=== PATIENT | male | born 1955 | race Caucasian/White ===

== ENCOUNTER 2017-02-18 22:35 | Inpatient (IN) | payer OTHER, MEDICARE ==
[~2017-02-18] VITALS: Ht 177.8 cm; Wt 121.8 kg
[~2017-02-18 22:35] MED LIST: ASPI81 PO; ATEN-102 PO; BACL20TA PO; BENA25TA8 PO; CLOR1TAB21 PO; FENO160T PO; LOVA1TAB47 PO; MELO15TA2 PO; OMEP20CA5 PO; PERC10TA27 PO; SERT50 PO
[2017-02-18 22:38] VITALS: BP 210/99; PULSE 61; RESP 16; TEMP 97.7; O2SAT 98
[2017-02-19] VITALS (13 sets, daily range): BP systolic 119–171; BP diastolic 67–96; PULSE 60–79; RESP 16–20; TEMP 98–99.3; O2SAT 95–98
[2017-02-19] MEDS ORDERED: LOSA50TA PO (00:10)
[2017-02-19] MEDS ORDERED: CLON1 PO (00:10)
[2017-02-19] MEDS ORDERED: BACL20TA PO (00:10)
[2017-02-19] MEDS ORDERED: LOVA40TA PO (00:10)
[2017-02-19] MEDS ORDERED: MELO15TA20 PO (00:10)
[2017-02-19] MEDS ORDERED: ATEN50TA PO (00:10)
[2017-02-19] MEDS ORDERED: MONT10TA2 PO (00:10)
[2017-02-19] MEDS ORDERED: OMEP40CA2 PO (00:10)
[2017-02-19] MEDS ORDERED: SERT-129 PO (00:10)
[2017-02-19] MEDS ORDERED: ASPI-516 CHEW (00:10)
[2017-02-19] MEDS ORDERED: FENO160T PO (00:10)
[2017-02-19] MEDS ORDERED: MS C15TA7 PO (00:10)
[2017-02-19] MEDS ORDERED: VITA2000 PO (00:10)
--- NOTE | 2017-02-19 00:18 | PD ---
HPI Chief Complaint: Abdominal Pain Time Seen by Provider: 00:04 Travel History International Travel<30 days: No Contact w/Intl Traveler<30days: No Traveled to known affect area: No History of Present Illness HPI 61-year-old male presents to the emergency department for complaint of upper abdominal pain since 6 PM. Patient states that he does not typically have abdominal pain. Pain does not radiate into his chest neck jaw back shoulder or arms. Patient's had nausea but no vomiting. Patient is concerned that he has appendicitis. Patient also reports that he is in the process of being scheduled to see a prestidigitator because on a routine 6 month physical exam he was identified to have an EKG that showed inverted T waves and was referred to a prestidigitator for this finding. Patient denies having any chest pain. Patient has not ever had a cardiac evaluation in the past. Patient has no chest pain at this time. No report of shortness of breath. Patient's had no diaphoresis. Patient has history of tension and dyslipidemia but is not diabetic and no known coronary vessel disease and is not a smoker of tobacco. Patient states she has had numerous orthopedic surgeries to the neck back and knees. Patient is unable to identify exacerbating or alleviating factors although did have a hamburger prior to onset of these symptoms and has spit up a few pieces of hamburger but mostly his had nausea without vomiting. Patient denies hematemesis coffee-ground emesis melena or hematochezia. PFSH Past Medical History Narrative Medical Hypertension dyslipidemia COPD chronic pain syndrome no tobacco use nursing notes reviewed Arthritis: Yes Anxiety: Yes Depression: Yes High Cholesterol: Yes Hypertension: Yes Seizures: Yes (PSEUDOSEIZURES) ?: Not Past Surgical History Other Surgery: Yes (CERVICAL FUSION C2-3 4-5 5-6) Social History Alcohol Use: No Tobacco Use: No Substance Use: No Allergies-Medications (Allergen,Severity, Reaction): Coded Allergies: No Known Allergies (Unverified Allergy, Unknown, 02/19/17) Reported Meds & Prescriptions Reported Meds & Active Scripts Active Reported Singulair (Montelukast Sodium) 10 Mg Tab 10 Mg PO HS Sertraline (Sertraline HCl) 100 Mg Tab 100 Mg PO DAILY Vitamin D3 (Cholecalciferol) 2,000 Unit Cap 2,000 Units PO DAILY Aspirin 81 Mg Chew 81 Mg CHEW ONCE Meloxicam 15 Mg Tab 15 Mg PO DAILY Omeprazole 40 Mg Cap 40 Mg PO DAILY Lovastatin 40 Mg Tab 40 Mg PO DAILY Fenofibrate 160 Mg Tab 160 Mg PO DAILY Atenolol 50 Mg Tab 50 Mg PO BID Losartan (Losartan Potassium) 50 Mg Tab 50 Mg PO DAILY Baclofen 20 Mg Tab 20 Mg PO TID Klonopin (Clonazepam) 1 Mg Tab 1 Mg PO BID Ms Contin (Morphine Sulfate) 15 Mg Tab 30 Mg PO Q8H Review of Systems Except as stated in HPI: all other systems reviewed are Neg General / Constitutional: No: Fever, Chills HENT: No: Congestion Cardiovascular: No: Chest Pain or Discomfort Respiratory: No: Shortness of Breath Gastrointestinal: Positive: Nausea, Abdominal Pain, No: Vomiting, Diarrhea Genitourinary: No: Flank Pain Musculoskeletal: No: Myalgias, Arthralgias Skin: No Rash Neurologic: No: Headache Psychiatric: No: Anxiety Hematologic/Lymphatic: No: Lymph Node Enlargement Physical Exam Narrative GENERAL: Well-developed well-nourished male in obvious discomfort holding his upper abdomen SKIN: Warm and dry. HEAD: Normocephalic. EYES: No scleral icterus. No injection or drainage. NECK: Supple, trachea midline. No JVD or lymphadenopathy. CARDIOVASCULAR: Regular rate and rhythm without murmurs, gallops, or rubs. RESPIRATORY: Breath sounds equal bilaterally. No accessory muscle use. GASTROINTESTINAL: Abdomen soft, epigastric and right upper quadrant tender to palpation without guarding or rebound, nondistended. MUSCULOSKELETAL: No cyanosis, or edema. BACK: Nontender without obvious deformity. No CVA tenderness. Data Data Last Documented VS Vital Signs Date Time Temp Pulse Resp B/P (MAP) Pulse Ox O2 Delivery O2 Flow Rate FiO2 02/19/17 03:44 62 16 167/81 (109) 98 Room Air 02/19/17 00:03 98.0 Orders Orders Complete Blood Count With Diff (02/19/17 00:18) Comprehensive Metabolic Panel (02/19/17 00:18) Lipase (02/19/17 00:18) Lactic Acid (02/19/17 00:18) Prothrombin Time / Inr (Pt) (02/19/17 00:18) Act Partial Throm Time (Ptt) (02/19/17 00:18) Urinalysis - C+S If Indicated (02/19/17 00:18) Iv Access Insert/Monitor (02/19/17 00:18) Ecg Monitoring (02/19/17 00:18) Oximetry (02/19/17 00:18) Ondansetron Inj (Zofran Inj) (02/19/17 00:30) Sodium Chloride 0.9% Flush (Ns Flush) (02/19/17 00:30) Electrocardiogram (02/19/17 00:18) Chest, Single Ap (02/19/17 00:18) Aspirin Chew (Aspirin Chew) (02/19/17 00:30) Nitroglycerin Sl (Nitrostat Sl) (02/19/17 00:30) Troponin I (02/19/17 01:28) Hydromorphone Pf Inj (Dilaudid Pf Inj) (02/19/17 01:45) Nitroglycerin 2% Oint (Nitroglycerin 2% (02/19/17 01:45) Sodium Chlor 0.9% 1000 Ml Inj (Ns 1000 M (02/19/17 01:45) Ct Abd/Pel W Iv Contrast(Rout) (02/19/17 ) Iohexol 350 Inj (Omnipaque 350 Inj) (02/19/17 02:32) Troponin I (02/19/17 03:30) Ckmb (Isoenzyme) Profile (02/19/17 03:30) Hydromorphone Pf Inj (Dilaudid Pf Inj) (02/19/17 03:45) Us Abdomen Gallbladder (02/19/17 ) Admit Order (Ed Use Only) (02/19/17 ) Public Records Researcher / Telemetry [id number].[id number] (02/19/17 04:10) Activity Oob With Assistance (02/19/17 04:10) Notify Dr: Other (02/19/17 04:10) Labs Laboratory Tests Test 02/19/17 00:27 02/19/17 02:55 02/19/17 03:40 White Blood Count 10.8 TH/MM3 Red Blood Count 5.10 MIL/MM3 Hemoglobin 16.2 GM/DL Hematocrit 46.3 % Mean Corpuscular Volume 90.7 FL Mean Corpuscular Hemoglobin 31.7 PG Mean Corpuscular Hemoglobin Concent 35.0 % Red Cell Distribution Width 12.7 % Platelet Count 210 TH/MM3 Mean Platelet Volume 8.4 FL Neutrophils (%) (Auto) 92.3 % Lymphocytes (%) (Auto) 4.2 % Monocytes (%) (Auto) 3.2 % Eosinophils (%) (Auto) 0.2 % Basophils (%) (Auto) 0.1 % Neutrophils # (Auto) 10.0 TH/MM3 Lymphocytes # (Auto) 0.5 TH/MM3 Monocytes # (Auto) 0.3 TH/MM3 Eosinophils # (Auto) 0.0 TH/MM3 Basophils # (Auto) 0.0 TH/MM3 CBC Comment DIFF FINAL Differential Comment Prothrombin Time 10.7 SEC Prothromb Time International Ratio 1.1 RATIO Activated Partial Thromboplast Time 25.7 SEC Blood Urea Nitrogen 12 MG/DL Creatinine 1.02 MG/DL Random Glucose 137 MG/DL Total Protein 8.0 GM/DL Albumin 4.1 GM/DL Calcium Level 9.0 MG/DL Alkaline Phosphatase 92 U/L Aspartate Amino Transf (AST/SGOT) 24 U/L Alanine Aminotransferase (ALT/SGPT) 28 U/L Total Bilirubin 0.8 MG/DL Sodium Level 138 MEQ/L Potassium Level 3.6 MEQ/L Chloride Level 99 MEQ/L Carbon Dioxide Level 33.9 MEQ/L Anion Gap 5 MEQ/L Estimat Glomerular Filtration Rate 74 ML/MIN Lactic Acid Level 2.1 mmol/L Troponin I LESS THAN 0.02 NG/ML LESS THAN 0.02 NG/ML Lipase 95 U/L Urine Color YELLOW Urine Turbidity CLEAR Urine pH 6.5 Urine Specific [place] 1.031 Urine Protein NEG mg/dL Urine Glucose (UA) NEG mg/dL Urine Ketones NEG mg/dL Urine Occult Blood NEG Urine Nitrite NEG Urine Bilirubin NEG Urine Urobilinogen 2.0 MG/DL Urine Leukocyte Esterase NEG Urine RBC 2 /hpf Urine WBC 1 /hpf Microscopic Urinalysis Comment CULT NOT INDICATED Total Creatine Kinase 26 U/L [facility] Medical Decision Making Medical Screen Exam Complete: Yes Emergency Medical Condition: Yes Medical Record Reviewed: Yes Interpretation(s) EKG: Normal sinus rhythm rate 60 to inverted T waves noted anteriorly V1 to V4 Lactic acid is minimally elevated at 2.1 Troponin I is less than 0.02, not elevated CBC & BMP Diagram 02/19/17 00:27 Total Protein 8.0, Albumin 4.1, Calcium Level 9.0, Alkaline Phosphatase 92, Aspartate Amino Transf (AST/SGOT) 24, Alanine Aminotransferase (ALT/SGPT) 28, Total Bilirubin 0.8 Vital Signs Date Time Temp Pulse Resp B/P (MAP) Pulse Ox O2 Delivery O2 Flow Rate FiO2 02/19/17 02:53 66 16 171/68 (102) 98 Room Air 02/19/17 02:24 20 02/19/17 01:05 20 02/19/17 00:31 20 02/19/17 00:03 98.0 60 16 142/96 (111) 98 Room Air 02/18/17 22:38 97.7 61 16 210/99 (136) [address] abd/pel: CONCLUSION: 1. Steatosis of the liver. 2. Otherwise negative CT abdomen/pelvis with contrast. Gal Jensen MD on February 19, 2017 at 3:23 Board Certified Radiologist. This report was verified electronically. EKG #2: Normal sinus rhythm rate 60 again T wave inversion is noted in V1 through V4 essentially unchanged from initial EKG Differential Diagnosis Abdominal pain, gastritis, peptic ulcer disease, biliary colic, pancreatitis, atypical chest pain, ACS, WI, abdominal aortic aneurysm, dissection Narrative Course IV access obtained specimens collected and sent for resulting EKG performed which is sinus rhythm with inverted T waves V1 through V4 patient reports that he has had inverted T waves and that is why he is in the process of being referred to a prestidigitator. Patient denies any chest pain or shortness of breath. Patient continues to have a abdominal pain and epigastric pain with reproducible tenderness to the right upper quadrant. Patient administered pain medication Dilaudid 1 mg along with Zofran 4 mg in view of inverted T waves patient also given one-time dose of aspirin and sublingual nitroglycerin without pain relief. Suspect the patient has biliary colic CT abdomen and pelvis pending. Troponin I less than 0.02, not elevated Lab values are grossly within normal range except for CBC is automated differential 92% neutrophils and lactic acid of 2.1 CT abdomen and pelvis reading per radiologist hepatic steatosis otherwise no acute process however is identified and the gallbladder is distended in view of patient's ongoing pain patient administered a repeat dose of pain medication and plan will be to admit patient for ultrasound imaging may require MRCP and also will need serial troponins and EKG does show inverted T waves anteriorly V1 to V4 no ST elevation ST segment depression patient states again that he is being sent to cardiology because is noted by the primary care provider's office that he has had inverted T waves. Patient is aware plan for admission for pain management and further imaging of the gallbladder no ductal dilatation is noted ultrasound is ordered no stones identified for acalculus cholecystitis possible choledocholithiasis v. biliary colic. Physician Communication Physician Communication discussed with [facility] Diagnosis Primary Impression: Abdominal pain Qualified Codes: R10.11 - Right upper quadrant pain Additional Impression: Intractable abdominal pain Admitting Information Admitting Physician Requests: Observation Meme French MD Feb 19, 2017 00:18
[2017-02-19] MEDS ORDERED: ONDANSETRON HCL 4 MG/2 ML VIAL IVP ONE (00:30)
[2017-02-19] MEDS ORDERED: ASPIRIN 81 MG CHEW TAB CHEW ONE ×2 (00:30→05:00)
[2017-02-19] MEDS ORDERED: SODIUM CHLORIDE 0.9% FLUSH 10 ML FLUSH IV FLUSH PRN ×2 (00:30→04:45)
[2017-02-19 00:39] LABS: BASOPHIL % 0.1 % (0.0-2.0); EOSINOPHIL % 0.2 % (0.0-4.0); HEMATOCRIT 46.3 % (39.0-51.0); HEMO FLAGS DIFF FINAL; LYMPH % 4.2 % (9.0-44.0); LYMPHOCYTE # 0.5 TH/MM3 (1.0-4.8); MEAN CELL VOLUME 90.7 FL (80.0-100.0); MEAN CORPUSCULAR HEMOGLOBIN 31.7 PG (27.0-34.0); MONO % 3.2 % (0.0-8.0); NEUT % 92.3 % (16.0-70.0); PLATELET COUNT 210 TH/MM3 (150-450); RED CELL DISTRIBUTION WIDTH 12.7 % (11.6-17.2); WHITE BLOOD COUNT 10.8 TH/MM3 (4.0-11.0)
[2017-02-19] MEDS: NITROGLYCERIN 0.4 MG SL 25 TABS/BTL SL PRN ×2 (00:39→00:58)
[2017-02-19 00:55] LABS: ALT (GPT) 28 U/L (12-78); ANION GAP 5 MEQ/L (5-15); APTT (PATIENT) 25.7 SEC (24.3-30.1); AST (GOT) 24 U/L (15-37); BICARBONATE 33.9 MEQ/L (21.0-32.0); BLOOD UREA NITROGEN 12 MG/DL (7-18); CHLORIDE 99 MEQ/L (98-107); GLOMERULAR FILTRATION RATE 74 ML/MIN (>89); INTERNATIONAL NORMALIZED RATIO 1.1 RATIO; POTASSIUM 3.6 MEQ/L (3.5-5.1); PROTHROMBIN TIME - PATIENT 10.7 SEC (9.8-11.6); SODIUM (NA) 138 MEQ/L (136-145)
--- NOTE | 2017-02-19 00:57 | RADRPT ---
EXAM DATE/TIME: 02/19/2017 00:44 [facility] COMPARISON: No previous studies available for comparison. INDICATIONS : Right sided chest pain MEDICAL HISTORY : None. SURGICAL HISTORY : Fusion, cervical. ENCOUNTER: Initial ACUITY: 1 day PAIN SCORE: 8/10 LOCATION: Bilateral chest FINDINGS: A single view of the chest demonstrates the lungs to be symmetrically aerated without evidence of mas s, infiltrate or effusion. The cardiomediastinal contours are unremarkable. Osseous structures are intact. CONCLUSION: The lungs are clear. No evidence of pneumothorax. Gal Jensen MD on February 19, 2017 at 0:55 Board Certified Radiologist. This report was verified electronically.
[2017-02-19 00:58] LABS: ALKALINE PHOSPHATASE 92 U/L (45-117); TOTAL BILIRUBIN ADULT 0.8 MG/DL (0.2-1.0)
[2017-02-19] MEDS ORDERED: NITROGLYCERIN 2% OINT 1 GM PACKET TOPICAL ONE (01:45)
[2017-02-19] MEDS ORDERED: HYDROmorphone HCL PF 1 MG/ML VIAL IV PUSH ONE ×2 (01:45→03:45)
[2017-02-19] MEDS: SODIUM CHLOR 0.9% 1000 ML INJ 1,000 ML IV SCH ×2 (01:47→08:19)
[2017-02-19] MEDS ORDERED: IOHEXOL 350 MG/ML 10 ML VIAL (for RAD DIAG) IVCONTRAST ONE (02:32)
[2017-02-19 03:21] LABS: BLOOD, URINE NEG (NEG); COMMENT (UR) CULT NOT INDICATED; CULTURE IF INDICATED CULT NOT INDICATED; GLUCOSE,URINE NEG (NEG); KETONE, URINE NEG (NEG); NITRITE,URINE NEG (NEG); PH, URINE 6.5 (5.0-8.5); URINE COLOR YELLOW (YELLW/STRAW)
--- NOTE | 2017-02-19 03:27 | RADRPT ---
EXAM DATE/TIME: 02/19/2017 02:31 [facility] COMPARISON: No previous studies available for comparison. INDICATIONS : Abdominal pain. IV CONTRAST: 96 cc Omnipaque 350 (iohexol) IV ORAL CONTRAST: No oral contrast ingested. RADIATION DOSE: 26.51 CTDIvol (mGy) ; Patient body habitus MEDICAL HISTORY : Seizures. Hypertension. SURGICAL HISTORY : Cervical fusion ENCOUNTER: Initial ACUITY: 1 day PAIN SCALE: 7/10 LOCATION: abdomen TECHNIQUE: Volumetric scanning of the abdomen and pelvis was performed. Using automated exposure control and ad justment of the mA and/or kV according to patient size, radiation dose was kept as low as reasonably achievable to obtain optimal diagnostic quality images. DICOM format image data is available electro nically for review and comparison. FINDINGS: LOWER LUNGS: The visualized lower lungs are clear. LIVER: Diffuse steatosis of the liver. The gallbladder is distended, but no calcified gallstones. No bilia ry ductal dilatation. SPLEEN: Normal size without lesion. PANCREAS: Within normal limits. KIDNEYS: Normal in size and shape. There is no mass, stone or hydronephrosis. 2 cm right renal cortical cyst . ADRENAL GLANDS: Within normal limits. VASCULAR: There is no aortic aneurysm. BOWEL/MESENTERY: No dilated loops of small or large bowel. The appendix is identified in the right lower quadrant has a normal appearance. ABDOMINAL WALL: Within normal limits. RETROPERITONEUM: There is no lymphadenopathy. BLADDER: No wall thickening or mass. REPRODUCTIVE: Within normal limits. INGUINAL: There is no lymphadenopathy or hernia. MUSCULOSKELETAL: Within normal limits for patient age. CONCLUSION: 1. Steatosis of the liver. 2. Otherwise negative CT abdomen/pelvis with contrast. Gal Jensen MD on February 19, 2017 at 3:23 Board Certified Radiologist. This report was verified electronically.
[2017-02-19 04:22] LABS: CREATINE KINASE 26 U/L (39-308)
[2017-02-19] MEDS ORDERED: ONDANSETRON HCL 4 MG/2 ML VIAL IVP PRN (04:45)
[2017-02-19] MEDS ORDERED: ACETAMINOPHEN 325 MG TAB PO PRN (04:45)
[2017-02-19] MEDS ORDERED: SENNOSIDES 8.6 MG TAB PO PRN (04:45)
[2017-02-19] MEDS ORDERED: NALOXONE HCL 0.4 MG/ML AMP IV PUSH PRN (04:45)
[2017-02-19] MEDS ORDERED: MAGNESIUM HYDROXIDE SUSP 30 ML CUP PO PRN (04:45)
[2017-02-19] MEDS ORDERED: LACTULOSE SYRUP 20 GM/30 ML CUP PO PRN (04:45)
[2017-02-19] MEDS ORDERED: BISACODYL 10 MG SUPP RECTAL PRN (04:45)
--- NOTE | 2017-02-19 04:56 | HHI.HP ---
[facility] Service [facility] Primary Care Physician Marshal Carter MD Admission Diagnosis intractable abominal pain Diagnoses: Travel History International Travel<30 Days: No Contact w/Intl Traveler <30 Da: No Traveled to Known Affected Are: No History of Present Illness 61-year-old male with a past medical history significant for hypertension, hyperlipidemia, chronic pain and anxiety presents to the emergency department with severe, sudden onset abdominal pain that began at 7:30 yesterday evening. The patient denies any emesis but has associated nausea. He describes the pain as just underneath his ribs, bilateral, severe and nonradiating. He has a history of inverted T waves on EKG for which she has appointment with cardiology next week. He denies any chest pain, diaphoresis or shortness of breath. Despite 2 doses of IV Dilaudid, the patient's abdominal pain remains intractable. Review of Systems Denies fever or chills Denies blurry vision, otorrhea, rhinorrhea Denies sore throat and cough No chest pain, palpitations, shortness of breath Positive abdominal pain Denies constipation/diarrhea/nausea/vomiting Denies muscle pain/weakness No rashes Past Family Social History Past Medical History Hypertension Hyperlipidemia Chronic pain Anxiety Past Surgical History Cervical fusion Right knee reconstruction Bilateral knee arthroplasties Right foot repair Reported Medications Reported Meds & Active Scripts Active Reported Singulair (Montelukast Sodium) 10 Mg Tab 10 Mg PO HS Sertraline (Sertraline HCl) 100 Mg Tab 100 Mg PO DAILY Vitamin D3 (Cholecalciferol) 2,000 Unit Cap 2,000 Units PO DAILY Aspirin 81 Mg Chew 81 Mg CHEW ONCE Meloxicam 15 Mg Tab 15 Mg PO DAILY Omeprazole 40 Mg Cap 40 Mg PO DAILY Lovastatin 40 Mg Tab 40 Mg PO DAILY Fenofibrate 160 Mg Tab 160 Mg PO DAILY Atenolol 50 Mg Tab 50 Mg PO BID Losartan (Losartan Potassium) 50 Mg Tab 50 Mg PO DAILY Baclofen 20 Mg Tab 20 Mg PO TID Klonopin (Clonazepam) 1 Mg Tab 1 Mg PO BID Ms Contin (Morphine Sulfate) 15 Mg Tab 30 Mg PO Q8H Allergies: Coded Allergies: No Known Allergies (Unverified Allergy, Unknown, 02/19/17) Family History Dad with diabetes mellitus. Mom with CVA. Social History Rare alcohol use. Never smoker. Denies illicit drugs. Physical Exam Vital Signs Vital Signs Date Time Temp Pulse Resp B/P (MAP) Pulse Ox O2 Delivery O2 Flow Rate FiO2 02/19/17 03:44 62 16 167/81 (109) 98 Room Air 02/19/17 02:53 66 16 171/68 (102) 98 Room Air 02/19/17 02:24 20 02/19/17 01:05 20 02/19/17 00:31 20 02/19/17 00:03 98.0 60 16 142/96 (111) 98 Room Air 02/18/17 22:38 97.7 61 16 210/99 (136) 98 Room Air Physical Exam GENERAL: Obese, male sitting up in bed SKIN: No rashes, ecchymoses or lesions. Cool and dry. HEAD: Atraumatic. Normocephalic. No temporal or scalp tenderness. EYES: Pupils equal round and reactive. Extraocular motions intact. No scleral icterus. No injection or drainage. ENT: Nose without bleeding, purulent drainage or septal hematoma. Throat without erythema, tonsillar hypertrophy or exudate. Uvula midline. Airway patent. NECK: Trachea midline. No JVD or lymphadenopathy. Supple, nontender, no meningeal signs. CARDIOVASCULAR: Regular rate and rhythm without murmurs, gallops, or rubs. RESPIRATORY: Clear to auscultation. Breath sounds equal bilaterally. No wheezes , rales, or rhonchi. GASTROINTESTINAL: Abdomen soft, non-tender despite deep palpation, nondistended. No hepato-splenomegaly, or palpable masses. No guarding. MUSCULOSKELETAL: Extremities without clubbing, cyanosis, or edema. No joint tenderness, effusion, or edema noted. No calf tenderness. NEUROLOGICAL: Awake and alert. Cranial nerves II through XII intact. Motor and sensory grossly within normal limits. Normal speech. Laboratory Laboratory Tests Test 02/19/17 00:27 02/19/17 02:55 02/19/17 03:40 White Blood Count 10.8 Red Blood Count 5.10 Hemoglobin 16.2 Hematocrit 46.3 Mean Corpuscular Volume 90.7 Mean Corpuscular Hemoglobin 31.7 Mean Corpuscular Hemoglobin Concent 35.0 Red Cell Distribution Width 12.7 Platelet Count 210 Mean Platelet Volume 8.4 Neutrophils (%) (Auto) 92.3 Lymphocytes (%) (Auto) 4.2 Monocytes (%) (Auto) 3.2 Eosinophils (%) (Auto) 0.2 Basophils (%) (Auto) 0.1 Neutrophils # (Auto) 10.0 Lymphocytes # (Auto) 0.5 Monocytes # (Auto) 0.3 Eosinophils # (Auto) 0.0 Basophils # (Auto) 0.0 CBC Comment DIFF FINAL Differential Comment Prothrombin Time 10.7 Prothromb Time International Ratio 1.1 Activated Partial Thromboplast Time 25.7 Blood Urea Nitrogen 12 Creatinine 1.02 Random Glucose 137 Total Protein 8.0 Albumin 4.1 Calcium Level 9.0 Alkaline Phosphatase 92 Aspartate Amino Transf (AST/SGOT) 24 Alanine Aminotransferase (ALT/SGPT) 28 Total Bilirubin 0.8 Sodium Level 138 Potassium Level 3.6 Chloride Level 99 Carbon Dioxide Level 33.9 Anion Gap 5 Estimat Glomerular Filtration Rate 74 Lactic Acid Level 2.1 Troponin I LESS THAN 0.02 LESS THAN 0.02 Lipase 95 Urine Color YELLOW Urine Turbidity CLEAR Urine pH 6.5 Urine Specific [place] 1.031 Urine Protein NEG Urine Glucose (UA) NEG Urine Ketones NEG Urine Occult Blood NEG Urine Nitrite NEG Urine Bilirubin NEG Urine Urobilinogen 2.0 Urine Leukocyte Esterase NEG Urine RBC 2 Urine WBC 1 Microscopic Urinalysis Comment CULT NOT INDICATED Total Creatine Kinase 26 Result Diagram: 02/19/172602/19/1726 Caprini VTE Risk Assessment Caprini VTE Risk Assessment: Mod/High Risk (score >= 2) Caprini Risk Assessment Model Point Value = 1 Point Value = 2 Point Value = 3 Point Value = 5 Age 41-60 Minor surgery BMI > 25 kg/m2 Swollen legs Varicose veins or History of unexplained or recurrent spontaneous Oral contraceptives or hormone replacement Sepsis (< 1 month) Serious lung disease, including pneumonia (< 1 month) Abnormal pulmonary function Acute myocardial infarction Congestive heart failure (< 1 month) History of inflammatory bowel disease Medical patient at bed rest Age 61-74 Arthroscopic surgery Major open surgery (> 45 min) Laparoscopic surgery (> 45 min) Malignancy Confined to bed (> 72 hours) Immobilizing plaster cast Central venous access Age >= 75 History of VTE Family history of VTE Factor V Leiden Prothrombin [id number] Lupus anticoagulant Anticardiolipin antibodies Elevated serum homocysteine Heparin-induced thrombocytopenia Other congenital or acquired thrombophilia Stroke (< 1 month) Elective arthroplasty Hip, pelvis, or leg fracture Acute spinal cord injury (< 1 month) Prophylaxis Regimen Total Risk Factor Score Risk Level Prophylaxis Regimen 0-1 Low Early ambulation 2 Moderate Order ONE of the following: *Sequential Compression Device (SCD) *Heparin 5000 units SQ BID 3-4 Higher Order ONE of the following medications: *Heparin 5000 units SQ TID *Enoxaparin/Lovenox 40 mg SQ daily (WT < 150 kg, CrCl > 30 mL/min) *Enoxaparin/Lovenox 30 mg SQ daily (WT < 150 kg, CrCl > 10-29 mL/min) *Enoxaparin/Lovenox 30 mg SQ BID (WT < 150 kg, CrCl > 30 mL/min) AND/OR *Sequential Compression Device (SCD) 5 or more Highest Order ONE of the following medications: *Heparin 5000 units SQ TID (Preferred with Epidurals) *Enoxaparin/Lovenox 40 mg SQ daily (WT < 150 kg, CrCl > 30 mL/min) *Enoxaparin/Lovenox 30 mg SQ daily (WT < 150 kg, CrCl > 10-29 mL/min) *Enoxaparin/Lovenox 30 mg SQ BID (WT < 150 kg, CrCl > 30 mL/min) AND *Sequential Compression Device (SCD) Assessment and Plan Assessment and Plan Assessment/plan: 1. Intractable abdominal pain Lab values unremarkable CT of the abdomen/pelvis shows distended gallbladder without stones or biliary ductal dilation US of the gallbladder pending Dilaudid for pain PO challenge If gallbladder ultrasound within normal limits, anticipate discharge later today 2. Inverted T waves on EKG Patient with inverted T waves in aVR, V1-V4 Per patient report, his primary is aware of this and has referred him to cardiology Initial troponin 2 negative Complete ACS rule out Patient will need to follow-up with outpatient cardiology 3. Chronic pain Continue home Oramorph, Mobic, baclofen 4. Hypertension/hyperlipidemia Continue home medications FEN Heart healthy diet Electrolytes: monitor and replete prn Heparin Case discussed with ER physician at length Alejandra Chawla MD Feb 19, 2017 04:56
[2017-02-19] MEDS: HEPARIN SODIUM - SQ 10,000 UNITS/ML VIAL SQ SCH ×3 (05:57→20:27)
[2017-02-19] MEDS: MORPHINE SULFATE 15 MG CONTROLLED RELEASE TAB PO SCH ×3 (05:59→20:27)
--- NOTE | 2017-02-19 06:28 | RADRPT ---
EXAM DATE/TIME: 02/19/2017 05:17 [facility] COMPARISON: No previous studies available for comparison. INDICATIONS : Abdominal pain. MEDICAL HISTORY : Hypertension. Hypercholesterolemia. Chronic obstructive pulmonary disease. Pseudoseizures. Arthritis. Depression. Anxiety. SURGICAL HISTORY : Fusion, cervical. Bilateral knee surgery. ENCOUNTER: Initial ACUITY: 1 day PAIN SCORE: 8/10 LOCATION: Right upper quadrant MEASUREMENTS: LIVER: Unable to determine. COMMON DUCT: Non-visualized RIGHT KIDNEY: 14.2 x 5.8 x 6.8 cm FINDINGS: The gallbladder is distended with anechoic lumen. No shadowing stones seen. The echotexture of the liver is homogeneous, but there is significant acoustic attenuation which limits characterization. T he attenuation precludes identification of common duct or intrahepatic ducts. The pancreas is not we ll seen and cannot be assessed sonographically. The right kidney has a normal configuration. CONCLUSION: Limited examination demonstrates significant acoustic attenuation throughout the hepatic parenchyma; the intrahepatic and extrahepatic earlier he system cannot be assessed. The pancreas is poorly visua lized and cannot be assessed sonographically. No evidence of free fluid. Gal Jensen MD on February 19, 2017 at 6:23 Board Certified Radiologist. This report was verified electronically.
[2017-02-19] MEDS: DOCUSATE SODIUM 50 MG/SENNA 8.6 MG TAB PO SCH ×2 (08:15→20:27)
[2017-02-19] MEDS: SERTRALINE HCL 100 MG TAB PO SCH (08:16)
[2017-02-19] MEDS: ATENOLOL 50 MG TAB PO SCH ×2 (08:16→20:27)
[2017-02-19] MEDS: BACLOFEN 20 MG TAB PO SCH ×3 (08:16→17:18)
[2017-02-19] MEDS: PRAVASTATIN SOD 40 MG TAB PO SCH (08:17)
[2017-02-19] MEDS: LOSARTAN 50 MG TAB PO SCH (08:17)
[2017-02-19] MEDS: FENOFIBRATE 145 MG TAB PO SCH (08:17)
[2017-02-19] MEDS: clonazePAM 1 MG TAB PO SCH ×2 (08:18→20:27)
[2017-02-19] MEDS: HYDROmorphone HCL PF 1 MG/ML VIAL IV PUSH PRN ×4 (08:18→21:31)
[2017-02-19] MEDS: SODIUM CHLORIDE 0.9% FLUSH 10 ML FLUSH IV FLUSH SCH ×2 (08:19→20:26)
[2017-02-19] MEDS ORDERED: PANTOPRAZOLE SOD 40 MG DELAYED RELEASE TAB PO SCH (09:00)
[2017-02-19] MEDS ORDERED: MELOXICAM 15 MG TAB PO SCH (09:00)
[2017-02-19 09:38] LABS: CREATINE KINASE 27 U/L (39-308)
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
[2017-02-19] MEDS ORDERED: ALUMINUM/MAGNESIUM/SIMETH 30 ML CUP PO ONE (15:30)
[2017-02-19] MEDS: SUCRALFATE 1 GM/10 ML CUP PO SCH ×2 (17:18→21:26)
--- NOTE | 2017-02-19 17:45 | EKG ---
Date Performed: 02/19/2017 Time Performed: 06:59:40 PTAGE: 61 years EKG: Sinus rhythm ST DEVIATION AND MODERATE T-WAVE ABNORMALITY, CONSIDER ANTERIOR ISCHEMIA Compared to prior tracing n o significant change ABNORMAL ECG PREVIOUS TRACING : 02/19/2017 03.41 DOCTOR: Yaw Oshea Interpretating Date/Time 02/19/2017 17:44:50
--- NOTE | 2017-02-19 17:45 | EKG ---
Date Performed: 02/19/2017 Time Performed: 03:41:10 PTAGE: 61 years EKG: Sinus rhythm MODERATE T-WAVE ABNORMALITY, CONSIDER ANTERIOR ISCHEMIA Compared to prior tracing no significant nessa nge ABNORMAL ECG PREVIOUS TRACING : 02/19/2017 00.13 DOCTOR: Yaw Oshea Interpretating Date/Time 02/19/2017 17:44:33
--- NOTE | 2017-02-19 17:45 | EKG ---
Date Performed: 02/19/2017 Time Performed: 00:13:19 PTAGE: 61 years EKG: Sinus rhythm MODERATE T-WAVE ABNORMALITY, CONSIDER ANTERIOR ISCHEMIA ABNORMAL ECG NO PREVIOUS TRACING DOCTOR: Yaw Oshea Interpretating Date/Time 02/19/2017 17:44:03
[2017-02-19] MEDS: PANTOPRAZOLE SOD 40 MG DELAYED RELEASE TAB PO SCH (20:28)
[2017-02-20] VITALS (9 sets, daily range): BP systolic 131–159; BP diastolic 75–92; PULSE 73–88; RESP 18–21; TEMP 98.5–101.1; O2SAT 94–97
[2017-02-20] MEDS: HYDROmorphone HCL PF 1 MG/ML VIAL IV PUSH PRN ×3 (02:00→17:27)
[2017-02-20] MEDS: MORPHINE SULFATE 15 MG CONTROLLED RELEASE TAB PO SCH ×3 (04:28→20:58)
[2017-02-20] MEDS: HEPARIN SODIUM - SQ 10,000 UNITS/ML VIAL SQ SCH ×3 (04:29→20:57)
[2017-02-20] MEDS: FENOFIBRATE 145 MG TAB PO SCH (07:54)
[2017-02-20] MEDS: SUCRALFATE 1 GM/10 ML CUP PO SCH ×4 (07:54→20:57)
[2017-02-20] MEDS: PRAVASTATIN SOD 40 MG TAB PO SCH (07:55)
[2017-02-20] MEDS: BACLOFEN 20 MG TAB PO SCH ×3 (07:55→17:26)
[2017-02-20] MEDS: DOCUSATE SODIUM 50 MG/SENNA 8.6 MG TAB PO SCH ×2 (07:55→20:58)
[2017-02-20] MEDS: SERTRALINE HCL 100 MG TAB PO SCH (07:56)
[2017-02-20] MEDS: PANTOPRAZOLE SOD 40 MG DELAYED RELEASE TAB PO SCH ×2 (07:56→20:57)
[2017-02-20] MEDS: LOSARTAN 50 MG TAB PO SCH (07:56)
[2017-02-20] MEDS: SODIUM CHLORIDE 0.9% FLUSH 10 ML FLUSH IV FLUSH SCH ×2 (07:56→20:56)
[2017-02-20] MEDS: ATENOLOL 50 MG TAB PO SCH ×2 (07:56→20:58)
[2017-02-20] MEDS: clonazePAM 1 MG TAB PO SCH ×2 (07:56→20:58)
[2017-02-20 08:15] LABS: AUTOMATED NEUTROPHIL # 6.2 TH/MM3 (1.8-7.7); BASOPHIL % 0.4 % (0.0-2.0); EOSINOPHIL # 0.3 TH/MM3 (0-0.4); EOSINOPHIL % 3.3 % (0.0-4.0); HEMO FLAGS DIFF FINAL; LYMPH % 13.1 % (9.0-44.0); LYMPHOCYTE # 1.1 TH/MM3 (1.0-4.8); MEAN CELL VOLUME 90.8 FL (80.0-100.0); MEAN CORPUSCULAR HEMOGLOBIN 31.1 PG (27.0-34.0); MEAN CORPUSCULAR HGB CONC 34.2 % (32.0-36.0); MONO % 8.7 % (0.0-8.0); NEUT % 74.5 % (16.0-70.0); PLATELET COUNT 133 TH/MM3 (150-450); RED BLOOD COUNT 3.96 MIL/MM3 (4.50-5.90); RED CELL DISTRIBUTION WIDTH 12.7 % (11.6-17.2); WHITE BLOOD COUNT 8.3 TH/MM3 (4.0-11.0)
[2017-02-20 08:41] LABS: BICARBONATE 27.2 MEQ/L (21.0-32.0); POTASSIUM 3.7 MEQ/L (3.5-5.1)
--- NOTE | 2017-02-20 14:38 | HHI.PR ---
Subjective Remarks Patient on the phone trying to order food from outside Still having abdominal pain mostly in the right Today he developed fever 101 and he does feel feverish, positive nausea and vomiting yesterday, no vomiting today Objective Vitals Vital Signs Date Time Temp Pulse Resp B/P (MAP) Pulse Ox O2 Delivery O2 Flow Rate FiO2 02/20/17 13:18 20 02/20/17 13:18 20 02/20/17 11:39 101.1 81 21 131/75 (93) 94 02/20/17 08:40 86 02/20/17 08:31 20 02/20/17 07:44 99.4 80 18 154/88 (110) 96 02/20/17 04:14 98.5 73 18 136/86 (103) 95 02/20/17 00:40 78 18 132/92 (105) 97 02/19/17 22:45 62 02/19/17 22:44 77 02/19/17 19:08 75 18 126/67 (86) 95 02/19/17 15:45 98.0 73 19 119/71 (87) 96 02/19/17 15:16 79 I/O 02/19/17 02/19/17 02/19/17 02/20/17 02/20/17 02/20/17 07:00 15:00 23:00 07:00 15:00 23:00 Intake Total 800 ml Balance 800 ml Intake IV Total 800 ml # Voids 1 Result Diagram: 02/20/17 0702/20/17 0703 Objective Remarks GENERAL: This is a well-nourished, well-developed patient, in no apparent distress. SKIN: No rashes, warm and dry HEAD: Atraumatic. Normocephalic. EYES: Pupils equal round and reactive. Extraocular motions intact. No scleral icterus. ENT: Nose without bleeding, or drainage, Airway patent. NECK: Trachea midline. Supple CARDIOVASCULAR: Regular rate and rhythm without murmurs, gallops, or rubs. RESPIRATORY: Fair air entry bilaterally. No wheezes, rales, or rhonchi. GASTROINTESTINAL: Abdomen soft, positive tenderness especially on the right upper mid and lower quadrant nondistended. Positive bowel sounds MUSCULOSKELETAL: Extremities without clubbing, cyanosis, or edema. Pedal pulses appreciated NEUROLOGICAL: Awake and alert. Moves all extremity. Normal speech.no focal neurological deficit A/P Assessment and Plan - Intractable abdominal pain with nausea and vomiting, now with fever - Febrile illness - Lactic acidosis I will order CT of the abdomen need to rule out appendicitis versus cholecystitis versus diverticulitis, start on Zosyn Consult GI Lab values unremarkable CT of the abdomen/pelvis shows distended gallbladder without stones or biliary ductal dilation US of the gallbladder non-conclusive Dilaudid for pain -Anemia mostly chronic, revealed with to dilution effect -Thrombocytopenia mostly chronic Check iron panel FOBT Consult GI for an scope On PPI and sucralfate - Nonspecific T waves on EKG Patient with inverted T waves in aVR, V1-V4 Per patient report, his primary is aware of this and has referred him to cardiology Cardiac enzymes 3 sets are negative Patient will need to follow-up with outpatient cardiology - Chronic pain Continue home Oramorph, Mobic, baclofen 4. Hypertension/hyperlipidemia Continue home medications FEN Heart healthy diet Electrolytes: monitor and replete prn Heparin Jesica Ahumada MD Feb 20, 2017 14:37
[2017-02-20] MEDS: PIPERACIL-TAZO 4.5 GM PREMIX 100 ML IV SCH ×2 (15:00→20:55)
[2017-02-20 15:02] LABS: TRANSFERRIN 243 MG/DL (200-360); TRANSFERRIN IRON PROFILE 243 MG/DL (200-360)
[2017-02-20 15:05] LABS: FERRITIN 259 NG/ML (26-388)
--- NOTE | 2017-02-20 16:41 | PD.CONS ---
HPI History of Present Illness This is a 61 year old with HTN, HLD, chronic pain, hx seizures who presented to ER with abdominal pain that started 2 days ago. The pain is in the upper quadrants, no exacerbating or relieving factors. Admits nausea. No vomiting, diarrhea, constipation, blood in stool, black tarry stool. Never had this pain before. he had EGD done in [place] "some time ago" and cannot recall findings. He had colonoscopy 11 years ago in [place], He cannot tell me further details. He has had several EGDs he thinks 10-11 y ago adn at the time was having seizures preceded by abd pain. per EMR he takes meloxicam but he says he does not take this often. Denies frequent use NSAIDs. no blood thinners. he is complaining of neck pain and photosensitivity. Denies acid reflux. Limited historian. (Krystina Celaya) PFSH Past Medical History Hypertension Hyperlipidemia Chronic pain Anxiety seizures Past Surgical History Cervical fusion Right knee reconstruction Bilateral knee arthroplasties Right foot repair (Krystina Celaya) Coded Allergies: No Known Allergies (Unverified Allergy, Unknown, 02/19/17) Family History Dad with diabetes mellitus. Mom with CVA. Social History Rare alcohol use. Never smoker. Denies illicit drugs. (Krystina Celaya) Review of Systems Constitutional: COMPLAINS OF: Fever Eyes: COMPLAINS OF: Photosensitivity, DENIES: Blurred vision Ears, nose, mouth, throat: DENIES: Hearing loss Respiratory: DENIES: Hemoptysis Cardiovascular: DENIES: Chest pain Gastrointestinal: COMPLAINS OF: Abdominal pain, Nausea, DENIES: Black stools, Bloody stools, Constipation, Diarrhea, Vomiting, Hematemesis Genitourinary: DENIES: Hematuria Musculoskeletal: COMPLAINS OF: Joint pain, Back pain, Neck pain, DENIES: Joint Swelling Integumentary: DENIES: Jaundice Hematologic/lymphatic: DENIES: Bruising Neurologic: DENIES: Headache Psychiatric: DENIES: Confusion (Krystina Celaya) GI Exam Vitals I&O Vital Signs Date Time Temp Pulse Resp B/P (MAP) Pulse Ox O2 Delivery O2 Flow Rate FiO2 02/20/17 15:48 98.9 79 18 159/88 (111) 96 02/20/17 13:18 20 02/20/17 13:18 20 02/20/17 11:39 101.1 81 21 131/75 (93) 94 02/20/17 08:40 86 02/20/17 08:31 20 02/20/17 07:44 99.4 80 18 154/88 (110) 96 02/20/17 04:14 98.5 73 18 136/86 (103) 95 02/20/17 00:40 78 18 132/92 (105) 97 02/19/17 22:45 62 02/19/17 22:44 77 02/19/17 19:08 75 18 126/67 (86) 95 I/O 02/19/17 02/19/17 02/19/17 02/20/17 02/20/17 02/20/17 07:00 15:00 23:00 07:00 15:00 23:00 Intake Total 800 ml Balance 800 ml Intake IV Total 800 ml # Voids 1 Imaging Last Impressions Chest X-Ray 02/19/17 0018 Signed Impressions: Service Date/Time: Sunday, February 19, 2017 00:44 - CONCLUSION: The lungs are clear. No evidence of pneumothorax. Gal Jensen MD Gall Bladder Ultrasound 02/19/17 0000 Signed Impressions: Service Date/Time: Sunday, February 19, 2017 05:17 - CONCLUSION: Limited examination demonstrates significant acoustic attenuation throughout the hepatic parenchyma; the intrahepatic and extrahepatic earlier he system cannot be assessed. The pancreas is poorly visualized and cannot be assessed sonographically. No evidence of free fluid. Gal Jensen MD Abdomen/Pelvis CT 02/19/17 0000 Signed Impressions: Service Date/Time: Sunday, February 19, 2017 02:31 - CONCLUSION: 1. Steatosis of the liver. 2. Otherwise negative CT abdomen/pelvis with contrast. Gal Jensen MD Laboratory Test 02/20/17 07:03 White Blood Count 8.3 TH/MM3 Red Blood Count 3.96 MIL/MM3 Hemoglobin 12.3 GM/DL Hematocrit 36.0 % Mean Corpuscular Volume 90.8 FL Mean Corpuscular Hemoglobin 31.1 PG Mean Corpuscular Hemoglobin Concent 34.2 % Red Cell Distribution Width 12.7 % Platelet Count 133 TH/MM3 Mean Platelet Volume 8.6 FL Neutrophils (%) (Auto) 74.5 % Lymphocytes (%) (Auto) 13.1 % Monocytes (%) (Auto) 8.7 % Eosinophils (%) (Auto) 3.3 % Basophils (%) (Auto) 0.4 % Neutrophils # (Auto) 6.2 TH/MM3 Lymphocytes # (Auto) 1.1 TH/MM3 Monocytes # (Auto) 0.7 TH/MM3 Eosinophils # (Auto) 0.3 TH/MM3 Basophils # (Auto) 0.0 TH/MM3 CBC Comment DIFF FINAL Differential Comment Blood Urea Nitrogen 11 MG/DL Creatinine 0.88 MG/DL Random Glucose 109 MG/DL Calcium Level 8.3 MG/DL Sodium Level 135 MEQ/L Potassium Level 3.7 MEQ/L Chloride Level 101 MEQ/L Carbon Dioxide Level 27.2 MEQ/L Anion Gap 7 MEQ/L Estimat Glomerular Filtration Rate 88 ML/MIN Iron Level 28 MCG/DL Total Iron Binding Capacity 340 MCG/DL Percent Iron Saturation 8.2 % Transferrin 243 MG/DL Ferritin 259 NG/ML Physical Examination HEENT: PERRL; normocephalic; atraumatic; no jaundice. CHEST: CTA CARDIAC: RRR ABDOMEN: Soft, obese, mild upper quadrant TTP; no hepatosplenomegaly; bowel sounds are present in all four quadrants. EXTREMITIES: No clubbing, cyanosis, or edema. SKIN: Normal; no rash; no jaundice. PRECISION JIG GRINDER: No focal deficits; alert and oriented times three. (Krystina Celaya) Assessment and Plan Plan ASSESSMENT - abd pain - upper quadrant, onset few days ago. some nausea. no vomiting. CT showed distended GB but no stones or biliary ductal dilatation. US limited. No LFT derangement. Denies frequent NSAID use. had colonoscopy 11y ago no further details, has had several EGDs years ago no further details. hx of seizures preceded by abd pain. Tolerating diet. PLAN - EGD tomorrow +/- colonoscopy - obtain consent - NPO after midnight - monitor labs - consider MRCP - further recs to follow - supportive care This pt seen by myself and Dr Arrieta and this note is written on his behalf. (Krystina Celaya) Physician Comments Patient seen and examined Agree with above Continue with current supportive care Monitor labs Plan for an EGD and a colonoscopy tomorrow (Abdoulaye Arrieta MD) Krystina Celaya Feb 20, 2017 16:41 Abdoulaye Arrieta MD Feb 20, 2017 20:11
[2017-02-20] MEDS ORDERED: SODIUM CHLORID 0.9% 500 ML IV PRN (20:15)
[2017-02-20] MEDS ORDERED: POVIDONE IODINE 5% (ANTISEPSIS KIT) 4 APPLICATIONS EACH NARE PRN (20:15)
[2017-02-20] MEDS ORDERED: LACTATED RINGER'S 1000 ML IV PRN (20:15)
[2017-02-20] MEDS ORDERED: CHLORHEXIDINE GLUCONATE 2 % 1 PACK (2 CLOTHS) TOPICAL PRN (20:15)
[2017-02-20] MEDS ORDERED: MAGNESIUM CITRATE SOLN 300 ML BTL PO ONE (20:15)
[2017-02-20] MEDS ORDERED: METOPROLOL TARTRATE 25 MG TAB PO PRN (20:15)
[2017-02-20] MEDS ORDERED: INSULIN HUMAN REGULAR 1,000 UNITS/10 ML VIAL SQ PRN (20:15)
[2017-02-21] VITALS (7 sets, daily range): BP systolic 133–226; BP diastolic 73–109; PULSE 86–109; RESP 18–22; TEMP 98.1–100.8; O2SAT 91–97
[2017-02-21] MEDS ORDERED: MAGNESIUM CITRATE SOLN 300 ML BTL PO ONE (00:05)
[2017-02-21] MEDS: PIPERACIL-TAZO 4.5 GM PREMIX 100 ML IV SCH ×3 (02:06→09:00)
[2017-02-21] MEDS: MAGNESIUM CITRATE SOLN 300 ML BTL PO ONE (05:00)
[2017-02-21] MEDS: MORPHINE SULFATE 15 MG CONTROLLED RELEASE TAB PO SCH ×4 (05:00→21:04)
[2017-02-21] MEDS: HEPARIN SODIUM - SQ 10,000 UNITS/ML VIAL SQ SCH ×2 (05:00→13:00)
[2017-02-21 07:20] LABS: HEMATOCRIT 36.4 % (39.0-51.0); MEAN CELL VOLUME 90.6 FL (80.0-100.0); MEAN CORPUSCULAR HEMOGLOBIN 31.7 PG (27.0-34.0); PLATELET COUNT 130 TH/MM3 (150-450); RED BLOOD COUNT 4.02 MIL/MM3 (4.50-5.90); RED CELL DISTRIBUTION WIDTH 12.6 % (11.6-17.2); REVIEW FLAG FINAL; WHITE BLOOD COUNT 13.3 TH/MM3 (4.0-11.0)
[2017-02-21] MEDS: SUCRALFATE 1 GM/10 ML CUP PO SCH ×4 (08:00→21:04)
[2017-02-21] MEDS: BACLOFEN 20 MG TAB PO SCH ×2 (09:00→13:00)
[2017-02-21] MEDS: LOSARTAN 50 MG TAB PO SCH (09:00)
[2017-02-21] MEDS: PRAVASTATIN SOD 40 MG TAB PO SCH (09:00)
[2017-02-21] MEDS: SODIUM CHLORIDE 0.9% FLUSH 10 ML FLUSH IV FLUSH SCH ×2 (09:00→21:03)
[2017-02-21] MEDS: SERTRALINE HCL 100 MG TAB PO SCH (09:00)
[2017-02-21] MEDS: clonazePAM 1 MG TAB PO SCH ×2 (09:00→21:04)
[2017-02-21] MEDS: FENOFIBRATE 145 MG TAB PO SCH (09:00)
[2017-02-21] MEDS: PANTOPRAZOLE SOD 40 MG DELAYED RELEASE TAB PO SCH ×2 (09:00→21:03)
[2017-02-21] MEDS: ATENOLOL 50 MG TAB PO SCH ×2 (09:00→21:04)
[2017-02-21] MEDS: DOCUSATE SODIUM 50 MG/SENNA 8.6 MG TAB PO SCH ×2 (09:00→21:04)
[2017-02-21] MEDS ORDERED: ENALAPRILAT 1.25 MG/ML VIAL IV PUSH PRN (09:30)
--- NOTE | 2017-02-21 09:41 | HHI.GIFU ---
Subjective Remarks Pt laying backwards in the bed. he seems very confused, cannot answer questions. Was scheduled to have EGD colonoscopy today but has been confused and did not drink prep. (Krystina Celaya) Objective Vitals I&O Vital Signs Date Time Temp Pulse Resp B/P (MAP) Pulse Ox O2 Delivery O2 Flow Rate FiO2 02/21/17 07:52 99.7 109 19 226/109 (148) 96 02/21/17 04:29 98.5 89 18 175/81 (112) 91 02/21/17 00:10 98.1 86 18 161/73 (102) 93 02/20/17 21:58 84 02/20/17 21:29 88 18 155/84 (107) 95 02/20/17 19:21 81 02/20/17 18:01 20 02/20/17 15:48 98.9 79 18 159/88 (111) 96 02/20/17 13:18 20 02/20/17 13:18 20 02/20/17 11:39 101.1 81 21 131/75 (93) 94 Laboratory Laboratory Tests Test 02/21/17 06:49 White Blood Count 13.3 Red Blood Count 4.02 Hemoglobin 12.7 Hematocrit 36.4 Mean Corpuscular Volume 90.6 Mean Corpuscular Hemoglobin 31.7 Mean Corpuscular Hemoglobin Concent 35.0 Red Cell Distribution Width 12.6 Platelet Count 130 Mean Platelet Volume 8.6 Lactic Acid Level 1.3 Date/Time Source Procedure Growth Status 02/21/17 06:55 Blood Peripheral Aerobic Blood Culture Pending Received 02/21/17 06:55 Blood Peripheral Anaerobic Blood Culture Pending Received Imaging Last Impressions Chest X-Ray 02/19/17 0018 Signed Impressions: Service Date/Time: Sunday, February 19, 2017 00:44 - CONCLUSION: The lungs are clear. No evidence of pneumothorax. Gal Jensen MD Gall Bladder Ultrasound 02/19/17 0000 Signed Impressions: Service Date/Time: Sunday, February 19, 2017 05:17 - CONCLUSION: Limited examination demonstrates significant acoustic attenuation throughout the hepatic parenchyma; the intrahepatic and extrahepatic earlier he system cannot be assessed. The pancreas is poorly visualized and cannot be assessed sonographically. No evidence of free fluid. Gal Jensen MD Abdomen/Pelvis CT 02/19/17 0000 Signed Impressions: Service Date/Time: Sunday, February 19, 2017 02:31 - CONCLUSION: 1. Steatosis of the liver. 2. Otherwise negative CT abdomen/pelvis with contrast. Gal Jensen MD Physical Exam HEENT:will not open eyes, normocephalic; atraumatic; no jaundice. CHEST: diminished CARDIAC: RRR ABDOMEN: Soft, nonmildly distended,epigastric TTP; no hepatosplenomegaly; bowel sounds faint EXTREMITIES: No clubbing, cyanosis, or edema. SKIN: Normal; no rash; no jaundice. FOUNDATION DIGGER: confused, cannot follow commands (Krystina Celaya) Assessment and Plan Plan ASSESSMENT - abd pain - upper quadrant, onset few days ago. some nausea. no vomiting. CT showed distended GB but no stones or biliary ductal dilatation. US limited. No LFT derangement. Denies frequent NSAID use. had colonoscopy 11y ago no further details, has had several EGDs years ago no further details. hx of seizures preceded by abd pain. very confused today, procedures postponed b/c pt did not take prep he does still seem to be having abd pain but cannot tell me anything about it. d/w primary, psych consult pending PLAN - EGD tomorrow +/- colonoscopy when pt more stable - await psych consult - supportive care This pt seen by myself and Dr Arrieta and this note is written on his behalf. (Krystina Celaya) Physician Comments Patient seen and examined Agree with above Continue with current supportive care Monitor labs Possibly proceed with EGD tomorrow if patient is stable Colonoscopy to be done when patient is more stable for sure (Abdoulaye Arrieta MD) Krystina Celaya Feb 21, 2017 09:41 Abdoulaye Arrieta MD Feb 21, 2017 18:58
[2017-02-21] MEDS ORDERED: LORazepam 2 MG/ML VIAL IV ONE (10:15)
--- NOTE | 2017-02-21 10:50 | HHI.PR ---
Subjective Remarks I was called to see the patient this morning having change in mental status getting agitated wandering around naked When I saw him he was sitting on the edge of the bed he was lethargic, not oriented, complaining of abdominal pain with a headache He had a fever of 101 yesterday, I ordered stat ammonia, MRI, consult neurology, Objective Vitals Vital Signs Date Time Temp Pulse Resp B/P (MAP) Pulse Ox O2 Delivery O2 Flow Rate FiO2 02/21/17 07:52 99.7 109 19 226/109 (148) 96 02/21/17 04:29 98.5 89 18 175/81 (112) 91 02/21/17 00:10 98.1 86 18 161/73 (102) 93 02/20/17 21:58 84 02/20/17 21:29 88 18 155/84 (107) 95 02/20/17 19:21 81 02/20/17 18:01 20 02/20/17 15:48 98.9 79 18 159/88 (111) 96 02/20/17 13:18 20 02/20/17 13:18 20 02/20/17 11:39 101.1 81 21 131/75 (93) 94 Result Diagram: 02/21/17 0649 02/20/17 0703 Objective Remarks GENERAL: This is a well-nourished, well-developed patient, looks lethargic SKIN: No rashes, warm and dry HEAD: Atraumatic. Normocephalic. EYES: Pupils equal round and reactive. Extraocular motions intact. No scleral icterus. ENT: Nose without bleeding, or drainage, Airway patent. NECK: Trachea midline. Supple CARDIOVASCULAR: Regular rate and rhythm without murmurs, gallops, or rubs. RESPIRATORY: Fair air entry bilaterally. No wheezes, rales, or rhonchi. GASTROINTESTINAL: Abdomen soft, positive tenderness especially on the right upper mid and lower quadrant nondistended. Positive bowel sounds MUSCULOSKELETAL: Extremities without clubbing, cyanosis, or edema. Pedal pulses appreciated NEUROLOGICAL: Awake and alert lethargic. Moves all extremity. Normal speech. A/P Assessment and Plan 02/21: Patient having severe intermittent agitation, lethargic, no fever today but positive leukocytosis, refused colonoscopy and EGD today, refused prep yesterday, need to rule out other source of infection including meningitis, check ammonia level, check MRI of the brain, consult neurology, awaiting ID consultation, consider starting empiric meningitis coverage I also consulted general surgery to get help looking at his abdomen for any underlying pathology intra-abdominal. Addendum: MRI came back with artifact, appreciate ID help, start on cefepime Vanco and acyclovir, patient went for LP, neurology consultation, will change to full admit Critical time spent 50 minutes Initial A/P: - Intractable abdominal pain with nausea and vomiting, now with fever - Febrile illness - Lactic acidosis CT of the abdomen unremarkable for any appendicitis versus cholecystitis versus diverticulitis, start on Zosyn Patient GI consultation Lab values unremarkable CT of the abdomen/pelvis shows distended gallbladder without stones or biliary ductal dilation US of the gallbladder non-conclusive Dilaudid for pain -Anemia mostly chronic, revealed with to dilution effect -Thrombocytopenia mostly chronic Check iron panel FOBT Consult GI for an scope On PPI and sucralfate - Nonspecific T waves on EKG Patient with inverted T waves in aVR, V1-V4 Per patient report, his primary is aware of this and has referred him to cardiology Cardiac enzymes 3 sets are negative Patient will need to follow-up with outpatient cardiology - Chronic pain Continue home Oramorph, Mobic, baclofen 4. Hypertension/hyperlipidemia Continue home medications FEN Heart healthy diet Electrolytes: monitor and replete prn Heparin Jesica Ahumada MD Feb 21, 2017 10:50
--- NOTE | 2017-02-21 11:20 | PD.ID.CON ---
History of Present Illness Service ID Consult Requested By Dr Ahumada Reason for Consult fever Primary Care Physician Marshal Carter MD Diagnoses: History of Present Illness 61 yo male did not give me any history 2/2 mental status change He is essentially obtunded and is just moaning with tactile stimuli Per chart he was admitted yday with sudden onset abdominal pain that began at 7 :30 same evening. Pt has associated nausea. He describes the pain as just underneath his ribs, bilateral, severe and nonradiating. He had CT done with essentially showee d hepatic steatosis,nothing acute LFTs and coags within nl limits Lactic acid bordelimne elevated Pt had a febrile episode x 1 with temp up to 101 starte on broad spectrum abx Review of Systems ROS Limitations: Altered Mental Status Past Family Social History Allergies: Coded Allergies: No Known Allergies (Unverified Allergy, Unknown, 02/19/17) Past Medical History Hypertension Hyperlipidemia Chronic pain Anxiety Past Surgical History Cervical fusion Right knee reconstruction Bilateral knee arthroplasties Right foot repair Active Ordered Medications Medications where reviewed in EMR Antibiotics Include: zosyn Family History Dad with diabetes mellitus. Mom with CVA. Social History Rare alcohol use. Never smoker. Denies illicit drugs. Physical Exam Vital Signs Vital Signs Date Time Temp Pulse Resp B/P (MAP) Pulse Ox O2 Delivery O2 Flow Rate FiO2 02/21/17 07:52 99.7 109 19 226/109 (148) 96 02/21/17 04:29 98.5 89 18 175/81 (112) 91 02/21/17 00:10 98.1 86 18 161/73 (102) 93 02/20/17 21:58 84 02/20/17 21:29 88 18 155/84 (107) 95 02/20/17 19:21 81 02/20/17 18:01 20 02/20/17 15:48 98.9 79 18 159/88 (111) 96 02/20/17 13:18 20 02/20/17 13:18 20 02/20/17 11:39 101.1 81 21 131/75 (93) 94 Physical Exam CONSTITUTIONAL/GENERAL: This is an adequately nourished patient, in no apparent distress. TUBES/LINES/DRAINS: SKIN: No jaundice, rashes, or lesions. Skin temperature appropriate. Not diaphoretic. EYES: Pupils equal and round and reactive. Extraocular motions intact. No scleral icterus. No injection or drainage. Fundi not examined. ENT: Hearing grossly normal. Nose without bleeding or purulent drainage. Throat without visible erythema, exudates, masses, or lesions. NECK: Trachea midline. Supple, nontender. CARDIOVASCULAR: Regular rate and rhythm without murmurs, gallops, or rubs. No JVD. Peripheral pulses symmetric. Perifery is well perfused RESPIRATORY/CHEST: Symmetric, unlabored respirations. Clear to auscultation. Breath sounds equal bilaterally. No wheezes, rales, or rhonchi. GASTROINTESTINAL: Abdomen soft, mildly to moderately diffusely tender, nondistended, no Blair . No hepato-splenomegaly, or palpable masses. No guarding. Bowel sounds present. GENITOURINARY: Without palpable bladder distension. MUSCULOSKELETAL: Extremities without clubbing, cyanosis, or edema. No joint tenderness or effusion noted. No calf tenderness. No mottling or clubbing. LYMPHATICS: No palpable cervical or supraclavicular adenopathy. NEUROLOGICAL:Lethargic to obtunded, barely arousable. Non conversant Not follows commands. Moves all extremities. PSYCHIATRIC: unable to assess Laboratory Laboratory Tests Test 02/21/17 06:49 White Blood Count 13.3 Red Blood Count 4.02 Hemoglobin 12.7 Hematocrit 36.4 Mean Corpuscular Volume 90.6 Mean Corpuscular Hemoglobin 31.7 Mean Corpuscular Hemoglobin Concent 35.0 Red Cell Distribution Width 12.6 Platelet Count 130 Mean Platelet Volume 8.6 Lactic Acid Level 1.3 Date/Time Source Procedure Growth Status 02/21/17 06:55 Blood Peripheral Aerobic Blood Culture Pending Received 02/21/17 06:55 Blood Peripheral Anaerobic Blood Culture Pending Received Result Diagram: 02/21/17 0649 02/20/17 0703 Imaging Last Impressions Brain MRI 02/21/17 0000 Signed Impressions: Service Date/Time: Tuesday, February 21, 2017 11:56 - CONCLUSION: Excessive motion during scanning results in significant degradation of images as described above. No acute hemorrhage, midline shift or extra-axial bleed is noted. Repeat MRI of the brain may be warranted if altered mental status does not resolve. Matt Figueroa MD Chest X-Ray 02/19/17 0018 Signed Impressions: Service Date/Time: Sunday, February 19, 2017 00:44 - CONCLUSION: The lungs are clear. No evidence of pneumothorax. Gal Jensen MD Gall Bladder Ultrasound 02/19/17 0000 Signed Impressions: Service Date/Time: Sunday, February 19, 2017 05:17 - CONCLUSION: Limited examination demonstrates significant acoustic attenuation throughout the hepatic parenchyma; the intrahepatic and extrahepatic earlier he system cannot be assessed. The pancreas is poorly visualized and cannot be assessed sonographically. No evidence of free fluid. Gal Jensen MD Abdomen/Pelvis CT 02/19/17 0000 Signed Impressions: Service Date/Time: Sunday, February 19, 2017 02:31 - CONCLUSION: 1. Steatosis of the liver. 2. Otherwise negative CT abdomen/pelvis with contrast. Gal Jensen MD Assessment and Plan Assessment and Plan FUO with abdominal pain and mental status change MRI done w/o contrast and has artifact Hepatic steatosis with no s/o hepatitis and preserved synthetic fnx Abdominal pain as presenting smx without CT finding s to explain it MS change Hypertensive urgency needs LP will change abd to cefepkiera, Su Woodard MD Feb 21, 2017 11:19
[2017-02-21] MEDS ORDERED: LORazepam 2 MG/ML VIAL IM ONE (12:15)
--- NOTE | 2017-02-21 13:08 | RADRPT ---
EXAM DATE/TIME: 02/21/2017 11:56 [facility] COMPARISON: No previous studies available for comparison. INDICATIONS : Altered mental status. MEDICAL HISTORY : Hypertension. SURGICAL HISTORY : Fusion, cervical. ENCOUNTER: Initial ACUITY: 2 day PAIN SCORE: Nonresponsive. LOCATION: head TECHNIQUE: Multiplanar, multisequence MRI of the brain was performed without contrast. FINDINGS: Excessive motion during scanning results in significant degradation of the images. No acute hemorrhag e, midline shift or extra-axial bleed is noted on these limited images. The ventricles, sulci and cis terns are grossly unremarkable. Repeat MRI of the brain may be warranted if altered mental status العلي s not resolve. CONCLUSION: Excessive motion during scanning results in significant degradation of images as described above. No acute hemorrhage, midline shift or extra-axial bleed is noted. Repeat MRI of the brain may be warrant ed if altered mental status does not resolve. Matt Figueroa MD on February 21, 2017 at 13:03 Board Certified Radiologist. This report was verified electronically.
--- NOTE | 2017-02-21 13:37 | PD.PSY.CON ---
Provisional Diagnosis Admission Date Feb 19, 2017 at 04:12 [place]. Delirium to another underlying medical condition History of Present Illness Service Psychiatry Consult Requested By Medical team Reason for Consult Agitation and confusion Primary Care Physician Marshal Carter MD HPI The patient is a 61-year-old man, with psychiatric history of depression and anxiety, with a past medical history significant for hypertension , hyperlipidemia, chronic pain, who presents to the emergency department with severe, sudden onset abdominal pain that began at 7:30 yesterday evening. The patient denies any emesis but has associated nausea. He describes the pain as just underneath his ribs, bilateral, severe and nonradiating. He has a history of inverted T waves on EKG for which she has appointment with cardiology next week. He denies any chest pain, diaphoresis or shortness of breath. Despite 2 doses of IV Dilaudid, the patient's abdominal pain remains intractable. Patient has been admitted for intractable pain. He followed by GI, abdominal CT show: Steatosis of the liver, Otherwise negative CT abdomen/pelvis with contrast. consulted to psychiatry due to agitation, patient has been trying to walk out of the ER, disorganized. On psychiatric evaluation the patient is poorly cooperative, very confused, complaining of pain, not able to provide any logical or useful information for the psychiatric assessment. Patient is completely disoriented, with reported fluctuation of consciousness and poor attention span which seems to be consistent with delirium. Review of Systems ROS Limitations: Uncooperative Past Family Social History Coded Allergies: No Known Allergies (Unverified Allergy, Unknown, 02/19/17) Reported Medications Montelukast (Singulair) 10 Mg Tab, 10 MG PO HS, #30 TAB 0 Refills 02/19/17 Sertraline (Sertraline) 100 Mg Tab, 100 MG PO DAILY, #30 TAB 0 Refills 02/19/17 Cholecalciferol (Vitamin D3) 2,000 Unit Cap, 2000 UNITS PO DAILY for Nutritional Supplement, #1 BOTTLE 0 Refills 02/19/17 Aspirin (Aspirin) 81 Mg Chew, 81 MG CHEW ONCE, #1 TAB 0 Refills 02/19/17 Meloxicam (Meloxicam) 15 Mg Tab, 15 MG PO DAILY for Arthritis Pain, #30 TAB 0 Refills 02/19/17 Omeprazole (Omeprazole) 40 Mg Cap, 40 MG PO DAILY, #30 CAP 0 Refills 02/19/17 Lovastatin (Lovastatin) 40 Mg Tab, 40 MG PO DAILY for Cholesterol Management, # 30 TAB 0 Refills 02/19/17 Fenofibrate (Fenofibrate) 160 Mg Tab, 160 MG PO DAILY, #30 TAB 0 Refills 02/19/17 Atenolol (Atenolol) 50 Mg Tab, 50 MG PO BID for Blood Pressure Management, #60 TAB 0 Refills 02/19/17 Losartan (Losartan) 50 Mg Tab, 50 MG PO DAILY for Blood Pressure Management, # 30 TAB 0 Refills 02/19/17 Baclofen (Baclofen) 20 Mg Tab, 20 MG PO TID for Muscle Spasm, TAB 0 Refills 02/19/17 Clonazepam (Klonopin) 1 Mg Tab, 1 MG PO BID, #90 TAB 0 Refills 02/19/17 Morphine ER (Ms Contin) 15 Mg Tab, 30 MG PO Q8H for Pain Management, TAB 0 Refills 02/19/17 Discontinued Reported Medications Atenolol (Atenolol) 50 Mg Tab, 50 MG PO DAILY 12/05/11 Diphenhydramine 25 mg tab (Benadryl 25 mg tab) 25 Mg Tab, 25 MG PO Q6HPRN 12/05/11 Lovastatin (Lovastatin) 20 Mg Tab, 20 MG PO DAILY 12/05/11 Oxycodone-Acetaminophen 10-325 mg (Percocet 10-325 mg) 1 Tab, 1 TAB PO Q6HPRN, # 12 PRN PAIN 12/05/11 Clorazepate Dipotassium (Tranxene) 7.5 Mg Tab, 7.5 MG PO DAILY 12/05/11 Aspirin (Aspirin) 81 Mg Tab, 81 MG PO DAILY 12/05/11 Omeprazole 20 mg (Prilosec 20 mg) 20 Mg Capcr, 20 MG PO DAILY 12/05/11 Baclofen (Lioresal) 20 Mg Tab, 20 MG PO QID 12/05/11 Sertraline Hcl (Zoloft) 50 Mg Tab, 150 MG PO DAILY 12/05/11 Fenofibrate (Tricor) 160 Mg Tab, 160 MG PO DAILY 12/05/11 Meloxicam (Mobic) 15 Mg Tab, 15 MG PO DAILY 12/05/11 Current Medications Medications (Trade) Dose Ordered Sig/Juan Pablo Route Start Time Stop Time Status Last Admin (NS Flush) 2 ml UNSCH PRN IV FLUSH 02/19/17 00:30 02/19/17 00:40 (Nitrostat Sl) 0.4 mg Q5M PRN SL 02/19/17 00:30 02/19/17 00:58 (NS Flush) 2 ml UNSCH PRN IV FLUSH 02/19/17 04:45 (NS Flush) 2 ml BID IV FLUSH 02/19/17 09:00 02/20/17 20:56 (Tylenol) 650 mg Q4H PRN PO 02/19/17 04:45 02/20/17 12:12 (Zofran Inj) 4 mg Q6H PRN IVP 02/19/17 04:45 (Heparin Inj) 5,000 units Q8H SQ 02/19/17 05:00 02/20/17 20:57 (Narcan Inj) 0.4 mg UNSCH PRN IV PUSH 02/19/17 04:45 (Lyndsey-Colace) 1 tab BID PO 02/19/17 09:00 02/20/17 20:58 (Milk Of Magnesia Liq) 30 ml Q12H PRN PO 02/19/17 04:45 (Senokot) 17.2 mg Q12H PRN PO 02/19/17 04:45 (Dulcolax Supp) 10 mg DAILY PRN RECTAL 02/19/17 04:45 (Lactulose Liq) 30 ml DAILY PRN PO 02/19/17 04:45 (Dilaudid Pf Inj) 1 mg Q4H PRN IV PUSH 02/19/17 04:45 02/20/17 17:27 (Tenormin) 50 mg BID PO 02/19/17 09:00 02/20/17 20:58 (Lioresal) 20 mg TID PO 02/19/17 09:00 02/20/17 17:26 (KlonoPIN) 1 mg BID PO 02/19/17 09:00 02/20/17 20:58 (Cozaar) 50 mg DAILY PO 02/19/17 09:00 02/20/17 07:56 (Pravachol) 40 mg DAILY PO 02/19/17 09:00 02/20/17 07:55 (Oramorph Sr) 30 mg Q8H PO 02/19/17 05:00 02/20/17 20:58 (Zoloft) 100 mg DAILY PO 02/19/17 09:00 02/20/17 07:56 (Tricor) 145 mg DAILY PO 02/19/17 09:00 02/20/17 07:54 (Protonix) 40 mg BID PO 02/19/17 21:00 02/20/17 20:57 (Carafate Liq) 1 gm ACHS PO 02/19/17 17:00 02/20/17 20:57 Piperacillin Sod/ Tazobactam Sod 100 ml @ 200 mls/hr Q6H IV 02/20/17 15:00 02/21/17 03:56 Lactated Ringer's 1,000 ml @ 30 mls/hr Q24H PRN IV 02/20/17 20:15 02/23/17 20:14 Sodium Chloride 500 ml @ 30 mls/hr [id number] PRN IV 02/20/17 20:15 02/23/17 20:14 (Lopressor) 25 mg IT LEAD PRN PO 02/20/17 20:15 02/23/17 20:14 (Betadine 5% Antisepsis Kit) 1 applic IT LEAD PRN EACH NARE 02/20/17 20:15 02/23/17 20:14 (Chlorhexidine 2% Cloth) 3 pack IT LEAD PRN TOPICAL 02/20/17 20:15 02/23/17 20:14 (NovoLIN R INJ) See Protocol Table ... IT LEAD PRN SQ 02/20/17 20:15 02/23/17 20:14 (Vasotec Inj) 1.25 mg Q6H PRN IV PUSH 02/21/17 09:30 Physical Exam Vital Signs Vital Signs Date Time Temp Pulse Resp B/P (MAP) Pulse Ox O2 Delivery O2 Flow Rate FiO2 02/21/17 11:34 99.8 95 19 176/89 (118) 93 02/19/17 03:44 Room Air Lab Results Test 02/21/17 06:49 White Blood Count 13.3 TH/MM3 Red Blood Count 4.02 MIL/MM3 Hemoglobin 12.7 GM/DL Hematocrit 36.4 % Mean Corpuscular Volume 90.6 FL Mean Corpuscular Hemoglobin 31.7 PG Mean Corpuscular Hemoglobin Concent 35.0 % Red Cell Distribution Width 12.6 % Platelet Count 130 TH/MM3 Mean Platelet Volume 8.6 FL Lactic Acid Level 1.3 mmol/L Date/Time Source Procedure Growth Status 02/21/17 06:55 Blood Peripheral Aerobic Blood Culture Pending Received 02/21/17 06:55 Blood Peripheral Anaerobic Blood Culture Pending Received Mental Status Examination Appearance: Disheveled Consciousness: Clouded Orientation: Person Motor Activity: Abnormal gait Speech: Incoherent Fund of Knowledge: Inadequate Memory: Impaired Mood: Anxious Affect: Irritable Thought Process & Associations: Loose associations Thought Content: Bizarre thinking Hallucination Type: None Delusion Type: None Suicidal Ideation: No Suicidal Plan: No Suicidal Intention: No Homicidal Ideation: No Homicidal Plan: No Homicidal Intention: No Insight: Poor Judgment: Poor Assessment & Plan Problem List: (1) Delirium due to another medical condition ICD Codes: F05 - Delirium due to known physiological condition Assessment & Plan: Patient is confused, oriented, illogical, incoherent, unable to provide any significant information for the psychiatric assessment at this moment. He has been reportedly agitated, restless, this presentation seems to be consistent with delirium due to an underlying medical condition. Continue medical treatment as needed, agree with surgical consult to continue exploring abdominal pain. Can medicated patient with Haldol 5 mg IM every 8 hours when necessary severe aggressive behavior and agitation. No standing psychotropics indicated at this moment. We will follow up closely. Assessment & Plan Estimated LOS: Saywer Decker MD Feb 21, 2017 13:37
[2017-02-21] MEDS ORDERED: Vancomycin Consult Pharmacy 1 EA OTHER SCH (14:45)
--- NOTE | 2017-02-21 15:11 | HHI.PR ---
Addendum to Inpatient Note Additional Information dw RN pt remains profoundly encephalopathic no change of meds will add acyclovir, ampicillin will orfder LP MRI with contrast neuro consult Su Delacruz MD Feb 21, 2017 15:11
[2017-02-21] MEDS: CEFEPIME INJ 2,000 MG in SODIUM CHLORIDE 0.9% INJ 100 ML IV SCH (15:21)
[2017-02-21] MEDS ORDERED: AMPICILLIN INJ 2,000 MG in SODIUM CHLORIDE 0.9% INJ 100 ML IV SCH (15:30)
--- NOTE | 2017-02-21 16:34 | PD.CONS ---
History of Present Illness Service Neurology Consult Requested By id Reason for Consult confusion Primary Care Physician Marshal Carter MD History of Present Illness 61 yo male admitted with abdominal pain then has become confused and febrile. had mri brain which had a lot of artifact but questionable left temporal dwi changes. has been hypertensive since admission. bp 210/99 in er. leukocytosis day 2 of arrival. low grade temp day one of arrival. pt unable to give any hx at present. obtained from chart. Review of Systems ROS Limitations: Altered Mental Status Past Family Social History Allergies: Coded Allergies: No Known Allergies (Unverified Allergy, Unknown, 02/19/17) Past Medical History Hypertension Hyperlipidemia Chronic pain Anxiety Past Surgical History Cervical fusion Right knee reconstruction Bilateral knee arthroplasties Right foot repair Active Ordered Medications Medications where reviewed in EMR Family History Dad with diabetes mellitus. Mom with CVA. Social History Rare alcohol use. Never smoker. Denies illicit drugs. Review of Systems All other ROS: Unable to obtain Past Family Social History Allergies: Coded Allergies: No Known Allergies (Unverified Allergy, Unknown, 02/19/17) Active Ordered Medications Current Medications Medications (Trade) Dose Ordered Sig/Juan Pablo Route Start Time Stop Time Status Last Admin (NS Flush) 2 ml UNSCH PRN IV FLUSH 02/19/17 00:30 02/19/17 00:40 (Nitrostat Sl) 0.4 mg Q5M PRN SL 02/19/17 00:30 02/19/17 00:58 (NS Flush) 2 ml UNSCH PRN IV FLUSH 02/19/17 04:45 (NS Flush) 2 ml BID IV FLUSH 02/19/17 09:00 02/20/17 20:56 (Tylenol) 650 mg Q4H PRN PO 02/19/17 04:45 02/20/17 12:12 (Zofran Inj) 4 mg Q6H PRN IVP 02/19/17 04:45 (Heparin Inj) 5,000 units Q8H SQ 02/19/17 05:00 02/20/17 20:57 (Narcan Inj) 0.4 mg UNSCH PRN IV PUSH 02/19/17 04:45 (Lyndsey-Colace) 1 tab BID PO 02/19/17 09:00 02/20/17 20:58 (Milk Of Magnesia Liq) 30 ml Q12H PRN PO 02/19/17 04:45 (Senokot) 17.2 mg Q12H PRN PO 02/19/17 04:45 (Dulcolax Supp) 10 mg DAILY PRN RECTAL 02/19/17 04:45 (Lactulose Liq) 30 ml DAILY PRN PO 02/19/17 04:45 (Dilaudid Pf Inj) 1 mg Q4H PRN IV PUSH 02/19/17 04:45 02/20/17 17:27 (Tenormin) 50 mg BID PO 02/19/17 09:00 02/20/17 20:58 (Lioresal) 20 mg TID PO 02/19/17 09:00 02/20/17 17:26 (KlonoPIN) 1 mg BID PO 02/19/17 09:00 02/20/17 20:58 (Cozaar) 50 mg DAILY PO 02/19/17 09:00 02/20/17 07:56 (Pravachol) 40 mg DAILY PO 02/19/17 09:00 02/20/17 07:55 (Oramorph Sr) 30 mg Q8H PO 02/19/17 05:00 02/20/17 20:58 (Zoloft) 100 mg DAILY PO 02/19/17 09:00 02/20/17 07:56 (Tricor) 145 mg DAILY PO 02/19/17 09:00 02/20/17 07:54 (Protonix) 40 mg BID PO 02/19/17 21:00 02/20/17 20:57 (Carafate Liq) 1 gm ACHS PO 02/19/17 17:00 02/20/17 20:57 Lactated Ringer's 1,000 ml @ 30 mls/hr Q24H PRN IV 02/20/17 20:15 02/23/17 20:14 Sodium Chloride 500 ml @ 30 mls/hr [id number] PRN IV 02/20/17 20:15 02/23/17 20:14 (Lopressor) 25 mg [employer]ER PRN PO 02/20/17 20:15 02/23/17 20:14 (Betadine 5% Antisepsis Kit) 1 applic [employer] PRN EACH NARE 02/20/17 20:15 02/23/17 20:14 (Chlorhexidine 2% Cloth) 3 pack [employer] PRN TOPICAL 02/20/17 20:15 02/23/17 20:14 (NovoLIN R INJ) See Protocol Table ... [employer]ER PRN SQ 02/20/17 20:15 02/23/17 20:14 (Vasotec Inj) 1.25 mg Q6H PRN IV PUSH 02/21/17 09:30 Pharmacy Profile Note 0 ml @ 0 mls/hr UNSCH OTHER 02/21/17 14:45 Cefepime HCl 2000 mg/Sodium Chloride 100 ml @ 200 mls/hr Q8H IV 02/21/17 16:00 02/21/17 15:21 Vancomycin HCl 1500 mg/Sodium Chloride 515 ml @ 250 mls/hr Q12H IV 02/21/17 17:00 Miscellaneous Information SPECIFIC LAB TO BE DRAWN:VANCOMYCIN TROUGH DATE TO... ONCE ONCE .XX 02/23/17 04:45 02/23/17 04:46 Acyclovir Sodium 990 mg/Sodium Chloride 150 ml @ 150 mls/hr Q8H IV 02/21/17 15:30 UNV Ampicillin Sodium 2000 mg/Sodium Chloride 100 ml @ 300 mls/hr Q4H IV 02/21/17 16:00 Exam I&O / VS Vital Signs Date Time Temp Pulse Resp B/P (MAP) Pulse Ox O2 Delivery O2 Flow Rate FiO2 02/21/17 16:11 93 21 182/93 (122) 97 02/21/17 11:34 99.8 95 19 176/89 (118) 93 02/21/17 07:52 99.7 109 19 226/109 (148) 96 02/21/17 04:29 98.5 89 18 175/81 (112) 91 02/21/17 00:10 98.1 86 18 161/73 (102) 93 02/20/17 21:58 84 02/20/17 21:29 88 18 155/84 (107) 95 02/20/17 19:21 81 02/20/17 18:01 20 Exam Comments stuporous, not following, yells "leave me" eyes closed, grimaces, resists pupillary exam, alegre to gravity, msr sym, no clonus, planterflexor Review/Management Diagnosis/Plan: (1) Acute encephalopathy ICD Codes: G93.40 - Encephalopathy, unspecified Status: Acute Plan: etiology: left temporal infarct 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 recs repeat mri brain w/wo contrast eeg additional labs csf iv acyclovir d/w id (2) HTN (hypertension) ICD Codes: I10 - Essential (primary) hypertension Status: Chronic (3) Intractable abdominal pain ICD Codes: R10.9 - Unspecified abdominal pain Status: Acute (4) Abdominal pain ICD Codes: R10.9 - Unspecified abdominal pain Status: Acute (5) Delirium due to another medical condition ICD Codes: F05 - Delirium due to known physiological condition Problem Qualifiers (1) HTN (hypertension): Qualified Codes: I10 - Essential (primary) hypertension (2) Abdominal pain: Qualified Codes: R10.11 - Right upper quadrant pain Martin Kemp MD Feb 21, 2017 16:34
[2017-02-21] MEDS: AMPICILLIN 2 GM/NS 100 ML IV SCH ×4 (17:00→21:23)
[2017-02-21] MEDS ORDERED: VANCOMYCIN INJ 1,500 MG in SODIUM CHLORID 0.9% 500 ML INJ 500 ML IV SCH ×2 (17:00→23:00)
--- NOTE | 2017-02-21 17:18 | PD.CONS ---
cc: Heron Yan MD HPI Service General Surgery Consult Requested By Dr. Ahumada Reason for Consult Abdominal pain Primary Care Physician Marshal Carter MD History of Present Illness This is a 61 year old male who presented to the Emergency Department on February 19 with pain just below his ribs with associated nausea. The patient 's history and history of present illness is obtain from the chart due to the patient being an extremely poor historian. An US of the gallbladder was obtained which is limited due to the patient's body habitus. A CT abdomen/ pelvis was obtained which indicates steatosis of the liver. The patient's white blood cell count is mildly elevated. His liver enzymes are normal. The patient has been hypertensive with a systolic blood pressure 226 over a diastolic blood pressure of 109 this morning. A General Surgery consultation has been requested for evaluation of abdominal pain. Review of Systems ROS Limitations: Clinical Condition, Altered Mental Status, Uncooperative Past Family Social History Past Medical History Per records: Hypertension Hyperlipidemia Chronic pain Anxiety Past Surgical History Per records: Cervical fusion Right knee reconstruction Bilateral knee arthroplasties Right foot repair Reported Medications Singulair Vitamin D Aspirin Omeprazole Lovastatin Atenolol Losartan Baclofen Klonopin MS Contin Sertraline Meloxicam Fenofibrate Allergies: Coded Allergies: No Known Allergies (Unverified Allergy, Unknown, 02/19/17) Active Ordered Medications Current Medications Medications (Trade) Dose Ordered Sig/Juan Pablo Route Start Time Stop Time Status Last Admin (Nitrostat Sl) 0.4 mg Q5M PRN SL 02/19/17 00:30 02/19/17 00:58 (NS Flush) 2 ml UNSCH PRN IV FLUSH 02/19/17 04:45 (NS Flush) 2 ml BID IV FLUSH 02/19/17 09:00 02/20/17 20:56 (Tylenol) 650 mg Q4H PRN PO 02/19/17 04:45 02/20/17 12:12 (Zofran Inj) 4 mg Q6H PRN IVP 02/19/17 04:45 (Heparin Inj) 5,000 units Q8H SQ 02/19/17 05:00 02/20/17 20:57 (Narcan Inj) 0.4 mg UNSCH PRN IV PUSH 02/19/17 04:45 (Lyndsey-Colace) 1 tab BID PO 02/19/17 09:00 02/20/17 20:58 (Milk Of Magnesia Liq) 30 ml Q12H PRN PO 02/19/17 04:45 (Senokot) 17.2 mg Q12H PRN PO 02/19/17 04:45 (Dulcolax Supp) 10 mg DAILY PRN RECTAL 02/19/17 04:45 (Lactulose Liq) 30 ml DAILY PRN PO 02/19/17 04:45 (Dilaudid Pf Inj) 1 mg Q4H PRN IV PUSH 02/19/17 04:45 02/20/17 17:27 (Tenormin) 50 mg BID PO 02/19/17 09:00 02/20/17 20:58 (Lioresal) 20 mg TID PO 02/19/17 09:00 02/20/17 17:26 (KlonoPIN) 1 mg BID PO 02/19/17 09:00 02/20/17 20:58 (Cozaar) 50 mg DAILY PO 02/19/17 09:00 02/20/17 07:56 (Pravachol) 40 mg DAILY PO 02/19/17 09:00 02/20/17 07:55 (Oramorph Sr) 30 mg Q8H PO 02/19/17 05:00 02/20/17 20:58 (Zoloft) 100 mg DAILY PO 02/19/17 09:00 02/20/17 07:56 (Tricor) 145 mg DAILY PO 02/19/17 09:00 02/20/17 07:54 (Protonix) 40 mg BID PO 02/19/17 21:00 02/20/17 20:57 (Carafate Liq) 1 gm ACHS PO 02/19/17 17:00 02/20/17 20:57 Lactated Ringer's 1,000 ml @ 30 mls/hr Q24H PRN IV 02/20/17 20:15 02/23/17 20:14 Sodium Chloride 500 ml @ 30 mls/hr [id number] PRN IV 02/20/17 20:15 02/23/17 20:14 (Lopressor) 25 mg B[employer]ING [employer]ER PRN PO 02/20/17 20:15 02/23/17 20:14 (Betadine 5% Antisepsis Kit) 1 applic B[employer]ING [employer] STITCHER PRN EACH NARE 02/20/17 20:15 02/23/17 20:14 (Chlorhexidine 2% Cloth) 3 pack B[employer]ING [employer] STITCHER PRN TOPICAL 02/20/17 20:15 02/23/17 20:14 (NovoLIN R INJ) See Protocol Table ... B[employer]ING [employer] STITCHER PRN SQ 02/20/17 20:15 02/23/17 20:14 (Vasotec Inj) 1.25 mg Q6H PRN IV PUSH 02/21/17 09:30 Pharmacy Profile Note 0 ml @ 0 mls/hr UNSCH OTHER 02/21/17 14:45 Cefepime HCl 2000 mg/Sodium Chloride 100 ml @ 200 mls/hr Q8H IV 02/21/17 16:00 02/21/17 15:21 Vancomycin HCl 1500 mg/Sodium Chloride 515 ml @ 250 mls/hr Q12H IV 02/21/17 17:00 Miscellaneous Information SPECIFIC LAB TO BE DRAWN:VANCOMYCIN TROUGH DATE TO... ONCE ONCE .XX 02/23/17 04:45 02/23/17 04:46 Acyclovir Sodium 990 mg/Sodium Chloride 150 ml @ 150 mls/hr Q8H IV 02/21/17 18:00 Ampicillin Sodium 2000 mg/Sodium Chloride 100 ml @ 300 mls/hr Q4H IV 02/21/17 16:00 Family History Per records: Father with Diabetes mellitus; Mother with CVA Social History Per records: Rare ETOH use; Never smokes, Denies illicit drug use Physical Exam Vital Signs Vital Signs Date Time Temp Pulse Resp B/P (MAP) Pulse Ox O2 Delivery O2 Flow Rate FiO2 02/21/17 16:11 93 21 182/93 (122) 97 02/21/17 11:34 99.8 95 19 176/89 (118) 93 02/21/17 07:52 99.7 109 19 226/109 (148) 96 02/21/17 04:29 98.5 89 18 175/81 (112) 91 02/21/17 00:10 98.1 86 18 161/73 (102) 93 02/20/17 21:58 84 02/20/17 21:29 88 18 155/84 (107) 95 02/20/17 19:21 81 02/20/17 18:01 20 Physical Exam GENERAL: 61 year old male sitting on the side of the bed confused stating "[facility] am [facility]" when asked where we are. SKIN: Warm and dry. HEAD: Atraumatic. Normocephalic. EYES: Pupils equal and round. No scleral icterus. No injection or drainage. ENT: No nasal bleeding or discharge. Mucous membranes pink and moist. NECK: Trachea midline. CARDIOVASCULAR: Regular rate and rhythm. RESPIRATORY: No accessory muscle use. Clear to auscultation. Breath sounds equal bilaterally. GASTROINTESTINAL: Abdomen obese; abdominal pain in all four quadrants with palpation throughout he also has pain everywhere we examined. No visible scars. No visible hernias. MUSCULOSKELETAL: Extremities without clubbing, cyanosis, or edema. No obvious deformities. NEUROLOGICAL:Confused; not able to engage much in conversation. PSYCHIATRIC: Unable to examine. Laboratory Laboratory Tests Test 02/21/17 06:49 White Blood Count 13.3 Red Blood Count 4.02 Hemoglobin 12.7 Hematocrit 36.4 Mean Corpuscular Volume 90.6 Mean Corpuscular Hemoglobin 31.7 Mean Corpuscular Hemoglobin Concent 35.0 Red Cell Distribution Width 12.6 Platelet Count 130 Mean Platelet Volume 8.6 Lactic Acid Level 1.3 Date/Time Source Procedure Growth Status 02/21/17 06:55 Blood Peripheral Aerobic Blood Culture Pending Received 02/21/17 06:55 Blood Peripheral Anaerobic Blood Culture Pending Received Result Diagram: 02/21/17 0649 02/20/17 0703 Imaging Last 48 hours Impressions Brain MRI 02/21/17 0000 Signed Impressions: Service Date/Time: Tuesday, February 21, 2017 11:56 - CONCLUSION: Excessive motion during scanning results in significant degradation of images as described above. No acute hemorrhage, midline shift or extra-axial bleed is noted. Repeat MRI of the brain may be warranted if altered mental status does not resolve. Matt Figueroa MD Assessment and Plan Assessment and Plan 61 year old male with confusion; abdominal pain; elevated blood pressure -Recommend repeating liver enzymes -May do a HIDA scan if no clinical improvement -NPO -Recommend transfer from observation unit for treatment of hypertension -Thank you for this consult; We will continue to follow Patient seen with Miss Allen. Patient difficult to arouse. Unable to answer questions. Likely has cholecytitis but unable to obtain history or get good exam. Will recheck labs and re-examine tomorrow. HERON YAN MD FACS Discussed Condition With Dr. Jess LORA Mr. Theresa AllenSilva Feb 21, 2017 17:18 Heron Yan MD Feb 26, 2017 18:03
--- NOTE | 2017-02-21 17:36 | RADRPT ---
EXAM DATE/TIME: 02/21/2017 17:32 [facility] COMPARISON: No previous studies available for comparison. INDICATIONS : Patient with altered mental status in need of lumbar puncture. MEDICAL HISTORY : COPD, HTN, HLD, Chronic pain, Anxiety SURGICAL HISTORY : Cervical fusion, Bilateral knee arthroplasty ENCOUNTER: Initial ACUITY: 2 days PAIN SCORE: Nonresponsive. LUMBAR PUNCTURE TIME: 1636 hours FLUORO TIME: 0.1 minutes IMAGE SERIES: 0 ACCESS LEVEL: L3-4 FLUID: 10 cc of clear CSF was collected and sent to the laboratory for analysis. PROCEDURE : 1. Fluoroscopic guided lumbar puncture. The risks, benefits and alternatives to the procedure were explained and verbal and written consent w as obtained. The site was prepped in sterile fashion. Full sterile technique was used, including ca p, mask, sterile gloves and gown and a large sterile sheet. Hand hygiene and 2% chlorhexidine and/or betadine/alcohol prep was utilized per protocol for cutaneous antisepsis. The skin and subcutaneous tissues were infiltrated with local anesthetic solution. With fluoroscopic guidance the lumbar thecal sac was punctured at the level above. The fluid describ ed above was removed without difficulty. The patient tolerated the procedure well and there were no complications. CONCLUSION: Uncomplicated fluoroscopically guided lumbar puncture. Seymour Benton MD on February 21, 2017 at 17:34 Board Certified Radiologist. This report was verified electronically.
[2017-02-21] MEDS ORDERED: SODIUM CHLORIDE 0.9% IV SCH (18:00)
[2017-02-21] MEDS ORDERED: ACYCLOVIR IV SCH (18:00)
[2017-02-21] MEDS ORDERED: HALOPERIDOL LACTATE 5 MG/ML AMP IM ONE (18:15)
[2017-02-21 19:09] LABS: GROSS BLOOD TUBE #1 0 (0); GROSS BLOOD TUBE #2 0 (0); GROSS BLOOD TUBE #3 0 (0); SUPERNATE COLOR TUBE #1 CLEAR (CLEAR); SUPERNATE COLOR TUBE #2 CLEAR (CLEAR); SUPERNATE COLOR TUBE #3 CLEAR (CLEAR); VOLUME TUBE # 1 2.5 ML
[2017-02-21 19:10] LABS: CSF LYMPHOCYTES 0 %; CSF NEUTROPHILS 0 %; GROSS BLOOD TUBE #4 0 (0); SUPERNATE COLOR TUBE #4 CLEAR (CLEAR); WBC TUBE #4 0 /MM3 (0-10)
[2017-02-21] MEDS: HYDROmorphone HCL PF 1 MG/ML VIAL IV PUSH PRN (20:58)
[2017-02-21 22:43] LABS: ALKALINE PHOSPHATASE 82 U/L (45-117); ALT (GPT) 18 U/L (12-78); ANION GAP 10 MEQ/L (5-15); AST (GOT) 22 U/L (15-37); BLOOD UREA NITROGEN 10 MG/DL (7-18); CHLORIDE 102 MEQ/L (98-107); GLOMERULAR FILTRATION RATE 77 ML/MIN (>89); SODIUM (NA) 139 MEQ/L (136-145); TOTAL BILIRUBIN ADULT 0.9 MG/DL (0.2-1.0)
[2017-02-21] MEDS: SODIUM CHLORIDE 0.9% IV SCH (23:00)
[2017-02-21] MEDS: ACYCLOVIR IV SCH (23:00)
[2017-02-22] VITALS (12 sets, daily range): BP systolic 128–189; BP diastolic 73–85; PULSE 62–104; RESP 16–20; TEMP 98.3–100.7; O2SAT 93–97
[2017-02-22] MEDS: CEFEPIME INJ 2,000 MG in SODIUM CHLORIDE 0.9% INJ 100 ML IV SCH ×3 (00:43→17:54)
[2017-02-22] MEDS: AMPICILLIN 2 GM/NS 100 ML IV SCH ×6 (01:10→08:23)
[2017-02-22] MEDS: HYDROmorphone HCL PF 1 MG/ML VIAL IV PUSH PRN ×3 (02:10→17:53)
[2017-02-22] MEDS: MORPHINE SULFATE 15 MG CONTROLLED RELEASE TAB PO SCH ×3 (04:11→23:28)
[2017-02-22] MEDS ORDERED: CHLORHEXIDINE GLUCONATE 2 % 1 PACK (2 CLOTHS)(extra cloths) TOPICAL PRN (04:45)
[2017-02-22] MEDS: PANTOPRAZOLE SOD 40 MG DELAYED RELEASE TAB PO SCH ×2 (08:22→23:28)
[2017-02-22] MEDS: SERTRALINE HCL 100 MG TAB PO SCH (08:22)
[2017-02-22] MEDS: PRAVASTATIN SOD 40 MG TAB PO SCH (08:22)
[2017-02-22] MEDS: clonazePAM 1 MG TAB PO SCH ×2 (08:22→23:28)
[2017-02-22] MEDS: LOSARTAN 50 MG TAB PO SCH (08:22)
[2017-02-22] MEDS: FENOFIBRATE 145 MG TAB PO SCH (08:22)
[2017-02-22] MEDS: ATENOLOL 50 MG TAB PO SCH ×2 (08:22→23:28)
[2017-02-22] MEDS: DOCUSATE SODIUM 50 MG/SENNA 8.6 MG TAB PO SCH ×2 (09:00→23:28)
--- NOTE | 2017-02-22 09:10 | HHI.PR ---
Review/Management Diagnosis/Plan: (1) Acute encephalopathy ICD Codes: G93.40 - Encephalopathy, unspecified Status: Acute Plan: etiology: left temporal infarct vs global marketing specialist encephalitis esr/crp elevated csf: wbc 0. minimally elevated protein, glucose ok. not suggestive of global marketing specialist infection at present. however, await rest of titers recs repeat mri brain w/wo contrast-pending eeg-pending (2) HTN (hypertension) ICD Codes: I10 - Essential (primary) hypertension Status: Chronic (3) Intractable abdominal pain ICD Codes: R10.9 - Unspecified abdominal pain Status: Acute (4) Abdominal pain ICD Codes: R10.9 - Unspecified abdominal pain Status: Acute (5) Delirium due to another medical condition ICD Codes: F05 - Delirium due to known physiological condition Subjective Subjective Comments No acute events reported Active Medications Current Medications Medications (Trade) Dose Ordered Sig/Juan Pablo Route Start Time Stop Time Status Last Admin (Nitrostat Sl) 0.4 mg Q5M PRN SL 02/19/17 00:30 02/19/17 00:58 (NS Flush) 2 ml UNSCH PRN IV FLUSH 02/19/17 04:45 (NS Flush) 2 ml BID IV FLUSH 02/19/17 09:00 02/21/17 21:03 (Tylenol) 650 mg Q4H PRN PO 02/19/17 04:45 02/20/17 12:12 (Zofran Inj) 4 mg Q6H PRN IVP 02/19/17 04:45 (Narcan Inj) 0.4 mg UNSCH PRN IV PUSH 02/19/17 04:45 (Lyndsey-Colace) 1 tab BID PO 02/19/17 09:00 02/21/17 21:04 (Milk Of Magnesia Liq) 30 ml Q12H PRN PO 02/19/17 04:45 (Senokot) 17.2 mg Q12H PRN PO 02/19/17 04:45 (Dulcolax Supp) 10 mg DAILY PRN RECTAL 02/19/17 04:45 (Lactulose Liq) 30 ml DAILY PRN PO 02/19/17 04:45 (Dilaudid Pf Inj) 1 mg Q4H PRN IV PUSH 02/19/17 04:45 02/22/17 07:49 (Tenormin) 50 mg BID PO 02/19/17 09:00 02/22/17 08:22 (KlonoPIN) 1 mg BID PO 02/19/17 09:00 02/22/17 08:22 (Cozaar) 50 mg DAILY PO 02/19/17 09:00 02/22/17 08:22 (Pravachol) 40 mg DAILY PO 02/19/17 09:00 02/22/17 08:22 (Oramorph Sr) 30 mg Q8H PO 02/19/17 05:00 02/22/17 04:11 (Zoloft) 100 mg DAILY PO 02/19/17 09:00 02/22/17 08:22 (Tricor) 145 mg DAILY PO 02/19/17 09:00 02/22/17 08:22 (Protonix) 40 mg BID PO 02/19/17 21:00 02/22/17 08:22 (Carafate Liq) 1 gm ACHS PO 02/19/17 17:00 02/21/17 21:04 Lactated Ringer's 1,000 ml @ 30 mls/hr Q24H PRN IV 02/20/17 20:15 02/23/17 20:14 Sodium Chloride 500 ml @ 30 mls/hr [id number] PRN IV 02/20/17 20:15 02/23/17 20:14 (Lopressor) 25 mg FINE ARTS TEACHER PRN PO 02/20/17 20:15 02/23/17 20:14 (Betadine 5% Antisepsis Kit) 1 applic FINE ARTS TEACHER PRN EACH NARE 02/20/17 20:15 02/23/17 20:14 (Chlorhexidine 2% Cloth) 3 pack FINE [employer]S TEACHER PRN TOPICAL 02/20/17 20:15 02/23/17 20:14 (NovoLIN R INJ) See Protocol Table ... FINE ARTS TEACHER PRN SQ 02/20/17 20:15 02/23/17 20:14 (Vasotec Inj) 1.25 mg Q6H PRN IV PUSH 02/21/17 09:30 Pharmacy Profile Note 0 ml @ 0 mls/hr UNSCH OTHER 02/21/17 14:45 Cefepime HCl 2000 mg/Sodium Chloride 100 ml @ 200 mls/hr Q8H IV 02/21/17 16:00 02/22/17 00:43 Miscellaneous Information SPECIFIC LAB TO BE DRAWN:VANCOMYCIN TROUGH DATE TO... ONCE ONCE .XX 02/23/17 04:45 02/23/17 04:46 Ampicillin Sodium 2000 mg/Sodium Chloride 100 ml @ 300 mls/hr Q4H IV 02/21/17 16:00 02/22/17 08:23 Vancomycin HCl 1500 mg/Sodium Chloride 515 ml @ 250 mls/hr Q12H IV 02/21/17 23:00 02/21/17 23:00 Acyclovir Sodium 990 mg/Sodium Chloride 150 ml @ 150 mls/hr Q8H IV 02/21/17 23:00 02/21/17 23:00 Miscellaneous Information Patient in critical care unit? Ass... [id number] .XX 02/22/17 04:45 (Chlorhexidine 2% Cloth) 3 pack DAILY@04 TOPICAL 02/23/17 04:00 02/27/17 04:01 (Chlorhexidine 2% Cloth) 3 pack UNSCH PRN TOPICAL 02/22/17 04:45 02/27/17 04:33 Allergies Allergies Coded Allergies No Known Allergies (Unverified Allergy, Unknown, 02/19/17) Review of Systems All other ROS: Unable to obtain Exam I&O / VS Vital Signs Date Time Temp Pulse Resp B/P (MAP) Pulse Ox O2 Delivery O2 Flow Rate FiO2 02/22/17 06:00 72 02/22/17 05:00 75 02/22/17 04:39 98.8 70 20 166/74 (104) 97 02/22/17 02:48 20 02/22/17 00:49 100.7 90 20 141/73 (95) 97 02/21/17 21:00 100.8 95 22 136/89 (105) 95 02/21/17 18:43 133/73 (93) 02/21/17 16:11 93 21 182/93 (122) 97 02/21/17 11:34 99.8 95 19 176/89 (118) 93 Exam Comments stuporous, not following, yells "leave me" eyes closed, grimaces, resists pupillary exam, alegre to gravity, msr sym, no clonus, planterflexor Objective Micro and Labs Laboratory Tests Test 02/21/17 16:36 02/21/17 21:59 02/22/17 04:30 CSF Volume (Tube 1) 2.5 CSF Supernatant Color (tube 1) CLEAR CSF Gross Blood (Tube 1) 0 CSF Volume (Tube 2) 2.0 CSF Supernatant Color (tube 2) CLEAR CSF Gross Blood (Tube 2) 0 CSF Volume (Tube 3) 2.0 CSF Supernatant Color (tube 3) CLEAR CSF Gross Blood (Tube 3) 0 CSF Volume (Tube 4) 3.0 CSF Supernatant Color (tube 4) CLEAR CSF Gross Blood (Tube 4) 0 CSF WBC (Tube 4) 0 CSF RBC (Tube 4) 8 CSF Neutrophils 0 CSF Lymphocytes 0 CSF Glucose 81 CSF Total Protein 51.9 Erythrocyte Sedimentation Rate 70 Blood Urea Nitrogen 10 Creatinine 0.99 Random Glucose 115 Total Protein 7.1 Albumin 2.9 Calcium Level 8.7 Alkaline Phosphatase 82 Aspartate Amino Transf (AST/SGOT) 22 Alanine Aminotransferase (ALT/SGPT) 18 Total Bilirubin 0.9 Sodium Level 139 Potassium Level 3.0 Chloride Level 102 Carbon Dioxide Level 27.0 Anion Gap 10 Estimat Glomerular Filtration Rate 77 Ammonia LESS THAN 10 C-Reactive Protein 30.40 Nasal Screen MRSA (PCR) MRSA NOT DETECTED Date/Time Source Procedure Growth Status 02/21/17 06:55 Blood Peripheral Aerobic Blood Culture Pending Received 02/21/17 06:55 Blood Peripheral Anaerobic Blood Culture Pending Received 02/21/17 16:36 Cerebral Spinal Fluid Lumbar Puncture Gram Stain - Final Resulted 02/21/17 16:36 Cerebral Spinal Fluid Lumbar Puncture CSF Culture - Preliminary NO GROWTH IN 24 HOURS. Resulted Problem Qualifiers (1) HTN (hypertension): Qualified Codes: I10 - Essential (primary) hypertension (2) Abdominal pain: Qualified Codes: R10.11 - Right upper quadrant pain Martin Kemp MD Feb 22, 2017 09:10
--- NOTE | 2017-02-22 09:59 | HHI.PR ---
Subjective Remarks Patient reports is feeling better overall but still experiencing right upper quadrant abdominal pain. No nausea or vomiting. He is now alert and oriented. Objective Vitals Vital Signs Date Time Temp Pulse Resp B/P (MAP) Pulse Ox O2 Delivery O2 Flow Rate FiO2 02/22/17 06:00 72 02/22/17 05:00 75 02/22/17 04:39 98.8 70 20 166/74 (104) 97 02/22/17 02:48 20 02/22/17 00:49 100.7 90 20 141/73 (95) 97 02/21/17 21:00 100.8 95 22 136/89 (105) 95 02/21/17 18:43 133/73 (93) 02/21/17 16:11 93 21 182/93 (122) 97 02/21/17 11:34 99.8 95 19 176/89 (118) 93 I/O 02/21/17 02/21/17 02/21/17 02/22/17 02/22/17 02/22/17 07:00 15:00 23:00 07:00 15:00 23:00 Intake Total 200 ml 990 ml Balance 200 ml 990 ml Intake IV Total 200 ml 990 ml # Voids 1 Result Diagram: 02/21/17 0649 02/21/172158 Objective Remarks GENERAL: Obese male in no apparent distress. CARDIOVASCULAR: Normal rate and regular rhythm without murmurs, gallops, or rubs. RESPIRATORY: Good respiratory efforts. Breath sounds equal and clear to auscultation bilaterally. GASTROINTESTINAL: Abdomen soft, positive Blair's sign, normal and active bowel sounds. MUSCULOSKELETAL: Extremities without cyanosis, or edema. NEURO: Alert & Oriented x4 to person, place, time, situation. Moves all ext x4 PSYCH: Appropriate mood and affect. A/P Problem List: (1) Acute encephalopathy ICD Code: G93.40 - Encephalopathy, unspecified Status: Acute (2) HTN (hypertension) ICD Code: I10 - Essential (primary) hypertension Status: Chronic (3) Intractable abdominal pain ICD Code: R10.9 - Unspecified abdominal pain Status: Acute (4) Sepsis ICD Code: A41.9 - Sepsis, unspecified organism (5) Gram-negative bacteremia ICD Code: R78.81 - Bacteremia Assessment and Plan 61-year-old male who initially presented with intractable abdominal pain. The patient later developed acute encephalopathy. He is apparently septic with gram -negative bacteremia. Acute encephalopathy: Likely secondary to sepsis. Gram-negative bacteremia.? Gallbladder - Neurology following. Initial concern for CVA versus NAILER HAND encephalitis. MRI with artifacts. CSF not convincing for infection. Awaiting the rest of the titers per neurology. EEG pending - Continue cefepime and acyclovir per infectious disease. Sepsis/gram-negative bacteremia: - ? gi source - ID following. Continue cefepime and acyclovir. Follow cultures. Intractable abdominal pain with nausea and vomiting, now with fever Febrile illness Lactic acidosis CT of the abdomen/pelvis shows distended gallbladder without stones or biliary ductal dilation. US of the gallbladder non-conclusive Appreciate general surgery following. Plan for laparoscopic cholecystectomy tomorrow. Pain control as needed -Anemia mostly chronic, revealed with to dilution effect -Thrombocytopenia mostly chronic GI following an planning for endoscopy On PPI and sucralfate Nonspecific T waves on EKG Patient with inverted T waves in aVR, V1-V4 Per patient report, his primary is aware of this and has referred him to cardiology Cardiac enzymes 3 sets are negative Patient will need to follow-up with outpatient cardiology Hypokalemia: - Replace and monitor. Chronic pain Continue home Oramorph, Mobic, baclofen Hypertension/hyperlipidemia Continue home medications GI prophylaxis: PPI. Stool softener PRN constipation. DVT PPx: Heparin Discharge Planning Okay to transfer to the floor today. Planning for surgery tomorrow Problem Qualifiers (1) HTN (hypertension): Qualified Codes: I10 - Essential (primary) hypertension Simon Flowers MD Feb 22, 2017 09:59
--- NOTE | 2017-02-22 10:15 | HHI.IDPN ---
Subjective Subjective Remarks LP was essentially normal except for mildly elevated protein Pt is much more alert today co of pain in RLQ Growing a gram negative loc in the blood now seen by Dr Nelson Antibiotics cefepime ampicillin vancomicn acyclovir Allergies: Coded Allergies: No Known Allergies (Unverified Allergy, Unknown, 02/19/17) Objective . Vital Signs Date Time Temp Pulse Resp B/P (MAP) Pulse Ox O2 Delivery O2 Flow Rate FiO2 02/22/17 06:00 72 02/22/17 05:00 75 02/22/17 04:39 98.8 70 20 166/74 (104) 97 02/22/17 02:48 20 02/22/17 00:49 100.7 90 20 141/73 (95) 97 02/21/17 21:00 100.8 95 22 136/89 (105) 95 02/21/17 18:43 133/73 (93) 02/21/17 16:11 93 21 182/93 (122) 97 02/21/17 11:34 99.8 95 19 176/89 (118) 93 . Laboratory Tests Test 02/21/17 06:49 02/21/17 21:59 White Blood Count 13.3 TH/MM3 Red Blood Count 4.02 MIL/MM3 Hemoglobin 12.7 GM/DL Hematocrit 36.4 % Mean Corpuscular Volume 90.6 FL Mean Corpuscular Hemoglobin 31.7 PG Mean Corpuscular Hemoglobin Concent 35.0 % Red Cell Distribution Width 12.6 % Platelet Count 130 TH/MM3 Mean Platelet Volume 8.6 FL Erythrocyte Sedimentation Rate 70 mm/hr Laboratory Tests Test 02/21/17 06:49 02/21/17 21:59 Lactic Acid Level 1.3 mmol/L Blood Urea Nitrogen 10 MG/DL Creatinine 0.99 MG/DL Random Glucose 115 MG/DL Total Protein 7.1 GM/DL Albumin 2.9 GM/DL Calcium Level 8.7 MG/DL Alkaline Phosphatase 82 U/L Aspartate Amino Transf (AST/SGOT) 22 U/L Alanine Aminotransferase (ALT/SGPT) 18 U/L Total Bilirubin 0.9 MG/DL Sodium Level 139 MEQ/L Potassium Level 3.0 MEQ/L Chloride Level 102 MEQ/L Carbon Dioxide Level 27.0 MEQ/L Anion Gap 10 MEQ/L Estimat Glomerular Filtration Rate 77 ML/MIN Ammonia LESS THAN 10 MCMOL/L C-Reactive Protein 30.40 MG/DL Microbiology Date/Time Source Procedure Growth Status 02/21/17 06:55 Blood Peripheral Aerobic Blood Culture - Preliminary Gram Negative Loc Resulted 02/21/17 06:55 Blood Peripheral Anaerobic Blood Culture Pending Resulted 02/21/17 06:49 Blood Peripheral Aerobic Blood Culture - Preliminary Gram Negative Loc Resulted 02/21/17 06:49 Blood Peripheral Anaerobic Blood Culture Pending Resulted 02/21/17 16:36 Cerebral Spinal Fluid Lumbar Puncture Gram Stain - Final Resulted 02/21/17 16:36 Cerebral Spinal Fluid Lumbar Puncture CSF Culture - Preliminary NO GROWTH IN 24 HOURS. Resulted Imaging Last Impressions Lumbar Puncture Fluoroscopy 02/21/17 0000 Signed Impressions: Service Date/Time: Tuesday, February 21, 2017 17:32 - CONCLUSION: Uncomplicated fluoroscopically guided lumbar puncture. Seymour Benton MD Brain MRI 02/21/17 0000 Signed Impressions: Service Date/Time: Tuesday, February 21, 2017 11:56 - CONCLUSION: Excessive motion during scanning results in significant degradation of images as described above. No acute hemorrhage, midline shift or extra-axial bleed is noted. Repeat MRI of the brain may be warranted if altered mental status does not resolve. Matt Figueroa MD Chest X-Ray 02/19/17 0018 Signed Impressions: Service Date/Time: Sunday, February 19, 2017 00:44 - CONCLUSION: The lungs are clear. No evidence of pneumothorax. Gal Jensen MD Gall Bladder Ultrasound 02/19/17 0000 Signed Impressions: Service Date/Time: Sunday, February 19, 2017 05:17 - CONCLUSION: Limited examination demonstrates significant acoustic attenuation throughout the hepatic parenchyma; the intrahepatic and extrahepatic earlier he system cannot be assessed. The pancreas is poorly visualized and cannot be assessed sonographically. No evidence of free fluid. Gal Jensen MD Abdomen/Pelvis CT 02/19/17 0000 Signed Impressions: Service Date/Time: Sunday, February 19, 2017 02:31 - CONCLUSION: 1. Steatosis of the liver. 2. Otherwise negative CT abdomen/pelvis with contrast. Gal Jensen MD Physical Exam CONSTITUTIONAL/GENERAL: This is an adequately nourished patient, in no apparent distress. TUBES/LINES/DRAINS: SKIN: No jaundice, rashes, or lesions. Skin temperature appropriate. Not diaphoretic. EYES: Pupils equal and round and reactive. Extraocular motions intact. No scleral icterus. No injection or drainage. Fundi not examined. ENT: Hearing grossly normal. Nose without bleeding or purulent drainage. Throat without visible erythema, exudates, masses, or lesions. NECK: Trachea midline. Supple, nontender. CARDIOVASCULAR: Regular rate and rhythm without murmurs, gallops, or rubs. No JVD. Peripheral pulses symmetric. Perifery is well perfused RESPIRATORY/CHEST: Symmetric, unlabored respirations. Clear to auscultation. Breath sounds equal bilaterally. No wheezes, rales, or rhonchi. GASTROINTESTINAL: Abdomen soft, mildly to moderately diffusely tender, nondistended, no Blair . No hepato-splenomegaly, or palpable masses. No guarding. Bowel sounds present. GENITOURINARY: Without palpable bladder distension. MUSCULOSKELETAL: Extremities without clubbing, cyanosis, or edema. No joint tenderness or effusion noted. No calf tenderness. No mottling or clubbing. LYMPHATICS: No palpable cervical or supraclavicular adenopathy. NEUROLOGICAL: Awake, alert and conversant + follows commands. Moves all extremities. Normal speech PSYCHIATRIC: unable to assess Assessment & Plan Remarks Gram negative backteremi ? GI FUO with abdominal pain and mental status change MRI done w/o contrast and has artifact dw Dr Nelson ? R temp lobe infarct Hepatic steatosis with no s/o hepatitis and preserved synthetic fnx Abdominal pain as presenting smx without CT finding s to explain it MS change Hypertensive urgency dc ampicillin , vanco cont cefepime stop acyclovir once HSV back and negative dw Su Fonseca MD Feb 22, 2017 10:15
[2017-02-22] MEDS: SUCRALFATE 1 GM/10 ML CUP PO SCH ×4 (12:00→23:29)
--- NOTE | 2017-02-22 12:41 | HHI.GIFU ---
Subjective Remarks Pt resting in bed, in no apparent distress. He is currently on clear liquid diet for cholecystectomy tomorrow. Complaining of RUQ abdominal pain. Denies any nausea or vomiting today. Has not had a BM today. (Aster Rivera) Objective Vitals I&O Vital Signs Date Time Temp Pulse Resp B/P (MAP) Pulse Ox O2 Delivery O2 Flow Rate FiO2 02/22/17 06:00 72 02/22/17 05:00 75 02/22/17 04:39 98.8 70 20 166/74 (104) 97 02/22/17 02:48 20 02/22/17 00:49 100.7 90 20 141/73 (95) 97 02/21/17 21:00 100.8 95 22 136/89 (105) 95 02/21/17 18:43 133/73 (93) 02/21/17 16:11 93 21 182/93 (122) 97 I/O 02/21/17 02/21/17 02/21/17 02/22/17 02/22/17 02/22/17 07:00 15:00 23:00 07:00 15:00 23:00 Intake Total 200 ml 990 ml Balance 200 ml 990 ml Intake IV Total 200 ml 990 ml # Voids 1 Laboratory Laboratory Tests Test 02/21/17 16:36 02/21/17 21:59 02/22/17 04:30 CSF Volume (Tube 1) 2.5 CSF Supernatant Color (tube 1) CLEAR CSF Gross Blood (Tube 1) 0 CSF Volume (Tube 2) 2.0 CSF Supernatant Color (tube 2) CLEAR CSF Gross Blood (Tube 2) 0 CSF Volume (Tube 3) 2.0 CSF Supernatant Color (tube 3) CLEAR CSF Gross Blood (Tube 3) 0 CSF Volume (Tube 4) 3.0 CSF Supernatant Color (tube 4) CLEAR CSF Gross Blood (Tube 4) 0 CSF WBC (Tube 4) 0 CSF RBC (Tube 4) 8 CSF Neutrophils 0 CSF Lymphocytes 0 CSF Glucose 81 CSF Total Protein 51.9 Erythrocyte Sedimentation Rate 70 Blood Urea Nitrogen 10 Creatinine 0.99 Random Glucose 115 Total Protein 7.1 Albumin 2.9 Calcium Level 8.7 Alkaline Phosphatase 82 Aspartate Amino Transf (AST/SGOT) 22 Alanine Aminotransferase (ALT/SGPT) 18 Total Bilirubin 0.9 Sodium Level 139 Potassium Level 3.0 Chloride Level 102 Carbon Dioxide Level 27.0 Anion Gap 10 Estimat Glomerular Filtration Rate 77 Ammonia LESS THAN 10 C-Reactive Protein 30.40 Nasal Screen MRSA (PCR) MRSA NOT DETECTED Date/Time Source Procedure Growth Status 02/21/17 06:55 Blood Peripheral Aerobic Blood Culture - Preliminary Gram Negative Loc Resulted 02/21/17 06:55 Blood Peripheral Anaerobic Blood Culture - Preliminary NO GROWTH IN 1 DAY Resulted 02/21/17 16:36 Cerebral Spinal Fluid Lumbar Puncture Gram Stain - Final Resulted 02/21/17 16:36 Cerebral Spinal Fluid Lumbar Puncture CSF Culture - Preliminary NO GROWTH IN 24 HOURS. Resulted Imaging Last Impressions Lumbar Puncture Fluoroscopy 02/21/17 0000 Signed Impressions: Service Date/Time: Tuesday, February 21, 2017 17:32 - CONCLUSION: Uncomplicated fluoroscopically guided lumbar puncture. Seymour Benton MD Brain MRI 02/21/17 0000 Signed Impressions: Service Date/Time: Tuesday, February 21, 2017 11:56 - CONCLUSION: Excessive motion during scanning results in significant degradation of images as described above. No acute hemorrhage, midline shift or extra-axial bleed is noted. Repeat MRI of the brain may be warranted if altered mental status does not resolve. Matt Figueroa MD Chest X-Ray 02/19/17 0018 Signed Impressions: Service Date/Time: Sunday, February 19, 2017 00:44 - CONCLUSION: The lungs are clear. No evidence of pneumothorax. Gal Jensen MD Gall Bladder Ultrasound 02/19/17 0000 Signed Impressions: Service Date/Time: Sunday, February 19, 2017 05:17 - CONCLUSION: Limited examination demonstrates significant acoustic attenuation throughout the hepatic parenchyma; the intrahepatic and extrahepatic earlier he system cannot be assessed. The pancreas is poorly visualized and cannot be assessed sonographically. No evidence of free fluid. Gal Jensen MD Abdomen/Pelvis CT 02/19/17 0000 Signed Impressions: Service Date/Time: Sunday, February 19, 2017 02:31 - CONCLUSION: 1. Steatosis of the liver. 2. Otherwise negative CT abdomen/pelvis with contrast. Gal Jensen MD Physical Exam HEENT: Normocephalic, atraumatic. CHEST: CTA CARDIAC: RRR ABDOMEN: Soft, mildly distended,RUQ TTP; no hepatosplenomegaly; bowel sounds active x 4 EXTREMITIES: No clubbing, cyanosis, or edema. SKIN: Normal; no rash; no jaundice. WINDOW SHADE ESTIMATOR: alert and oriented x 3 (Aster Rivera) Assessment and Plan Plan ASSESSMENT - Abdominal pain RUQ - onset few days ago. Denies N/V today. CT abdomen/pelvis with IV contrast (02/19) --> Steatosis of the liver. Otherwise negative CT. LFTs WNL. Plan was for colonoscopy/EGD Feb 20, however, pt was confused and did not take the prep. Pt is alert and oriented x 3 today and cooperative. Able to answer questions appropriately. MRI brain W/O contrast (02/21) --> Excessive motion. No acute hemorrhage, midline shift or extra-axial bleed is noted. Per GS plan is for pt to have cholecystectomy tomorrow, currently on clear liquid diet, tolerating. PLAN - AMS resolved- pt is now A&O x 3 - Cholecystectomy per GS tomorrow - Currently on clear liquid diet today - Plan for EGD/colonoscopy on Sunday unless emergent need over the weekend - GoLYTELY prep on Sunday - Obtain consents - Clear liquids Sunday - NPO after MN Sunday night - Monitor labs - Supportive care - Further recommendations to follow based on results of above Pt seen and examined by myself and Dr. Arrieta and this note is written on his behalf (Aster Rivera) Physician Comments Patient seen and examined Agree with above Continue with current supportive care Monitor labs Endoscopy can be done on Sunday if patient still in the hospital or as an outpatient (Abdoulaye Arrieta MD) Aster Rivera Feb 22, 2017 12:41 Abdoulaye Arrieta MD Feb 22, 2017 17:54
[2017-02-22] MEDS: ACYCLOVIR IV SCH (15:00)
[2017-02-22] MEDS: SODIUM CHLORIDE 0.9% IV SCH (15:00)
--- NOTE | 2017-02-22 15:16 | HHI.PR ---
cc: Heron Yan MD Subjective Subjective Notes Resting in bed Much more cognitive today C/o RUQ abdominal pain Objective Vitals/I&O Vital Signs Date Time Temp Pulse Resp B/P (MAP) Pulse Ox O2 Delivery O2 Flow Rate FiO2 02/22/17 12:00 104 02/22/17 12:00 98.4 16 173/78 (109) 96 02/19/17 03:44 Room Air Labs Laboratory Tests Test 02/21/17 16:36 02/21/17 21:59 02/22/17 04:30 CSF Volume (Tube 1) 2.5 CSF Supernatant Color (tube 1) CLEAR CSF Gross Blood (Tube 1) 0 CSF Volume (Tube 2) 2.0 CSF Supernatant Color (tube 2) CLEAR CSF Gross Blood (Tube 2) 0 CSF Volume (Tube 3) 2.0 CSF Supernatant Color (tube 3) CLEAR CSF Gross Blood (Tube 3) 0 CSF Volume (Tube 4) 3.0 CSF Supernatant Color (tube 4) CLEAR CSF Gross Blood (Tube 4) 0 CSF WBC (Tube 4) 0 CSF RBC (Tube 4) 8 CSF Neutrophils 0 CSF Lymphocytes 0 CSF Glucose 81 CSF Total Protein 51.9 Erythrocyte Sedimentation Rate 70 Blood Urea Nitrogen 10 Creatinine 0.99 Random Glucose 115 Total Protein 7.1 Albumin 2.9 Calcium Level 8.7 Alkaline Phosphatase 82 Aspartate Amino Transf (AST/SGOT) 22 Alanine Aminotransferase (ALT/SGPT) 18 Total Bilirubin 0.9 Sodium Level 139 Potassium Level 3.0 Chloride Level 102 Carbon Dioxide Level 27.0 Anion Gap 10 Estimat Glomerular Filtration Rate 77 Ammonia LESS THAN 10 C-Reactive Protein 30.40 Nasal Screen MRSA (PCR) MRSA NOT DETECTED Date/Time Source Procedure Growth Status 02/21/17 06:55 Blood Peripheral Aerobic Blood Culture - Preliminary Gram Negative Loc Resulted 02/21/17 06:55 Blood Peripheral Anaerobic Blood Culture - Preliminary NO GROWTH IN 1 DAY Resulted 02/21/17 16:36 Cerebral Spinal Fluid Lumbar Puncture Gram Stain - Final Resulted 02/21/17 16:36 Cerebral Spinal Fluid Lumbar Puncture CSF Culture - Preliminary NO GROWTH IN 24 HOURS. Resulted Radiology Last 48 hours Impressions Brain MRI 02/21/17 0000 Signed Impressions: Service Date/Time: Tuesday, February 21, 2017 11:56 - CONCLUSION: Excessive motion during scanning results in significant degradation of images as described above. No acute hemorrhage, midline shift or extra-axial bleed is noted. Repeat MRI of the brain may be warranted if altered mental status does not resolve. Matt Figueroa MD Cardiovascular: Regular Lungs: Clear Abdomen: Other (obese abomen; RUQ tenderness with palpation ) Extremities: No edema A/P Assessment and Plan 61 year old male with AMS; RUQ abdominal pain -Had long discussion with patient's sister Odalys Adams on the phone----she is concerned about patient's mental status and multiple psychotic episode -Also discussed etiology of abdominal pain is likely from his gallbladder -Will plan laparoscopic cholecystectomy; ossicle open procedure; possible intraoperative cholangiogram for tomorrow at 10AM with Dr. Yan -Explained procedure in detail including risks -Clear liquids today; NPO after MN -Obtain consents Patient seen on rounds and I recommended cholecystectomy. Patient agrees. Will schedule for the am. HERON YAN MD [facility] Silva Allen Feb 22, 2017 15:16 Heron Yan MD Feb 26, 2017 18:00
[2017-02-22] MEDS ORDERED: POTASSIUM CHLORIDE 10 MEQ CONTROLLED RELEASE TAB PO ONE (17:00)
[2017-02-22] MEDS: SODIUM CHLORIDE 0.9% FLUSH 10 ML FLUSH IV FLUSH SCH ×2 (17:53→23:29)
[2017-02-23] VITALS: BP 160/94; PULSE 74; RESP 17; TEMP 98.8; O2SAT 98
[2017-02-23] MEDS: CEFEPIME INJ 2,000 MG in SODIUM CHLORIDE 0.9% INJ 100 ML IV SCH ×3 (00:17→16:09)
[2017-02-23] MEDS: HYDROmorphone HCL PF 1 MG/ML VIAL IV PUSH PRN ×2 (01:52→06:42)
[2017-02-23 04:00] VITALS: BP 163/97; PULSE 70; RESP 17; TEMP 98.8; O2SAT 95
[2017-02-23] MEDS: CHLORHEXIDINE GLUCONATE 2 % 1 PACK (2 CLOTHS)(taper/protocol) TOPICAL SCH (04:00)
[2017-02-23] MEDS ORDERED: PHARMACY ORDERED LAB ONE (04:45)
[2017-02-23] MEDS: MORPHINE SULFATE 15 MG CONTROLLED RELEASE TAB PO SCH ×3 (05:21→21:53)
--- NOTE | 2017-02-23 06:36 | MG ---
cc: ALIYA GUAN M.D. Lab No: 17- Date: 02/22/2017 Age: 61 Sex: M Race: ___ REQUESTING PHYSICIAN Dr. Delacruz INDICATIONS An EEG was obtained on this 61-year-old patient awake and asleep with a history of encephalopathy. MEDICATIONS Include: 1. Haldol 2. Cefepime 3. Protonix 4. Morphine 5. Clonazepam DESCRIPTION The EEG shows mostly asleep recording. There are theta and delta rhythms as well as beta activity. When the patient is awake, there was some change in the background. Alpha rhythms are seen but never dominant. There is a lot of movement artifact intermittently. Some sleep spindles are present. Photic stimulation disclosed no significant change. INTERPRETATION Abnormal EEG because of generalized slowing suggesting a [id number] diffuse disturbance of cerebral function. No epileptiform features are present. MD MILAGRO Stapleton/MARTI /5:26 AM /6:29 AM
--- NOTE | 2017-02-23 07:25 | HHI.PR ---
Review/Management Diagnosis/Plan: (1) Acute encephalopathy ICD Codes: G93.40 - Encephalopathy, unspecified Status: Acute Plan: etiology: left temporal infarct vs barn and property manager encephalitis vs HTN encephalopathy vs serotonin syndrome? esr/crp elevated csf: wbc 0. minimally elevated protein, glucose ok. not suggestive of barn and property manager infection at present. however, await rest of titers repeat mri brain w/wo contrast-pending eeg-no sz, mild encephalopathy recs doing alot better no fever x 24 hrs bp improved if rest of csf studies negative, vitals stable and clinically improved, d/c planning (2) HTN (hypertension) ICD Codes: I10 - Essential (primary) hypertension Status: Chronic (3) Intractable abdominal pain ICD Codes: R10.9 - Unspecified abdominal pain Status: Acute Plan: resolved (4) Abdominal pain ICD Codes: R10.9 - Unspecified abdominal pain Status: Acute (5) Delirium due to another medical condition ICD Codes: F05 - Delirium due to known physiological condition Status: Acute Subjective Subjective Comments No acute events reported, " i feel better" No headache, no abd pain No chest pain No dyspnea no spinal pain Active Medications Current Medications Medications (Trade) Dose Ordered Sig/Juan Pablo Route Start Time Stop Time Status Last Admin (Nitrostat Sl) 0.4 mg Q5M PRN SL 02/19/17 00:30 02/19/17 00:58 (NS Flush) 2 ml UNSCH PRN IV FLUSH 02/19/17 04:45 (NS Flush) 2 ml BID IV FLUSH 02/19/17 09:00 02/22/17 23:29 (Tylenol) 650 mg Q4H PRN PO 02/19/17 04:45 02/20/17 12:12 (Zofran Inj) 4 mg Q6H PRN IVP 02/19/17 04:45 (Narcan Inj) 0.4 mg UNSCH PRN IV PUSH 02/19/17 04:45 (Lyndsey-Colace) 1 tab BID PO 02/19/17 09:00 02/22/17 23:28 (Milk Of Magnesia Liq) 30 ml Q12H PRN PO 02/19/17 04:45 (Senokot) 17.2 mg Q12H PRN PO 02/19/17 04:45 (Dulcolax Supp) 10 mg DAILY PRN RECTAL 02/19/17 04:45 (Lactulose Liq) 30 ml DAILY PRN PO 02/19/17 04:45 (Dilaudid Pf Inj) 1 mg Q4H PRN IV PUSH 02/19/17 04:45 02/23/17 06:42 (Tenormin) 50 mg BID PO 02/19/17 09:00 02/22/17 23:28 (KlonoPIN) 1 mg BID PO 02/19/17 09:00 02/22/17 23:28 (Cozaar) 50 mg DAILY PO 02/19/17 09:00 02/22/17 08:22 (Pravachol) 40 mg DAILY PO 02/19/17 09:00 02/22/17 08:22 (Oramorph Sr) 30 mg Q8H PO 02/19/17 05:00 02/23/17 05:21 (Zoloft) 100 mg DAILY PO 02/19/17 09:00 02/22/17 08:22 (Tricor) 145 mg DAILY PO 02/19/17 09:00 02/22/17 08:22 (Protonix) 40 mg BID PO 02/19/17 21:00 02/22/17 23:28 (Carafate Liq) 1 gm ACHS PO 02/19/17 17:00 02/22/17 23:29 Lactated Ringer's 1,000 ml @ 30 mls/hr Q24H PRN IV 02/20/17 20:15 02/23/17 20:14 Sodium Chloride 500 ml @ 30 mls/hr [id number] PRN IV 02/20/17 20:15 02/23/17 20:14 (Lopressor) 25 mg TELEPHONE MESSENGER PRN PO 02/20/17 20:15 02/23/17 20:14 (Betadine 5% Antisepsis Kit) 1 applic TELEPHONE MESSENGER PRN EACH NARE 02/20/17 20:15 02/23/17 20:14 (Chlorhexidine 2% Cloth) 3 pack TELEPHONE MESSENGER PRN TOPICAL 02/20/17 20:15 02/23/17 20:14 (NovoLIN R INJ) See Protocol Table ... TELEPHONE MESSENGER PRN SQ 02/20/17 20:15 02/23/17 20:14 (Vasotec Inj) 1.25 mg Q6H PRN IV PUSH 02/21/17 09:30 Cefepime HCl 2000 mg/Sodium Chloride 100 ml @ 200 mls/hr Q8H IV 02/21/17 16:00 02/23/17 00:17 Miscellaneous Information Patient in critical care unit? Ass... [id number] .XX 02/22/17 04:45 (Chlorhexidine 2% Cloth) 3 pack DAILY@04 TOPICAL 02/23/17 04:00 02/27/17 04:01 (Chlorhexidine 2% Cloth) 3 pack UNSCH PRN TOPICAL 02/22/17 04:45 02/27/17 04:33 Allergies Allergies Coded Allergies No Known Allergies (Unverified Allergy, Unknown, 02/19/17) Review of Systems All other ROS: ROS reviewed as documented in chart Exam I&O / VS Vital Signs Date Time Temp Pulse Resp B/P (MAP) Pulse Ox O2 Delivery O2 Flow Rate FiO2 02/23/17 04:00 98.8 70 17 163/97 (119) 95 02/23/17 00:00 98.8 74 17 160/94 (116) 98 02/22/17 20:00 98.4 67 17 189/85 (119) 97 02/22/17 20:00 67 02/22/17 18:34 98.3 69 18 128/84 (99) 93 02/22/17 18:00 96 02/22/17 16:00 104 02/22/17 14:31 16 02/22/17 14:00 104 02/22/17 12:00 104 02/22/17 12:00 98.4 62 16 173/78 (109) 96 02/22/17 10:00 104 02/22/17 08:19 16 02/22/17 08:00 104 02/22/17 08:00 98.4 66 16 175/78 (110) 95 Exam Comments alert, ox 3, pleasant sitting up, appropriate, pres Trump>Obama, pcp Raul, mild cervical rigidity- chronic 2/2 previous surgeries, no taoism tenderness, eomi, ou 3-2mm, mild facial hypomimia, alegre to gravity >5 sec, msr sym, no clonus, planterflexor Objective Micro and Labs Laboratory Tests Test 02/23/17 05:30 Vancomycin Level Trough 3.0 Date/Time Source Procedure Growth Status 02/21/17 06:55 Blood Peripheral Aerobic Blood Culture - Preliminary Gram Negative Loc Resulted 02/21/17 06:55 Blood Peripheral Anaerobic Blood Culture - Preliminary NO GROWTH IN 1 DAY Resulted 02/21/17 16:36 Cerebral Spinal Fluid Lumbar Puncture Gram Stain - Final Resulted 02/21/17 16:36 Cerebral Spinal Fluid Lumbar Puncture CSF Culture - Preliminary NO GROWTH IN 24 HOURS. Resulted Problem Qualifiers (1) HTN (hypertension): Qualified Codes: I10 - Essential (primary) hypertension (2) Abdominal pain: Qualified Codes: R10.11 - Right upper quadrant pain Martin Kemp MD Feb 23, 2017 07:25
[2017-02-23 08:00] VITALS: BP 155/94; PULSE 72; RESP 16; TEMP 100.1; O2SAT 94
[2017-02-23 08:52] LABS: HEMATOCRIT 34.9 % (39.0-51.0); MEAN CELL VOLUME 90.4 FL (80.0-100.0); MEAN CORPUSCULAR HEMOGLOBIN 31.4 PG (27.0-34.0); MEAN CORPUSCULAR HGB CONC 34.7 % (32.0-36.0); PLATELET COUNT 98 TH/MM3 (150-450); RED BLOOD COUNT 3.86 MIL/MM3 (4.50-5.90); RED CELL DISTRIBUTION WIDTH 12.6 % (11.6-17.2); WHITE BLOOD COUNT 8.5 TH/MM3 (4.0-11.0)
[2017-02-23] MEDS ORDERED: BUPIVACAINE/EPINEPHRINE 0.25% PF 30 ML VIAL ONE (09:27)
[2017-02-23] MEDS: ATENOLOL 50 MG TAB PO SCH ×2 (09:29→21:52)
[2017-02-23] MEDS: LOSARTAN 50 MG TAB PO SCH (09:29)
[2017-02-23] MEDS: DOCUSATE SODIUM 50 MG/SENNA 8.6 MG TAB PO SCH ×2 (09:29→21:53)
[2017-02-23] MEDS: clonazePAM 1 MG TAB PO SCH ×2 (09:29→21:52)
[2017-02-23] MEDS: FENOFIBRATE 145 MG TAB PO SCH (09:29)
[2017-02-23] MEDS: SERTRALINE HCL 100 MG TAB PO SCH (09:29)
[2017-02-23] MEDS: PRAVASTATIN SOD 40 MG TAB PO SCH (09:29)
[2017-02-23] MEDS: SUCRALFATE 1 GM/10 ML CUP PO SCH ×3 (09:29→16:09)
[2017-02-23] MEDS: SODIUM CHLORIDE 0.9% FLUSH 10 ML FLUSH IV FLUSH SCH ×2 (09:30→21:50)
[2017-02-23] MEDS: PANTOPRAZOLE SOD 40 MG DELAYED RELEASE TAB PO SCH ×2 (09:30→21:53)
[2017-02-23 09:35] LABS: HSV 1,PCR Negative (Negative)
[2017-02-23 09:37] LABS: BICARBONATE 27.4 MEQ/L (21.0-32.0); POTASSIUM 3.2 MEQ/L (3.5-5.1)
[2017-02-23 09:40] LABS: REVIEW FLAG FINAL
[2017-02-23 10:07] LABS: CF EBV DNA PCR RESULT Negative (Negative); CF EBV SPEC SOURCE CSF
[2017-02-23] MEDS ORDERED: ACETAMINOPHEN 1000 MG/100 ML 100 ML IV ONE (10:31)
--- NOTE | 2017-02-23 10:49 | HHI.PR ---
Subjective Remarks Follow up sepsis/FUO/right upper quadrant abdominal pain and now bacteremia 02/23/17-patient seen and examined, reports some mild right upper quadrant pain. Currently nothing by mouth. 2 out of 4 blood culture positive. Patient is alert and oriented 3, however he was questioning if he should go ahead with lap cholecystectomy today Objective Vitals Vital Signs Date Time Temp Pulse Resp B/P (MAP) Pulse Ox O2 Delivery O2 Flow Rate FiO2 02/23/17 08:00 100.1 72 16 155/94 (114) 94 02/23/17 04:00 98.8 70 17 163/97 (119) 95 02/23/17 00:00 98.8 74 17 160/94 (116) 98 02/22/17 20:00 98.4 67 17 189/85 (119) 97 02/22/17 20:00 67 02/22/17 18:34 98.3 69 18 128/84 (99) 93 02/22/17 18:00 96 02/22/17 16:00 104 02/22/17 14:31 16 02/22/17 14:00 104 02/22/17 12:00 104 02/22/17 12:00 98.4 62 16 173/78 (109) 96 I/O 02/22/17 02/22/17 02/22/17 02/23/17 02/23/17 02/23/17 07:00 15:00 23:00 07:00 15:00 23:00 Intake Total 990 ml 1610 ml 100 ml Output Total 800 ml Balance 990 ml 810 ml 100 ml Intake Oral 1260 ml IV Total 990 ml 350 ml 100 ml Output Urine Total 800 ml # Voids 1 2 # Bowel Movements 1 Result Diagram: 02/23/1719 02/23/17 0819 Imaging Last Impressions Lumbar Puncture Fluoroscopy 02/21/17 0000 Signed Impressions: Service Date/Time: Tuesday, February 21, 2017 17:32 - CONCLUSION: Uncomplicated fluoroscopically guided lumbar puncture. Seymour Benton MD Brain MRI 02/21/17 0000 Signed Impressions: Service Date/Time: Tuesday, February 21, 2017 11:56 - CONCLUSION: Excessive motion during scanning results in significant degradation of images as described above. No acute hemorrhage, midline shift or extra-axial bleed is noted. Repeat MRI of the brain may be warranted if altered mental status does not resolve. Matt Figueroa MD Chest X-Ray 02/19/17 0018 Signed Impressions: Service Date/Time: Sunday, February 19, 2017 00:44 - CONCLUSION: The lungs are clear. No evidence of pneumothorax. Gal Jensen MD Gall Bladder Ultrasound 02/19/17 0000 Signed Impressions: Service Date/Time: Sunday, February 19, 2017 05:17 - CONCLUSION: Limited examination demonstrates significant acoustic attenuation throughout the hepatic parenchyma; the intrahepatic and extrahepatic earlier he system cannot be assessed. The pancreas is poorly visualized and cannot be assessed sonographically. No evidence of free fluid. Gal Jensen MD Abdomen/Pelvis CT 02/19/17 0000 Signed Impressions: Service Date/Time: Sunday, February 19, 2017 02:31 - CONCLUSION: 1. Steatosis of the liver. 2. Otherwise negative CT abdomen/pelvis with contrast. Gal Jensen MD Objective Remarks GENERAL: NAD SKIN: Warm and dry. HEAD: Normocephalic. EYES: No scleral icterus. No injection or drainage. NECK: Supple, trachea midline. No JVD or lymphadenopathy. CARDIOVASCULAR: Regular rate and rhythm without murmurs, gallops, or rubs. RESPIRATORY: Breath sounds equal bilaterally. No accessory muscle use. GASTROINTESTINAL: Abdomen soft, mildly RUQ TTP, nondistended. MUSCULOSKELETAL: No cyanosis, or edema. BACK: Nontender without obvious deformity. No CVA tenderness. A/P Problem List: (1) Acute encephalopathy ICD Code: G93.40 - Encephalopathy, unspecified Status: Resolved (2) HTN (hypertension) ICD Code: I10 - Essential (primary) hypertension Status: Chronic (3) Intractable abdominal pain ICD Code: R10.9 - Unspecified abdominal pain Status: Acute (4) Sepsis ICD Code: A41.9 - Sepsis, unspecified organism (5) Gram-negative bacteremia ICD Code: R78.81 - Bacteremia Assessment and Plan 61-year-old man with Acute encephalopathy: Likely secondary to sepsis. Gram-negative bacteremia.? Gallbladder - Neurology following. 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 MRI with artifacts. CSF not convincing for infection. Awaiting the rest of the titers per neurology. EEG pending - Currently on cefepime and s/p acyclovir per infectious disease. Sepsis/gram-negative bacteremia: - ? gi source - ID following. Continue cefepime . Repeat blood culture Intractable abdominal pain with nausea and vomiting, now with fever Febrile illness Lactic acidosis CT of the abdomen/pelvis shows distended gallbladder without stones or biliary ductal dilation. US of the gallbladder non-conclusive Appreciate general surgery following. Plan for laparoscopic cholecystectomy today 02/23/17. Pain control as needed -Anemia mostly chronic, revealed with to dilution effect -Thrombocytopenia mostly chronic GI following an planning for endoscopy On PPI and sucralfate Nonspecific T waves on EKG Patient with inverted T waves in aVR, V1-V4 Cardiac enzymes 3 sets are negative Outpatient follow-up with cardiology Hypokalemia: Give 60 mEq of potassium and monitor Chronic pain Continue home Oramorph, Mobic, baclofen Hypertension/hyperlipidemia Continue home medications GI prophylaxis: PPI. Stool softener PRN constipation. Problem Qualifiers (1) HTN (hypertension): Qualified Codes: I10 - Essential (primary) hypertension Sidney Massey MD Feb 23, 2017 10:49
[2017-02-23] MEDS ORDERED: GLYCOPYRROLATE 1 MG/5 ML SYRINGE IV PUSH ONE (12:00)
[2017-02-23] MEDS ORDERED: KETOROLAC TROMETHAMINE 30 MG/ML (IVP) VIAL IV PUSH ONE (12:00)
[2017-02-23] MEDS ORDERED: LABETALOL HCL 100 MG/20 ML VIAL IV ONE (12:00)
[2017-02-23] MEDS ORDERED: DEXAMETHASONE SOD PHOS 4 MG/ML VIAL IV ONE (12:00)
[2017-02-23] MEDS ORDERED: hydrALAZINE HCL 20 MG/ML VIAL IV ONE (12:00)
[2017-02-23] MEDS ORDERED: MIDAZOLAM HCL 2 MG/2 ML VIAL IV ONE (12:00)
[2017-02-23] MEDS ORDERED: ROCURONIUM INJ 50 MG/5 ML SYRINGE IV PUSH ONE (12:00)
[2017-02-23] MEDS ORDERED: MORPHINE SULFATE 4 MG/ML INJ IV ONE (12:00)
[2017-02-23] MEDS ORDERED: PROPOFOL 200 MG/20 ML AMP IV ONE (12:00)
[2017-02-23] MEDS ORDERED: NEOSTIGMINE 5 MG/5 ML SYRINGE IV PUSH ONE (12:00)
[2017-02-23] MEDS ORDERED: LIDOCAINE HCL 1% PF 5 ML SYRINGE OTHER ONE (12:00)
[2017-02-23] MEDS ORDERED: ONDANSETRON HCL 4 MG/2 ML VIAL IV PUSH ONE (12:00)
[2017-02-23] MEDS ORDERED: LACTATED RINGER'S 1000 ML INJ 1,000 ML IV ONE (12:00)
[2017-02-23] MEDS ORDERED: NALOXONE HCL 4 MG/10 ML MDV ONE (13:06)
[2017-02-23] MEDS ORDERED: DO NOT ADM ANY ANTICOAGULANT DRUGS PRN (13:22)
[2017-02-23 16:00] VITALS: BP 121/68; PULSE 64; RESP 16; TEMP 98.8; O2SAT 94
--- NOTE | 2017-02-23 19:18 | MP ---
cc: Sonia YAN DATE OF SURGERY 02/23/17 PREOPERATIVE DIAGNOSIS 1. Intractable abdominal pain. 2. Gram-negative bacteremia. 3. Mental status changes. POSTOPERATIVE DIAGNOSIS 1. Intractable abdominal pain. 2. Gram-negative bacteremia. 3. Mental status changes. 4. Gangrenous cholecystitis PROCEDURE PERFORMED 1. Laparoscopic cholecystectomy. 2. Umbilical hernia repair. SURGEON Bobbi Yan MD ANESTHESIA General endotracheal COMPLICATIONS None. INDICATIONS FOR PROCEDURE Mr. Cardenas is a pleasant 61-year-old gentleman who presented to the emergency department on 02/19/2017 with complaints of epigastric abdominal pain. The patient was worked up and admitted and there was a concern about possible cholecystitis. Surgical consultation was requested. When we came to evaluate the patient, he was quite lethargic and unresponsive in the history and physical. It should be noted that his initial blood work showed a normal white count and normal LFTs. He underwent imaging which demonstrated an enlarged gallbladder without pericholecystic fluid or gross edema. He had a gallbladder ultrasound which showed limited evaluation of the gallbladder due to shadowing and body habitus. The patient's mental status improved in the next 24 hours. He was reexamined and found to have significant right upper quadrant pain. Acute cholecystitis was the most likely diagnosis and he was offered immediate cholecystectomy. The patient and his daughter discussed it and they elected to have surgery delayed until Sunday. Risks and benefits of the procedure was discussed with him and he is agreeable. INTRAOPERATIVE FINDINGS The patient had a massively distended, edematous, erythematous gallbladder with patchy ischemic changes throughout it. There was approximately 120 mL of dark green bile within the gallbladder as well as pus in the hepatic fossa. Gallbladder was significantly distended and edematous. Dissection was quite tedious and difficult. PROCEDURE IN DETAIL The patient was identified, brought to the operating room, placed supine on the operating table. After adequate general endotracheal anesthesia had been achieved, the abdomen was prepped and draped in standard surgical fashion. Supraumbilical space anesthetized with 0.25% Marcaine. Supraumbilical incision was made. Dissection was carried down to subcutaneous tissue to the general umbilical hernia sac. Umbilical hernia sac was then opened and the abdomen was easily entered. Blunt balloon trocar was inserted and was abdomen insufflated 15 mmHg using CO2 gas. Next, two 5 mm trocars were placed in the right upper quadrant after anesthetizing the skin and subcutaneous tissue with 0.25% Marcaine. Visualization of the right upper quadrant revealed the omentum completely encasing the liver. The omentum was carefully teased down and immediately we identified a very distended, edematous, erythematous gallbladder with patchy necrosis. Multiple photographs were taken. Gallbladder was massively distended and was unable to be grasped. We therefore used an aspiration needle and sucked out approximately 130 mL of dark green bile. Once we did this, the gallbladder was elevated cephalad. Due to limited visualization, a third port had to be placed in the right upper quadrant to hold the small bowel and omentum down. Once we did this, we had partial visualization of the gallbladder neck. It was very edematous and erythematous. We were unable to clearly identify the anatomy and, therefore, we elected to take the gallbladder down in a retrograde fashion. Gallbladder was taken down in a retrograde fashion using electrocautery Bovie. Once we had down to the gallbladder neck, the gallbladder itself was transected and placed in the right upper quadrant. It should be noted there were no gallstones in the gallbladder and all of the bile has been sucked out previously by the aspiration needle. Gallbladder neck was then carefully dissected anteriorly and posteriorly, medially and laterally. We followed the gallbladder neck down to the cystic duct. The cystic duct was clearly seen entering the neck of the gallbladder. This dissection was quite tedious and very challenging due to the acute edema and inflammation around the gallbladder neck. Once we could clearly see the cystic duct entering the neck of the gallbladder, it was clipped twice proximally, once distally and then divided. Once we had clipped and identified the cystic duct, we then turned our attention to the cystic artery. The cystic artery was just superior to this. It was clearly seen pulsing. It was clipped twice proximally, once distally and then divided. Once we did this, the proximal gallbladder was then dissected out of the hepatic fossa using electrocautery Bovie. The two portions of the gallbladder were then placed into the Endopouch bag and brought out through the supraumbilical port. Gallbladder was inspected, noted to be markedly enlarged, markedly thickened and edematous. The clips were in place on the cystic duct stump. Gallbladder was then sent to pathology for analysis. Next, the abdominal cavity was revisualized. Liver bed was carefully inspected and found to be hemostatic with no significant bleeding. Clips were inspected on the cystic artery and cystic duct stump and there was no evidence of bleeding. No evidence of bile leakage. We elected to place some Surgicel powder in the gallbladder fossa due to the acute inflammatory nature of the gallbladder and the lack of a clearly definable plane between the gallbladder and the liver itself. This was placed after irrigating the abdominal cavity out with one liter of warm saline solution. Irrigant was noted to be serosanguineous. Liver bed was carefully inspected prior to placing the hemostatic agent and there was no bleeding. Once we placed the white powder, there was no bleeding through the white powder at all. A 10-Lao Blaise-Barragan drain was then inserted in the right upper quadrant and brought out through one of the 5-mm port sites and placed in the hepatic fossa. The omentum was then placed in the liver bed. All trocars were removed under direct vision. Attention was now directed to repair of the umbilical hernia. The fascia was cleaned off circumferentially and the fascia was primarily closed using a 0 Prolene suture interrupted x3. We elected not to use the mesh as there was gross pus within the hepatic fossa when we were dissecting the gallbladder out. The skin and subcutaneous tissue were irrigated out and then closed with a 4-0 Vicryl. The patient tolerated the procedure well. Please note the operative time of this procedure was in excess of 2 hours. It required us opening additional instrumentation and placing additional ports due to the acute inflammatory nature of the gallbladder, its enlarged size and thickened state. MD MATHEUS Bravo/ /12:50 PM /6:58 PM
[2017-02-23 20:00] VITALS: BP 133/78; PULSE 60; RESP 22; TEMP 95.6; O2SAT 94
[2017-02-23 20:14] LABS: ENTEROVIRUS PCR RESULT Negative (Negative); ENTEROVIRUS PCR SPEC SOURCE CSF
[2017-02-24] VITALS (10 sets, daily range): BP systolic 134–158; BP diastolic 80–87; PULSE 57–71; RESP 19–22; TEMP 96–98; O2SAT 91–97
[2017-02-24] MEDS: HYDROmorphone HCL PF 1 MG/ML VIAL IV PUSH PRN ×5 (00:17→22:48)
[2017-02-24] MEDS: SUCRALFATE 1 GM/10 ML CUP PO SCH ×5 (00:22→21:45)
[2017-02-24] MEDS: CEFEPIME INJ 2,000 MG in SODIUM CHLORIDE 0.9% INJ 100 ML IV SCH ×2 (00:22→09:01)
[2017-02-24] MEDS: CHLORHEXIDINE GLUCONATE 2 % 1 PACK (2 CLOTHS)(taper/protocol) TOPICAL SCH (04:00)
[2017-02-24] MEDS: MORPHINE SULFATE 15 MG CONTROLLED RELEASE TAB PO SCH ×3 (06:38→21:46)
[2017-02-24 07:20] LABS: AUTOMATED NEUTROPHIL # 8.1 TH/MM3 (1.8-7.7); BASOPHIL % 0.4 % (0.0-2.0); EOSINOPHIL % 0.1 % (0.0-4.0); HEMATOCRIT 34.1 % (39.0-51.0); LYMPH % 5.6 % (9.0-44.0); LYMPHOCYTE # 0.5 TH/MM3 (1.0-4.8); MEAN CELL VOLUME 91.9 FL (80.0-100.0); MEAN CORPUSCULAR HEMOGLOBIN 31.6 PG (27.0-34.0); MEAN CORPUSCULAR HGB CONC 34.3 % (32.0-36.0); MONO % 8.5 % (0.0-8.0); NEUT % 85.4 % (16.0-70.0); PLATELET COUNT 119 TH/MM3 (150-450); RED BLOOD COUNT 3.72 MIL/MM3 (4.50-5.90); RED CELL DISTRIBUTION WIDTH 12.8 % (11.6-17.2); WHITE BLOOD COUNT 9.5 TH/MM3 (4.0-11.0)
[2017-02-24 08:16] LABS: HEMO FLAGS AUTO DIFF
[2017-02-24 08:26] LABS: PLATELET ESTIMATE SMEAR LOW (NORMAL); PLATELET MORPHOLOGY NORMAL (NORMAL); SCAN/DIFF AUTO DIFF CONFIRMED
[2017-02-24] MEDS ORDERED: GADODIAMIDE PF 287 MG/ML 20 ML VIAL (for RAD MRI) IVCONTRAST ONE (08:55)
[2017-02-24] MEDS: clonazePAM 1 MG TAB PO SCH ×2 (09:01→21:45)
[2017-02-24] MEDS: DOCUSATE SODIUM 50 MG/SENNA 8.6 MG TAB PO SCH ×2 (09:01→21:46)
[2017-02-24] MEDS: FENOFIBRATE 145 MG TAB PO SCH (09:01)
[2017-02-24] MEDS: PRAVASTATIN SOD 40 MG TAB PO SCH (09:01)
[2017-02-24] MEDS: SODIUM CHLORIDE 0.9% FLUSH 10 ML FLUSH IV FLUSH SCH ×2 (09:02→21:46)
[2017-02-24] MEDS: ATENOLOL 50 MG TAB PO SCH ×2 (09:02→21:46)
[2017-02-24] MEDS: PANTOPRAZOLE SOD 40 MG DELAYED RELEASE TAB PO SCH ×2 (09:02→21:45)
[2017-02-24] MEDS: LOSARTAN 50 MG TAB PO SCH (09:02)
[2017-02-24] MEDS: SERTRALINE HCL 100 MG TAB PO SCH (09:02)
--- NOTE | 2017-02-24 09:11 | RADRPT ---
EXAM DATE/TIME: 02/24/2017 08:06 [facility] COMPARISON: MRI BRAIN W/O CONTRAST, February 21, 2017, 11:56. INDICATIONS : Confusion. CONTRAST: 20 cc Omniscan (gadodiamide) IV MEDICAL HISTORY : Hypertension. SURGICAL HISTORY : Fusion, cervical. ENCOUNTER: Initial ACUITY: 4-6 days PAIN SCORE: 2/10 LOCATION: upper quadrant TECHNIQUE: Multiplanar, multisequence MRI of the brain was performed both prior to and following the administrat ion of paramagnetic contrast. FINDINGS: CEREBRUM: The ventricles are normal for age. No evidence of midline shift, mass lesion, hemorrhage or acute in farction. No extraaxial fluid collections are seen. The pituitary gland and suprasellar cistern are normal in configuration. WHITE MATTER: No significant signal abnormalities are seen in the white matter. POSTERIOR FOSSA: The cerebellum and brainstem are intact. The 4th ventricle is midline. The cerebellopontine angle is unremarkable. The cerebellar tonsils are normal in position. DIFFUSION IMAGING: No focal areas of restricted diffusion are seen. No evidence of acute infarction. EXTRACRANIAL: The visualized portions of the orbits and paranasal sinuses are unremarkable. POST-CONTRAST: No abnormal areas of parenchymal or dural enhancement. No evidence of blood-brain barrier breakdown. CONCLUSION: No acute disease. Matt Figueroa MD on February 24, 2017 at 9:03 Board Certified Radiologist. This report was verified electronically.
--- NOTE | 2017-02-24 09:12 | RADRPT ---
EXAM DATE/TIME: 02/24/2017 08:06 [facility] COMPARISON: No previous studies available for comparison. INDICATIONS : Confusion. MEDICAL HISTORY : Hypertension. SURGICAL HISTORY : Fusion, cervical. ENCOUNTER: Initial ACUITY: 4-6 days PAIN SCORE: 2/10 LOCATION: upper quadrant Please note a normal MRA of the brain does not entirely exclude the possibility of a small aneurysm, nor the possibility of distal intracranial vessel disease. TECHNIQUE: 3D time of flight MRA was performed. Source images, multiplanar STS MIP, and 3D volume MIP reconstru ctions were reviewed. FINDINGS: There is excellent visualization of the major intracranial arteries out to the second-order branch ve ssels. There is no evidence for aneurysm, vessel truncation or stenosis, and no evidence for vascula r malformation. CONCLUSION: No acute disease. Matt Figueroa MD on February 24, 2017 at 9:09 Board Certified Radiologist. This report was verified electronically.
--- NOTE | 2017-02-24 10:53 | HHI.PR ---
Subjective Remarks Follow up sepsis/FUO/right upper quadrant abdominal pain and now bacteremia 02/23/17-patient seen and examined, reports some mild right upper quadrant pain. Currently nothing by mouth. 2 out of 4 blood culture positive. Patient is alert and oriented 3, however he was questioning if he should go ahead with lap cholecystectomy today 02/24/17-patient seen and examined, s/p lap bernarda yesterday. Denies any abdominal pain. Tolerating PO well this AM. Afebrile Objective Vitals Vital Signs Date Time Temp Pulse Resp B/P (MAP) Pulse Ox O2 Delivery O2 Flow Rate FiO2 02/24/17 10:17 95 Nasal Cannula 3.00 02/24/17 08:00 70 02/24/17 08:00 92 02/24/17 08:00 97.4 60 21 141/87 (105) 91 02/24/17 05:25 59 02/24/17 04:00 95 Nasal Cannula 3.00 02/24/17 04:00 96.7 57 22 147/83 (104) 96 02/24/17 00:00 96.2 62 22 158/85 (109) 97 02/23/17 20:00 95.6 60 22 133/78 (96) 94 02/23/17 16:00 98.8 64 16 121/68 (85) 94 02/23/17 14:00 71 13 125/66 (85) 95 Nasal Cannula 3 02/23/17 13:45 75 19 131/70 (90) 96 Nasal Cannula 3 02/23/17 13:30 77 18 130/64 (86) 94 Nasal Cannula 4 02/23/17 13:18 98.7 81 22 134/63 (86) 94 Nasal Cannula 4 I/O 02/23/17 02/23/17 02/23/17 02/24/17 02/24/17 02/24/17 07:00 15:00 23:00 07:00 15:00 23:00 Intake Total 100 ml 800 ml 1360 ml 240 ml Output Total 3100 ml 32 ml 50 ml Balance 100 ml -2300 ml 1328 ml 190 ml Intake Oral 1360 ml 240 ml IV Total 100 ml 800 ml Output Urine Total 2 ml Drainage Total 30 ml 50 ml Estimated Blood Loss 100 ml Other 3000 ml # Voids 4 2 # Bowel Movements 0 Result Diagram: 02/24/17 0610 02/23/17 0819 Objective Remarks GENERAL: NAD SKIN: Warm and dry. HEAD: Normocephalic. EYES: No scleral icterus. No injection or drainage. NECK: Supple, trachea midline. No JVD or lymphadenopathy. CARDIOVASCULAR: Regular rate and rhythm without murmurs, gallops, or rubs. RESPIRATORY: Breath sounds equal bilaterally. No accessory muscle use. GASTROINTESTINAL: Abdomen soft, nontender, nondistended. inc c/d/i MUSCULOSKELETAL: No cyanosis, or edema. BACK: Nontender without obvious deformity. No CVA tenderness. Procedures 1. Laparoscopic cholecystectomy. 2. Umbilical hernia repair. A/P Problem List: (1) Acute encephalopathy ICD Code: G93.40 - Encephalopathy, unspecified Status: Resolved (2) HTN (hypertension) ICD Code: I10 - Essential (primary) hypertension Status: Chronic (3) Intractable abdominal pain ICD Code: R10.9 - Unspecified abdominal pain Status: Acute (4) Sepsis ICD Code: A41.9 - Sepsis, unspecified organism (5) Gram-negative bacteremia ICD Code: R78.81 - Bacteremia Assessment and Plan 61-year-old man with Acute encephalopathy: Likely secondary to sepsis. Gram-negative bacteremia.? Gallbladder - Neurology following. Initial concern for CVA versus STAVE BOLT EQUALIZER encephalitis. MRI with artifacts. CSF not convincing for infection. Awaiting the rest of the titers per neurology. EEG with No epileptiform features are present. - Currently on cefepime and s/p acyclovir per infectious disease. Sepsis/gram-negative bacteremia: - ? gi source - ID following. Continue cefepime . Repeat blood culture NTD Intractable abdominal pain with nausea and vomiting, now with fever Febrile illness Lactic acidosis CT of the abdomen/pelvis shows distended gallbladder without stones or biliary ductal dilation. US of the gallbladder non-conclusive Appreciate general surgery following. Had surgery yesterday 02/23/17 1. Laparoscopic cholecystectomy. 2. Umbilical hernia repair. Pain control as needed -Anemia mostly chronic, revealed with to dilution effect -Thrombocytopenia mostly chronic GI following and planning for endoscopy On PPI and sucralfate Nonspecific T waves on EKG Patient with inverted T waves in aVR, V1-V4 Cardiac enzymes 3 sets are negative Outpatient follow-up with cardiology Hypokalemia: Give 60 mEq of potassium and monitor Chronic pain Continue home Oramorph, Mobic, baclofen Hypertension/hyperlipidemia Continue home medications GI prophylaxis: PPI. Stool softener PRN constipation. Problem Qualifiers (1) HTN (hypertension): Qualified Codes: I10 - Essential (primary) hypertension Sidney Massey MD Feb 24, 2017 10:53
[2017-02-24] MEDS ORDERED: POTASSIUM CHLORIDE 10 MEQ CONTROLLED RELEASE TAB PO ONE (11:00)
--- NOTE | 2017-02-24 13:12 | HHI.GIFU ---
Subjective Remarks Pt is OOB walking around the room. In no apparent distress. He complains of abdominal pain, s/p surgery yesterday. Has not had a BM since surgery. Denies nausea, vomiting. Tolerating regular diet. Objective Vitals I&O Vital Signs Date Time Temp Pulse Resp B/P (MAP) Pulse Ox O2 Delivery O2 Flow Rate FiO2 02/24/17 11:43 96.0 65 20 142/84 (103) 95 02/24/17 10:17 95 Nasal Cannula 3.00 02/24/17 08:00 70 02/24/17 08:00 92 02/24/17 08:00 97.4 60 21 141/87 (105) 91 02/24/17 05:25 59 02/24/17 04:00 95 Nasal Cannula 3.00 02/24/17 04:00 96.7 57 22 147/83 (104) 96 02/24/17 00:00 96.2 62 22 158/85 (109) 97 02/23/17 20:00 95.6 60 22 133/78 (96) 94 02/23/17 16:00 98.8 64 16 121/68 (85) 94 02/23/17 14:00 71 13 125/66 (85) 95 Nasal Cannula 3 02/23/17 13:45 75 19 131/70 (90) 96 Nasal Cannula 3 02/23/17 13:30 77 18 130/64 (86) 94 Nasal Cannula 4 02/23/17 13:18 98.7 81 22 134/63 (86) 94 Nasal Cannula 4 I/O 02/23/17 02/23/17 02/23/17 02/24/17 02/24/17 02/24/17 07:00 15:00 23:00 07:00 15:00 23:00 Intake Total 100 ml 800 ml 1360 ml 240 ml 100 ml Output Total 3100 ml 32 ml 50 ml Balance 100 ml -2300 ml 1328 ml 190 ml 100 ml Intake Oral 1360 ml 240 ml IV Total 100 ml 800 ml 100 ml Output Urine Total 2 ml Drainage Total 30 ml 50 ml Estimated Blood Loss 100 ml Other 3000 ml # Voids 4 2 # Bowel Movements 0 Laboratory Laboratory Tests Test 02/24/17 06:10 White Blood Count 9.5 Red Blood Count 3.72 Hemoglobin 11.7 Hematocrit 34.1 Mean Corpuscular Volume 91.9 Mean Corpuscular Hemoglobin 31.6 Mean Corpuscular Hemoglobin Concent 34.3 Red Cell Distribution Width 12.8 Platelet Count 119 Mean Platelet Volume 10.2 Neutrophils (%) (Auto) 85.4 Lymphocytes (%) (Auto) 5.6 Monocytes (%) (Auto) 8.5 Eosinophils (%) (Auto) 0.1 Basophils (%) (Auto) 0.4 Neutrophils # (Auto) 8.1 Lymphocytes # (Auto) 0.5 Monocytes # (Auto) 0.8 Eosinophils # (Auto) 0.0 Basophils # (Auto) 0.0 CBC Comment AUTO DIFF Differential Comment AUTO DIFF CONFIRMED Platelet Estimate LOW Platelet Morphology Comment NORMAL Date/Time Source Procedure Growth Status 02/23/17 08:25 Blood Peripheral Aerobic Blood Culture - Preliminary NO GROWTH IN 1 DAY Resulted 02/23/17 08:25 Blood Peripheral Anaerobic Blood Culture - Preliminary NO GROWTH IN 1 DAY Resulted 02/21/17 16:36 Cerebral Spinal Fluid Lumbar Puncture Gram Stain - Final Complete 02/21/17 16:36 Cerebral Spinal Fluid Lumbar Puncture CSF Culture - Final NO GROWTH IN 72 HOURS Complete Imaging Last Impressions Head Magnetic Resonance Angiography 02/24/17 0000 Signed Impressions: Service Date/Time: Friday, February 24, 2017 08:06 - CONCLUSION: No acute disease. Matt Figueroa MD Brain MRI 02/24/17 0000 Signed Impressions: Service Date/Time: Friday, February 24, 2017 08:06 - CONCLUSION: No acute disease. Matt Figueroa MD Lumbar Puncture Fluoroscopy 02/21/17 0000 Signed Impressions: Service Date/Time: Tuesday, February 21, 2017 17:32 - CONCLUSION: Uncomplicated fluoroscopically guided lumbar puncture. Seymour Benton MD Chest X-Ray 02/19/17 0018 Signed Impressions: Service Date/Time: Sunday, February 19, 2017 00:44 - CONCLUSION: The lungs are clear. No evidence of pneumothorax. Gal Jensen MD Gall Bladder Ultrasound 02/19/17 0000 Signed Impressions: Service Date/Time: Sunday, February 19, 2017 05:17 - CONCLUSION: Limited examination demonstrates significant acoustic attenuation throughout the hepatic parenchyma; the intrahepatic and extrahepatic earlier he system cannot be assessed. The pancreas is poorly visualized and cannot be assessed sonographically. No evidence of free fluid. Gal Jensen MD Abdomen/Pelvis CT 02/19/17 0000 Signed Impressions: Service Date/Time: Sunday, February 19, 2017 02:31 - CONCLUSION: 1. Steatosis of the liver. 2. Otherwise negative CT abdomen/pelvis with contrast. Gal Jensen MD Physical Exam HEENT: Normocephalic, atraumatic. CHEST: CTA CARDIAC: RRR ABDOMEN: Soft, obese, TTP over site of umbilical hernia repair; AMEENA drain with 20cc of dark red drainage to right side of abdomen, no active drainage from AMEENA site, dressing is clean and dry. No active drainage or swelling surrounding site of periumbilical hernia repair. Bowel sounds active x 4 EXTREMITIES: No clubbing, cyanosis, or edema. SKIN: Normal; no rash; no jaundice. SKEIN Y[employer] DRIER: Alert and oriented x 3 Assessment and Plan Plan ASSESSMENT - Abdominal pain RUQ - onset few days ago. Denies N/V today. CT abdomen/pelvis with IV contrast (02/19) --> Steatosis of the liver. Otherwise negative CT. LFTs WNL. Plan was for colonoscopy/EGD Feb 20, however, pt was confused and did not take the prep. Pt is alert and oriented x 3 now and cooperative. Able to answer questions appropriately. MRI brain W/O contrast (02/21) --> Excessive motion. No acute hemorrhage, midline shift or extra-axial bleed is noted. Per GS plan is for pt to have cholecystectomy tomorrow, currently on clear liquid diet, tolerating. S/P laparoscopic cholecystectomy and umbilical hernia repair yesterday. Findings consistent with cholecystitis. WBC improved. Cefepime. Some abdominal pain, mostly localized to surgical area. AMEENA drain with 20 cc of dark red drainage. Dressing is dry and intact. If plan is for discharge then we are ok with pt having EGD and colonoscopy as outpatient procedure, if plan is for pt to still be in the hospital on Sunday then would proceed with procedures then. Will reevaluate tomorrow. PLAN - FRANCK - Plan for EGD/colonoscopy on Sunday unless discharged then may do procedures outpatient - GoLYTELY prep on Sunday - Obtain consents - Clear liquids Sunday - NPO after MN Sunday night - Monitor labs - Supportive care - Further recommendations to follow based on results of above Pt seen and examined by myself and Dr. Montenegro and this note is written on his behalf Aster Rivera Feb 24, 2017 13:12
--- NOTE | 2017-02-24 13:18 | HHI.PR ---
Subjective Subjective Notes painful after surgery Objective Vitals/I&O Vital Signs Date Time Temp Pulse Resp B/P (MAP) Pulse Ox O2 Delivery O2 Flow Rate FiO2 02/24/17 11:43 96.0 65 20 142/84 (103) 95 02/24/17 10:17 Nasal Cannula 3.00 Labs Laboratory Tests Test 02/24/17 06:10 White Blood Count 9.5 Red Blood Count 3.72 Hemoglobin 11.7 Hematocrit 34.1 Mean Corpuscular Volume 91.9 Mean Corpuscular Hemoglobin 31.6 Mean Corpuscular Hemoglobin Concent 34.3 Red Cell Distribution Width 12.8 Platelet Count 119 Mean Platelet Volume 10.2 Neutrophils (%) (Auto) 85.4 Lymphocytes (%) (Auto) 5.6 Monocytes (%) (Auto) 8.5 Eosinophils (%) (Auto) 0.1 Basophils (%) (Auto) 0.4 Neutrophils # (Auto) 8.1 Lymphocytes # (Auto) 0.5 Monocytes # (Auto) 0.8 Eosinophils # (Auto) 0.0 Basophils # (Auto) 0.0 CBC Comment AUTO DIFF Differential Comment AUTO DIFF CONFIRMED Platelet Estimate LOW Platelet Morphology Comment NORMAL Date/Time Source Procedure Growth Status 02/23/17 08:25 Blood Peripheral Aerobic Blood Culture - Preliminary NO GROWTH IN 1 DAY Resulted 02/23/17 08:25 Blood Peripheral Anaerobic Blood Culture - Preliminary NO GROWTH IN 1 DAY Resulted 02/21/17 16:36 Cerebral Spinal Fluid Lumbar Puncture Gram Stain - Final Complete 02/21/17 16:36 Cerebral Spinal Fluid Lumbar Puncture CSF Culture - Final NO GROWTH IN 72 HOURS Complete Radiology Last 48 hours Impressions Brain MRI 02/21/17 0000 Signed Impressions: Service Date/Time: Tuesday, February 21, 2017 11:56 - CONCLUSION: Excessive motion during scanning results in significant degradation of images as described above. No acute hemorrhage, midline shift or extra-axial bleed is noted. Repeat MRI of the brain may be warranted if altered mental status does not resolve. Matt Figueroa MD Abdomen: Non-distended, Post-op tenderness Narrative Exam AMEENA old blood A/P Assessment and Plan 61yo male s/p lap bernarda, stable. tolerating PO, pain not controlled on oral meds keep AMEENA DC planning continue pain control, Roque Patton MD Feb 24, 2017 13:18
--- NOTE | 2017-02-24 15:30 | HHI.IDPN ---
Subjective Subjective Remarks manuel dove by Dr Mercado POD 1 Antibiotics cefepime Allergies: Coded Allergies: No Known Allergies (Unverified Allergy, Unknown, 02/19/17) Objective . Vital Signs Date Time Temp Pulse Resp B/P (MAP) Pulse Ox O2 Delivery O2 Flow Rate FiO2 02/24/17 11:43 96.0 65 20 142/84 (103) 95 02/24/17 10:17 95 Nasal Cannula 3.00 02/24/17 08:00 70 02/24/17 08:00 92 02/24/17 08:00 97.4 60 21 141/87 (105) 91 02/24/17 05:25 59 02/24/17 04:00 95 Nasal Cannula 3.00 02/24/17 04:00 96.7 57 22 147/83 (104) 96 02/24/17 00:00 96.2 62 22 158/85 (109) 97 02/23/17 20:00 95.6 60 22 133/78 (96) 94 02/23/17 16:00 98.8 64 16 121/68 (85) 94 02/24/17 02/24/17 02/25/17 15:00 23:00 07:00 Intake Total 100 ml Balance 100 ml IV Total 100 ml . Laboratory Tests Test 02/23/17 08:19 02/24/17 06:10 White Blood Count 8.5 TH/MM3 9.5 TH/MM3 Red Blood Count 3.86 MIL/MM3 3.72 MIL/MM3 Hemoglobin 12.1 GM/DL 11.7 GM/DL Hematocrit 34.9 % 34.1 % Mean Corpuscular Volume 90.4 FL 91.9 FL Mean Corpuscular Hemoglobin 31.4 PG 31.6 PG Mean Corpuscular Hemoglobin Concent 34.7 % 34.3 % Red Cell Distribution Width 12.6 % 12.8 % Platelet Count 98 TH/MM3 119 TH/MM3 Mean Platelet Volume 9.5 FL 10.2 FL Erythrocyte Sedimentation Rate 73 mm/hr Neutrophils (%) (Auto) 85.4 % Lymphocytes (%) (Auto) 5.6 % Monocytes (%) (Auto) 8.5 % Eosinophils (%) (Auto) 0.1 % Basophils (%) (Auto) 0.4 % Neutrophils # (Auto) 8.1 TH/MM3 Lymphocytes # (Auto) 0.5 TH/MM3 Monocytes # (Auto) 0.8 TH/MM3 Eosinophils # (Auto) 0.0 TH/MM3 Basophils # (Auto) 0.0 TH/MM3 CBC Comment AUTO DIFF Differential Comment AUTO DIFF CONFIRMED Platelet Estimate LOW Platelet Morphology Comment NORMAL Laboratory Tests Test 02/23/17 08:19 Blood Urea Nitrogen 17 MG/DL Creatinine 0.70 MG/DL Random Glucose 95 MG/DL Calcium Level 8.3 MG/DL Sodium Level 137 MEQ/L Potassium Level 3.2 MEQ/L Chloride Level 102 MEQ/L Carbon Dioxide Level 27.4 MEQ/L Anion Gap 8 MEQ/L Estimat Glomerular Filtration Rate 115 ML/MIN C-Reactive Protein 18.00 MG/DL Microbiology Date/Time Source Procedure Growth Status 02/23/17 08:25 Blood Peripheral Aerobic Blood Culture - Preliminary NO GROWTH IN 1 DAY Resulted 02/23/17 08:25 Blood Peripheral Anaerobic Blood Culture - Preliminary NO GROWTH IN 1 DAY Resulted 02/23/17 08:19 Blood Peripheral Aerobic Blood Culture - Preliminary NO GROWTH IN 1 DAY Resulted 02/23/17 08:19 Blood Peripheral Anaerobic Blood Culture - Preliminary NO GROWTH IN 1 DAY Resulted 02/21/17 16:36 Cerebral Spinal Fluid Lumbar Puncture Gram Stain - Final Complete 02/21/17 16:36 Cerebral Spinal Fluid Lumbar Puncture CSF Culture - Final NO GROWTH IN 72 HOURS Complete Imaging Last Impressions Head Magnetic Resonance Angiography 02/24/17 0000 Signed Impressions: Service Date/Time: Friday, February 24, 2017 08:06 - CONCLUSION: No acute disease. Matt Figueroa MD Brain MRI 02/24/17 0000 Signed Impressions: Service Date/Time: Friday, February 24, 2017 08:06 - CONCLUSION: No acute disease. Matt Figueroa MD Lumbar Puncture Fluoroscopy 02/21/17 0000 Signed Impressions: Service Date/Time: Tuesday, February 21, 2017 17:32 - CONCLUSION: Uncomplicated fluoroscopically guided lumbar puncture. Seymour Benton MD Chest X-Ray 02/19/17 0018 Signed Impressions: Service Date/Time: Sunday, February 19, 2017 00:44 - CONCLUSION: The lungs are clear. No evidence of pneumothorax. Gal Jensen MD Gall Bladder Ultrasound 02/19/17 0000 Signed Impressions: Service Date/Time: Sunday, February 19, 2017 05:17 - CONCLUSION: Limited examination demonstrates significant acoustic attenuation throughout the hepatic parenchyma; the intrahepatic and extrahepatic earlier he system cannot be assessed. The pancreas is poorly visualized and cannot be assessed sonographically. No evidence of free fluid. Gal Jensen MD Abdomen/Pelvis CT 02/19/17 0000 Signed Impressions: Service Date/Time: Sunday, February 19, 2017 02:31 - CONCLUSION: 1. Steatosis of the liver. 2. Otherwise negative CT abdomen/pelvis with contrast. Gal Jensen MD Physical Exam CONSTITUTIONAL/GENERAL: This is an adequately nourished patient, in no apparent distress. TUBES/LINES/DRAINS: SKIN: No jaundice, rashes, or lesions. Skin temperature appropriate. Not diaphoretic. EYES: Pupils equal and round and reactive. Extraocular motions intact. No scleral icterus. No injection or drainage. Fundi not examined. CARDIOVASCULAR: Regular rate and rhythm without murmurs, gallops, or rubs. No JVD. Peripheral pulses symmetric. Perifery is well perfused RESPIRATORY/CHEST: Symmetric, unlabored respirations. Clear to auscultation. Breath sounds equal bilaterally. No wheezes, rales, or rhonchi. GASTROINTESTINAL: Abdomen soft, post op Bowel sounds present. MUSCULOSKELETAL: Extremities without clubbing, cyanosis, or edema. No joint tenderness or effusion noted. No calf tenderness. No mottling or clubbing. NEUROLOGICAL: Awake, alert and conversant + follows commands. Moves all extremities. 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
[2017-02-24] MEDS: AMPICILLIN-SULBACTAM INJ 3 GM in SODIUM CHLORIDE 0.9% INJ 100 ML IV SCH ×2 (15:55→21:46)
[2017-02-24 17:29] LABS: CSF CRYPTOCOCCUS AG CONF ND (NOT DETECTD)
[2017-02-24 17:53] LABS: CF WEST NILE IGG LESS THAN 1.30 (<1.30); CF WEST NILE IGM LESS THAN 0.90 (<0.90)
[2017-02-24 19:51] LABS: VDRL CSF NON-REACTIVE (NON-REACTVE)
[2017-02-25] VITALS (10 sets, daily range): BP systolic 136–182; BP diastolic 82–105; PULSE 61–74; RESP 16–20; TEMP 95.8–99.1; O2SAT 94–98
[2017-02-25] MEDS: CHLORHEXIDINE GLUCONATE 2 % 1 PACK (2 CLOTHS)(taper/protocol) TOPICAL SCH (04:00)
[2017-02-25] MEDS: HYDROmorphone HCL PF 1 MG/ML VIAL IV PUSH PRN (04:14)
[2017-02-25] MEDS: AMPICILLIN-SULBACTAM INJ 3 GM in SODIUM CHLORIDE 0.9% INJ 100 ML IV SCH ×4 (04:15→21:28)
[2017-02-25] MEDS: MORPHINE SULFATE 15 MG CONTROLLED RELEASE TAB PO SCH ×3 (05:11→21:28)
[2017-02-25 07:51] LABS: AUTOMATED NEUTROPHIL # 3.7 TH/MM3 (1.8-7.7); BASOPHIL % 0.5 % (0.0-2.0); EOSINOPHIL # 0.2 TH/MM3 (0-0.4); EOSINOPHIL % 3.9 % (0.0-4.0); HEMATOCRIT 32.7 % (39.0-51.0); HEMO FLAGS DIFF FINAL; LYMPH % 17.8 % (9.0-44.0); MEAN CELL VOLUME 91.9 FL (80.0-100.0); MEAN CORPUSCULAR HGB CONC 33.7 % (32.0-36.0); MONO % 13.5 % (0.0-8.0); NEUT % 64.3 % (16.0-70.0); PLATELET COUNT 127 TH/MM3 (150-450); RED BLOOD COUNT 3.56 MIL/MM3 (4.50-5.90); WHITE BLOOD COUNT 5.8 TH/MM3 (4.0-11.0)
[2017-02-25 08:10] LABS: BICARBONATE 29.7 MEQ/L (21.0-32.0); POTASSIUM 3.6 MEQ/L (3.5-5.1)
[2017-02-25] MEDS: SODIUM CHLORIDE 0.9% FLUSH 10 ML FLUSH IV FLUSH SCH ×2 (09:00→21:30)
[2017-02-25] MEDS: LOSARTAN 50 MG TAB PO SCH (09:00)
[2017-02-25] MEDS: clonazePAM 1 MG TAB PO SCH ×2 (10:04→21:28)
[2017-02-25] MEDS: FENOFIBRATE 145 MG TAB PO SCH (10:04)
[2017-02-25] MEDS: PANTOPRAZOLE SOD 40 MG DELAYED RELEASE TAB PO SCH ×2 (10:04→21:28)
[2017-02-25] MEDS: DOCUSATE SODIUM 50 MG/SENNA 8.6 MG TAB PO SCH ×2 (10:04→21:00)
[2017-02-25] MEDS: ATENOLOL 50 MG TAB PO SCH ×2 (10:05→21:28)
[2017-02-25] MEDS: SUCRALFATE 1 GM/10 ML CUP PO SCH ×4 (10:20→21:28)
[2017-02-25] MEDS: SERTRALINE HCL 100 MG TAB PO SCH (10:20)
[2017-02-25] MEDS: PRAVASTATIN SOD 40 MG TAB PO SCH (10:20)
--- NOTE | 2017-02-25 10:46 | HHI.PR ---
Subjective Subjective Notes feels better, still sore, wants pain meds, tolerating po, has not moved bowels yet. Objective Vitals/I&O Vital Signs Date Time Temp Pulse Resp B/P (MAP) Pulse Ox O2 Delivery O2 Flow Rate FiO2 02/25/17 09:09 98 21 02/25/17 08:00 98.1 73 19 158/84 (108) 02/24/17 21:45 Room Air 02/24/17 10:17 3.00 Labs Laboratory Tests Test 02/25/17 06:34 02/25/17 06:47 White Blood Count 5.8 Red Blood Count 3.56 Hemoglobin 11.0 Hematocrit 32.7 Mean Corpuscular Volume 91.9 Mean Corpuscular Hemoglobin 31.0 Mean Corpuscular Hemoglobin Concent 33.7 Red Cell Distribution Width 13.0 Platelet Count 127 Mean Platelet Volume 9.4 Neutrophils (%) (Auto) 64.3 Lymphocytes (%) (Auto) 17.8 Monocytes (%) (Auto) 13.5 Eosinophils (%) (Auto) 3.9 Basophils (%) (Auto) 0.5 Neutrophils # (Auto) 3.7 Lymphocytes # (Auto) 1.0 Monocytes # (Auto) 0.8 Eosinophils # (Auto) 0.2 Basophils # (Auto) 0.0 CBC Comment DIFF FINAL Differential Comment Blood Urea Nitrogen 11 Creatinine 0.59 Random Glucose 86 Calcium Level 7.9 Sodium Level 140 Potassium Level 3.6 Chloride Level 103 Carbon Dioxide Level 29.7 Anion Gap 7 Estimat Glomerular Filtration Rate 140 Date/Time Source Procedure Growth Status 02/23/17 08:25 Blood Peripheral Aerobic Blood Culture - Preliminary NO GROWTH IN 1 DAY Resulted 02/23/17 08:25 Blood Peripheral Anaerobic Blood Culture - Preliminary NO GROWTH IN 1 DAY Resulted 02/21/17 16:36 Cerebral Spinal Fluid Lumbar Puncture Gram Stain - Final Complete 02/21/17 16:36 Cerebral Spinal Fluid Lumbar Puncture CSF Culture - Final NO GROWTH IN 72 HOURS Complete Radiology Last 48 hours Impressions Brain MRI 02/21/17 0000 Signed Impressions: Service Date/Time: Wednesday, February 21, 2017 11:56 - CONCLUSION: Excessive motion during scanning results in significant degradation of images as described above. No acute hemorrhage, midline shift or extra-axial bleed is noted. Repeat MRI of the brain may be warranted if altered mental status does not resolve. Matt Figueroa MD Cardiovascular: Regular Lungs: Clear Abdomen: Non-distended, Post-op tenderness Narrative Exam drain serous, no pus, no bile Wound Wound : Wound Location: Abdomen Appearance: Clean & Dry Dressing: Dry A/P Assessment and Plan POD2 lap bernarda, gangrenous cholecystitis ok to DC to SNF from surgical standpoint, can remove drain in FU at office if discharged. if still here sunday may remove drain here ABX per ID. Sean Mercado MD Feb 25, 2017 10:46
--- NOTE | 2017-02-25 11:26 | HHI.PR ---
Subjective Remarks Follow up sepsis/FUO/right upper quadrant abdominal pain and now bacteremia 02/23/17-patient seen and examined, reports some mild right upper quadrant pain. Currently nothing by mouth. 2 out of 4 blood culture positive. Patient is alert and oriented 3, however he was questioning if he should go ahead with lap cholecystectomy today 02/24/17-patient seen and examined, s/p lap bernarda yesterday. Denies any abdominal pain. Tolerating PO well this AM. Afebrile 02/25/17-patient seen and examined, request since more pain medication, no BM however passing Flatus. Tolerated by mouth. Objective Vitals Vital Signs Date Time Temp Pulse Resp B/P (MAP) Pulse Ox O2 Delivery O2 Flow Rate FiO2 02/25/17 09:09 98 21 02/25/17 08:00 98.1 73 19 158/84 (108) 96 02/25/17 05:00 95.8 61 20 136/82 (100) 94 02/25/17 04:00 97.1 71 20 182/105 (130) 94 02/25/17 03:16 63 02/25/17 00:00 99.1 74 20 163/92 (115) 94 02/24/17 23:39 71 02/24/17 21:45 Room Air 02/24/17 20:00 96.5 69 19 139/82 (101) 97 02/24/17 19:49 67 02/24/17 15:57 98.0 68 20 134/80 (98) 94 02/24/17 11:43 96.0 65 20 142/84 (103) 95 I/O 02/24/17 02/24/17 02/24/17 02/25/17 02/25/17 02/25/17 07:00 15:00 23:00 07:00 15:00 23:00 Intake Total 240 ml 100 ml 1060 ml 575 ml Output Total 50 ml 50 ml 240 ml Balance 190 ml 100 ml 1010 ml 335 ml Intake Oral 240 ml 960 ml 475 ml IV Total 100 ml 100 ml 100 ml Output Urine Total 200 ml Drainage Total 50 ml 50 ml 40 ml # Voids 2 10 3 # Bowel Movements 0 Result Diagram: 02/25/17 0634 02/25/17 0647 Objective Remarks GENERAL: NAD SKIN: Warm and dry. HEAD: Normocephalic. EYES: No scleral icterus. No injection or drainage. NECK: Supple, trachea midline. No JVD or lymphadenopathy. CARDIOVASCULAR: Regular rate and rhythm without murmurs, gallops, or rubs. RESPIRATORY: Breath sounds equal bilaterally. No accessory muscle use. GASTROINTESTINAL: Abdomen soft, nontender, nondistended. inc c/d/i MUSCULOSKELETAL: No cyanosis, or edema. BACK: Nontender without obvious deformity. No CVA tenderness. Procedures 1. Laparoscopic cholecystectomy. 2. Umbilical hernia repair. A/P Problem List: (1) Acute encephalopathy ICD Code: G93.40 - Encephalopathy, unspecified Status: Resolved (2) HTN (hypertension) ICD Code: I10 - Essential (primary) hypertension Status: Chronic (3) Intractable abdominal pain ICD Code: R10.9 - Unspecified abdominal pain Status: Acute (4) Sepsis ICD Code: A41.9 - Sepsis, unspecified organism (5) Gram-negative bacteremia ICD Code: R78.81 - Bacteremia Assessment and Plan 61-year-old man with Acute encephalopathy: Likely secondary to sepsis. Gram-negative bacteremia.? Gallbladder - Neurology following. Initial concern for CVA versus BUSINESS CHANGE MANAGER encephalitis. MRI with artifacts. CSF not convincing for infection. Awaiting the rest of the titers per neurology. EEG with No epileptiform features are present. - Currently on Unasyn and s/p acyclovir per infectious disease. Sepsis/gram-negative bacteremia: - ? gi source - ID following. Continue Unasyn and likely discharge on Augmentin . Repeat blood culture NTD Gangrenous cholecystitis Febrile illness Lactic acidosis CT of the abdomen/pelvis shows distended gallbladder without stones or biliary ductal dilation. US of the gallbladder non-conclusive Appreciate general surgery following. Had surgery yesterday 02/23/17 1. Laparoscopic cholecystectomy. 2. Umbilical hernia repair. Pain control as needed -Anemia mostly chronic, revealed with to dilution effect -Thrombocytopenia mostly chronic GI following and planning for endoscopy On PPI and sucralfate Nonspecific T waves on EKG Patient with inverted T waves in aVR, V1-V4 Cardiac enzymes 3 sets are negative Outpatient follow-up with cardiology Hypokalemia: Monitor electrolyte Chronic pain Continue home Oramorph, Mobic, baclofen Hypertension/hyperlipidemia Continue home medications GI prophylaxis: PPI. Stool softener PRN constipation. Problem Qualifiers (1) HTN (hypertension): Qualified Codes: I10 - Essential (primary) hypertension Pontey,Sidney MD Feb 25, 2017 11:26
--- NOTE | 2017-02-25 13:53 | HHI.GIFU ---
Subjective Remarks Lying in bed, eating breakfast. Reports epigastric abdominal tenderness. States he does not want to have EGD/Colonoscopy tomorrow, he plans to do this as outpatient. Objective Vitals I&O Vital Signs Date Time Temp Pulse Resp B/P (MAP) Pulse Ox O2 Delivery O2 Flow Rate FiO2 02/25/17 11:53 98.5 64 20 157/86 (109) 97 02/25/17 09:09 98 21 02/25/17 08:00 98.1 73 19 158/84 (108) 96 02/25/17 05:00 95.8 61 20 136/82 (100) 94 02/25/17 04:00 97.1 71 20 182/105 (130) 94 02/25/17 03:16 63 02/25/17 00:00 99.1 74 20 163/92 (115) 94 02/24/17 23:39 71 02/24/17 21:45 Room Air 02/24/17 20:00 96.5 69 19 139/82 (101) 97 02/24/17 19:49 67 02/24/17 15:57 98.0 68 20 134/80 (98) 94 I/O 02/24/17 02/24/17 02/24/17 02/25/17 02/25/17 02/25/17 07:00 15:00 23:00 07:00 15:00 23:00 Intake Total 240 ml 100 ml 1060 ml 575 ml Output Total 50 ml 50 ml 240 ml Balance 190 ml 100 ml 1010 ml 335 ml Intake Oral 240 ml 960 ml 475 ml IV Total 100 ml 100 ml 100 ml Output Urine Total 200 ml Drainage Total 50 ml 50 ml 40 ml # Voids 2 10 3 # Bowel Movements 0 Laboratory Laboratory Tests Test 02/25/17 06:34 02/25/17 06:47 White Blood Count 5.8 Red Blood Count 3.56 Hemoglobin 11.0 Hematocrit 32.7 Mean Corpuscular Volume 91.9 Mean Corpuscular Hemoglobin 31.0 Mean Corpuscular Hemoglobin Concent 33.7 Red Cell Distribution Width 13.0 Platelet Count 127 Mean Platelet Volume 9.4 Neutrophils (%) (Auto) 64.3 Lymphocytes (%) (Auto) 17.8 Monocytes (%) (Auto) 13.5 Eosinophils (%) (Auto) 3.9 Basophils (%) (Auto) 0.5 Neutrophils # (Auto) 3.7 Lymphocytes # (Auto) 1.0 Monocytes # (Auto) 0.8 Eosinophils # (Auto) 0.2 Basophils # (Auto) 0.0 CBC Comment DIFF FINAL Differential Comment Blood Urea Nitrogen 11 Creatinine 0.59 Random Glucose 86 Calcium Level 7.9 Sodium Level 140 Potassium Level 3.6 Chloride Level 103 Carbon Dioxide Level 29.7 Anion Gap 7 Estimat Glomerular Filtration Rate 140 Date/Time Source Procedure Growth Status 02/23/17 08:25 Blood Peripheral Aerobic Blood Culture - Preliminary NO GROWTH IN 2 DAYS Resulted 02/23/17 08:25 Blood Peripheral Anaerobic Blood Culture - Preliminary NO GROWTH IN 2 DAYS Resulted 02/21/17 16:36 Cerebral Spinal Fluid Lumbar Puncture Gram Stain - Final Complete 02/21/17 16:36 Cerebral Spinal Fluid Lumbar Puncture CSF Culture - Final NO GROWTH IN 72 HOURS Complete Imaging Last Impressions Head Magnetic Resonance Angiography 02/24/17 0000 Signed Impressions: Service Date/Time: Friday, February 24, 2017 08:06 - CONCLUSION: No acute disease. Matt Figueroa MD Brain MRI 02/24/17 0000 Signed Impressions: Service Date/Time: Friday, February 24, 2017 08:06 - CONCLUSION: No acute disease. Matt Figueroa MD Lumbar Puncture Fluoroscopy 02/21/17 0000 Signed Impressions: Service Date/Time: Tuesday, February 21, 2017 17:32 - CONCLUSION: Uncomplicated fluoroscopically guided lumbar puncture. Seymour Benton MD Chest X-Ray 02/19/17 0018 Signed Impressions: Service Date/Time: Sunday, February 19, 2017 00:44 - CONCLUSION: The lungs are clear. No evidence of pneumothorax. Gal Jensen MD Gall Bladder Ultrasound 02/19/17 0000 Signed Impressions: Service Date/Time: Sunday, February 19, 2017 05:17 - CONCLUSION: Limited examination demonstrates significant acoustic attenuation throughout the hepatic parenchyma; the intrahepatic and extrahepatic earlier he system cannot be assessed. The pancreas is poorly visualized and cannot be assessed sonographically. No evidence of free fluid. Gal Jensen MD Abdomen/Pelvis CT 02/19/17 0000 Signed Impressions: Service Date/Time: Sunday, February 19, 2017 02:31 - CONCLUSION: 1. Steatosis of the liver. 2. Otherwise negative CT abdomen/pelvis with contrast. Gal Jensen MD Physical Exam HEENT: Normocephalic, atraumatic. CHEST: CTA CARDIAC: RRR ABDOMEN: Soft, obese, TTP over site of umbilical hernia repair; AMEENA drain with serous drainage to right side of abdomen, no active drainage from AMEENA site, dressing is clean and dry. No active drainage or swelling surrounding site of periumbilical hernia repair. Bowel sounds active x 4 EXTREMITIES: No clubbing, cyanosis, or edema. SKIN: Normal; no rash; no jaundice. CENTRAL OFFICE INSTALLER: Alert and oriented x 3 Assessment and Plan Plan ASSESSMENT - Abdominal pain RUQ - onset few days ago. Denies N/V today. CT abdomen/pelvis with IV contrast (02/19) --> Steatosis of the liver. Otherwise negative CT. LFTs WNL. Plan was for colonoscopy/EGD Feb 20, however, pt was confused and did not take the prep. Pt is alert and oriented x 3 now and cooperative. Able to answer questions appropriately. MRI brain W/O contrast (02/21) --> Excessive motion. No acute hemorrhage, midline shift or extra-axial bleed is noted. S/P laparoscopic cholecystectomy and umbilical hernia repair yesterday. Findings consistent with cholecystitis. WBC improved. Cefepime. 02/25/17--Patient is POD2 lap cholecystectomy. Has some abdominal tenderness. AMEENA drain with serous drainage. Dressing D/I. Has not had BM since procedure. Patient does not want to have EGD/Colonoscopy as inpatient, states he plans to discuss this with his PCP and have procedure done as outpatient. .7 PLAN - GS following - FRANCK - Monitor labs - Supportive care - EGD/Colonoscopy as outpatient - GI will sign off. Pt seen and examined by myself and Dr. Montenegro and this note is written on his behalf Jamia Alberto Feb 25, 2017 13:53
[2017-02-25] MEDS: HYDROmorphone HCL PF 2 MG/ML VIAL IV PUSH PRN (20:21)
[2017-02-26] VITALS: BP 169/79; PULSE 70; RESP 18; TEMP 98.1; O2SAT 97
[2017-02-26] MEDS: HYDROmorphone HCL PF 2 MG/ML VIAL IV PUSH PRN ×4 (00:24→11:50)
[2017-02-26] MEDS: CHLORHEXIDINE GLUCONATE 2 % 1 PACK (2 CLOTHS)(taper/protocol) TOPICAL SCH (03:37)
[2017-02-26 04:32] VITALS: BP 169/88; PULSE 61; RESP 16
[2017-02-26] MEDS: AMPICILLIN-SULBACTAM INJ 3 GM in SODIUM CHLORIDE 0.9% INJ 100 ML IV SCH ×3 (04:34→15:42)
[2017-02-26] MEDS: MORPHINE SULFATE 15 MG CONTROLLED RELEASE TAB PO SCH ×3 (05:21→21:15)
[2017-02-26 08:00] VITALS: BP 156/77; PULSE 67; RESP 18; TEMP 98.5; O2SAT 97
[2017-02-26] MEDS: SUCRALFATE 1 GM/10 ML CUP PO SCH ×4 (08:00→21:00)
[2017-02-26] MEDS: clonazePAM 1 MG TAB PO SCH ×2 (08:46→21:15)
[2017-02-26] MEDS: PANTOPRAZOLE SOD 40 MG DELAYED RELEASE TAB PO SCH ×2 (08:46→21:15)
[2017-02-26] MEDS: LOSARTAN 50 MG TAB PO SCH (08:46)
[2017-02-26] MEDS: ATENOLOL 50 MG TAB PO SCH ×2 (08:46→21:15)
[2017-02-26] MEDS: PRAVASTATIN SOD 40 MG TAB PO SCH (08:46)
[2017-02-26] MEDS: DOCUSATE SODIUM 50 MG/SENNA 8.6 MG TAB PO SCH ×2 (08:47→21:00)
[2017-02-26] MEDS: FENOFIBRATE 145 MG TAB PO SCH (08:47)
[2017-02-26] MEDS: SODIUM CHLORIDE 0.9% FLUSH 10 ML FLUSH IV FLUSH SCH ×2 (08:53→21:00)
[2017-02-26] MEDS: SERTRALINE HCL 100 MG TAB PO SCH (09:50)
[2017-02-26 12:00] VITALS: BP 150/76; PULSE 68; RESP 16; TEMP 97.9; O2SAT 93
[2017-02-26] MEDS ORDERED: MS C15TA7 PO (13:00)
[2017-02-26] MEDS ORDERED: AUGM875T3 PO (13:00)
[2017-02-26] MEDS ORDERED: CLON1 PO (13:00)
--- NOTE | 2017-02-26 13:02 | HHI.DCPOC ---
Discharge Care Plan Diagnosis: (1) Cholecystitis (2) Acute encephalopathy (3) Delirium due to another medical condition (4) Gram-negative bacteremia (5) Sepsis (6) HTN (hypertension) (7) Intractable abdominal pain Goals to Promote Your Health * To prevent worsening of your condition and complications * To maintain your health at the optimal level Directions to Meet Your Goals Take your medications as prescribed Follow your dietary instruction Follow activity as directed Keep your appointments as scheduled Take your immunizations and boosters as scheduled If your symptoms worsen call your PCP, if no PCP go to Urgent Care Center or Emergency Room Smoking is Dangerous to Your Health. Avoid second hand smoke Call the 24-hour hour crisis hotline for domestic abuse at Juwan Rao DO Feb 26, 2017 13:02
--- NOTE | 2017-02-26 13:06 | HHI.DS ---
This report is in ERROR Please disregard this report and all prior copies ! This report is in ERROR Please disregard this report and all prior copies ! This report is in ERROR Please disregard this report and all prior copies ! Discharge Summary Admission Date Feb 22, 2017 at 06:19 Discharge Date: Feb 26, 2017 Admitting Diagnosis intractable abominal pain (1) Acute encephalopathy ICD Code: G93.40 - Encephalopathy, unspecified Status: Resolved (2) HTN (hypertension) ICD Code: I10 - Essential (primary) hypertension Status: Chronic (3) Intractable abdominal pain ICD Code: R10.9 - Unspecified abdominal pain Status: Acute (4) Sepsis ICD Code: A41.9 - Sepsis, unspecified organism (5) Gram-negative bacteremia ICD Code: R78.81 - Bacteremia Procedures 1. Laparoscopic cholecystectomy. 2. Umbilical hernia repair. Brief History - From Admission 61-year-old male with a past medical history significant for hypertension, hyperlipidemia, chronic pain and anxiety presents to the emergency department with severe, sudden onset abdominal pain that began at 7:30 yesterday evening. The patient denies any emesis but has associated nausea. He describes the pain as just underneath his ribs, bilateral, severe and nonradiating. He has a history of inverted T waves on EKG for which she has appointment with cardiology next week. He denies any chest pain, diaphoresis or shortness of breath. Despite 2 doses of IV Dilaudid, the patient's abdominal pain remains intractable. CBC/BMP: 02/25/17 0634 02/25/17 0647 Significant Findings Laboratory Tests Test 02/24/17 06:10 02/25/17 06:34 02/25/17 06:47 Red Blood Count 3.72 MIL/MM3 (4.50-5.90) 3.56 MIL/MM3 (4.50-5.90) Hemoglobin 11.7 GM/DL (13.0-17.0) 11.0 GM/DL (13.0-17.0) Hematocrit 34.1 % (39.0-51.0) 32.7 % (39.0-51.0) Platelet Count 119 TH/MM3 (150-450) 127 TH/MM3 (150-450) Neutrophils (%) (Auto) 85.4 % (16.0-70.0) Lymphocytes (%) (Auto) 5.6 % (9.0-44.0) Monocytes (%) (Auto) 8.5 % (0.0-8.0) 13.5 % (0.0-8.0) Neutrophils # (Auto) 8.1 TH/MM3 (1.8-7.7) Lymphocytes # (Auto) 0.5 TH/MM3 (1.0-4.8) Platelet Estimate LOW (NORMAL) Creatinine 0.59 MG/DL (0.60-1.30) Calcium Level 7.9 MG/DL (8.5-10.1) Imaging Last Impressions Head Magnetic Resonance Angiography 02/24/17 0000 Signed Impressions: Service Date/Time: Friday, February 24, 2017 08:06 - CONCLUSION: No acute disease. Matt Figueroa MD Brain MRI 02/24/17 0000 Signed Impressions: Service Date/Time: Friday, February 24, 2017 08:06 - CONCLUSION: No acute disease. Matt Figueroa MD Lumbar Puncture Fluoroscopy 02/21/17 0000 Signed Impressions: Service Date/Time: Tuesday, February 21, 2017 17:32 - CONCLUSION: Uncomplicated fluoroscopically guided lumbar puncture. Seymour Benton MD Chest X-Ray 02/19/17 0018 Signed Impressions: Service Date/Time: Sunday, February 19, 2017 00:44 - CONCLUSION: The lungs are clear. No evidence of pneumothorax. Gal Jensen MD Gall Bladder Ultrasound 02/19/17 0000 Signed Impressions: Service Date/Time: Sunday, February 19, 2017 05:17 - CONCLUSION: Limited examination demonstrates significant acoustic attenuation throughout the hepatic parenchyma; the intrahepatic and extrahepatic earlier he system cannot be assessed. The pancreas is poorly visualized and cannot be assessed sonographically. No evidence of free fluid. Gal Jensen MD Abdomen/Pelvis CT 02/19/17 0000 Signed Impressions: Service Date/Time: Sunday, February 19, 2017 02:31 - CONCLUSION: 1. Steatosis of the liver. 2. Otherwise negative CT abdomen/pelvis with contrast. Gal Jensen MD PE at Discharge GENERAL: NAD SKIN: Warm and dry. HEAD: Normocephalic. EYES: No scleral icterus. No injection or drainage. NECK: Supple, trachea midline. No JVD or lymphadenopathy. CARDIOVASCULAR: Regular rate and rhythm without murmurs, gallops, or rubs. RESPIRATORY: Breath sounds equal bilaterally. No accessory muscle use. GASTROINTESTINAL: Abdomen soft, nontender, nondistended. Surgical bandages in place. MUSCULOSKELETAL: No cyanosis, or edema. BACK: Nontender without obvious deformity. No CVA tenderness. Pt update on day of discharge The patient was feeling well. He was looking forward to leaving the hospital. He has been having bowel movements. He was having his drain removed. Discussed with nursing at the bedside. Hospital Course Acute encephalopathy Neurology was consulted. Initial concern for CVA versus COUNTER PERSON encephalitis. MRI with artifacts. CSF not convincing for infection. EEG with No epileptiform features are present. Currently on Unasyn and s/p acyclovir per infectious disease. He will complete a course of Augmentin. He will follow up with neurology as an outpt. Sepsis/gram-negative bacteremia S/t cholecystitis. ID was consulted. Unasyn will be changed to Augmentin upon discharge. Gangrenous cholecystitis CT of the abdomen/pelvis showed distended gallbladder without stones or biliary ductal dilation. US of the gallbladder non-conclusive. General surgery was consulted. S/p laparoscopic cholecystectomy and umbilical hernia repair. He will follow up with surgery as an outpt. Anemia/ Thrombocytopenia GI was consulted. The pt wanted to pursue EGD and colonoscopy as an outpt. He will follow up with GI as an outpt. He will resume ASA. He will continue a PPI. Nonspecific T waves on EKG Patient with inverted T waves in aVR, V1-V4. Trops negative. The pt has already been referred to cardiology by his PCP. Chronic pain The pt will continue home Oramorph and baclofen. Mobic on hold. Pt Condition on Discharge: Stable Discharge Disposition: Discharge to SNF Discharge Time: > 30 minutes Discharge Instructions DIET: Follow Instructions for: As Tolerated, No Restrictions Activities you can perform: Weight Bearing as Leroy Follow up Referrals: Gastroenterology - 1 Week PCP Follow-up - 1 Week Surgical - 1 Week with Sean Mercado MD New Medications: Amoxicillin-Clavulanate (Augmentin) 875-125 Mg Tab 1 TAB PO BID for Infection, #14 TAB 0 Refills Continued Medications: Aspirin (Aspirin) 81 Mg Chew 81 MG CHEW ONCE, #1 TAB 0 Refills Atenolol (Atenolol) 50 Mg Tab 50 MG PO BID for Blood Pressure Management, #60 TAB 0 Refills Baclofen (Baclofen) 20 Mg Tab 20 MG PO TID for Muscle Spasm, TAB 0 Refills Cholecalciferol (Vitamin D3) 2,000 Unit Cap 2000 UNITS PO DAILY for Nutritional Supplement, #1 BOTTLE 0 Refills Clonazepam (Klonopin) 1 Mg Tab 1 MG PO BID for Anxiety and/or Insomnia, #15 TAB 0 Refills (This prescription has been renewed) Fenofibrate (Fenofibrate) 160 Mg Tab 160 MG PO DAILY, #30 TAB 0 Refills Losartan (Losartan) 50 Mg Tab 50 MG PO DAILY for Blood Pressure Management, #30 TAB 0 Refills Lovastatin (Lovastatin) 40 Mg Tab 40 MG PO DAILY for Cholesterol Management, #30 TAB 0 Refills Montelukast (Singulair) 10 Mg Tab 10 MG PO HS, #30 TAB 0 Refills Morphine ER (Ms Contin) 15 Mg Tab 30 MG PO Q8H for Pain Management, #30 TAB 0 Refills (This prescription has been renewed) Omeprazole (Omeprazole) 40 Mg Cap 40 MG PO DAILY, #30 CAP 0 Refills Sertraline (Sertraline) 100 Mg Tab 100 MG PO DAILY, #30 TAB 0 Refills Discontinued Medications: Meloxicam (Meloxicam) 15 Mg Tab 15 MG PO DAILY for Arthritis Pain, #30 TAB 0 Refills Juwan Rao DO Feb 26, 2017 13:06
--- NOTE | 2017-02-26 13:32 | HHI.PR ---
Addendum to Inpatient Note Additional Information dw Dr Jalen AZEVEDO to dc on Augmentin po to complete 10 days Su Delacruz MD Feb 26, 2017 13:32
[2017-02-26 13:53] LABS: VZV PCR RESULT <500 (<500 copies)
--- NOTE | 2017-02-26 15:53 | HHI.PR ---
Subjective Remarks The patient was feeling well. He was looking forward to leaving the hospital. He has been having bowel movements. He was having his drain removed. Discussed with nursing at the bedside. Objective Vitals Vital Signs Date Time Temp Pulse Resp B/P (MAP) Pulse Ox O2 Delivery O2 Flow Rate FiO2 02/26/17 12:00 97.9 68 16 150/76 (100) 93 02/26/17 08:00 98.5 67 18 156/77 (103) 97 02/26/17 04:32 61 16 169/88 (115) 02/26/17 00:00 98.1 70 18 169/79 (109) 97 02/25/17 21:48 98.0 65 16 174/90 (118) 96 02/25/17 21:25 Room Air 02/25/17 20:00 65 02/25/17 19:16 Room Air 02/25/17 16:00 98.2 70 20 159/84 (109) 95 I/O 02/25/17 02/25/17 02/25/17 02/26/17 02/26/17 02/26/17 07:00 15:00 23:00 07:00 15:00 23:00 Intake Total 575 ml 450 ml 100 ml Output Total 240 ml 80 ml Balance 335 ml 450 ml -80 ml 100 ml Intake Oral 475 ml 450 ml IV Total 100 ml 100 ml Output Urine Total 200 ml Drainage Total 40 ml 80 ml # Voids 3 6 1 # Bowel Movements 2 1 Result Diagram: 02/25/17 0634 02/25/17 0647 Imaging Last Impressions Head Magnetic Resonance Angiography 02/24/17 0000 Signed Impressions: Service Date/Time: Friday, February 24, 2017 08:06 - CONCLUSION: No acute disease. Matt Figueroa MD Brain MRI 02/24/17 0000 Signed Impressions: Service Date/Time: Friday, February 24, 2017 08:06 - CONCLUSION: No acute disease. Matt Figueroa MD Lumbar Puncture Fluoroscopy 02/21/17 0000 Signed Impressions: Service Date/Time: Tuesday, February 21, 2017 17:32 - CONCLUSION: Uncomplicated fluoroscopically guided lumbar puncture. Seymour Benton MD Chest X-Ray 02/19/17 0018 Signed Impressions: Service Date/Time: Sunday, February 19, 2017 00:44 - CONCLUSION: The lungs are clear. No evidence of pneumothorax. Gal Jensen MD Gall Bladder Ultrasound 02/19/17 0000 Signed Impressions: Service Date/Time: Sunday, February 19, 2017 05:17 - CONCLUSION: Limited examination demonstrates significant acoustic attenuation throughout the hepatic parenchyma; the intrahepatic and extrahepatic earlier he system cannot be assessed. The pancreas is poorly visualized and cannot be assessed sonographically. No evidence of free fluid. Gal Jensen MD Abdomen/Pelvis CT 02/19/17 0000 Signed Impressions: Service Date/Time: Sunday, February 19, 2017 02:31 - CONCLUSION: 1. Steatosis of the liver. 2. Otherwise negative CT abdomen/pelvis with contrast. Gal Jensen MD Objective Remarks GENERAL: NAD SKIN: Warm and dry. HEAD: Normocephalic. EYES: No scleral icterus. No injection or drainage. NECK: Supple, trachea midline. No JVD or lymphadenopathy. CARDIOVASCULAR: Regular rate and rhythm without murmurs, gallops, or rubs. RESPIRATORY: Breath sounds equal bilaterally. No accessory muscle use. GASTROINTESTINAL: Abdomen soft, nontender, nondistended. Surgical bandages in place. MUSCULOSKELETAL: No cyanosis, or edema. BACK: Nontender without obvious deformity. No CVA tenderness. Procedures 1. Laparoscopic cholecystectomy. 2. Umbilical hernia repair. Medications and IVs Current Medications Medications (Trade) Dose Ordered Sig/Juan Pablo Route Start Time Stop Time Status Last Admin (Nitrostat Sl) 0.4 mg Q5M PRN SL 02/19/17 00:30 02/19/17 00:58 (NS Flush) 2 ml UNSCH PRN IV FLUSH 02/19/17 04:45 (NS Flush) 2 ml BID IV FLUSH 02/19/17 09:00 02/26/17 08:53 (Tylenol) 650 mg Q4H PRN PO 02/19/17 04:45 02/20/17 12:12 (Zofran Inj) 4 mg Q6H PRN IVP 02/19/17 04:45 (Narcan Inj) 0.4 mg UNSCH PRN IV PUSH 02/19/17 04:45 (Lyndsey-Colace) 1 tab BID PO 02/19/17 09:00 02/25/17 10:04 (Milk Of Magnesia Liq) 30 ml Q12H PRN PO 02/19/17 04:45 (Senokot) 17.2 mg Q12H PRN PO 02/19/17 04:45 (Dulcolax Supp) 10 mg DAILY PRN RECTAL 02/19/17 04:45 (Lactulose Liq) 30 ml DAILY PRN PO 02/19/17 04:45 (Tenormin) 50 mg BID PO 02/19/17 09:00 02/26/17 08:46 (KlonoPIN) 1 mg BID PO 02/19/17 09:00 02/26/17 08:46 (Cozaar) 50 mg DAILY PO 02/19/17 09:00 02/26/17 08:46 (Pravachol) 40 mg DAILY PO 02/19/17 09:00 02/26/17 08:46 (Oramorph Sr) 30 mg Q8H PO 02/19/17 05:00 02/26/17 13:12 (Zoloft) 100 mg DAILY PO 02/19/17 09:00 02/26/17 09:50 (Tricor) 145 mg DAILY PO 02/19/17 09:00 02/26/17 08:47 (Protonix) 40 mg BID PO 02/19/17 21:00 02/26/17 08:46 (Carafate Liq) 1 gm ACHS PO 02/19/17 17:00 02/26/17 11:49 (Vasotec Inj) 1.25 mg Q6H PRN IV PUSH 02/21/17 09:30 Miscellaneous Information Patient in critical care unit? Ass... [id number] .XX 02/22/17 04:45 (Chlorhexidine 2% Cloth) 3 pack DAILY@04 TOPICAL 02/23/17 04:00 02/27/17 04:01 (Chlorhexidine 2% Cloth) 3 pack UNSCH PRN TOPICAL 02/22/17 04:45 02/27/17 04:33 Ampicillin Sodium/ Sulbactam Sodium 3 gm/Sodium Chloride 100 ml @ 200 mls/hr Q6H IV 02/24/17 16:00 02/26/17 08:47 (Dilaudid Pf Inj) 1 mg Q4H PRN IV PUSH 02/25/17 08:30 02/26/17 11:50 A/P Problem List: (1) Acute encephalopathy ICD Code: G93.40 - Encephalopathy, unspecified Status: Resolved (2) HTN (hypertension) ICD Code: I10 - Essential (primary) hypertension Status: Chronic (3) Intractable abdominal pain ICD Code: R10.9 - Unspecified abdominal pain Status: Acute (4) Sepsis ICD Code: A41.9 - Sepsis, unspecified organism (5) Gram-negative bacteremia ICD Code: R78.81 - Bacteremia Assessment and Plan 61-year-old man with Acute encephalopathy: Likely secondary to sepsis. Gram-negative bacteremia.? Gallbladder - Neurology following. Initial concern for CVA versus CHIEF [employer]ITAL [employer]ICINE encephalitis. MRI with artifacts. CSF not convincing for infection. Awaiting the rest of the titers per neurology. EEG with No epileptiform features are present. - Currently on Unasyn and s/p acyclovir per infectious disease. D/c on Augmentin. Sepsis/gram-negative bacteremia: - ? gi source - ID following. Continue Unasyn and likely discharge on Augmentin . Repeat blood culture NTD Gangrenous cholecystitis Febrile illness Lactic acidosis CT of the abdomen/pelvis shows distended gallbladder without stones or biliary ductal dilation. US of the gallbladder non-conclusive Appreciate general surgery following. Had surgery 02/23/17 1. Laparoscopic cholecystectomy. 2. Umbilical hernia repair. Pain control as needed -Anemia mostly chronic, revealed with to dilution effect -Thrombocytopenia mostly chronic GI following and planning for endoscopy On PPI and sucralfate Nonspecific T waves on EKG Patient with inverted T waves in aVR, V1-V4 Cardiac enzymes 3 sets are negative Outpatient follow-up with cardiology Hypokalemia: Monitor electrolyte Chronic pain Continue home Oramorph, Mobic, baclofen Hypertension/hyperlipidemia Continue home medications GI prophylaxis: PPI. Stool softener PRN constipation. Problem Qualifiers (1) HTN (hypertension): Qualified Codes: I10 - Essential (primary) hypertension Juwan Rao DO Feb 26, 2017 15:53
[2017-02-26 16:00] VITALS: BP 164/74; PULSE 68; RESP 17; TEMP 98.6; O2SAT 94
--- NOTE | 2017-02-26 17:21 | HHI.PR ---
Subjective Subjective Notes Upset he has to wear a yellow gown otherwise pain controlled and asking if drain can come out Objective Vitals/I&O Vital Signs Date Time Temp Pulse Resp B/P (MAP) Pulse Ox O2 Delivery O2 Flow Rate FiO2 02/26/17 16:00 98.6 68 17 164/74 (104) 94 02/25/17 21:25 Room Air 02/25/17 09:09 21 02/24/17 10:17 3.00 Labs Date/Time Source Procedure Growth Status 02/23/17 08:25 Blood Peripheral Aerobic Blood Culture - Preliminary NO GROWTH IN 3 DAYS Resulted 02/23/17 08:25 Blood Peripheral Anaerobic Blood Culture - Preliminary NO GROWTH IN 3 DAYS Resulted 02/21/17 16:36 Cerebral Spinal Fluid Lumbar Puncture Gram Stain - Final Complete 02/21/17 16:36 Cerebral Spinal Fluid Lumbar Puncture CSF Culture - Final NO GROWTH IN 72 HOURS Complete Radiology Last 48 hours Impressions Brain MRI 02/21/17 0000 Signed Impressions: Service Date/Time: Tuesday, February 21, 2017 11:56 - CONCLUSION: Excessive motion during scanning results in significant degradation of images as described above. No acute hemorrhage, midline shift or extra-axial bleed is noted. Repeat MRI of the brain may be warranted if altered mental status does not resolve. Matt Figueroa MD Cardiovascular: Regular Lungs: Clear Abdomen: Other (lap sites c/d/i; AMEENA with serosanguineous drainage ) Extremities: No edema A/P Assessment and Plan 61 year old male with AMS; RUQ abdominal pain -POD3 lap bernarda with drain placement -Regular diet -Pain control -Likely will need placement -Silva Rodriguez JP Feb 26, 2017 17:21
[2017-02-26 20:00] VITALS: BP 157/85; PULSE 68; RESP 18; TEMP 97.2; O2SAT 95
[2017-02-26] MEDS: AMOXICILLIN/CLAVULANATE K 875 MG TAB PO SCH (21:14)
[2017-02-27] VITALS: BP 140/79; PULSE 67; RESP 21; TEMP 96.7; O2SAT 95
[2017-02-27] MEDS: CHLORHEXIDINE GLUCONATE 2 % 1 PACK (2 CLOTHS)(taper/protocol) TOPICAL SCH (03:05)
[2017-02-27] MEDS: MORPHINE SULFATE 15 MG CONTROLLED RELEASE TAB PO SCH ×3 (04:57→20:52)
[2017-02-27 08:00] VITALS: BP 175/79; PULSE 78; RESP 18; TEMP 97.5; O2SAT 93
[2017-02-27] MEDS: LOSARTAN 50 MG TAB PO SCH (09:00)
[2017-02-27] MEDS: SODIUM CHLORIDE 0.9% FLUSH 10 ML FLUSH IV FLUSH SCH ×2 (09:00→20:49)
[2017-02-27] MEDS: SUCRALFATE 1 GM/10 ML CUP PO SCH ×4 (09:24→23:24)
[2017-02-27 09:25] LABS: POTASSIUM 3.6 MEQ/L (3.5-5.1)
[2017-02-27] MEDS: AMOXICILLIN/CLAVULANATE K 875 MG TAB PO SCH ×2 (09:25→20:49)
[2017-02-27] MEDS: ATENOLOL 50 MG TAB PO SCH ×2 (09:25→20:52)
[2017-02-27] MEDS: SERTRALINE HCL 100 MG TAB PO SCH (09:25)
[2017-02-27] MEDS: PRAVASTATIN SOD 40 MG TAB PO SCH (09:27)
[2017-02-27] MEDS: clonazePAM 1 MG TAB PO SCH (09:27)
[2017-02-27] MEDS: DOCUSATE SODIUM 50 MG/SENNA 8.6 MG TAB PO SCH ×2 (09:27→20:50)
[2017-02-27] MEDS: FENOFIBRATE 145 MG TAB PO SCH (09:27)
[2017-02-27] MEDS: PANTOPRAZOLE SOD 40 MG DELAYED RELEASE TAB PO SCH ×2 (09:27→20:53)
--- NOTE | 2017-02-27 10:46 | HHI.PR ---
Subjective Subjective Notes Wants to go to his sisters house Objective Vitals/I&O Vital Signs Date Time Temp Pulse Resp B/P (MAP) Pulse Ox O2 Delivery O2 Flow Rate FiO2 02/27/17 08:00 97.5 78 18 175/79 (111) 93 02/25/17 21:25 Room Air 02/25/17 09:09 21 02/24/17 10:17 3.00 Labs Laboratory Tests Test 02/27/17 08:09 Blood Urea Nitrogen 8 Creatinine 0.81 Random Glucose 85 Calcium Level 8.6 Sodium Level 141 Potassium Level 3.6 Chloride Level 100 Carbon Dioxide Level 36.0 Anion Gap 5 Estimat Glomerular Filtration Rate 97 Date/Time Source Procedure Growth Status 02/23/17 08:25 Blood Peripheral Aerobic Blood Culture - Preliminary NO GROWTH IN 3 DAYS Resulted 02/23/17 08:25 Blood Peripheral Anaerobic Blood Culture - Preliminary NO GROWTH IN 3 DAYS Resulted 02/21/17 16:36 Cerebral Spinal Fluid Lumbar Puncture Gram Stain - Final Complete 02/21/17 16:36 Cerebral Spinal Fluid Lumbar Puncture CSF Culture - Final NO GROWTH IN 72 HOURS Complete Radiology Last 48 hours Impressions Brain MRI 02/21/17 0000 Signed Impressions: Service Date/Time: Tuesday, February 21, 2017 11:56 - CONCLUSION: Excessive motion during scanning results in significant degradation of images as described above. No acute hemorrhage, midline shift or extra-axial bleed is noted. Repeat MRI of the brain may be warranted if altered mental status does not resolve. Matt Figueroa MD Cardiovascular: Regular Lungs: Clear Abdomen: Other (lap sites c/d/i; mild bruising around umbilicus; abdomen soft ) Extremities: No edema A/P Assessment and Plan 61 year old male with AMS; RUQ abdominal pain -POD4 lap bernarda with drain placement -Regular diet -Pain control -Likely will need placement -GS clear for DC -Follow up appt set for Mar 13 at 9:30AM with Dr. Mercado Doing well post op. OK to remove drain. OK for DC from surgical [facility]. FU in office 1-2 weeks. [phone]. Will see prn, please call with any concerns. HERON MERCADO MD FACS Silva Allen Feb 27, 2017 10:46 Heron Mercado MD Feb 28, 2017 11:21
[2017-02-27] MEDS ORDERED: HALOPERIDOL LACTATE 5 MG/ML AMP IM PRN (11:30)
[2017-02-27] MEDS: HALOPERIDOL 1 MG TAB PO SCH ×2 (11:30→20:50)
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
[2017-02-27 12:00] VITALS: BP 182/88; PULSE 73; RESP 18; TEMP 97.5; O2SAT 94
[2017-02-27 16:00] VITALS: BP 164/90; PULSE 82; RESP 18; TEMP 97.3; O2SAT 95
[2017-02-27 20:00] VITALS: BP 162/84; PULSE 59; RESP 20; TEMP 98.9; O2SAT 96
[2017-02-27 23:53] LABS: CALIFORNIA ENCEPH AB IGG <1:4 (<1:4); CALIFORNIA ENCEPH AB IGM <1:4 (<1:4); EAST EQUINE ENCEPH AB IGG <1:4 (<1:4); EAST EQUINE ENCEPH AB IGM <1:4 (<1:4); ST LOUIS ENCEPH AB IGG <1:4 (<1:4); ST LOUIS ENCEPH AB IGM <1:4 (<1:4)
[2017-02-28] VITALS: BP 164/89; PULSE 62; RESP 20; TEMP 97.1; O2SAT 97
[2017-02-28] MEDS: MORPHINE SULFATE 15 MG CONTROLLED RELEASE TAB PO SCH ×3 (04:34→21:22)
[2017-02-28 07:50] VITALS: BP 143/90; PULSE 63; RESP 20; TEMP 98.1; O2SAT 97
[2017-02-28] MEDS: DOCUSATE SODIUM 50 MG/SENNA 8.6 MG TAB PO SCH ×2 (09:00→21:00)
[2017-02-28] MEDS: SODIUM CHLORIDE 0.9% FLUSH 10 ML FLUSH IV FLUSH SCH ×2 (09:00→21:00)
[2017-02-28] MEDS: FENOFIBRATE 145 MG TAB PO SCH (09:26)
[2017-02-28] MEDS: ATENOLOL 50 MG TAB PO SCH ×2 (09:26→21:23)
[2017-02-28] MEDS: PRAVASTATIN SOD 40 MG TAB PO SCH (09:27)
[2017-02-28] MEDS: SERTRALINE HCL 100 MG TAB PO SCH (09:27)
[2017-02-28] MEDS: PANTOPRAZOLE SOD 40 MG DELAYED RELEASE TAB PO SCH ×2 (09:27→21:22)
[2017-02-28] MEDS: LOSARTAN 50 MG TAB PO SCH (09:27)
[2017-02-28] MEDS: SUCRALFATE 1 GM/10 ML CUP PO SCH ×4 (09:28→22:33)
[2017-02-28] MEDS: HALOPERIDOL 1 MG TAB PO SCH ×2 (09:28→21:23)
[2017-02-28] MEDS: AMOXICILLIN/CLAVULANATE K 875 MG TAB PO SCH ×2 (09:28→21:23)
[2017-02-28] MEDS: clonazePAM 0.5 MG TAB PO PRN (09:38)
--- NOTE | 2017-02-28 11:03 | HHI.PYPN ---
Subjective Remarks The patient was seen today for psychiatric reevaluation. Chart reviewed. Case discussed with nursing charge. On psychiatric evaluation the patient is irritable, oppositional, at the beginning of the evaluation the patient refused to talk to me accusing me of plotting against him "to keep me prisoner with all these animals here". Patient continues to be confused, disorganized, paranoid with marked perceptual disturbances and fluctuation of consciousness. At the beginning the patient was completely disoriented, but with redirection he was able to verbalize correctly the name of the hospital, the city, and the date. He denies depressive symptoms, he denies suicidal and homicidal ideation, he denies visual and auditory hallucinations. Review of Systems Psychiatric: COMPLAINS OF: Confusion Except as stated in HPI: all other systems reviewed are Neg Mental Status Examination Appearance: Disheveled Consciousness: Clouded Orientation: Person, Place Motor Activity: Abnormal gait Speech: Incoherent Fund of Knowledge: Inadequate Memory: Impaired Mood: Anxious Affect: Irritable Thought Process & Associations: Loose associations Thought Content: Bizarre thinking Hallucination Type: None Delusion Type: None Suicidal Ideation: No Suicidal Plan: No Suicidal Intention: No Homicidal Ideation: No Homicidal Plan: No Homicidal Intention: No Insight: Fair Judgment: Impulsive Results Labs Date/Time Source Procedure Growth Status 02/23/17 08:25 Blood Peripheral Aerobic Blood Culture - Preliminary NO GROWTH IN 4 DAYS Resulted 02/23/17 08:25 Blood Peripheral Anaerobic Blood Culture - Preliminary NO GROWTH IN 4 DAYS Resulted 02/21/17 16:36 Cerebral Spinal Fluid Lumbar Puncture Gram Stain - Final Complete 02/21/17 16:36 Cerebral Spinal Fluid Lumbar Puncture CSF Culture - Final NO GROWTH IN 72 HOURS Complete Vitals/IOs Vital Signs Date Time Temp Pulse Resp B/P (MAP) Pulse Ox O2 Delivery O2 Flow Rate FiO2 02/28/17 07:50 98.1 63 20 143/90 (107) 97 02/25/17 21:25 Room Air 02/25/17 09:09 21 02/24/17 10:17 3.00 Intake and Output 02/28/17 02/28/17 03/01/17 08:00 16:00 00:00 Intake Total 1200 ml Balance 1200 ml Assessment & Plan Problem List: (1) Delirium due to another medical condition ICD Codes: F05 - Delirium due to known physiological condition Status: Acute Assessment & Plan: Patient continues to show acute neuropsychiatric symptoms consisting on confusion, paranoia, disorganized and tangential, perceptual disturbances, disorientation after meeting with short periods of lucidity which is to be consistent with delirium. Continue current psychotropic regimen. If this presentation persist beyond medical clearance, patient might benefit of psychiatric admission for treatment of psychosis. Psychoeducation and brief supportive psychotherapy provided. Assessment & Plan Estimated LOS: days Justification for Cont. Inpt. No indication for psychiatric admission at this moment, might consider psychiatric admission at this psychosis persists beyond medical clearance. Sawyer Cerda MD Feb 28, 2017 11:03
[2017-02-28 12:00] VITALS: BP 166/84; PULSE 76; RESP 18; TEMP 99.4; O2SAT 96
--- NOTE | 2017-02-28 12:27 | HHI.PR ---
Subjective Remarks The patient wanted to go home. He did not want to go to a [facility] facility. He still wants to have increased pain medications for breakthrough. Objective Vitals Vital Signs Date Time Temp Pulse Resp B/P (MAP) Pulse Ox O2 Delivery O2 Flow Rate FiO2 02/28/17 07:50 98.1 63 20 143/90 (107) 97 02/28/17 00:00 97.1 62 20 164/89 (114) 97 02/27/17 20:00 98.9 59 20 162/84 (110) 96 02/27/17 16:00 97.3 82 18 164/90 (114) 95 I/O 02/27/17 02/27/17 02/27/17 02/28/17 02/28/17 02/28/17 07:00 15:00 23:00 07:00 15:00 23:00 Intake Total 240 ml 960 ml 1200 ml Balance 240 ml 960 ml 1200 ml Intake Oral 240 ml 960 ml 1200 ml # Voids 2 5 6 # Bowel Movements 1 1 Result Diagram: 02/25/17 0634 02/27/17 0809 Imaging Last Impressions Head Magnetic Resonance Angiography 02/24/17 0000 Signed Impressions: Service Date/Time: Friday, February 24, 2017 08:06 - CONCLUSION: No acute disease. Matt Figueroa MD Brain MRI 02/24/17 0000 Signed Impressions: Service Date/Time: Friday, February 24, 2017 08:06 - CONCLUSION: No acute disease. Matt Figueroa MD Lumbar Puncture Fluoroscopy 02/21/17 0000 Signed Impressions: Service Date/Time: Tuesday, February 21, 2017 17:32 - CONCLUSION: Uncomplicated fluoroscopically guided lumbar puncture. Seymour Benton MD Chest X-Ray 02/19/17 0018 Signed Impressions: Service Date/Time: Sunday, February 19, 2017 00:44 - CONCLUSION: The lungs are clear. No evidence of pneumothorax. Gal Jensen MD Gall Bladder Ultrasound 02/19/17 0000 Signed Impressions: Service Date/Time: Sunday, February 19, 2017 05:17 - CONCLUSION: Limited examination demonstrates significant acoustic attenuation throughout the hepatic parenchyma; the intrahepatic and extrahepatic earlier he system cannot be assessed. The pancreas is poorly visualized and cannot be assessed sonographically. No evidence of free fluid. Gal Jensen MD Abdomen/Pelvis CT 02/19/17 0000 Signed Impressions: Service Date/Time: Sunday, February 19, 2017 02:31 - CONCLUSION: 1. Steatosis of the liver. 2. Otherwise negative CT abdomen/pelvis with contrast. Gal Jensen MD Objective Remarks GENERAL: NAD SKIN: Warm and dry. HEAD: Normocephalic. EYES: No scleral icterus. No injection or drainage. NECK: Supple, trachea midline. No JVD or lymphadenopathy. CARDIOVASCULAR: Regular rate and rhythm without murmurs, gallops, or rubs. RESPIRATORY: Breath sounds equal bilaterally. No accessory muscle use. GASTROINTESTINAL: Abdomen soft, nontender, nondistended. Surgical bandages in place. MUSCULOSKELETAL: No cyanosis, or edema. BACK: Nontender without obvious deformity. No CVA tenderness. PSYCH: Calm. Procedures 1. Laparoscopic cholecystectomy. 2. Umbilical hernia repair. Medications and IVs Current Medications Medications (Trade) Dose Ordered Sig/Juan Pablo Route Start Time Stop Time Status Last Admin (Nitrostat Sl) 0.4 mg Q5M PRN SL 02/19/17 00:30 02/19/17 00:58 (NS Flush) 2 ml UNSCH PRN IV FLUSH 02/19/17 04:45 (NS Flush) 2 ml BID IV FLUSH 02/19/17 09:00 02/26/17 08:53 (Tylenol) 650 mg Q4H PRN PO 02/19/17 04:45 02/20/17 12:12 (Zofran Inj) 4 mg Q6H PRN IVP 02/19/17 04:45 (Narcan Inj) 0.4 mg UNSCH PRN IV PUSH 02/19/17 04:45 (Lyndsey-Colace) 1 tab BID PO 02/19/17 09:00 02/27/17 09:27 (Milk Of Magnesia Liq) 30 ml Q12H PRN PO 02/19/17 04:45 (Senokot) 17.2 mg Q12H PRN PO 02/19/17 04:45 (Dulcolax Supp) 10 mg DAILY PRN RECTAL 02/19/17 04:45 (Lactulose Liq) 30 ml DAILY PRN PO 02/19/17 04:45 (Tenormin) 50 mg BID PO 02/19/17 09:00 02/28/17 09:26 (Cozaar) 50 mg DAILY PO 02/19/17 09:00 02/28/17 09:27 (Pravachol) 40 mg DAILY PO 02/19/17 09:00 02/28/17 09:27 (Oramorph Sr) 30 mg Q8H PO 02/19/17 05:00 02/28/17 04:34 (Zoloft) 100 mg DAILY PO 02/19/17 09:00 02/28/17 09:27 (Tricor) 145 mg DAILY PO 02/19/17 09:00 02/28/17 09:26 (Protonix) 40 mg BID PO 02/19/17 21:00 02/28/17 09:27 (Carafate Liq) 1 gm ACHS PO 02/19/17 17:00 02/28/17 09:28 (Vasotec Inj) 1.25 mg Q6H PRN IV PUSH 02/21/17 09:30 Miscellaneous Information Patient in critical care unit? Ass... Q361D .XX 02/22/17 04:45 (Augmentin) 875 mg Q12HR PO 02/26/17 21:00 02/28/17 09:28 (Haldol) 1 mg BID PO 02/27/17 11:30 02/28/17 09:28 (Haldol Inj) 2 mg Q6H PRN IM 02/27/17 11:30 02/28/17 11:03 (KlonoPIN) 0.5 mg BID PRN PO 02/27/17 11:45 02/28/17 09:38 A/P Problem List: (1) Acute encephalopathy ICD Code: G93.40 - Encephalopathy, unspecified Status: Resolved (2) HTN (hypertension) ICD Code: I10 - Essential (primary) hypertension Status: Chronic (3) Intractable abdominal pain ICD Code: R10.9 - Unspecified abdominal pain Status: Acute (4) Sepsis ICD Code: A41.9 - Sepsis, unspecified organism (5) Gram-negative bacteremia ICD Code: R78.81 - Bacteremia Assessment and Plan Acute encephalopathy: Likely secondary to sepsis. Gram-negative bacteremia.? Gallbladder - Neurology following. Initial concern for CVA versus [employer] encephalitis. MRI with artifacts. CSF not convincing for infection. Awaiting the rest of the titers per neurology. EEG with No epileptiform features are present. - Currently on Augmentin per ID. - cut down on benzos and pain meds. - Per psych he does not have capacity. Follow with psych. Haldol started. Sepsis/gram-negative bacteremia - ? gi source. - ID following. Continue Unasyn and likely discharge on Augmentin . Repeat blood culture NTD. Gangrenous cholecystitis Febrile illness Lactic acidosis CT of the abdomen/pelvis shows distended gallbladder without stones or biliary ductal dilation. US of the gallbladder non-conclusive Appreciate general surgery following. Had surgery 02/23/17 1. Laparoscopic cholecystectomy. 2. Umbilical hernia repair. Pain control as needed Anemia mostly chronic, revealed with to dilution effect/ Thrombocytopenia mostly chronic GI following and planning for endoscopy On PPI and sucralfate Nonspecific T waves on EKG Patient with inverted T waves in aVR, V1-V4 Cardiac enzymes 3 sets are negative Outpatient follow-up with cardiology Hypokalemia: Monitor electrolyte Chronic pain - Continue home Oramorph, Mobic, baclofen. - the pt would like breakthrough pain medications. Add MS IR. D/c if encephalopathy returns. Hypertension/hyperlipidemia Continue home medications GI prophylaxis: PPI. Stool softener PRN constipation. Discharge Planning The pt lacks capacity, placement may be an issue Problem Qualifiers (1) HTN (hypertension): Qualified Codes: I10 - Essential (primary) hypertension Juwan Rao DO Feb 28, 2017 12:27
[2017-02-28 15:57] VITALS: BP 141/72; PULSE 67; RESP 18; TEMP 97.8; O2SAT 97
[2017-02-28 20:00] VITALS: BP 146/83; PULSE 64; RESP 20; TEMP 97.1; O2SAT 96
[2017-03-01] VITALS: BP 151/79; PULSE 59; RESP 20; TEMP 95.6; O2SAT 97
[2017-03-01] MEDS: MORPHINE SULFATE 15 MG CONTROLLED RELEASE TAB PO SCH ×3 (04:44→21:14)
[2017-03-01 07:15] LABS: MEAN CELL VOLUME 90.4 FL (80.0-100.0); MEAN CORPUSCULAR HEMOGLOBIN 31.1 PG (27.0-34.0); MEAN CORPUSCULAR HGB CONC 34.4 % (32.0-36.0); PLATELET COUNT 274 TH/MM3 (150-450); RED BLOOD COUNT 3.98 MIL/MM3 (4.50-5.90); RED CELL DISTRIBUTION WIDTH 12.6 % (11.6-17.2); REVIEW FLAG FINAL; WHITE BLOOD COUNT 4.3 TH/MM3 (4.0-11.0)
[2017-03-01 07:23] LABS: BICARBONATE 32.8 MEQ/L (21.0-32.0); MAGNESIUM 2.3 MG/DL (1.5-2.5); POTASSIUM 3.8 MEQ/L (3.5-5.1)
[2017-03-01 08:00] VITALS: BP 131/73; PULSE 64; RESP 17; TEMP 98.7; O2SAT 94
[2017-03-01] MEDS: SERTRALINE HCL 100 MG TAB PO SCH (08:42)
[2017-03-01] MEDS: PANTOPRAZOLE SOD 40 MG DELAYED RELEASE TAB PO SCH ×2 (08:42→21:14)
[2017-03-01] MEDS: PRAVASTATIN SOD 40 MG TAB PO SCH (08:42)
[2017-03-01] MEDS: HALOPERIDOL 1 MG TAB PO SCH ×2 (08:42→21:13)
[2017-03-01] MEDS: LOSARTAN 50 MG TAB PO SCH (08:42)
[2017-03-01] MEDS: FENOFIBRATE 145 MG TAB PO SCH (08:42)
[2017-03-01] MEDS: AMOXICILLIN/CLAVULANATE K 875 MG TAB PO SCH ×2 (08:42→21:13)
[2017-03-01] MEDS: ATENOLOL 50 MG TAB PO SCH ×2 (08:42→21:14)
[2017-03-01] MEDS: DOCUSATE SODIUM 50 MG/SENNA 8.6 MG TAB PO SCH ×2 (08:43→21:00)
[2017-03-01] MEDS: MORPHINE SULFATE 15 MG TAB PO PRN ×2 (08:46→17:18)
[2017-03-01] MEDS: SODIUM CHLORIDE 0.9% FLUSH 10 ML FLUSH IV FLUSH SCH ×2 (08:58→21:00)
[2017-03-01] MEDS: SUCRALFATE 1 GM/10 ML CUP PO SCH ×4 (08:58→21:13)
[2017-03-01 12:00] VITALS: BP 148/83; PULSE 70; RESP 20; TEMP 97.8; O2SAT 94
--- NOTE | 2017-03-01 14:05 | HHI.PR ---
Subjective Remarks The patient said that he talk to his sister and he said that she would be willing to have him over for the holidays. She did not want to go to a snf facility. He has been ambulatory. Discussed with nursing. Objective Vitals Vital Signs Date Time Temp Pulse Resp B/P (MAP) Pulse Ox O2 Delivery O2 Flow Rate FiO2 03/01/17 12:00 97.8 70 20 148/83 (104) 94 03/01/17 08:00 98.7 64 17 131/73 (92) 94 03/01/17 00:00 95.6 59 20 151/79 (103) 97 02/28/17 20:00 97.1 64 20 146/83 (104) 96 02/28/17 15:57 97.8 67 18 141/72 (95) 97 I/O 02/28/17 02/28/17 02/28/17 03/01/17 03/01/17 03/01/17 07:00 15:00 23:00 07:00 15:00 23:00 Intake Total 1200 ml 960 ml 500 ml Balance 1200 ml 960 ml 500 ml Intake Oral 1200 ml 960 ml 500 ml # Voids 6 8 3 # Bowel Movements 1 1 Result Diagram: 03/01/17 0621 03/01/17 0621 Imaging Last Impressions Head Magnetic Resonance Angiography 02/24/17 0000 Signed Impressions: Service Date/Time: Friday, February 24, 2017 08:06 - CONCLUSION: No acute disease. Matt Figueroa MD Brain MRI 02/24/17 0000 Signed Impressions: Service Date/Time: Friday, February 24, 2017 08:06 - CONCLUSION: No acute disease. Matt Figueroa MD Lumbar Puncture Fluoroscopy 02/21/17 0000 Signed Impressions: Service Date/Time: Tuesday, February 21, 2017 17:32 - CONCLUSION: Uncomplicated fluoroscopically guided lumbar puncture. Seymour Benton MD Chest X-Ray 02/19/17 0018 Signed Impressions: Service Date/Time: Sunday, February 19, 2017 00:44 - CONCLUSION: The lungs are clear. No evidence of pneumothorax. Gal Jensen MD Gall Bladder Ultrasound 02/19/17 0000 Signed Impressions: Service Date/Time: Sunday, February 19, 2017 05:17 - CONCLUSION: Limited examination demonstrates significant acoustic attenuation throughout the hepatic parenchyma; the intrahepatic and extrahepatic earlier he system cannot be assessed. The pancreas is poorly visualized and cannot be assessed sonographically. No evidence of free fluid. Gal Jensen MD Abdomen/Pelvis CT 02/19/17 0000 Signed Impressions: Service Date/Time: Sunday, February 19, 2017 02:31 - CONCLUSION: 1. Steatosis of the liver. 2. Otherwise negative CT abdomen/pelvis with contrast. Gal Jensen MD Objective Remarks GENERAL: NAD SKIN: Warm and dry. HEAD: Normocephalic. EYES: No scleral icterus. No injection or drainage. NECK: Supple, trachea midline. No JVD or lymphadenopathy. CARDIOVASCULAR: Regular rate and rhythm without murmurs, gallops, or rubs. RESPIRATORY: Breath sounds equal bilaterally. No accessory muscle use. GASTROINTESTINAL: Abdomen soft, nontender, nondistended. Surgical bandages in place. MUSCULOSKELETAL: No cyanosis, or edema. BACK: Nontender without obvious deformity. No CVA tenderness. PSYCH: Calm. Procedures 1. Laparoscopic cholecystectomy. 2. Umbilical hernia repair. Medications and IVs Current Medications Medications (Trade) Dose Ordered Sig/Juan Pablo Route Start Time Stop Time Status Last Admin (Nitrostat Sl) 0.4 mg Q5M PRN SL 02/19/17 00:30 02/19/17 00:58 (NS Flush) 2 ml UNSCH PRN IV FLUSH 02/19/17 04:45 (NS Flush) 2 ml BID IV FLUSH 02/19/17 09:00 02/26/17 08:53 (Tylenol) 650 mg Q4H PRN PO 02/19/17 04:45 02/20/17 12:12 (Zofran Inj) 4 mg Q6H PRN IVP 02/19/17 04:45 (Narcan Inj) 0.4 mg UNSCH PRN IV PUSH 02/19/17 04:45 (Lyndsey-Colace) 1 tab BID PO 02/19/17 09:00 02/27/17 09:27 (Milk Of Magnesia Liq) 30 ml Q12H PRN PO 02/19/17 04:45 (Senokot) 17.2 mg Q12H PRN PO 02/19/17 04:45 (Dulcolax Supp) 10 mg DAILY PRN RECTAL 02/19/17 04:45 (Lactulose Liq) 30 ml DAILY PRN PO 02/19/17 04:45 (Tenormin) 50 mg BID PO 02/19/17 09:00 03/01/17 08:42 (Cozaar) 50 mg DAILY PO 02/19/17 09:00 03/01/17 08:42 (Pravachol) 40 mg DAILY PO 02/19/17 09:00 03/01/17 08:42 (Oramorph Sr) 30 mg Q8H PO 02/19/17 05:00 03/01/17 12:31 (Zoloft) 100 mg DAILY PO 02/19/17 09:00 03/01/17 08:42 (Tricor) 145 mg DAILY PO 02/19/17 09:00 03/01/17 08:42 (Protonix) 40 mg BID PO 02/19/17 21:00 03/01/17 08:42 (Carafate Liq) 1 gm ACHS PO 02/19/17 17:00 03/01/17 12:31 (Vasotec Inj) 1.25 mg Q6H PRN IV PUSH 02/21/17 09:30 Miscellaneous Information Patient in critical care unit? Ass... Q361D .XX 02/22/17 04:45 (Augmentin) 875 mg Q12HR PO 02/26/17 21:00 03/01/17 08:42 (Haldol) 1 mg BID PO 02/27/17 11:30 03/01/17 08:42 (Haldol Inj) 2 mg Q6H PRN IM 02/27/17 11:30 02/28/17 11:03 (KlonoPIN) 0.5 mg BID PRN PO 02/27/17 11:45 02/28/17 09:38 (Msir) 15 mg Q8HR PRN PO 02/28/17 12:30 03/01/17 08:46 A/P Problem List: (1) Acute encephalopathy ICD Code: G93.40 - Encephalopathy, unspecified Status: Resolved (2) HTN (hypertension) ICD Code: I10 - Essential (primary) hypertension Status: Chronic (3) Intractable abdominal pain ICD Code: R10.9 - Unspecified abdominal pain Status: Acute (4) Sepsis ICD Code: A41.9 - Sepsis, unspecified organism (5) Gram-negative bacteremia ICD Code: R78.81 - Bacteremia Assessment and Plan Acute encephalopathy: Likely secondary to sepsis. Gram-negative bacteremia.? Gallbladder - Neurology following. Initial concern for CVA versus DECK ENGINEER encephalitis. MRI with artifacts. CSF not convincing for infection. Awaiting the rest of the titers per neurology. EEG with No epileptiform features are present. - Currently on Augmentin per ID. - cut down on benzos and pain meds. - Per psych he does not have capacity. Follow with psych. Haldol started. Consider inpatient psych placement. Sepsis/gram-negative bacteremia ? gi source. - ID following. Continue Unasyn and likely discharge on Augmentin . Repeat blood culture NTD. Gangrenous cholecystitis Febrile illness Lactic acidosis CT of the abdomen/pelvis shows distended gallbladder without stones or biliary ductal dilation. US of the gallbladder non-conclusive Appreciate general surgery following. Had surgery 02/23/17 1. Laparoscopic cholecystectomy. 2. Umbilical hernia repair. Pain control as needed Anemia mostly chronic, revealed with to dilution effect/ Thrombocytopenia mostly chronic GI following and planning for endoscopy On PPI and sucralfate Nonspecific T waves on EKG Patient with inverted T waves in aVR, V1-V4 Cardiac enzymes 3 sets are negative Outpatient follow-up with cardiology Hypokalemia: Monitor electrolyte Chronic pain - Continue home Oramorph, Mobic, baclofen. - the pt would like breakthrough pain medications. Add MS IR. D/c if encephalopathy returns. Hypertension/hyperlipidemia Continue home medications GI prophylaxis: PPI. Stool softener PRN constipation. Discharge Planning The pt lacks capacity, placement may be an issue Problem Qualifiers (1) HTN (hypertension): Qualified Codes: I10 - Essential (primary) hypertension Juwan Rao DO Mar 01, 2017 14:05
[2017-03-01 16:00] VITALS: BP 155/75; PULSE 66; RESP 20; TEMP 96.9; O2SAT 97
[2017-03-01 20:00] VITALS: BP 139/80; PULSE 65; RESP 16; TEMP 98.5; O2SAT 95
[2017-03-02] VITALS: BP 136/84; PULSE 64; RESP 16; TEMP 98.3; O2SAT 95
[2017-03-02] MEDS: MORPHINE SULFATE 15 MG TAB PO PRN ×3 (01:23→17:23)
[2017-03-02] MEDS: MORPHINE SULFATE 15 MG CONTROLLED RELEASE TAB PO SCH ×3 (05:02→21:24)
[2017-03-02 08:00] VITALS: BP 140/82; PULSE 65; RESP 21; TEMP 98.1; O2SAT 93
[2017-03-02] MEDS: DOCUSATE SODIUM 50 MG/SENNA 8.6 MG TAB PO SCH ×2 (08:46→21:00)
[2017-03-02] MEDS: SODIUM CHLORIDE 0.9% FLUSH 10 ML FLUSH IV FLUSH SCH ×2 (08:46→21:00)
[2017-03-02] MEDS: SUCRALFATE 1 GM/10 ML CUP PO SCH ×4 (08:47→21:21)
[2017-03-02] MEDS: ATENOLOL 50 MG TAB PO SCH ×2 (08:48→21:24)
[2017-03-02] MEDS: HALOPERIDOL 1 MG TAB PO SCH ×2 (08:48→21:22)
[2017-03-02] MEDS: LOSARTAN 50 MG TAB PO SCH (08:48)
[2017-03-02] MEDS: PANTOPRAZOLE SOD 40 MG DELAYED RELEASE TAB PO SCH ×2 (08:48→21:22)
[2017-03-02] MEDS: SERTRALINE HCL 100 MG TAB PO SCH (08:48)
[2017-03-02] MEDS: FENOFIBRATE 145 MG TAB PO SCH (08:48)
[2017-03-02] MEDS: PRAVASTATIN SOD 40 MG TAB PO SCH (08:48)
[2017-03-02] MEDS: AMOXICILLIN/CLAVULANATE K 875 MG TAB PO SCH ×2 (08:48→21:22)
[2017-03-02 12:00] VITALS: BP 149/82; PULSE 64; RESP 20; TEMP 98.9; O2SAT 96
--- NOTE | 2017-03-02 14:24 | HHI.PR ---
Subjective Remarks The patient was complaining of a cough and some wheezing. He says he has been having about 2 tarry bowel movements daily. No other acute complaints. Discussed with nursing. Objective Vitals Vital Signs Date Time Temp Pulse Resp B/P (MAP) Pulse Ox O2 Delivery O2 Flow Rate FiO2 03/02/17 12:00 98.9 64 20 149/82 (104) 96 03/02/17 08:00 98.1 65 21 140/82 (101) 93 03/02/17 00:00 98.3 64 16 136/84 (101) 95 03/01/17 20:00 98.5 65 16 139/80 (99) 95 03/01/17 16:00 96.9 66 20 155/75 (101) 97 I/O 03/01/17 03/01/17 03/01/17 03/02/17 03/02/17 03/02/17 07:00 15:00 23:00 07:00 15:00 23:00 Intake Total 500 ml 1200 ml Output Total 900 ml Balance 500 ml 300 ml Intake Oral 500 ml 1200 ml Output Urine Total 900 ml # Voids 3 5 Result Diagram: 03/01/17 0621 03/01/17 0621 Imaging Last Impressions Head Magnetic Resonance Angiography 02/24/17 0000 Signed Impressions: Service Date/Time: Friday, February 24, 2017 08:06 - CONCLUSION: No acute disease. Matt Figueroa MD Brain MRI 02/24/17 0000 Signed Impressions: Service Date/Time: Friday, February 24, 2017 08:06 - CONCLUSION: No acute disease. Matt Figueroa MD Lumbar Puncture Fluoroscopy 02/21/17 0000 Signed Impressions: Service Date/Time: Tuesday, February 21, 2017 17:32 - CONCLUSION: Uncomplicated fluoroscopically guided lumbar puncture. Seymour Benton MD Chest X-Ray 02/19/17 0018 Signed Impressions: Service Date/Time: Sunday, February 19, 2017 00:44 - CONCLUSION: The lungs are clear. No evidence of pneumothorax. Gal Jensen MD Gall Bladder Ultrasound 02/19/17 0000 Signed Impressions: Service Date/Time: Sunday, February 19, 2017 05:17 - CONCLUSION: Limited examination demonstrates significant acoustic attenuation throughout the hepatic parenchyma; the intrahepatic and extrahepatic earlier he system cannot be assessed. The pancreas is poorly visualized and cannot be assessed sonographically. No evidence of free fluid. Gal Jensen MD Abdomen/Pelvis CT 02/19/17 0000 Signed Impressions: Service Date/Time: Sunday, February 19, 2017 02:31 - CONCLUSION: 1. Steatosis of the liver. 2. Otherwise negative CT abdomen/pelvis with contrast. Gal Jensen MD Objective Remarks GENERAL: NAD. SKIN: Warm and dry. HEAD: Normocephalic. EYES: No scleral icterus. No injection or drainage. NECK: Supple, trachea midline. No JVD or lymphadenopathy. CARDIOVASCULAR: Regular rate and rhythm without murmurs, gallops, or rubs. RESPIRATORY: Bilateral wheezing. GASTROINTESTINAL: Abdomen soft, mild tenderness around umbilicus, nondistended. Surgical bandages in place. MUSCULOSKELETAL: No cyanosis, or edema. BACK: Nontender without obvious deformity. No CVA tenderness. PSYCH: Calm. Procedures 1. Laparoscopic cholecystectomy. 2. Umbilical hernia repair. Medications and IVs Current Medications Medications (Trade) Dose Ordered Sig/Juan Pablo Route Start Time Stop Time Status Last Admin (Nitrostat Sl) 0.4 mg Q5M PRN SL 02/19/17 00:30 02/19/17 00:58 (NS Flush) 2 ml UNSCH PRN IV FLUSH 02/19/17 04:45 (NS Flush) 2 ml BID IV FLUSH 02/19/17 09:00 02/26/17 08:53 (Tylenol) 650 mg Q4H PRN PO 02/19/17 04:45 02/20/17 12:12 (Zofran Inj) 4 mg Q6H PRN IVP 02/19/17 04:45 (Narcan Inj) 0.4 mg UNSCH PRN IV PUSH 02/19/17 04:45 (Lyndsey-Colace) 1 tab BID PO 02/19/17 09:00 02/27/17 09:27 (Milk Of Magnesia Liq) 30 ml Q12H PRN PO 02/19/17 04:45 (Senokot) 17.2 mg Q12H PRN PO 02/19/17 04:45 (Dulcolax Supp) 10 mg DAILY PRN RECTAL 02/19/17 04:45 (Lactulose Liq) 30 ml DAILY PRN PO 02/19/17 04:45 (Tenormin) 50 mg BID PO 02/19/17 09:00 03/02/17 08:48 (Cozaar) 50 mg DAILY PO 02/19/17 09:00 03/02/17 08:48 (Pravachol) 40 mg DAILY PO 02/19/17 09:00 03/02/17 08:48 (Oramorph Sr) 30 mg Q8H PO 02/19/17 05:00 03/02/17 13:14 (Zoloft) 100 mg DAILY PO 02/19/17 09:00 03/02/17 08:48 (Tricor) 145 mg DAILY PO 02/19/17 09:00 03/02/17 08:48 (Protonix) 40 mg BID PO 02/19/17 21:00 03/02/17 08:48 (Carafate Liq) 1 gm ACHS PO 02/19/17 17:00 03/02/17 13:14 (Vasotec Inj) 1.25 mg Q6H PRN IV PUSH 02/21/17 09:30 Miscellaneous Information Patient in critical care unit? Ass... Q361D .XX 02/22/17 04:45 (Augmentin) 875 mg Q12HR PO 02/26/17 21:00 03/02/17 08:48 (Haldol) 1 mg BID PO 02/27/17 11:30 03/02/17 08:48 (Haldol Inj) 2 mg Q6H PRN IM 02/27/17 11:30 02/28/17 11:03 (KlonoPIN) 0.5 mg BID PRN PO 02/27/17 11:45 02/28/17 09:38 (Msir) 15 mg Q8HR PRN PO 02/28/17 12:30 03/02/17 09:28 (Tessalon) 200 mg ONCE ONCE PO 03/02/17 14:30 03/02/17 14:31 UNV (Tessalon) 200 mg TID PRN PO 03/02/17 14:30 UNV (Duoneb Neb) 1 ampule ONCE ONCE NEB 03/02/17 14:30 03/02/17 14:31 UNV (Duoneb Neb) 1 ampule Q2HR NEB PRN NEB 03/02/17 14:30 UNV A/P Problem List: (1) Acute encephalopathy ICD Code: G93.40 - Encephalopathy, unspecified Status: Resolved (2) HTN (hypertension) ICD Code: I10 - Essential (primary) hypertension Status: Chronic (3) Intractable abdominal pain ICD Code: R10.9 - Unspecified abdominal pain Status: Acute (4) Sepsis ICD Code: A41.9 - Sepsis, unspecified organism (5) Gram-negative bacteremia ICD Code: R78.81 - Bacteremia Assessment and Plan Acute encephalopathy: Likely secondary to sepsis. Gram-negative bacteremia.? Gallbladder - Neurology following. Initial concern for CVA versus COMPUTATIONAL MATHEMATICIAN encephalitis. MRI with artifacts. CSF not convincing for infection. Awaiting the rest of the titers per neurology. EEG with No epileptiform features are present. - Currently on Augmentin per ID. - cut down on benzos and pain meds. - Per psych he does not have capacity. Follow with psych. Haldol started. Consider inpatient psych placement. Psych has been reconsulted. Sepsis/gram-negative bacteremia ? gi source. - ID following. Continue Unasyn and likely discharge on Augmentin . Repeat blood culture NTD. Gangrenous cholecystitis Febrile illness Lactic acidosis CT of the abdomen/pelvis shows distended gallbladder without stones or biliary ductal dilation. US of the gallbladder non-conclusive Appreciate general surgery following. Had surgery 02/23/17 1. Laparoscopic cholecystectomy. 2. Umbilical hernia repair. Pain control as needed Anemia mostly chronic, revealed with to dilution effect/ Thrombocytopenia mostly chronic GI following and planning for endoscopy On PPI and sucralfate Nonspecific T waves on EKG Patient with inverted T waves in aVR, V1-V4 Cardiac enzymes 3 sets are negative Outpatient follow-up with cardiology Hypokalemia: Monitor electrolyte Chronic pain - Continue home Oramorph, Mobic, baclofen. - the pt would like breakthrough pain medications. Add MS IR. D/c if encephalopathy returns. Hypertension/hyperlipidemia Continue home medications Cough/ Wheezing Afebrile. - check CXR. - nebs. - Chaz Mathis. GI prophylaxis: PPI. Stool softener PRN constipation. Discharge Planning The pt lacks capacity, placement may be an issue Problem Qualifiers (1) HTN (hypertension): Qualified Codes: I10 - Essential (primary) hypertension Juwan Rao DO Mar 02, 2017 14:24
[2017-03-02] MEDS ORDERED: BENZONATATE 100 MG CAP PO ONE (14:30)
[2017-03-02] MEDS ORDERED: RESP: ALBUTEROL 2.5 MG/IPRATROPIUM 0.5 MG NEB (PRN) NEB (14:30)
[2017-03-02] MEDS ORDERED: RESP: ALBUTEROL 2.5 MG/IPRATROPIUM 0.5 MG NEB (SCH) NEB ONE (14:30)
--- NOTE | 2017-03-02 14:39 | RADRPT ---
EXAM DATE/TIME: 03/02/2017 14:24 [facility] COMPARISON: CHEST SINGLE AP, February 19, 2017, 0:44. INDICATIONS : Cough. MEDICAL HISTORY : Hypertension. SURGICAL HISTORY : Fusion, cervical. ENCOUNTER: Initial ACUITY: 3 days PAIN SCORE: 0/10 LOCATION: upper chest FINDINGS: A single view of the chest demonstrates the lungs to be symmetrically aerated without evidence of mas s, infiltrate or effusion. The cardiomediastinal contours are unremarkable. Osseous structures are intact. CONCLUSION: 1. No acute abnormality or significant interval change. Seymour Benton MD on March 02, 2017 at 14:36 Board Certified Radiologist. This report was verified electronically.
[2017-03-02 16:00] VITALS: BP 154/80; PULSE 66; RESP 18; TEMP 99; O2SAT 95
[2017-03-02 16:28] VITALS: O2SAT 95
[2017-03-02 20:00] VITALS: BP 145/83; PULSE 64; RESP 16; TEMP 97; O2SAT 96
[2017-03-02] MEDS: BENZONATATE 100 MG CAP PO PRN (21:25)
[2017-03-02] MEDS: clonazePAM 0.5 MG TAB PO PRN (21:32)
[2017-03-03] VITALS: BP 135/76; PULSE 61; RESP 16; TEMP 97.7; O2SAT 93
[2017-03-03] MEDS: BENZONATATE 100 MG CAP PO PRN (02:09)
[2017-03-03] MEDS: MORPHINE SULFATE 15 MG TAB PO PRN (02:11)
--- NOTE | 2017-03-03 05:58 | HHI.PR ---
Addendum To [facility] Progress Not Reason for addendum: Additonal documentation (Received page regarding pt at 0454 and spoke with Pt's nurse (Jesús) and informed pt and his clothing were gone. RN stated security and police had been contacted. He said pt was last seen at about 0415. Dr. Alegre notifed at 0503. Called RN at approximately 0540 to inquire about pt status. He stated pt was found at his home and told police he would follow-up with his own physican. Discussed with RN attending's note. RN said Roldan act was not taken out on pt. Pt not returned to [place]. Dr. Alegre updated at 0545.) Bakari Vega Jr. GUIDO Mar 03, 2017 05:58
--- NOTE | 2017-03-03 08:59 | PD.AMA ---
Against Medical Advice Note Diagnosis: (1) Cholecystitis (2) Acute encephalopathy (3) Delirium due to another medical condition (4) Sepsis (5) HTN (hypertension) Discharge Disposition: Against Medical Advice Pt Condition on Discharge: Stable Recommended Treatment Course Further evaluation by psychiatry and physical therapy to assure safety AMA Statement Patient Juwan Cardenas has decided to leave the hospital against medical advice. This patient has the capacity to refuse care and understands the risks of leaving, including permanent disability and/or , and has had an opportunity to ask questions about his condition. The patient has been informed that he may return for care at any time, and follow up has been arranged/advised. Juwan Rao DO Mar 03, 2017 08:59
--- NOTE | 2017-03-03 09:05 | HHI.DS ---
Discharge Summary Admission Date Feb 22, 2017 at 06:19 Discharge Date: Mar 03, 2017 Admitting Diagnosis intractable abominal pain (1) Acute encephalopathy ICD Code: G93.40 - Encephalopathy, unspecified Diagnosis: Principal Status: Resolved (2) HTN (hypertension) ICD Code: I10 - Essential (primary) hypertension Status: Chronic (3) Intractable abdominal pain ICD Code: R10.9 - Unspecified abdominal pain Status: Acute (4) Sepsis ICD Code: A41.9 - Sepsis, unspecified organism Diagnosis: Principal (5) Gram-negative bacteremia ICD Code: R78.81 - Bacteremia (6) Cholecystitis ICD Code: K81.9 - Cholecystitis, unspecified Diagnosis: Principal Procedures 1. Laparoscopic cholecystectomy. 2. Umbilical hernia repair. Brief History - From Admission 61-year-old male with a past medical history significant for hypertension, hyperlipidemia, chronic pain and anxiety presents to the emergency department with severe, sudden onset abdominal pain that began at 7:30 yesterday evening. The patient denies any emesis but has associated nausea. He describes the pain as just underneath his ribs, bilateral, severe and nonradiating. He has a history of inverted T waves on EKG for which she has appointment with cardiology next week. He denies any chest pain, diaphoresis or shortness of breath. Despite 2 doses of IV Dilaudid, the patient's abdominal pain remains intractable. CBC/BMP: 03/01/17 0621 03/01/17 0621 Significant Findings Laboratory Tests Test 03/01/17 06:21 Red Blood Count 3.98 MIL/MM3 (4.50-5.90) Hemoglobin 12.4 GM/DL (13.0-17.0) Hematocrit 36.0 % (39.0-51.0) Carbon Dioxide Level 32.8 MEQ/L (21.0-32.0) Imaging Last Impressions Chest X-Ray 03/02/17 0000 Signed Impressions: Service Date/Time: Thursday, March 02, 2017 14:24 - CONCLUSION: 1. No acute abnormality or significant interval change. Seymour Benton MD Head Magnetic Resonance Angiography 02/24/17 0000 Signed Impressions: Service Date/Time: Friday, February 24, 2017 08:06 - CONCLUSION: No acute disease. Matt Figueroa MD Brain MRI 02/24/17 0000 Signed Impressions: Service Date/Time: Friday, February 24, 2017 08:06 - CONCLUSION: No acute disease. Matt Figueroa MD Lumbar Puncture Fluoroscopy 02/21/17 0000 Signed Impressions: Service Date/Time: Tuesday, February 21, 2017 17:32 - CONCLUSION: Uncomplicated fluoroscopically guided lumbar puncture. Seymour Benton MD Gall Bladder Ultrasound 02/19/17 0000 Signed Impressions: Service Date/Time: Sunday, February 19, 2017 05:17 - CONCLUSION: Limited examination demonstrates significant acoustic attenuation throughout the hepatic parenchyma; the intrahepatic and extrahepatic earlier he system cannot be assessed. The pancreas is poorly visualized and cannot be assessed sonographically. No evidence of free fluid. Gal Jensen MD Abdomen/Pelvis CT 02/19/17 0000 Signed Impressions: Service Date/Time: Sunday, February 19, 2017 02:31 - CONCLUSION: 1. Steatosis of the liver. 2. Otherwise negative CT abdomen/pelvis with contrast. Gal Jensen MD PE at Discharge GENERAL: NAD. SKIN: Warm and dry. HEAD: Normocephalic. EYES: No scleral icterus. No injection or drainage. NECK: Supple, trachea midline. No JVD or lymphadenopathy. CARDIOVASCULAR: Regular rate and rhythm without murmurs, gallops, or rubs. RESPIRATORY: Bilateral wheezing. GASTROINTESTINAL: Abdomen soft, mild tenderness around umbilicus, nondistended. Surgical bandages in place. MUSCULOSKELETAL: No cyanosis, or edema. BACK: Nontender without obvious deformity. No CVA tenderness. PSYCH: Calm. Pt update on day of discharge The pt decided to leave the hospital AMA without being seen by a physician. Further information can be found in a progress note from this morning. Hospital Course Acute encephalopathy Neurology was consulted. Initial concern for CVA versus MECHANICAL SPECIALIST encephalitis. MRI with artifacts. CSF not convincing for infection. EEG with No epileptiform features are present. Currently on Unasyn and s/p acyclovir per infectious disease. He will complete a course of Augmentin. He will follow up with neurology as an outpt. He worked with PT/ OT. Psychiatry was following the pt and was concerned about the pt's fluctuations in mental status. He left the hospital AMA on 03/03. Police found the pt at home but the pt was not brought back to the hospital as he was not under a Rold[place] Act. Sepsis/gram-negative bacteremia S/t cholecystitis. ID was consulted. Unasyn was changed to Augmentin upon discharge. Gangrenous cholecystitis CT of the abdomen/pelvis showed distended gallbladder without stones or biliary ductal dilation. US of the gallbladder non-conclusive. General surgery was consulted. S/p laparoscopic cholecystectomy and umbilical hernia repair. He will follow up with surgery as an outpt. Anemia/ Thrombocytopenia GI was consulted. The pt wanted to pursue EGD and colonoscopy as an outpt. He will follow up with GI as an outpt. He will resume ASA. He will continue a PPI. Nonspecific T waves on EKG Patient with inverted T waves in aVR, V1-V4. Trops negative. The pt has already been referred to cardiology by his PCP. Chronic pain The pt will continue home Oramorph and baclofen. Mobic on hold. Pt Condition on Discharge: Stable Discharge Disposition: Discharge to SNF Discharge Time: > 30 minutes Discharge Instructions DIET: Follow Instructions for: As Tolerated, No Restrictions Activities you can perform: Weight Bearing as Leroy Follow up Referrals: Gastroenterology - 1 Week Neurology - 1 Week with Martin Kemp MD PCP Follow-up - 1 Week Surgical - 03/13/17 with Sean Mercado MD Appt set for Mar 13 at 9:30AM New Medications: Amoxicillin-Clavulanate (Augmentin) 875-125 Mg Tab 1 TAB PO BID for Infection, #14 TAB 0 Refills Continued Medications: Aspirin (Aspirin) 81 Mg Chew 81 MG CHEW ONCE, #1 TAB 0 Refills Atenolol (Atenolol) 50 Mg Tab 50 MG PO BID for Blood Pressure Management, #60 TAB 0 Refills Baclofen (Baclofen) 20 Mg Tab 20 MG PO TID for Muscle Spasm, TAB 0 Refills Cholecalciferol (Vitamin D3) 2,000 Unit Cap 2000 UNITS PO DAILY for Nutritional Supplement, #1 BOTTLE 0 Refills Clonazepam (Klonopin) 1 Mg Tab 1 MG PO BID for Anxiety and/or Insomnia, #15 TAB 0 Refills (This prescription has been renewed) Fenofibrate (Fenofibrate) 160 Mg Tab 160 MG PO DAILY, #30 TAB 0 Refills Losartan (Losartan) 50 Mg Tab 50 MG PO DAILY for Blood Pressure Management, #30 TAB 0 Refills Lovastatin (Lovastatin) 40 Mg Tab 40 MG PO DAILY for Cholesterol Management, #30 TAB 0 Refills Montelukast (Singulair) 10 Mg Tab 10 MG PO HS, #30 TAB 0 Refills Morphine ER (Ms Contin) 15 Mg Tab 30 MG PO Q8H for Pain Management, #30 TAB 0 Refills (This prescription has been renewed) Omeprazole (Omeprazole) 40 Mg Cap 40 MG PO DAILY, #30 CAP 0 Refills Sertraline (Sertraline) 100 Mg Tab 100 MG PO DAILY, #30 TAB 0 Refills Discontinued Medications: Meloxicam (Meloxicam) 15 Mg Tab 15 MG PO DAILY for Arthritis Pain, #30 TAB 0 Refills Juwan Rao DO Mar 03, 2017 09:05
== END 2017-03-03 06:02 | disposition left against medical advice (07) | DRG 853 ==
LOC: NEPC 22:35 → NEDA 02-19 04:12 → NEPHCDU 02-19 05:06 → HIME 02-22 04:20 → OBSVTOIN 02-22 06:19 → N07A 02-22 21:13
PROVIDERS: ADMIT Hospitalist; ATTEND Hospitalist
PROC: 009U3ZX Drainage of Spinal Canal, Percutaneous Approach, Diagnostic (ICD-10-PCS; 2017-02-21)
PROC: 0FT44ZZ Resection of Gallbladder, Percutaneous Endoscopic Approach (ICD-10-PCS; 2017-02-23)
PROC: 0WQF0ZZ Repair Abdominal Wall, Open Approach (ICD-10-PCS; principal; 2017-02-23 10:50)
DX: A41.9 Sepsis, unspecified organism (principal); K81.0 Acute cholecystitis; K42.9 Umbilical hernia without obstruction or gangrene; G93.40 Encephalopathy, unspecified; E87.2 Acidosis; F05 Delirium due to known physiological condition; D69.6 Thrombocytopenia, unspecified; K76.0 Fatty (change of) liver, not elsewhere classified; R56.9 Unspecified convulsions; I10 Essential (primary) hypertension; J44.9 Chronic obstructive pulmonary disease, unspecified; G89.4 Chronic pain syndrome; E78.5 Hyperlipidemia, unspecified; M19.90 Unspecified osteoarthritis, unspecified site; F41.9 Anxiety disorder, unspecified; F32.9 Major depressive disorder, single episode, unspecified; Z96.653 Presence of artificial knee joint, bilateral; Z83.3 Family history of diabetes mellitus; Z82.3 Family history of stroke; I16.0 Hypertensive urgency; K82.8 Other specified diseases of gallbladder; E87.6 Hypokalemia
CPT/HCPCS: 62270; 70544; 70551; 70553; 71010; 74177; 76705; 76937; 77003; 80048; 80053; 80202; 81001; 82140; 82550; 82728; 82945; 82948; 83540; 83550; 83605; 83690; 83735; 83873; 84157; 84466; 84484; 85025; 85027; 85610; 85652; 85730; 86140; 86403; 86592; 86651; 86652; 86653; 86654; 86780; 86788; 86789; 87040; 87070; 87186; 87205; 87498; 87529; 87641; 87799; 88108; 88304; 89051; 93005; 94664; 95819; A9579; J0131; J0133; J0290; J0295; J0360; J0692; J1100; J1170; J1630; J1644; J1885; J2060; J2250; J2270; J2310; J2405; J2543; J2710; J3010; J3370; J7030; J7040; J7120; Q9967

== ENCOUNTER 2017-03-04 06:12 | Observation (INO) | payer MEDICARE, OTHER ==
[2017-03-04] VITALS (8 sets, daily range): BP systolic 127–160; BP diastolic 74–89; PULSE 63–96; RESP 16–20; TEMP 79.8–99.7; O2SAT 95–98
[~2017-03-04] VITALS: Ht 177.8 cm; Wt 105.0 kg
[~2017-03-04 06:12] MED LIST changes: +ASPI-516 CHEW; -ASPI81 PO; -ATEN-102 PO; +ATEN50TA PO; +AUGM875T3 PO; -BENA25TA8 PO; +CLON1 PO; -CLOR1TAB21 PO; +LOSA50TA PO; -LOVA1TAB47 PO; +LOVA40TA PO; -MELO15TA2 PO; +MONT10TA2 PO; +MS C15TA7 PO; -OMEP20CA5 PO; +OMEP40CA2 PO; -PERC10TA27 PO; +SERT-129 PO; -SERT50 PO; +VITA2000 PO
--- NOTE | 2017-03-04 06:50 | PD ---
HPI Chief Complaint: Abdominal Pain Time Seen by Provider: 06:32 Travel History International Travel<30 days: No Contact w/Intl Traveler<30days: No Traveled to known affect area: No History of Present Illness HPI This is a 61-year-old patient who presents to the emergency department complaining of feeling sick since leaving the hospital yesterday. He was admitted to the hospital with gangrenous cholecystitis with encephalopathy. He states that since being home he initially felt well but did develop cough cold symptoms associated with loose yellow watery diarrhea and feeling poorly. He also has chronic pain in his knees. He is on chronic opiates. He endorses low- grade fevers. Patient had his gallbladder taken out on February 23. History is a little bit limited due to patient being a poor historian. History Past Medical History Narrative Medical Hypertension Hyperlipidemia Chronic pain Anxiety Tetanus Vaccination: Unknown Influenza Vaccination: Yes Social History Alcohol Use: No Tobacco Use: No Allergies-Medications (Allergen,Severity, Reaction): Coded Allergies: No Known Allergies (Unverified Allergy, Unknown, 03/04/17) Reported Meds & Prescriptions Reported Meds & Active Scripts Active Augmentin (Amoxicillin-Clavulanate) 875-125 Mg Tab 1 Tab PO BID Klonopin (Clonazepam) 1 Mg Tab 1 Mg PO BID Ms Contin (Morphine Sulfate) 15 Mg Tab 30 Mg PO Q8H Reported Singulair (Montelukast Sodium) 10 Mg Tab 10 Mg PO HS Sertraline (Sertraline HCl) 100 Mg Tab 100 Mg PO DAILY Vitamin D3 (Cholecalciferol) 2,000 Unit Cap 2,000 Units PO DAILY Aspirin 81 Mg Chew 81 Mg CHEW ONCE Omeprazole 40 Mg Cap 40 Mg PO DAILY Lovastatin 40 Mg Tab 40 Mg PO DAILY Atenolol 50 Mg Tab 50 Mg PO BID Losartan (Losartan Potassium) 50 Mg Tab 50 Mg PO DAILY Baclofen 20 Mg Tab 20 Mg PO TID Review of Systems ROS Limitations: Poor Historian Physical Exam Narrative GENERAL: Bizarre obese 61-year-old man, no acute distress. SKIN: Focused skin assessment warm/dry. HEAD: Atraumatic. Normocephalic. EYES: Pupils equal and round. No scleral icterus. No injection or drainage. ENT: No nasal bleeding or discharge. Mucous membranes pink and moist. NECK: Trachea midline. No JVD. CARDIOVASCULAR: Regular rate and rhythm. No murmur appreciated. RESPIRATORY: No accessory muscle use. Clear to auscultation. Breath sounds equal bilaterally. GASTROINTESTINAL: Abdomen is obese and soft. There is some bruising from previous Lovenox shots. There are healing incisions from laparoscopic cholecystectomy. No significant tenderness in the abdomen. MUSCULOSKELETAL: No obvious deformities. No clubbing. No cyanosis. No edema. NEUROLOGICAL: Awake and alert. No obvious cranial nerve deficits. Motor grossly within normal limits. Normal speech. PSYCHIATRIC: Appropriate mood and affect; insight and judgment normal. Data Data Last Documented VS Vital Signs Date Time Temp Pulse Resp B/P (MAP) Pulse Ox O2 Delivery O2 Flow Rate FiO2 03/04/17 06:36 18 03/04/17 06:23 99.7 95 145/89 (107) 98 Room Air Orders Orders Complete Blood Count With Diff (03/04/17 06:43) Comprehensive Metabolic Panel (03/04/17 06:43) Lipase (03/04/17 06:43) Iv Access Insert/Monitor (03/04/17 06:43) Chest, Pa & Lat (03/04/17 ) Influenzae A/B Antigen (03/04/17 06:43) MDM Medical Decision Making Medical Screen Exam Complete: Yes Emergency Medical Condition: Yes Differential Diagnosis Opiate withdrawal, infection, diarrhea, dehydration, adverse effect of medications, other Narrative Course Medical decision making 61-year-old man presents emergency department complaining of feeling poorly diarrhea and fever starting after being discharged from the hospital yesterday. Little difficult to get a thorough history from. Infection seems like a possibility. Adverse medication effect her opiate withdrawal symptoms possible. We'll check labs, x-ray, influenza swab, reassess. Patient will be signed out to the oncoming provider to follow-up on the results of diagnostic testing. Tuan Quintana MD Mar 04, 2017 06:49
[2017-03-04 07:09] LABS: AUTOMATED NEUTROPHIL # 9.2 TH/MM3 (1.8-7.7); BASOPHIL # 0.1 TH/MM3 (0-0.2); BASOPHIL % 1.2 % (0.0-2.0); EOSINOPHIL % 0.1 % (0.0-4.0); HEMATOCRIT 41.2 % (39.0-51.0); HEMOGLOBIN 14.3 GM/DL (13.0-17.0); LYMPH % 5.5 % (9.0-44.0); LYMPHOCYTE # 0.6 TH/MM3 (1.0-4.8); MEAN CELL VOLUME 89.4 FL (80.0-100.0); MEAN CORPUSCULAR HEMOGLOBIN 31.1 PG (27.0-34.0); MEAN CORPUSCULAR HGB CONC 34.7 % (32.0-36.0); MONO % 2.2 % (0.0-8.0); MONOCYTE # 0.2 TH/MM3 (0-0.9); PLATELET COUNT 312 TH/MM3 (150-450); RED BLOOD COUNT 4.61 MIL/MM3 (4.50-5.90); RED CELL DISTRIBUTION WIDTH 12.6 % (11.6-17.2); WHITE BLOOD COUNT 10.2 TH/MM3 (4.0-11.0)
--- NOTE | 2017-03-04 07:11 | RADRPT ---
EXAM DATE/TIME: 03/04/2017 06:53 [facility] COMPARISON: No previous studies available for comparison. INDICATIONS : General illness, nausea and weakness. MEDICAL HISTORY : Hypertension. SURGICAL HISTORY : Fusion, cervical. ENCOUNTER: Initial ACUITY: 1 day PAIN SCORE: 0/10 LOCATION: Bilateral chest FINDINGS: PA and lateral views of the chest demonstrate the lungs to be symmetrically aerated without evidence of mass, infiltrate or effusion. The cardiomediastinal contours are unremarkable. Osseous structure s are intact. CONCLUSION: No acute disease. Bob Wang MD FACR on March 04, 2017 at 7:08 Board Certified Radiologist. This report was verified electronically.
[2017-03-04] MEDS ORDERED: MORPHINE SULFATE 30 MG CONTROLLED RELEASE TAB PO ONE (08:00)
[2017-03-04] MEDS ORDERED: MORPHINE SULFATE 30 MG TAB PO ONE (08:00)
[2017-03-04 08:05] LABS: ALBUMIN 3.2 GM/DL (3.4-5.0); ALT (GPT) 28 U/L (12-78); AST (GOT) 20 U/L (15-37); BICARBONATE 24.3 MEQ/L (21.0-32.0); BLOOD UREA NITROGEN 7 MG/DL (7-18); CALCIUM 8.6 MG/DL (8.5-10.1); CHLORIDE 107 MEQ/L (98-107); CREATININE 0.83 MG/DL (0.60-1.30); GLOMERULAR FILTRATION RATE 94 ML/MIN (>89); GLUCOSE,RANDOM 130 MG/DL (74-106); LIPASE 266 U/L (73-393); SODIUM (NA) 140 MEQ/L (136-145)
[2017-03-04 08:08] LABS: ALKALINE PHOSPHATASE 68 U/L (45-117); TOTAL BILIRUBIN ADULT 0.5 MG/DL (0.2-1.0); TOTAL PROTEIN 7.2 GM/DL (6.4-8.2)
[2017-03-04] MEDS ORDERED: HYDROmorphone HCL PF 2 MG/ML VIAL IV PUSH ONE (08:45)
--- NOTE | 2017-03-04 08:46 | PD ---
Data Data Last Documented VS Vital Signs Date Time Temp Pulse Resp B/P (MAP) Pulse Ox O2 Delivery O2 Flow Rate FiO2 03/04/17 10:13 18 03/04/17 09:44 96 157/74 (101) 96 Room Air 03/04/17 06:23 99.7 Orders Orders Complete Blood Count With Diff (03/04/17 06:43) Comprehensive Metabolic Panel (03/04/17 06:43) Lipase (03/04/17 06:43) Iv Access Insert/Monitor (03/04/17 06:43) Chest, Pa & Lat (03/04/17 ) Influenzae A/B Antigen (03/04/17 06:43) Morphine Sr (Oramorph Sr) (03/04/17 08:00) Morphine Ir (Msir) (03/04/17 08:00) Hydromorphone Pf Inj (Dilaudid Pf Inj) (03/04/17 08:45) Admit Order (Ed Use Only) (03/04/17 ) Labs Laboratory Tests Test 03/04/17 06:45 White Blood Count 10.2 TH/MM3 Red Blood Count 4.61 MIL/MM3 Hemoglobin 14.3 GM/DL Hematocrit 41.2 % Mean Corpuscular Volume 89.4 FL Mean Corpuscular Hemoglobin 31.1 PG Mean Corpuscular Hemoglobin Concent 34.7 % Red Cell Distribution Width 12.6 % Platelet Count 312 TH/MM3 Mean Platelet Volume 9.0 FL Neutrophils (%) (Auto) 91.0 % Lymphocytes (%) (Auto) 5.5 % Monocytes (%) (Auto) 2.2 % Eosinophils (%) (Auto) 0.1 % Basophils (%) (Auto) 1.2 % Neutrophils # (Auto) 9.2 TH/MM3 Lymphocytes # (Auto) 0.6 TH/MM3 Monocytes # (Auto) 0.2 TH/MM3 Eosinophils # (Auto) 0.0 TH/MM3 Basophils # (Auto) 0.1 TH/MM3 CBC Comment DIFF FINAL Differential Comment Blood Urea Nitrogen 7 MG/DL Creatinine 0.83 MG/DL Random Glucose 130 MG/DL Total Protein 7.2 GM/DL Albumin 3.2 GM/DL Calcium Level 8.6 MG/DL Alkaline Phosphatase 68 U/L Aspartate Amino Transf (AST/SGOT) 20 U/L Alanine Aminotransferase (ALT/SGPT) 28 U/L Total Bilirubin 0.5 MG/DL Sodium Level 140 MEQ/L Potassium Level 3.2 MEQ/L Chloride Level 107 MEQ/L Carbon Dioxide Level 24.3 MEQ/L Anion Gap 9 MEQ/L Estimat Glomerular Filtration Rate 94 ML/MIN Lipase 266 U/L MDM Supervised Visit with KAMAR: No Narrative Course Patient care assumed from Dr. Quintana at 0700, Patient is a 61-year-old male presents to emergency department for evaluation of abdominal pain generalized weakness. 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 He did have a cholecystectomy approximately [address] Sean Mercado for necrotizing cholecystitis, states she's not been the same since then. He signed out AMA of the hospital the other day, without speaking with her physician. Patient on my examination is benign abdomen, exam related to and from the restroom, he states he is feeling so weak and his abdomen is hurting so badly that he needs to be readmitted and see his surgeon "Dr. Rao". Despite the MS Contin given him the patient requiring additional pain medicine was given Dilaudid 1 mg IV. Basic labs are reassuring. Review the records shows that he's had quite an extensive workup and did indeed leave AGAINST MEDICAL ADVICE. Think the patient may have underlying frontal dementia leading to worsening of his symptoms. Patient was discussed at length Dr. Leija will place him under observation status again, Dr. Garcia's was considering getting a psychiatric consult on the patient. I think this is a reasonable course. Patient continues to quite bizarrely sitting up in a stretcher times screaming in pain all the time sleeping. Diagnosis Primary Impression: Intractable abdominal pain Admitting Information Admitting Physician Requests: Observation Condition: Stable Matt Ly MD Mar 04, 2017 08:46
[2017-03-04] MEDS: DOCUSATE SODIUM 50 MG/SENNA 8.6 MG TAB PO SCH ×2 (11:00→22:20)
[2017-03-04] MEDS ORDERED: NALOXONE HCL 0.4 MG/ML AMP IV PUSH PRN (11:00)
[2017-03-04] MEDS ORDERED: POTASSIUM CHLORIDE 25 MEQ EFFERVESCENT TAB PO ONE (11:00)
[2017-03-04] MEDS ORDERED: SODIUM CHLORIDE 0.9% FLUSH 10 ML FLUSH IV FLUSH PRN (11:00)
[2017-03-04] MEDS ORDERED: clonazePAM 0.5 MG TAB PO PRN (11:00)
[2017-03-04] MEDS ORDERED: ONDANSETRON HCL 4 MG/2 ML VIAL IVP PRN (11:00)
[2017-03-04] MEDS ORDERED: ACETAMINOPHEN 325 MG TAB PO PRN ×2 (11:00)
[2017-03-04] MEDS ORDERED: ASPIRIN 81 MG CHEW TAB CHEW SCH (11:00)
[2017-03-04] MEDS ORDERED: MORPHINE SULFATE 15 MG CONTROLLED RELEASE TAB PO SCH (12:00)
--- NOTE | 2017-03-04 12:51 | PD.PSY.CON ---
Provisional Diagnosis Admission Date Mar 04, 2017 at 10:34 Errol I. Delirium due to another medical condition f 05 History of Present Illness Service Psychiatry Consult Requested By EDMO Reason for Consult Assessment Primary Care Physician Marshal Carter MD HPI Patient is 61-year-old obese white male who comes here complaints of abdominal pain nausea and vomiting. It appears the patient was hospitalized here for about 2 weeks patient leaving less than a day ago AMA. He had a quite toxic gallbladder that was removed on 02/23. Reassuring signs of confusion and delirium. Was seen by Dr. Sawyer Dominique who also felt he was delirious. Patient seen today with psychiatric nurse screener Caesar. Patient is alert oriented calm and pleasant with me he states he lives alone. Is on disability for various medical and orthopedic issues. He denies any recent alcohol or drug use. It appears she has chronic pain and has been on opiates and benzodiazepines. At the present time he is on significant analgesics also. However the patient denies any prior psychiatric hospitalizations denies any suicidality homicidality voices or visions. He states he has seen Dr. Velazco while in the community for depression has been prescribed Klonopin and Zoloft. At the present time I see no significant Errol I psychiatric issues, there is thick past history of depression. There is the delirium the patient appears to be re-resolving. I see no need for any significant psychotropic medications at this time. Nonfocal sign of the present time please reconsult as necessary Review of Systems Constitutional: DENIES: Diaphoretic episodes, Fatigue, Fever, Weight gain, Weight loss, Chills, Dizziness, Change in appetite, Night Sweats Endocrine: DENIES: Heat/cold intolerance, Polydipsia, Polyuria, Polyphagia Eyes: DENIES: Blurred vision, Diplopia, Eye inflammation, Eye pain, Vision loss , Photosensitivity, Double Vision Ears, nose, mouth, throat: DENIES: Tinnitus, Hearing loss, Vertigo, Nasal discharge, Oral lesions, Throat pain, Hoarseness, Ear Pain, Running Nose, Epistaxis, Sinus Pain, Toothache, Odynophagia Respiratory: DENIES: Apneas, Cough, Snoring, Wheezing, Hemoptysis, Sputum production, Shortness of breath Cardiovascular: DENIES: Chest pain, Palpitations, Syncope, Dyspnea on Exertion , PND, Lower Extremity Edema, Orthopnea, Claudication Gastrointestinal: COMPLAINS OF: Diarrhea, Nausea, Vomiting, DENIES: Abdominal pain, Black stools, Bloody stools, Constipation, Difficulty Swallowing, Anorexia Genitourinary: DENIES: Sexual dysfunction, Urinary frequency, Urinary incontinence, Urgency, Hematuria, Dysuria, Nocturia, Penile Discharge, Testicular Pain, Testicular Swelling Musculoskeletal: COMPLAINS OF: Back pain, Neck pain, DENIES: Joint pain, Muscle aches, Stiffness, Joint Swelling Integumentary: DENIES: Abnormal pigmentation, Nail changes, Pruritus, Rash Hematologic/lymphatic: DENIES: Bruising, Lymphadenopathy Immunologic/allergic: DENIES: Eczema, Urticaria Neurologic: DENIES: Abnormal gait, Headache, Localized weakness, Paresthesias, Seizures, Speech Problems, Tremor, Poor Balance Psychiatric: DENIES: Anxiety, Confusion, Mood changes, Depression, Hallucinations, Agitation, Suicidal Ideation, Homicidal Ideation, Delusions Past Family Social History Coded Allergies: No Known Allergies (Unverified Allergy, Unknown, 03/04/17) Active Scripts Amoxicillin-Clavulanate (Augmentin) 875-125 Mg Tab, 1 TAB PO BID for Infection, #14 TAB 0 Refills Prov:Juwan Rao DO 02/26/17 Clonazepam (Klonopin) 1 Mg Tab, 1 MG PO BID for Anxiety and/or Insomnia, #15 TAB 0 Refills Prov:Juwan Rao DO 02/26/17 Morphine ER (Ms Contin) 15 Mg Tab, 30 MG PO Q8H for Pain Management, #30 TAB 0 Refills Prov:Juwan Rao DO 02/26/17 Reported Medications Montelukast (Singulair) 10 Mg Tab, 10 MG PO HS, #30 TAB 0 Refills 02/19/17 Sertraline (Sertraline) 100 Mg Tab, 100 MG PO DAILY, #30 TAB 0 Refills 02/19/17 Cholecalciferol (Vitamin D3) 2,000 Unit Cap, 2000 UNITS PO DAILY for Nutritional Supplement, #1 BOTTLE 0 Refills 02/19/17 Aspirin (Aspirin) 81 Mg Chew, 81 MG CHEW ONCE, #1 TAB 0 Refills 02/19/17 Omeprazole (Omeprazole) 40 Mg Cap, 40 MG PO DAILY, #30 CAP 0 Refills 02/19/17 Lovastatin (Lovastatin) 40 Mg Tab, 40 MG PO DAILY for Cholesterol Management, # 30 TAB 0 Refills 02/19/17 Atenolol (Atenolol) 50 Mg Tab, 50 MG PO BID for Blood Pressure Management, #60 TAB 0 Refills 02/19/17 Losartan (Losartan) 50 Mg Tab, 50 MG PO DAILY for Blood Pressure Management, # 30 TAB 0 Refills 02/19/17 Baclofen (Baclofen) 20 Mg Tab, 20 MG PO TID for Muscle Spasm, TAB 0 Refills 02/19/17 Discontinued Reported Medications Fenofibrate (Fenofibrate) 160 Mg Tab, 160 MG PO DAILY, #30 TAB 0 Refills 02/19/17 Meloxicam (Meloxicam) 15 Mg Tab, 15 MG PO DAILY for Arthritis Pain, #30 TAB 0 Refills 02/19/17 Current Medications Medications (Trade) Dose Ordered Sig/Juan Pablo Route Start Time Stop Time Status Last Admin (Aspirin Chew) 81 mg ONCE CHEW 03/04/17 11:00 03/04/17 18:00 (Tenormin) 50 mg BID PO 03/04/17 21:00 (Lioresal) 20 mg TID PO 03/04/17 13:00 (Vitamin D3) 2,000 units DAILY PO 03/05/17 09:00 (Cozaar) 50 mg DAILY PO 03/05/17 09:00 (Pravachol) 40 mg DAILY PO 03/05/17 09:00 (Singulair) 10 mg HS PO 03/04/17 21:00 (Oramorph Sr) 15 mg Q8H PO 03/04/17 12:00 (Zoloft) 100 mg DAILY PO 03/05/17 09:00 (Protonix) 40 mg DAILY PO 03/05/17 09:00 (Augmentin) 875 mg Q12H PO 03/04/17 12:00 (KlonoPIN) 0.5 mg Q8HR PRN PO 03/04/17 11:00 (NS Flush) 2 ml UNSCH PRN IV FLUSH 03/04/17 11:00 (NS Flush) 2 ml BID IV FLUSH 03/04/17 21:00 (Tylenol) 650 mg Q4H PRN PO 03/04/17 11:00 (Zofran Inj) 4 mg Q6H PRN IVP 03/04/17 11:00 (Tylenol) 650 mg Q6H PRN PO 03/04/17 11:00 (Narcan Inj) 0.4 mg UNSCH PRN IV PUSH 03/04/17 11:00 (Lyndsey-Colace) 1 tab BID PO 03/04/17 11:00 Family Psych History Patient denies Social History Patient twice was by himself Patient's Strengths (min. 2) Patient verbal label access healthcare Physical Exam Patient in the CDU in history of present illness please see MedSurg assessments Vital Signs Vital Signs Date Time Temp Pulse Resp B/P (MAP) Pulse Ox O2 Delivery O2 Flow Rate FiO2 03/04/17 11:29 03/04/17 11:20 90 18 96 Room Air 03/04/17 06:23 99.7 Lab Results Test 03/04/17 06:45 White Blood Count 10.2 TH/MM3 Red Blood Count 4.61 MIL/MM3 Hemoglobin 14.3 GM/DL Hematocrit 41.2 % Mean Corpuscular Volume 89.4 FL Mean Corpuscular Hemoglobin 31.1 PG Mean Corpuscular Hemoglobin Concent 34.7 % Red Cell Distribution Width 12.6 % Platelet Count 312 TH/MM3 Mean Platelet Volume 9.0 FL Neutrophils (%) (Auto) 91.0 % Lymphocytes (%) (Auto) 5.5 % Monocytes (%) (Auto) 2.2 % Eosinophils (%) (Auto) 0.1 % Basophils (%) (Auto) 1.2 % Neutrophils # (Auto) 9.2 TH/MM3 Lymphocytes # (Auto) 0.6 TH/MM3 Monocytes # (Auto) 0.2 TH/MM3 Eosinophils # (Auto) 0.0 TH/MM3 Basophils # (Auto) 0.1 TH/MM3 CBC Comment DIFF FINAL Differential Comment Blood Urea Nitrogen 7 MG/DL Creatinine 0.83 MG/DL Random Glucose 130 MG/DL Total Protein 7.2 GM/DL Albumin 3.2 GM/DL Calcium Level 8.6 MG/DL Alkaline Phosphatase 68 U/L Aspartate Amino Transf (AST/SGOT) 20 U/L Alanine Aminotransferase (ALT/SGPT) 28 U/L Total Bilirubin 0.5 MG/DL Sodium Level 140 MEQ/L Potassium Level 3.2 MEQ/L Chloride Level 107 MEQ/L Carbon Dioxide Level 24.3 MEQ/L Anion Gap 9 MEQ/L Estimat Glomerular Filtration Rate 94 ML/MIN Lipase 266 U/L Date/Time Source Procedure Growth Status 03/04/17 06:45 Nasal Washing Influenza Types A,B Antigen (DEVENDRA) - Final NEGATIVE FOR FLU A AND B ANTIGEN.... Complete Mental Status Examination Appearance: Appropriate Consciousness: Alert Orientation: x4 Motor Activity: Normal gait Speech: Unremarkable Language: Adequate Fund of Knowledge: Adequate Attention and Concentration: Adequate Memory: Unremarkable Mood: Other (euthymic) Affect: Other (good range of motion intensity) Thought Process & Associations: Intact Thought Content: Appropriate Hallucination Type: None Delusion Type: None Suicidal Ideation: No Suicidal Plan: No Suicidal Intention: No Homicidal Ideation: No Homicidal Plan: No Homicidal Intention: No Insight: Adequate Judgment: Adequate Assessment & Plan Problem List: (1) Delirium due to another medical condition ICD Codes: F05 - Delirium due to known physiological condition Status: Acute Assessment & Plan Estimated LOS: days patient alert oriented calm and cooperative, and appears his delirium is resolving. Eyes no significant Errol I diagnosis at this time except for the delirium. No medications recommended by me at this time. His kidney by psych for discharge when medically cleared and stable patient states has appointment set up with 2 different psychiatrist in the community the next month Discharge Planning See above Request HC Surrog/Guard Advoc?: No Asael Romero MD Mar 04, 2017 12:51
[2017-03-04] MEDS: AMOXICILLIN/CLAVULANATE K 875 MG TAB PO SCH (12:52)
[2017-03-04] MEDS: BACLOFEN 20 MG TAB PO SCH ×2 (12:52→17:10)
--- NOTE | 2017-03-04 15:29 | HHI.HP ---
[facility] [place] Phys[place] Marshal Carter MD Admission Diagnosis Abdominal Pain Diagnoses: Chief Complaint: Diarrhea Travel History International Travel<30 Days: No Contact w/Intl Traveler <30 Da: No Traveled to Known Affected Are: No History of Present Illness The patient is a 61-year-old male who was recently hospitalized and left AGAINST MEDICAL ADVICE from the hospital yesterday morning who is re-presenting to the hospital with abdominal pain and diarrhea. The patient was treated for acute gangrenous cholecystitis as well as delirium on the last admission. He decided to leave the hospital before being medically cleared so that he could get presents for his family. The patient says that he went home and started to have nausea and vomiting. He described the vomitus is yellow. He then developed diarrhea that he describes as appearing yellow and red with what appeared to be clots in it. He also described a massive stomach pain located below his belly button. He says the pain level is now currently above a 5 in severity. He said that he couldn't move secondary to his symptoms so he called for an ambulance and requested transportation to the hospital. His diarrhea has resolved but he is still nauseous and says he threw up twice today. He has not been eating well and has been mostly drinking Gatorade. He describes a fever of 101.3 at home. Review of Systems Except as stated in HPI: all other systems reviewed are Neg Past Family Social History Past Medical History Hypertension Hyperlipidemia Chronic pain Anxiety Acute gangrenous cholecystitis Past Surgical History Cholecystectomy Cervical fusion Right knee reconstruction Bilateral knee arthroplasties Right foot repair Allergies: Coded Allergies: No Known Allergies (Unverified Allergy, Unknown, 03/04/17) Active Ordered Medications Current Medications Medications (Trade) Dose Ordered Sig/Juan Pablo Route Start Time Stop Time Status Last Admin (Aspirin Chew) 81 mg ONCE CHEW 03/04/17 11:00 03/04/17 18:00 03/04/17 12:52 (Tenormin) 50 mg BID PO 03/04/17 21:00 (Lioresal) 20 mg TID PO 03/04/17 13:00 03/04/17 12:52 (Vitamin D3) 2,000 units DAILY PO 03/05/17 09:00 (Cozaar) 50 mg DAILY PO 03/05/17 09:00 (Pravachol) 40 mg DAILY PO 03/05/17 09:00 (Singulair) 10 mg HS PO 03/04/17 21:00 (Oramorph Sr) 15 mg Q8H PO 03/04/17 12:00 03/04/17 12:51 (Zoloft) 100 mg DAILY PO 03/05/17 09:00 (Protonix) 40 mg DAILY PO 03/05/17 09:00 (Augmentin) 875 mg Q12H PO 03/04/17 12:00 03/04/17 12:52 (KlonoPIN) 0.5 mg Q8HR PRN PO 03/04/17 11:00 (NS Flush) 2 ml UNSCH PRN IV FLUSH 03/04/17 11:00 (NS Flush) 2 ml BID IV FLUSH 03/04/17 21:00 (Tylenol) 650 mg Q4H PRN PO 03/04/17 11:00 (Zofran Inj) 4 mg Q6H PRN IVP 03/04/17 11:00 (Tylenol) 650 mg Q6H PRN PO 03/04/17 11:00 (Narcan Inj) 0.4 mg UNSCH PRN IV PUSH 03/04/17 11:00 (Lyndsey-Colace) 1 tab BID PO 03/04/17 11:00 Family History DM CVA Social History The patient drinks socially. He does not smoke. Physical Exam Vital Signs Vital Signs Date Time Temp Pulse Resp B/P (MAP) Pulse Ox O2 Delivery O2 Flow Rate FiO2 03/04/17 13:02 79.8 86 20 156/82 (106) 97 03/04/17 11:29 03/04/17 11:20 90 18 141/75 (97) 96 Room Air 03/04/17 10:13 18 03/04/17 09:44 96 18 157/74 (101) 96 Room Air 03/04/17 06:36 18 03/04/17 06:23 99.7 95 18 145/89 (107) 98 Room Air 03/04/17 06:20 98.0 Physical Exam GENERAL: NAD. SKIN: Warm and dry. HEENT: NC, AT. NECK: Supple, trachea midline. No JVD or lymphadenopathy. CARDIOVASCULAR: Regular rate and rhythm without murmurs, gallops, or rubs. RESPIRATORY: Bilateral wheezing. GASTROINTESTINAL: Abdomen soft, tenderness around umbilicus, nondistended. Surgical scars noted. MUSCULOSKELETAL: No cyanosis, or edema. BACK: Nontender without obvious deformity. No CVA tenderness. PSYCH: Mood and affect appropriate. Laboratory Laboratory Tests Test 03/04/17 06:45 White Blood Count 10.2 Red Blood Count 4.61 Hemoglobin 14.3 Hematocrit 41.2 Mean Corpuscular Volume 89.4 Mean Corpuscular Hemoglobin 31.1 Mean Corpuscular Hemoglobin Concent 34.7 Red Cell Distribution Width 12.6 Platelet Count 312 Mean Platelet Volume 9.0 Neutrophils (%) (Auto) 91.0 Lymphocytes (%) (Auto) 5.5 Monocytes (%) (Auto) 2.2 Eosinophils (%) (Auto) 0.1 Basophils (%) (Auto) 1.2 Neutrophils # (Auto) 9.2 Lymphocytes # (Auto) 0.6 Monocytes # (Auto) 0.2 Eosinophils # (Auto) 0.0 Basophils # (Auto) 0.1 CBC Comment DIFF FINAL Differential Comment Blood Urea Nitrogen 7 Creatinine 0.83 Random Glucose 130 Total Protein 7.2 Albumin 3.2 Calcium Level 8.6 Alkaline Phosphatase 68 Aspartate Amino Transf (AST/SGOT) 20 Alanine Aminotransferase (ALT/SGPT) 28 Total Bilirubin 0.5 Sodium Level 140 Potassium Level 3.2 Chloride Level 107 Carbon Dioxide Level 24.3 Anion Gap 9 Estimat Glomerular Filtration Rate 94 Lipase 266 Date/Time Source Procedure Growth Status 03/04/17 06:45 Nasal Washing Influenza Types A,B Antigen (DEVENDRA) - Final NEGATIVE FOR FLU A AND B ANTIGEN.... Complete Result Diagram: 03/04/17 0645 03/04/17 0645 Imaging Last Impressions Chest X-Ray 03/04/17 0000 Signed Impressions: Service Date/Time: Saturday, March 04, 2017 06:53 - CONCLUSION: No acute disease. Bob Wang MD FACR Caprini VTE Risk Assessment Caprini VTE Risk Assessment: Mod/High Risk (score >= 2) Caprini Risk Assessment Model Point Value = 1 Point Value = 2 Point Value = 3 Point Value = 5 Age 41-60 Minor surgery BMI > 25 kg/m2 Swollen legs Varicose veins or History of unexplained or recurrent spontaneous Oral contraceptives or hormone replacement Sepsis (< 1 month) Serious lung disease, including pneumonia (< 1 month) Abnormal pulmonary function Acute myocardial infarction Congestive heart failure (< 1 month) History of inflammatory bowel disease Medical patient at bed rest Age 61-74 Arthroscopic surgery Major open surgery (> 45 min) Laparoscopic surgery (> 45 min) Malignancy Confined to bed (> 72 hours) Immobilizing plaster cast Central venous access Age >= 75 History of VTE Family history of VTE Factor V Leiden Prothrombin [id number] Lupus anticoagulant Anticardiolipin antibodies Elevated serum homocysteine Heparin-induced thrombocytopenia Other congenital or acquired thrombophilia Stroke (< 1 month) Elective arthroplasty Hip, pelvis, or leg fracture Acute spinal cord injury (< 1 month) Prophylaxis Regimen Total Risk Factor Score Risk Level Prophylaxis Regimen 0-1 Low Early ambulation 2 Moderate Order ONE of the following: *Sequential Compression Device (SCD) *Heparin 5000 units SQ BID 3-4 Higher Order ONE of the following medications: *Heparin 5000 units SQ TID *Enoxaparin/Lovenox 40 mg SQ daily (WT < 150 kg, CrCl > 30 mL/min) *Enoxaparin/Lovenox 30 mg SQ daily (WT < 150 kg, CrCl > 10-29 mL/min) *Enoxaparin/Lovenox 30 mg SQ BID (WT < 150 kg, CrCl > 30 mL/min) AND/OR *Sequential Compression Device (SCD) 5 or more Highest Order ONE of the following medications: *Heparin 5000 units SQ TID (Preferred with Epidurals) *Enoxaparin/Lovenox 40 mg SQ daily (WT < 150 kg, CrCl > 30 mL/min) *Enoxaparin/Lovenox 30 mg SQ daily (WT < 150 kg, CrCl > 10-29 mL/min) *Enoxaparin/Lovenox 30 mg SQ BID (WT < 150 kg, CrCl > 30 mL/min) AND *Sequential Compression Device (SCD) Assessment and Plan Assessment and Plan Abdominal pain/ N/V/D The pt has pain around the umbilicus, where he had a recent umbilical hernia repair. LFTs unremarkable. Has been on antibiotics. - check stool studies and C diff PCR. - antiemetics as needed. - pain control. - check a KUB. CT abdomen if needed. - PPI. - ADAT. IVFs for now. Gangrenous cholecystitis/ Bacteremia The pt was placed on Augmentin on last admission. - continue Augmentin until 03/06. Nonspecific T waves on EKG Patient with inverted T waves in aVR, V1-V4, Cardiac enzymes x 3 negative on last admission. - repeat EKG. The pt has plans to follow-up with cardiology as an outpt. Chronic pain On Oramorph as an outpt. - Continue home Oramorph and baclofen. Cough/ Wheezing Afebrile. CXR unremarkable. - nebs and oxygen as needed. Hypokalemia S/t decreased PO intake and diarrhea. - treatment as above. - replete with KCl and monitor. PPx: SCDs Discussed Condition With Pt, Juwan Balbuena DO Mar 04, 2017 15:29
[2017-03-04] MEDS ORDERED: RESP: ALBUTEROL 2.5 MG/IPRATROPIUM 0.5 MG NEB (PRN) NEB (16:00)
[2017-03-04] MEDS ORDERED: RESP: ALBUTEROL 2.5 MG/IPRATROPIUM 0.5 MG NEB (SCH) NEB ONE (16:00)
[2017-03-04] MEDS: SODIUM CHLOR 0.45% 1000 ML INJ 1,000 ML IV SCH (17:11)
--- NOTE | 2017-03-04 17:39 | RADRPT ---
EXAM DATE/TIME: 03/04/2017 16:39 [place] COMPARISON: No previous studies available for comparison. INDICATIONS : Abdominal pain, Nausea, Vomiting and diarrhea post gallbladder removal. MEDICAL HISTORY : Hypertension. SURGICAL HISTORY : Cholecystectomy. Fusion, cervical. ENCOUNTER: Subsequent ACUITY: 3 weeks PAIN SCORE: 7/10 LOCATION: Abdomen. FINDINGS: 3 AP supine views of the abdomen. Right upper quadrant surgical clips. Scattered gas and stool in the colon. Mildly distended air-filled loops of small bowel in the midabdomen. Degenerative findings of the lumbar spine. Phleboliths in the pelvis. CONCLUSION: Nonspecific bowel gas pattern with air-filled distended loops of small bowel in the midabdomen. Sami Hernandez MD on March 04, 2017 at 17:36 Board Certified Radiologist. This report was verified electronically.
[2017-03-04] MEDS ORDERED: MONTELUKAST SODIUM 10 MG TAB PO SCH (21:00)
[2017-03-04] MEDS: SODIUM CHLORIDE 0.9% FLUSH 10 ML FLUSH IV FLUSH SCH (21:00)
[2017-03-04] MEDS: ATENOLOL 50 MG TAB PO SCH (22:20)
[2017-03-04] MEDS: MORPHINE SULFATE 15 MG CONTROLLED RELEASE TAB PO PRN (22:21)
[2017-03-05] MEDS: AMOXICILLIN/CLAVULANATE K 875 MG TAB PO SCH (00:52)
[2017-03-05] MEDS: SODIUM CHLOR 0.45% 1000 ML INJ 1,000 ML IV SCH (03:09)
[2017-03-05 03:39] VITALS: BP 138/83; PULSE 62; RESP 17; TEMP 98.3; O2SAT 96
[2017-03-05] MEDS: MORPHINE SULFATE 15 MG CONTROLLED RELEASE TAB PO PRN ×2 (06:54→15:01)
[2017-03-05 07:02] LABS: AUTOMATED NEUTROPHIL # 4.6 TH/MM3 (1.8-7.7); BASOPHIL # 0.1 TH/MM3 (0-0.2); BASOPHIL % 0.8 % (0.0-2.0); EOSINOPHIL # 0.1 TH/MM3 (0-0.4); HEMATOCRIT 33.9 % (39.0-51.0); HEMOGLOBIN 11.6 GM/DL (13.0-17.0); LYMPH % 17.6 % (9.0-44.0); LYMPHOCYTE # 1.1 TH/MM3 (1.0-4.8); MEAN CELL VOLUME 90.3 FL (80.0-100.0); MEAN CORPUSCULAR HGB CONC 34.3 % (32.0-36.0); MEAN PLATELET VOLUME 8.2 FL (7.0-11.0); MONO % 8.1 % (0.0-8.0); MONOCYTE # 0.5 TH/MM3 (0-0.9); NEUT % 71.5 % (16.0-70.0); PLATELET COUNT 202 TH/MM3 (150-450); RED BLOOD COUNT 3.76 MIL/MM3 (4.50-5.90); RED CELL DISTRIBUTION WIDTH 12.7 % (11.6-17.2); WHITE BLOOD COUNT 6.5 TH/MM3 (4.0-11.0)
[2017-03-05 07:19] LABS: BICARBONATE 29.5 MEQ/L (21.0-32.0); CREATININE 0.73 MG/DL (0.60-1.30)
--- NOTE | 2017-03-05 07:32 | EKG ---
Date Performed: 03/04/2017 Time Performed: 18:07:13 PTAGE: 61 years EKG: Sinus rhythm NONSPECIFIC INTRAVENTRICULAR CONDUCTION DELAY ST/T-WAVE ABNORMALITY, CONSIDER ANTEROLATERAL ISCHEMIA ABNORMAL ECG PREVIOUS TRACING : 02/19/2017 06.59 No significant change from previous tracing noted. DOCTOR: Benitez Chapa Interpretating Date/Time 03/05/2017 07:31:06
[2017-03-05 08:45] VITALS: BP 160/88; PULSE 69; RESP 24; TEMP 98; O2SAT 96
[2017-03-05] MEDS: SODIUM CHLORIDE 0.9% FLUSH 10 ML FLUSH IV FLUSH SCH (09:00)
[2017-03-05] MEDS ORDERED: PANTOPRAZOLE SOD 40 MG DELAYED RELEASE TAB PO SCH (09:00)
[2017-03-05] MEDS ORDERED: CHOLECALCIFEROL (VIT D3) 1000 UNIT TAB PO SCH (09:00)
[2017-03-05] MEDS ORDERED: SERTRALINE HCL 100 MG TAB PO SCH (09:00)
[2017-03-05] MEDS ORDERED: PRAVASTATIN SOD 40 MG TAB PO SCH (09:00)
[2017-03-05] MEDS ORDERED: LOSARTAN 50 MG TAB PO SCH (09:00)
--- NOTE | 2017-03-05 10:25 | HHI.PR ---
Subjective Remarks No more diarrhea since arrival. He does not want to take Augmentin anymore. He believes that's contributing to his diarrhea. Some occasional abdominal cramps. Tolerated breakfast this morning. Objective Vitals Vital Signs Date Time Temp Pulse Resp B/P (MAP) Pulse Ox O2 Delivery O2 Flow Rate FiO2 03/05/17 08:45 98.0 69 24 160/88 (112) 96 03/05/17 03:39 98.3 62 17 138/83 (101) 96 03/04/17 23:45 98.5 63 16 140/82 (101) 98 03/04/17 19:33 98.7 77 18 127/81 (96) 95 03/04/17 16:00 98.1 83 20 160/85 (110) 95 03/04/17 13:02 79.8 86 20 156/82 (106) 97 03/04/17 11:29 03/04/17 11:20 90 18 141/75 (97) 96 Room Air 03/04/17 10:13 18 I/O 03/04/17 03/04/17 03/04/17 03/05/17 03/05/17 03/05/17 07:00 15:00 23:00 07:00 15:00 23:00 Intake Total 1550 ml Output Total 3 ml 550 ml Balance 1547 ml -550 ml Intake Oral 600 ml IV Total 950 ml Output Urine Total 3 ml 550 ml # Bowel Movements 1 Result Diagram: 03/05/17 0624 03/05/17 0624 Imaging Last Impressions Chest X-Ray 03/04/17 0000 Signed Impressions: Service Date/Time: Saturday, March 04, 2017 06:53 - CONCLUSION: No acute disease. Bob Wang MD FACR Abdomen X-Ray 03/04/17 0000 Signed Impressions: Service Date/Time: Saturday, March 04, 2017 16:39 - CONCLUSION: Nonspecific bowel gas pattern with air-filled distended loops of small bowel in the midabdomen. Sami Hernandez MD Objective Remarks GENERAL: Obese male in no apparent distress. CARDIOVASCULAR: Normal rate and regular rhythm without murmurs, gallops, or rubs. RESPIRATORY: Good respiratory efforts. Some coarse upper airway transmission sounds. Otherwise clear to auscultation bilaterally. GASTROINTESTINAL: Abdomen soft, laparoscopic sites appear clean. Normal active bowel sounds. Patient in the some mild discomfort around the surgical sites. MUSCULOSKELETAL: Extremities without cyanosis, or edema. NEURO: Alert & Oriented x4 to person, place, time, situation. Moves all ext x4 PSYCH: Appropriate mood and affect. A/P Assessment and Plan 61-year-old male with recent gangrenous cholecystitis who left the hospital at the end of treatment return with complaint of abdominal pain, nausea, vomiting and diarrhea. His symptoms are resolving. If he can tolerate his lunch. He can be discharged home to follow-up outpatient. Abdominal pain/ N/V/D The pt has pain around the umbilicus, where he had a recent umbilical hernia repair. LFTs unremarkable. Has been on antibiotics. -Diarrhea resolved. Patient tolerated breakfast. - If he can tolerate with no further diarrhea or significant pain. He can be discharged home. Recent history of Gangrenous cholecystitis/ Bacteremia The pt was placed on Augmentin to finish the course of antibiotics on 03/06. He is refusing to take Augmentin as he believed it may contribute to his diarrhea. Switched to cefuroxime for 2 more days. Currently has no signs of sepsis. Chronic pain On Oramorph as an outpt. - Continue home Oramorph. Discontinue baclofen. Patient states he no longer takes this medication at home. Cough: ?bronchitis Afebrile. CXR unremarkable. - nebs and oxygen as needed. Discharge Planning Discharge home in good condition Activity: Regular as tolerated Diet: Heart healthy Meds: Per med rec Follow-up: With general surgery and PCP Simon Flowers MD Mar 05, 2017 10:25
[2017-03-05] MEDS ORDERED: CEFUROXIME AXETIL 500 MG TAB PO SCH (10:30)
[2017-03-05] MEDS ORDERED: CEFU1TAB20 PO (10:33)
--- NOTE | 2017-03-05 10:34 | HHI.DCPOC ---
Discharge Care Plan Diagnosis: (1) Gastroenteritis (2) Intractable abdominal pain Goals to Promote Your Health * To prevent worsening of your condition and complications * To maintain your health at the optimal level Directions to Meet Your Goals Take your medications as prescribed Follow your dietary instruction Follow activity as directed Keep your appointments as scheduled Take your immunizations and boosters as scheduled If your symptoms worsen call your PCP, if no PCP go to Urgent Care Center or Emergency Room Smoking is Dangerous to Your Health. Avoid second hand smoke Call the 24-hour hour crisis hotline for domestic abuse at Siomn Flowers MD Mar 05, 2017 10:34
[2017-03-05] MEDS: ATENOLOL 50 MG TAB PO SCH (10:46)
[2017-03-05 12:32] VITALS: BP 138/71; PULSE 72; RESP 24; TEMP 98.1; O2SAT 96
== END 2017-03-05 17:11 | disposition home or self-care (01) ==
LOC: NEPE 06:12 → NEDA 10:34 → NEPHCDU 11:38
PROVIDERS: ADMIT Family Medicine; ATTEND Family Medicine
DX: K52.9 Noninfective gastroenteritis and colitis, unspecified (principal); K81.0 Acute cholecystitis; E87.6 Hypokalemia; E78.5 Hyperlipidemia, unspecified; I10 Essential (primary) hypertension; G93.40 Encephalopathy, unspecified; M54.9 Dorsalgia, unspecified; M25.561 Pain in right knee; M25.562 Pain in left knee; G89.29 Other chronic pain; Z96.653 Presence of artificial knee joint, bilateral; Z79.891 Long term (current) use of opiate analgesic
CPT/HCPCS: 71020; 74000; 80048; 80053; 83690; 85025; 87493; 87506; 87804; 93005; 94664; 96125; 96361; 96374; 97162; 97166; 99285; G0378; G8987; G8988; G9169; G9170; J1170

== ENCOUNTER 2017-03-10 14:10 | Inpatient (IN) | payer OTHER, MEDICARE ==
[~2017-03-10] VITALS: Ht 177.8 cm; Wt 117.4 kg
[~2017-03-10 14:10] MED LIST changes: -AUGM875T3 PO; -BACL20TA PO; +CEFU1TAB20 PO; -FENO160T PO
[2017-03-10 14:23] VITALS: BP 158/84; PULSE 97; RESP 14; TEMP 99.7; O2SAT 95
[2017-03-10] MEDS ORDERED: SODIUM CHLOR 0.9% 1000 ML INJ 1,000 ML IV SCH (14:25)
[2017-03-10] MEDS ORDERED: SODIUM CHLORIDE 0.9% FLUSH 10 ML FLUSH IV FLUSH PRN ×2 (14:30→19:30)
[2017-03-10] MEDS ORDERED: NALOXONE HCL 2 MG/2 ML VIAL IV PUSH ONE (14:30)
[2017-03-10] MEDS ORDERED: ONDANSETRON HCL 4 MG/2 ML VIAL IV PUSH ONE (14:45)
[2017-03-10] MEDS ORDERED: LORazepam 2 MG/ML VIAL IV PUSH ONE (15:00)
[2017-03-10 15:24] LABS: LACTIC ACID SEPSIS PROTOCOL 2.2 mmol/L (0.4-2.0)
[2017-03-10 15:32] LABS: AUTOMATED NEUTROPHIL # 4.7 TH/MM3 (1.8-7.7); BASOPHIL # 0.1 TH/MM3 (0-0.2); BASOPHIL % 0.9 % (0.0-2.0); EOSINOPHIL # 0.3 TH/MM3 (0-0.4); EOSINOPHIL % 4.4 % (0.0-4.0); HEMATOCRIT 35.7 % (39.0-51.0); HEMOGLOBIN 12.4 GM/DL (13.0-17.0); LYMPHOCYTE # 1.3 TH/MM3 (1.0-4.8); MEAN CELL VOLUME 89.2 FL (80.0-100.0); MEAN CORPUSCULAR HGB CONC 34.8 % (32.0-36.0); MEAN PLATELET VOLUME 9.8 FL (7.0-11.0); MONO % 8.4 % (0.0-8.0); MONOCYTE # 0.6 TH/MM3 (0-0.9); NEUT % 67.3 % (16.0-70.0); PLATELET COUNT 224 TH/MM3 (150-450); RED CELL DISTRIBUTION WIDTH 12.4 % (11.6-17.2)
[2017-03-10 15:41] LABS: ALBUMIN 3.3 GM/DL (3.4-5.0); ALT (GPT) 34 U/L (12-78); AST (GOT) 26 U/L (15-37); BICARBONATE 29.5 MEQ/L (21.0-32.0); BLOOD UREA NITROGEN 8 MG/DL (7-18); CHLORIDE 97 MEQ/L (98-107); CREATININE 1.03 MG/DL (0.60-1.30); GLOMERULAR FILTRATION RATE 73 ML/MIN (>89); GLUCOSE,RANDOM 136 MG/DL (74-106); SODIUM (NA) 135 MEQ/L (136-145)
[2017-03-10 15:43] LABS: ALKALINE PHOSPHATASE 96 U/L (45-117); TOTAL BILIRUBIN ADULT 0.5 MG/DL (0.2-1.0); TOTAL PROTEIN 7.3 GM/DL (6.4-8.2)
[2017-03-10] MEDS ORDERED: ZIPRASIDONE MESYLATE 20 MG VIAL IM ONE (15:45)
[2017-03-10 15:48] LABS: INTERNATIONAL NORMALIZED RATIO 1.1 RATIO; PROTHROMBIN TIME - PATIENT 10.9 SEC (9.8-11.6)
[2017-03-10 16:01] LABS: ACETAMINOPHEN LESS THAN 2.0 MCG/ML (10.0-30.0)
[2017-03-10 16:24] LABS: BILIRUBIN, URINE NEG (NEG); BLOOD, URINE NEG (NEG); CALCIUM OXALATE CRYSTALS,URINE OCC /hpf; GLUCOSE,URINE NEG (NEG); HYALINE CAST, URINE 6 /lpf (RARE); KETONE, URINE NEG (NEG); MUCUS URINE FEW /lpf (OCC); NITRITE,URINE NEG (NEG); SQUAMOUS EPITHELIAL CELL URINE <1 /hpf (0-5); URINE COLOR YELLOW (YELLW/STRAW); URINE LEUKOCYTE ESTERASE NEG (NEG)
--- NOTE | 2017-03-10 16:25 | PD ---
HPI Chief Complaint: Altered Mental Status Time Seen by Provider: 14:22 Travel History International Travel<30 days: No Contact w/Intl Traveler<30days: No Traveled to known affect area: No History of Present Illness HPI Patient is a 61-year-old male presenting to the emergency department via EMS for evaluation of altered mental status. He was found in the mulch at [facility], oriented to self only. On arrival patient offers little history. He is oriented to himself and place. He was reporting abdominal pain, he will not answer any further questions. PFSH Past Medical History Arthritis: Yes Anxiety: Yes Depression: Yes Cardiovascular Problems: Yes High Cholesterol: Yes Gastrointestinal Disorders: Yes (IBS) Hypertension: Yes Musculoskeletal: Yes Neurologic: Yes Psychiatric: Yes Seizures: Yes (PSEUDOSEIZURES) Past Surgical History Body Medical Devices: titanium rods/screws neck Cholecystectomy: Yes (2017) Other Surgery: Yes (CERVICAL FUSION C2-3 4-5 5-6) Social History Alcohol Use: No Tobacco Use: No Substance Use: No Allergies-Medications (Allergen,Severity, Reaction): Coded Allergies: No Known Allergies (Unverified Allergy, Unknown, 03/04/17) Reported Meds & Prescriptions Reported Meds & Active Scripts Active Klonopin (Clonazepam) 1 Mg Tab 1 Mg PO BID Ms Contin (Morphine Sulfate) 15 Mg Tab 30 Mg PO Q8H Reported Singulair (Montelukast Sodium) 10 Mg Tab 10 Mg PO HS Sertraline (Sertraline HCl) 100 Mg Tab 100 Mg PO DAILY Vitamin D3 (Cholecalciferol) 2,000 Unit Cap 2,000 Units PO DAILY Aspirin 81 Mg Chew 81 Mg CHEW ONCE Omeprazole 40 Mg Cap 40 Mg PO DAILY Lovastatin 40 Mg Tab 40 Mg PO DAILY Atenolol 50 Mg Tab 50 Mg PO BID Losartan (Losartan Potassium) 50 Mg Tab 50 Mg PO DAILY Review of Systems ROS Limitations: Altered Mental Status, Poor Historian Except as stated in HPI: all other systems reviewed are Neg Gastrointestinal: Positive: Abdominal Pain Neurologic: Positive: Change in Mentation Physical Exam Narrative GENERAL: Obese, well-developed, drowsy male. In no acute distress. SKIN: Warm and dry. 3 healing incisions to abdomen, no erythema or induration. No exudate noted. HEAD: Atraumatic. Normocephalic. EYES: Pupils equal and round. No scleral icterus. No injection or drainage. ENT: No nasal bleeding or discharge. Mucous membranes pink and moist. NECK: Trachea midline. No JVD. CARDIOVASCULAR: Regular rate and rhythm. RESPIRATORY: No accessory muscle use. Clear to auscultation. Breath sounds equal bilaterally. GASTROINTESTINAL: Abdomen obese, mildly tender, distended. Hepatic and splenic margins not palpable. Hyperactive bowel sounds. MUSCULOSKELETAL: Extremities without clubbing, cyanosis, or edema. No obvious deformities. NEUROLOGICAL: Drowsy yet arousable, oriented to self and place. Motor grossly within normal limits. Five out of 5 muscle strength in the arms and legs. Normal speech. Data Data Last Documented VS Vital Signs Date Time Temp Pulse Resp B/P (MAP) Pulse Ox O2 Delivery O2 Flow Rate FiO2 03/10/17 17:54 108 17 148/67 (94) 97 Nasal Cannula 2.00 03/10/17 14:23 99.7 Orders Orders Electrocardiogram (03/10/17 14:25) Ammonia (03/10/17 14:25) Complete Blood Count With Diff (03/10/17 14:25) Comprehensive Metabolic Panel (03/10/17 14:25) Creatine Kinase (Cpk) (03/10/17 14:25) Prothrombin Time / Inr (Pt) (03/10/17 14:25) Act Partial Throm Time (Ptt) (03/10/17 14:25) Urinalysis - C+S If Indicated (03/10/17 14:25) Lactic Acid Sepsis Protocol (03/10/17 14:25) Blood Culture (03/10/17 14:25) Chest, Single Ap (03/10/17 14:25) Ct Brain W/O Iv Contrast(Rout) (03/10/17 14:25) Blood Glucose (03/10/17 14:25) Ecg Monitoring (03/10/17 14:25) Iv Access Insert/Monitor (03/10/17 14:25) Cath For Specimen (03/10/17 14:25) Oximetry (03/10/17 14:25) Naloxone Inj (Narcan Inj) (03/10/17 14:30) Sodium Chloride 0.9% Flush (Ns Flush) (03/10/17 14:30) Sodium Chlor 0.9% 1000 Ml Inj (Ns 1000 M (03/10/17 14:25) Drug Screen, Random Urine (03/10/17 14:25) Alcohol (Ethanol) (03/10/17 14:25) Tylenol (Acetaminophen) (03/10/17 14:25) Salicylates (Aspirin) (03/10/17 14:25) Abdomen, Kub Only (03/10/17 ) Ondansetron Inj (Zofran Inj) (03/10/17 14:45) Restraints Non-Violent JOSAFAT.Q3H (03/10/17 14:59) Lorazepam Inj (Ativan Inj) (03/10/17 15:00) Ziprasidone Inj (Geodon Inj) (03/10/17 15:45) Diphenhydramine Inj (Benadryl Inj) (03/10/17 16:45) Sodium Chlor 0.9% 1000 Ml Inj (Ns 1000 M (03/10/17 17:15) Ct Abd/Pel W Iv Contrast(Rout) (03/10/17 ) Sodium Chlor 0.9% 1000 Ml Inj (Ns 1000 M (03/10/17 19:00) Vancomycin Consult Pharmacy (Vancomycin (03/10/17 19:30) Cefepime Inj (Maxipime Inj) (03/10/17 20:00) Admit To Inpatient (03/10/17 ) Vital Signs (Adult) Q4H (03/10/17 19:18) Neuro Checks Q4H (03/10/17 19:18) Activity Oob With Assistance (03/10/17 19:18) Boiler Setter / Telemetry .CONTINUOUS (03/10/17 19:18) Intake + Output JOSAFAT.QSHIFT (03/10/17 19:18) Diet Npo (03/11/17 Breakfast) Sodium Chlor 0.9% 1000 Ml Inj (Ns 1000 M (03/10/17 19:18) Sodium Chloride 0.9% Flush (Ns Flush) (03/10/17 19:30) Sodium Chloride 0.9% Flush (Ns Flush) (03/10/17 21:00) Ondansetron Inj (Zofran Inj) (03/10/17 19:30) Comprehensive Metabolic Panel (03/11/17 06:00) Complete Blood Count With Diff (03/11/17 06:00) Scd Bilateral/Knee High JOSAFAT.BID (03/10/17 19:18) Blair Bilateral/Knee High JOSAFAT.QSHIFT (03/10/17 19:21) Acetaminophen (Tylenol) (03/10/17 19:30) Docusate Sodium-Senna (Lyndsey-Colace) (03/10/17 21:00) Magnesium Hydroxide Liq (Milk Of Magnesi (03/10/17 19:30) Sennosides (Senokot) (03/10/17 19:30) Bisacodyl Supp (Dulcolax Supp) (03/10/17 19:30) Lactulose Liq (Lactulose Liq) (03/10/17 19:30) Inpatient Certification (03/10/17 ) Admit Order (Ed Use Only) (03/10/17 19:24) Labs Laboratory Tests Test 03/10/17 14:32 03/10/17 15:45 03/10/17 17:40 White Blood Count 7.0 TH/MM3 Red Blood Count 4.00 MIL/MM3 Hemoglobin 12.4 GM/DL Hematocrit 35.7 % Mean Corpuscular Volume 89.2 FL Mean Corpuscular Hemoglobin 31.0 PG Mean Corpuscular Hemoglobin Concent 34.8 % Red Cell Distribution Width 12.4 % Platelet Count 224 TH/MM3 Mean Platelet Volume 9.8 FL Neutrophils (%) (Auto) 67.3 % Lymphocytes (%) (Auto) 19.0 % Monocytes (%) (Auto) 8.4 % Eosinophils (%) (Auto) 4.4 % Basophils (%) (Auto) 0.9 % Neutrophils # (Auto) 4.7 TH/MM3 Lymphocytes # (Auto) 1.3 TH/MM3 Monocytes # (Auto) 0.6 TH/MM3 Eosinophils # (Auto) 0.3 TH/MM3 Basophils # (Auto) 0.1 TH/MM3 CBC Comment DIFF FINAL Differential Comment Prothrombin Time 10.9 SEC Prothromb Time International Ratio 1.1 RATIO Activated Partial Thromboplast Time 26.9 SEC Blood Urea Nitrogen 8 MG/DL Creatinine 1.03 MG/DL Random Glucose 136 MG/DL Total Protein 7.3 GM/DL Albumin 3.3 GM/DL Calcium Level 9.0 MG/DL Alkaline Phosphatase 96 U/L Aspartate Amino Transf (AST/SGOT) 26 U/L Alanine Aminotransferase (ALT/SGPT) 34 U/L Total Bilirubin 0.5 MG/DL Sodium Level 135 MEQ/L Potassium Level 4.0 MEQ/L Chloride Level 97 MEQ/L Carbon Dioxide Level 29.5 MEQ/L Anion Gap 9 MEQ/L Estimat Glomerular Filtration Rate 73 ML/MIN Lactic Acid Level 2.2 mmol/L 2.8 mmol/L Ammonia 27 MCMOL/L Total Creatine Kinase 40 U/L Salicylates Level LESS THAN 1.7 MG/DL Acetaminophen Level LESS THAN 2.0 MCG/ML Ethyl Alcohol Level LESS THAN 3 MG/DL Urine Color YELLOW Urine Turbidity CLEAR Urine pH 6.0 Urine Specific [place] 1.007 Urine Protein NEG mg/dL Urine Glucose (UA) NEG mg/dL Urine Ketones NEG mg/dL Urine Occult Blood NEG Urine Nitrite NEG Urine Bilirubin NEG Urine Urobilinogen LESS THAN 2.0 MG/DL Urine Leukocyte Esterase NEG Urine RBC LESS THAN 1 /hpf Urine WBC 1 /hpf Urine Squamous Epithelial Cells <1 /hpf Urine Calcium Oxalate Crystals OCC /hpf Urine Hyaline Casts 6 /lpf Urine Mucus FEW /lpf Microscopic Urinalysis Comment CATH-CULT NOT IND Urine Opiates Screen POS Urine Barbiturates Screen NEG Urine Amphetamines Screen NEG Urine Benzodiazepines Screen NEG Urine Cocaine Screen NEG Urine Cannabinoids Screen NEG MDM Medical Decision Making Medical Screen Exam Complete: Yes Emergency Medical Condition: Yes Medical Record Reviewed: Yes Interpretation(s) Vital Signs Date Time Temp Pulse Resp B/P (MAP) Pulse Ox O2 Delivery O2 Flow Rate FiO2 03/10/17 17:54 108 17 148/67 (94) 97 Nasal Cannula 2.00 03/10/17 17:00 124 24 170/93 (118) 95 Room Air 03/10/17 14:23 99.7 97 14 158/84 (108) 95 Room Air Last Impressions Head CT 03/10/17 1425 Signed Impressions: Service Date/Time: Friday, March 10, 2017 18:04 - CONCLUSION: Slight atrophic and small vessel ischemic changes without any evidence for acute hemorrhage or mass effect, chronic sinusitis. Thomas Villa MD Chest X-Ray 03/10/17 1425 Signed Impressions: Service Date/Time: Friday, March 10, 2017 16:48 - CONCLUSION: No acute cardiopulmonary disease. Thomas Villa MD Abdomen X-Ray 03/10/17 0000 Signed Impressions: Service Date/Time: Friday, March 10, 2017 16:52 - CONCLUSION: Nonspecific abdomen. Thomas Villa MD Laboratory Tests Test 03/10/17 14:32 03/10/17 15:45 03/10/17 17:40 White Blood Count 7.0 TH/MM3 Red Blood Count 4.00 MIL/MM3 Hemoglobin 12.4 GM/DL Hematocrit 35.7 % Mean Corpuscular Volume 89.2 FL Mean Corpuscular Hemoglobin 31.0 PG Mean Corpuscular Hemoglobin Concent 34.8 % Red Cell Distribution Width 12.4 % Platelet Count 224 TH/MM3 Mean Platelet Volume 9.8 FL Neutrophils (%) (Auto) 67.3 % Lymphocytes (%) (Auto) 19.0 % Monocytes (%) (Auto) 8.4 % Eosinophils (%) (Auto) 4.4 % Basophils (%) (Auto) 0.9 % Neutrophils # (Auto) 4.7 TH/MM3 Lymphocytes # (Auto) 1.3 TH/MM3 Monocytes # (Auto) 0.6 TH/MM3 Eosinophils # (Auto) 0.3 TH/MM3 Basophils # (Auto) 0.1 TH/MM3 CBC Comment DIFF FINAL Differential Comment Prothrombin Time 10.9 SEC Prothromb Time International Ratio 1.1 RATIO Activated Partial Thromboplast Time 26.9 SEC Blood Urea Nitrogen 8 MG/DL Creatinine 1.03 MG/DL Random Glucose 136 MG/DL Total Protein 7.3 GM/DL Albumin 3.3 GM/DL Calcium Level 9.0 MG/DL Alkaline Phosphatase 96 U/L Aspartate Amino Transf (AST/SGOT) 26 U/L Alanine Aminotransferase (ALT/SGPT) 34 U/L Total Bilirubin 0.5 MG/DL Sodium Level 135 MEQ/L Potassium Level 4.0 MEQ/L Chloride Level 97 MEQ/L Carbon Dioxide Level 29.5 MEQ/L Anion Gap 9 MEQ/L Estimat Glomerular Filtration Rate 73 ML/MIN Lactic Acid Level 2.2 mmol/L 2.8 mmol/L Ammonia 27 MCMOL/L Total Creatine Kinase 40 U/L Salicylates Level LESS THAN 1.7 MG/DL Acetaminophen Level LESS THAN 2.0 MCG/ML Ethyl Alcohol Level LESS THAN 3 MG/DL Urine Color YELLOW Urine Turbidity CLEAR Urine pH 6.0 Urine Specific [place] 1.007 Urine Protein NEG mg/dL Urine Glucose (UA) NEG mg/dL Urine Ketones NEG mg/dL Urine Occult Blood NEG Urine Nitrite NEG Urine Bilirubin NEG Urine Urobilinogen LESS THAN 2.0 MG/DL Urine Leukocyte Esterase NEG Urine RBC LESS THAN 1 /hpf Urine WBC 1 /hpf Urine Squamous Epithelial Cells <1 /hpf Urine Calcium Oxalate Crystals OCC /hpf Urine Hyaline Casts 6 /lpf Urine Mucus FEW /lpf Microscopic Urinalysis Comment CATH-CULT NOT IND Urine Opiates Screen POS Urine Barbiturates Screen NEG Urine Amphetamines Screen NEG Urine Benzodiazepines Screen NEG Urine Cocaine Screen NEG Urine Cannabinoids Screen NEG Differential Diagnosis Unintentional overdose versus metabolic abnormality versus obstruction versus CVA versus other Narrative Course Patient is a 61-year-old male presenting to emergency Department for altered mental status. Medical records reviewed, patient had a cholecystectomy on February 23, he was discharged on the , returned on the and was discharged once again on the . 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 Labs and imaging ordered and pending. Patient was given Narcan IV. Patient was much more alert. He then began to projectile vomit, Zofran was ordered. He also became extremely agitated which prompted restraints for his own safety as well as safety of the staff. Due to increased agitation Geodon 20 mg IM times one dose ordered per my attending physician. Patient was resting comfortably after Geodon administration. Labs reviewed, CBC with no acute findings Chemistry with no acute findings, ammonia level 27, initial lactic acid is 2.2, repeat lactic acid is 2.8. Patient was given a total of 3 L of IV fluids Urine drug screen is positive for opiates which is expected Salicylate, acetaminophen and alcohol are all unremarkable Urinalysis is unremarkable Chest x-ray shows no acute disease, CT of the head shows slight atrophic and small vessel ischemic changes without any evidence of acute hemorrhage or mass effect, chronic sinusitis. KUB shows a nonspecific abdomen. Plan of care and findings discussed with my attending physician. Patient will be admitted. Discussed findings with Dr. Alegre who then requested CT of the abdomen and pelvis. This order was placed. CT scan of the abdomen and pelvis shows a fatty liver, no appreciable pathological adenopathy, free fluid, bowel obstruction. Admit orders placed. Diagnosis Primary Impression: Altered mental status Qualified Codes: R41.82 - Altered mental status, unspecified Additional Impression: Lactic acidosis Admitting Information Admitting Physician Requests: Admit Condition: Stable Arua Hill Mar 10, 2017 16:25
[2017-03-10] MEDS ORDERED: diphenhydrAMINE HCL 50 MG/ML VIAL IV PUSH ONE (16:45)
[2017-03-10 17:00] VITALS: BP 170/93; PULSE 124; RESP 24; O2SAT 95
--- NOTE | 2017-03-10 17:13 | RADRPT ---
EXAM DATE/TIME: 03/10/2017 16:48 [facility] COMPARISON: CHEST PA & LAT, March 04, 2017, 6:53. INDICATIONS : Syncope MEDICAL HISTORY : Hypertension. SURGICAL HISTORY : Cholecystectomy. Fusion, cervical. ENCOUNTER: Initial ACUITY: 1 day PAIN SCORE: Non-responsive. LOCATION: Bilateral chest FINDINGS: The lungs are clear without infiltrate, nodule, or mass. There is no appreciable pleural effusion fo r technique. Heart and mediastinum are unremarkable. CONCLUSION: No acute cardiopulmonary disease. Thomas Villa MD on March 10, 2017 at 17:11 Board Certified Radiologist. This report was verified electronically.
[2017-03-10] MEDS ORDERED: SODIUM CHLOR 0.9% 1000 ML INJ 1,000 ML IV ONE ×2 (17:15→19:00)
--- NOTE | 2017-03-10 17:17 | RADRPT ---
EXAM DATE/TIME: 03/10/2017 16:52 [facility] COMPARISON: ABDOMEN KUB ONLY, March 04, 2017, 16:39. INDICATIONS : Obstruction MEDICAL HISTORY : Hypertension. SURGICAL HISTORY : Cholecystectomy. Fusion, cervical. ENCOUNTER: Sequela ACUITY: 3 weeks PAIN SCORE: Non-responsive. LOCATION: abdomen FINDINGS: The bowel gas is nonspecific. There are no signs of obstruction or free air for technique. No defini te calcified stones are identified for technique. There is evidence for prior cholecystectomy. CONCLUSION: Nonspecific abdomen. Thomas Villa MD on March 10, 2017 at 17:14 Board Certified Radiologist. This report was verified electronically.
[2017-03-10 17:54] VITALS: BP 148/67; PULSE 108; RESP 17; O2SAT 97
--- NOTE | 2017-03-10 18:24 | RADRPT ---
EXAM DATE/TIME: 03/10/2017 18:04 [facility] COMPARISON: MRI BRAIN W & W/O CONTRAST, February 24, 2017, 8:06. INDICATIONS : Found on the ground, altered mental status.Recent surgery. RADIATION DOSE: 56.35 CTDIvol (mGy) MEDICAL HISTORY : Seizures. Hypertension. SURGICAL HISTORY : Cholecystectomy. ENCOUNTER: Initial ACUITY: 1 day PAIN SCALE: Non-responsive LOCATION: cranial TECHNIQUE: Multiple contiguous axial images were obtained of the head. Using automated exposure control and adj ustment of the mA and/or kV according to patient size, radiation dose was kept as low as reasonably a chievable to obtain optimal diagnostic quality images. DICOM format image data is available electro nically for review and comparison. FINDINGS: There is no evidence for intracranial hemorrhage, mass effect, mass lesions, or edema. The visualize d bony structures appear intact. Slight degree of brain atrophy is seen. Slight periventricular whit e matter changes are seen nonspecific mostly consistent with chronic small vessel ischemic changes. There are no signs of acute infarction for technique. There is mild mucoperiosteal thickening within some of the sinuses mainly the sphenoid sinuses. CONCLUSION: Slight atrophic and small vessel ischemic changes without any evidence for acute hemorrhage or mass effect, chronic sinusitis. Thomas Villa MD on March 10, 2017 at 18:21 Board Certified Radiologist. This report was verified electronically.
--- NOTE | 2017-03-10 19:23 | HHI.HP ---
HPI Service [facility] Primary Care Physician Marshal Carter MD Admission Diagnosis Diagnoses: (1) Encephalopathy Diagnosis: Principal (2) Bacteremia Diagnosis: Principal (3) Lactic acidosis Diagnosis: Principal (4) Hx of cholecystectomy Diagnosis: Principal (5) HTN (hypertension) Diagnosis: Principal Travel History International Travel<30 Days: No Contact w/Intl Traveler <30 Da: No Traveled to Known Affected Are: No History of Present Illness This is a 61-year-old male with PMH of HTN, Anxiety, Depression, Hyperlipidemia , IBS and h/o Pseudoseizure who was brought to the ER by EMS after being found down at [facility]. Per report, pt noted to be disoriented, confused, agitated, complaints of abdominal pain but unable to elaborate. On arrival to ER, pt remained disoriented/lethargic, s/p Narcan w/ immediate response, episode of nausea/vomiting then became significantly agitated, kicking/spitting at staff, s /p Ativan, Benadryl 50mg and Geodon. Now asleep. Unable to obtain history from pt in light of above. BP 158/84, HR 97, O2 sat 95% on RA, Temp 99.7. CBC essentially unremarkable. Chemistry unremarkable except for GFR 73. Lactic Acid 2.2, repeat 2.8. INR 1.1. UA negative. Urine Drug Screen positive for Opiates. Alcohol negative. CT Head with no acute findings. CXR negative. Abd X-ray negative. Per review of previous records, pt admitted 02/19/17 for AMS and abdominal pain , found to have gangrenous cholecystitis, s/p Cholecystectomy and Hernia Repair by Dr. Mercado on 02/23/17, s/p eval by Psych thought to have Delirium due to underlying medical condition. B/C 02/21/17 +E.Coli x2, started on antibiotic regimen, however pt LEFT AMA on 03/03/17. Re-admitted 03/04-03/05/17 for c/o abdominal pain. Review of Systems Except as stated in HPI: all other systems reviewed are Neg ROS: Unable to obtain secondary to AMS and sedation Past Family Social History Past Medical History PMH: HTN, Anxiety, Depression, Hyperlipidemia, IBS and h/o Pseudoseizure Past Surgical History PAST SURGICAL HISTORY: Cholecystectomy, Cervical Fusion Allergies: Coded Allergies: No Known Allergies (Unverified Allergy, Unknown, 03/04/17) Family History PAST FAMILY HISTORY: Reviewed. No h/o DM or CAD Social History PAST SOCIAL HISTORY: Reportedly negative for alcohol, tobacco or drugs. Physical Exam Vital Signs Vital Signs Date Time Temp Pulse Resp B/P (MAP) Pulse Ox O2 Delivery O2 Flow Rate FiO2 03/10/17 17:54 108 17 148/67 (94) 97 Nasal Cannula 2.00 03/10/17 17:00 124 24 170/93 (118) 95 Room Air 03/10/17 14:23 99.7 97 14 158/84 (108) 95 Room Air Physical Exam PE: GENERAL: Middle-aged white male in no acute distress, resting comfortably after sedation, in restraints. HEENT: PERRLA, EOMI. No scleral icterus or conjunctival pallor. No lid lag or facial droop. CARDIOVASCULAR: Regular rate and rhythm. No obvious murmurs to auscultation. No chest tenderness to palpation. RESPIRATORY: No obvious rhonchi or wheezing. Clear to auscultation. Breath sounds equal bilaterally. GASTROINTESTINAL: Abdomen soft, mildly distended, generalized tenderness to palpation. BS normal. MUSCULOSKELETAL: Extremities without clubbing, cyanosis, or edema. No obvious deformities. NEUROLOGICAL: Lethargic due to sedation, but arousable. No focal neurologic deficits. Moving both upper and lower extremities spontaneously. Laboratory Laboratory Tests Test 03/10/17 14:32 03/10/17 15:45 03/10/17 17:40 White Blood Count 7.0 Red Blood Count 4.00 Hemoglobin 12.4 Hematocrit 35.7 Mean Corpuscular Volume 89.2 Mean Corpuscular Hemoglobin 31.0 Mean Corpuscular Hemoglobin Concent 34.8 Red Cell Distribution Width 12.4 Platelet Count 224 Mean Platelet Volume 9.8 Neutrophils (%) (Auto) 67.3 Lymphocytes (%) (Auto) 19.0 Monocytes (%) (Auto) 8.4 Eosinophils (%) (Auto) 4.4 Basophils (%) (Auto) 0.9 Neutrophils # (Auto) 4.7 Lymphocytes # (Auto) 1.3 Monocytes # (Auto) 0.6 Eosinophils # (Auto) 0.3 Basophils # (Auto) 0.1 CBC Comment DIFF FINAL Differential Comment Prothrombin Time 10.9 Prothromb Time International Ratio 1.1 Activated Partial Thromboplast Time 26.9 Blood Urea Nitrogen 8 Creatinine 1.03 Random Glucose 136 Total Protein 7.3 Albumin 3.3 Calcium Level 9.0 Alkaline Phosphatase 96 Aspartate Amino Transf (AST/SGOT) 26 Alanine Aminotransferase (ALT/SGPT) 34 Total Bilirubin 0.5 Sodium Level 135 Potassium Level 4.0 Chloride Level 97 Carbon Dioxide Level 29.5 Anion Gap 9 Estimat Glomerular Filtration Rate 73 Lactic Acid Level 2.2 2.8 Ammonia 27 Total Creatine Kinase 40 Salicylates Level LESS THAN 1.7 Acetaminophen Level LESS THAN 2.0 Ethyl Alcohol Level LESS THAN 3 Urine Color YELLOW Urine Turbidity CLEAR Urine pH 6.0 Urine Specific [place] 1.007 Urine Protein NEG Urine Glucose (UA) NEG Urine Ketones NEG Urine Occult Blood NEG Urine Nitrite NEG Urine Bilirubin NEG Urine Urobilinogen LESS THAN 2.0 Urine Leukocyte Esterase NEG Urine RBC LESS THAN 1 Urine WBC 1 Urine Squamous Epithelial Cells <1 Urine Calcium Oxalate Crystals OCC Urine Hyaline Casts 6 Urine Mucus FEW Microscopic Urinalysis Comment CATH-CULT NOT IND Urine Opiates Screen POS Urine Barbiturates Screen NEG Urine Amphetamines Screen NEG Urine Benzodiazepines Screen NEG Urine Cocaine Screen NEG Urine Cannabinoids Screen NEG Date/Time Source Procedure Growth Status 03/10/17 14:32 Blood Peripheral Aerobic Blood Culture Pending Received 03/10/17 14:32 Blood Peripheral Anaerobic Blood Culture Pending Received Result Diagram: 03/10/17 1432 03/10/17 1432 Caprini VTE Risk Assessment Caprini VTE Risk Assessment: No/Low Risk (score <= 1) Caprini Risk Assessment Model Point Value = 1 Point Value = 2 Point Value = 3 Point Value = 5 Age 41-60 Minor surgery BMI > 25 kg/m2 Swollen legs Varicose veins or History of unexplained or recurrent spontaneous Oral contraceptives or hormone replacement Sepsis (< 1 month) Serious lung disease, including pneumonia (< 1 month) Abnormal pulmonary function Acute myocardial infarction Congestive heart failure (< 1 month) History of inflammatory bowel disease Medical patient at bed rest Age 61-74 Arthroscopic surgery Major open surgery (> 45 min) Laparoscopic surgery (> 45 min) Malignancy Confined to bed (> 72 hours) Immobilizing plaster cast Central venous access Age >= 75 History of VTE Family history of VTE Factor V Leiden Prothrombin [id number] Lupus anticoagulant Anticardiolipin antibodies Elevated serum homocysteine Heparin-induced thrombocytopenia Other congenital or acquired thrombophilia Stroke (< 1 month) Elective arthroplasty Hip, pelvis, or leg fracture Acute spinal cord injury (< 1 month) Prophylaxis Regimen Total Risk Factor Score Risk Level Prophylaxis Regimen 0-1 Low Early ambulation 2 Moderate Order ONE of the following: *Sequential Compression Device (SCD) *Heparin 5000 units SQ BID 3-4 Higher Order ONE of the following medications: *Heparin 5000 units SQ TID *Enoxaparin/Lovenox 40 mg SQ daily (WT < 150 kg, CrCl > 30 mL/min) *Enoxaparin/Lovenox 30 mg SQ daily (WT < 150 kg, CrCl > 10-29 mL/min) *Enoxaparin/Lovenox 30 mg SQ BID (WT < 150 kg, CrCl > 30 mL/min) AND/OR *Sequential Compression Device (SCD) 5 or more Highest Order ONE of the following medications: *Heparin 5000 units SQ TID (Preferred with Epidurals) *Enoxaparin/Lovenox 40 mg SQ daily (WT < 150 kg, CrCl > 30 mL/min) *Enoxaparin/Lovenox 30 mg SQ daily (WT < 150 kg, CrCl > 10-29 mL/min) *Enoxaparin/Lovenox 30 mg SQ BID (WT < 150 kg, CrCl > 30 mL/min) AND *Sequential Compression Device (SCD) Assessment and Plan Problem List: (1) Encephalopathy ICD Code: G93.40 - Encephalopathy, unspecified (2) Bacteremia ICD Code: R78.81 - Bacteremia (3) Lactic acidosis ICD Code: E87.2 - Acidosis (4) Hx of cholecystectomy ICD Code: Z98.890 - Other specified postprocedural states; Z90.49 - Acquired absence of other specified parts of digestive tract (5) HTN (hypertension) ICD Code: I10 - Essential (primary) hypertension Status: Chronic Assessment and Plan A/P: 1. Encephalopathy: found disoriented, confused, agitated, previous admit 02/19 w/ similar presentation. CT Head w/ no acute findings. Possibly drug- related, Urine Drug Screen positive for Opiates, given Narcan w/ immediate response and subsequently had to be sedated. Neuro Checks. Haldol prn. R/o infectious etiology, previous Bacteremia w/ E.Coli 02/23/17, unclear if completed antibiotic regimen as pt LEFT AMA. Check Blood Cultures, start Vanc/ Cefepime IV for possible underlying sepsis-Temp 99.7, HR 97 and Lactic Acidosis. Psych eval as needed. 2. Bacteremia: Recent admit, Blood Cultures 02/23/17 x2 +E. Coli, antibiotic susceptibilities reviewed by me, start IV Cefepime, add Vanc for broad spectrum coverage of possible sepsis. ID Consult as needed. CXR w/ no acute findings, images reviewed by me. U/a negative for UTI. No obvious source of infection. 3. Lactic Acidosis: Lactate 2.2, repeat Lactic Acid 2.8, possibly related to Sepsis or dehydration. IVF for hydration, repeat Lactic Acid for trend. 4. H/o Cholecystectomy: 02/23/[address] Mercado, c/o abdominal pain on arrival, +distention on exam. Concern for intra-abdominal process which may be contributing to AMS. Discussed w/ ER PA, recommended CT Abd/Pelvis for further eval of possible abscess/obstruction. Will follow up results. 5. HTN: BP uncontrolled, likely related to significant agitation while in ER. Monitor BP. Antihypertensives as needed. 6. DVT Prophylaxis: SCD/Teds. 7. Social work for d/c planning as needed. 8. Previous records from each admission, labs and imaging reviewed extensively by me. Case discussed w/ ER physician, plan of care relayed to ESCAPEMENT MAKER. Physician Certification 2 Midnight Certification Type: Admission for Inpatient Services Order for Inpatient Services The services are ordered in accordance with Medicare regulations or non- Medicare payer requirements, as applicable. In the case of services not specified as inpatient-only, they are appropriately provided as inpatient services in accordance with the 2-midnight benchmark. Estimated LOS (days): 2 days is the estimated time the patient will need to remain in the hospital, assuming treatment plan goals are met and no additional complications. Post-Hospital Plan: Not yet determined Dianna Alegre MD Mar 10, 2017 19:23
[2017-03-10] MEDS ORDERED: MAGNESIUM HYDROXIDE SUSP 30 ML CUP PO PRN (19:30)
[2017-03-10] MEDS ORDERED: SENNOSIDES 8.6 MG TAB PO PRN (19:30)
[2017-03-10] MEDS ORDERED: ONDANSETRON HCL 4 MG/2 ML VIAL IVP PRN (19:30)
[2017-03-10] MEDS ORDERED: Vancomycin Consult Pharmacy 1 EA OTHER SCH (19:30)
[2017-03-10] MEDS ORDERED: LACTULOSE SYRUP 20 GM/30 ML CUP PO PRN (19:30)
[2017-03-10] MEDS ORDERED: BISACODYL 10 MG SUPP RECTAL PRN (19:30)
[2017-03-10] MEDS ORDERED: IOHEXOL 350 MG/ML 10 ML VIAL (for RAD DIAG) IVCONTRAST ONE (19:46)
[2017-03-10] MEDS: CEFEPIME INJ 1,000 MG in SODIUM CHLORIDE 0.9% INJ 100 ML IV SCH (19:54)
[2017-03-10 20:00] VITALS: BP_SYST 166; BP_SYST 193; BP_DIAS 67; BP_DIAS 77; PULSE 95; PULSE 96; RESP 22; TEMP 98; O2SAT 99
[2017-03-10] MEDS ORDERED: HALOPERIDOL LACTATE 5 MG/ML AMP IM PRN (20:00)
--- NOTE | 2017-03-10 20:01 | RADRPT ---
EXAM DATE/TIME: 03/10/2017 19:09 [facility] COMPARISON: CT ABDOMEN & PELVIS W CONTRAST, February 19, 2017, 2:31. INDICATIONS : Abdominal distention. IV CONTRAST: 97 cc Omnipaque 350 (iohexol) IV ORAL CONTRAST: No oral contrast ingested. RADIATION DOSE: 17.93 CTDIvol (mGy) MEDICAL HISTORY : Seizures. Hypertension. SURGICAL HISTORY : Cholecystectomy. ENCOUNTER: Initial ACUITY: 1 day PAIN SCALE: Non-responsive LOCATION: Bilateral abdomen TECHNIQUE: Volumetric scanning of the abdomen and pelvis was performed. Using automated exposure control and ad justment of the mA and/or kV according to patient size, radiation dose was kept as low as reasonably achievable to obtain optimal diagnostic quality images. DICOM format image data is available electro nically for review and comparison. FINDINGS: CT Abdomen: The liver is fatty without focal lesions or technique. Approximate 2.3 cm cyst is present in the right kidney. The spleen, pancreas, left kidney, adrenals are unremarkable. There is no evide nce for any appreciable pathological adenopathy, free fluid, or bowel obstruction. There is evidence for prior cholecystectomy. CT pelvis: There is no evidence for mass, abscess formation, or any significant adenopathy within the pelvis. CONCLUSION: Fatty liver. Thomas Villa MD on March 10, 2017 at 19:54 Board Certified Radiologist. This report was verified electronically.
[2017-03-10] MEDS ORDERED: VANCOMYCIN INJ 2,250 MG in SODIUM CHLORID 0.9% 500 ML INJ 500 ML IV ONE (20:30)
[2017-03-10] MEDS: SODIUM CHLOR 0.9% 1000 ML INJ 1,000 ML IV SCH (21:18)
[2017-03-10] MEDS: SODIUM CHLORIDE 0.9% FLUSH 10 ML FLUSH IV FLUSH SCH (21:23)
[2017-03-10] MEDS: DOCUSATE SODIUM 50 MG/SENNA 8.6 MG TAB PO SCH (21:24)
--- NOTE | 2017-03-10 22:05 | EKG ---
Date Performed: 03/10/2017 Time Performed: 14:33:15 PTAGE: 61 years EKG: Sinus rhythm BORDERLINE LEFT AXIS DEVIATION MODERATE INTRAVENTRICULAR CONDUCTION DELAY MODERATE T-WAVE ABNORMALIT Y, CONSIDER ANTERIOR ISCHEMIA ABNORMAL ECG PREVIOUS TRACING : 03/04/2017 18.07 Compared to prior tracing no significant change DOCTOR: Chemo Devries Interpretating Date/Time 03/10/2017 22:03:20
[2017-03-11] VITALS (8 sets, daily range): BP systolic 111–166; BP diastolic 66–100; PULSE 74–89; RESP 18–22; TEMP 97.6–99; O2SAT 93–99
[2017-03-11] MEDS: SODIUM CHLOR 0.9% 1000 ML INJ 1,000 ML IV SCH ×2 (06:06→17:55)
[2017-03-11] MEDS: SODIUM CHLORIDE 0.9% FLUSH 10 ML FLUSH IV FLUSH SCH ×2 (09:00→20:35)
[2017-03-11] MEDS: CEFEPIME INJ 1,000 MG in SODIUM CHLORIDE 0.9% INJ 100 ML IV SCH ×2 (09:17→20:32)
[2017-03-11] MEDS: DOCUSATE SODIUM 50 MG/SENNA 8.6 MG TAB PO SCH ×2 (09:20→20:35)
[2017-03-11] MEDS ORDERED: BACL20TA PO (09:27)
[2017-03-11 09:30] LABS: AUTOMATED NEUTROPHIL # 3.4 TH/MM3 (1.8-7.7); BASOPHIL % 0.9 % (0.0-2.0); EOSINOPHIL # 0.2 TH/MM3 (0-0.4); EOSINOPHIL % 4.5 % (0.0-4.0); HEMATOCRIT 34.2 % (39.0-51.0); HEMOGLOBIN 11.8 GM/DL (13.0-17.0); LYMPH % 18.4 % (9.0-44.0); LYMPHOCYTE # 0.9 TH/MM3 (1.0-4.8); MEAN CELL VOLUME 89.5 FL (80.0-100.0); MEAN CORPUSCULAR HEMOGLOBIN 30.9 PG (27.0-34.0); MEAN CORPUSCULAR HGB CONC 34.5 % (32.0-36.0); MONO % 8.7 % (0.0-8.0); MONOCYTE # 0.4 TH/MM3 (0-0.9); NEUT % 67.5 % (16.0-70.0); PLATELET COUNT 194 TH/MM3 (150-450); RED BLOOD COUNT 3.82 MIL/MM3 (4.50-5.90); RED CELL DISTRIBUTION WIDTH 12.6 % (11.6-17.2)
[2017-03-11] MEDS ORDERED: CLON1 PO (09:42)
--- NOTE | 2017-03-11 09:58 | HHI.PR ---
Subjective Remarks Pt tells me that he was in the middle of a parking lot and couldn't find his car so he took the little shuttle and thought he saw his car, however he got off to find out it wasn't, he had to wait for the next one and someone told him to sit down in the shade on the curve and he missed it and fell over. he then states he remember a lady calling the ambulance and he states that they later gave him narcan and that "wipe off all the ms contin" he took. has pain all over , feels like someone ran over him. He states that he never was somnolent however he cannot remember speaking w ED doc or equipment manager. requesting his home meds including MS contin Pt requests to eat. no nausea or vomiting at this time Objective Vitals Vital Signs Date Time Temp Pulse Resp B/P (MAP) Pulse Ox O2 Delivery O2 Flow Rate FiO2 03/11/17 04:00 97.6 80 20 140/69 (92) 99 03/11/17 03:45 82 03/11/17 00:00 98.5 84 22 111/66 (81) 97 03/11/17 00:00 79 03/10/17 21:44 Nasal Cannula 2.00 03/10/17 20:24 03/10/17 20:00 95 166/77 (106) 99 Nasal Cannula 2.00 03/10/17 20:00 98.0 96 22 193/67 (109) 99 03/10/17 17:54 108 17 148/67 (94) 97 Nasal Cannula 2.00 03/10/17 17:00 124 24 170/93 (118) 95 Room Air 03/10/17 14:23 99.7 97 14 158/84 (108) 95 Room Air I/O 03/10/17 03/10/17 03/10/17 03/11/17 03/11/17 03/11/17 07:00 15:00 23:00 07:00 15:00 23:00 Intake Total 1100 ml 1522.5 ml Output Total 500 ml 1500 ml Balance 600 ml 22.5 ml Intake Oral 0 ml IV Total 1100 ml 1522.5 ml Output Urine Total 1500 ml Emesis 500 ml # Voids 1 # Bowel Movements 1 Result Diagram: 03/11/17 0917 03/10/17 1432 Imaging Last Impressions Head CT 03/10/17 1425 Signed Impressions: Service Date/Time: Friday, March 10, 2017 18:04 - CONCLUSION: Slight atrophic and small vessel ischemic changes without any evidence for acute hemorrhage or mass effect, chronic sinusitis. Thomas Villa MD Chest X-Ray 03/10/17 1425 Signed Impressions: Service Date/Time: Friday, March 10, 2017 16:48 - CONCLUSION: No acute cardiopulmonary disease. Thomas Villa MD Abdomen/Pelvis CT 03/10/17 0000 Signed Impressions: Service Date/Time: Friday, March 10, 2017 19:09 - CONCLUSION: Fatty liver. Thomas Villa MD Abdomen X-Ray 03/10/17 0000 Signed Impressions: Service Date/Time: Friday, March 10, 2017 16:52 - CONCLUSION: Nonspecific abdomen. Thomas Villa MD Objective Remarks GENERAL: Middle-aged white male, sitting up in recliner HEENT: EOMI. mild conjunctival injection CARDIOVASCULAR: Regular rate and rhythm. RESPIRATORY: Clear to auscultation. Breath sounds equal bilaterally. GASTROINTESTINAL: Abdomen soft, obese MUSCULOSKELETAL: Extremities without edema. No obvious deformities. NEUROLOGICAL: somewhat somnolent but awake. able to answer my questions. Moving both upper and lower extremities spontaneously. A/P Problem List: (1) Encephalopathy ICD Code: G93.40 - Encephalopathy, unspecified (2) Bacteremia ICD Code: R78.81 - Bacteremia (3) Lactic acidosis ICD Code: E87.2 - Acidosis (4) Hx of cholecystectomy ICD Code: Z98.890 - Other specified postprocedural states; Z90.49 - Acquired absence of other specified parts of digestive tract (5) HTN (hypertension) ICD Code: I10 - Essential (primary) hypertension Status: Chronic Assessment and Plan 1. Encephalopathy: found disoriented, confused, agitated, previous admit 02/19 w/ similar presentation. CT Head w/ no acute findings. Possibly drug- related, Urine Drug Screen positive for Opiates, given Narcan w/ immediate response and subsequently had to be sedated. Neuro Checks. Haldol prn. R/o infectious etiology, previous Bacteremia w/ E.Coli 02/23/17, unclear if completed antibiotic regimen as pt LEFT AMA. follow up on Blood Cultures, currently on Vanc/Cefepime IV for possible underlying sepsis-Temp 99.7, HR 97 and Lactic Acidosis. Psych eval as needed but will hold off for now. 2. Bacteremia: Recent admit, Blood Cultures 02/23/17 x2 +E. Coli, on IV Cefepime and Vanc for broad spectrum coverage of possible sepsis. ID Consult as needed. CXR w/ no acute findings. U/a negative for UTI. No obvious source of infection. 3. Lactic Acidosis: Lactate 2.2, repeat Lactic Acid 2.8, possibly related to Sepsis or dehydration. continue IVF for hydration, repeat Lactic Acid for trend. 4. H/o Cholecystectomy: 02/23/[address] Mercado, currently not complaining of any abdominal pain but more like generalized pain from taking the narcan and "wiping the effects of the MS contin" CT Abd/Pelvis neg for acute process. 5. HTN: BP uncontrolled initially but improved. resume home riris Daisy Truong MD Mar 11, 2017 09:58
[2017-03-11 10:05] LABS: ALBUMIN 2.9 GM/DL (3.4-5.0); ALKALINE PHOSPHATASE 84 U/L (45-117); ALT (GPT) 36 U/L (12-78); AST (GOT) 35 U/L (15-37); BICARBONATE 31.7 MEQ/L (21.0-32.0); BLOOD UREA NITROGEN 4 MG/DL (7-18); CALCIUM 8.2 MG/DL (8.5-10.1); CHLORIDE 106 MEQ/L (98-107); CREATININE 0.82 MG/DL (0.60-1.30); GLOMERULAR FILTRATION RATE 96 ML/MIN (>89); GLUCOSE,RANDOM 106 MG/DL (74-106); SODIUM (NA) 144 MEQ/L (136-145); TOTAL BILIRUBIN ADULT 0.5 MG/DL (0.2-1.0); TOTAL PROTEIN 6.6 GM/DL (6.4-8.2)
[2017-03-11] MEDS: VANCOMYCIN 1,500 MG/NS 500 ML IV SCH ×2 (13:00)
[2017-03-11] MEDS: clonazePAM 1 MG TAB PO SCH ×2 (13:13→17:54)
[2017-03-11] MEDS: MORPHINE SULFATE 30 MG CONTROLLED RELEASE TAB PO SCH ×2 (13:13→17:54)
[2017-03-11] MEDS: ASPIRIN 81 MG CHEW TAB CHEW SCH (13:21)
[2017-03-11] MEDS: BACLOFEN 20 MG TAB PO SCH (20:33)
[2017-03-11] MEDS: MONTELUKAST SODIUM 10 MG TAB PO SCH (20:33)
[2017-03-11] MEDS: ATENOLOL 50 MG TAB PO SCH (20:33)
[2017-03-12] VITALS (7 sets, daily range): BP systolic 135–164; BP diastolic 73–86; PULSE 59–69; RESP 15–18; TEMP 95.9–98.1; O2SAT 96–98
[2017-03-12] MEDS: VANCOMYCIN 1,500 MG/NS 500 ML IV SCH ×4 (01:26→14:19)
[2017-03-12] MEDS: SODIUM CHLOR 0.9% 1000 ML INJ 1,000 ML IV SCH ×3 (01:26→19:57)
[2017-03-12] MEDS: MORPHINE SULFATE 30 MG CONTROLLED RELEASE TAB PO SCH ×3 (03:30→18:33)
[2017-03-12 06:17] LABS: AUTOMATED NEUTROPHIL # 2.7 TH/MM3 (1.8-7.7); BASOPHIL # 0.1 TH/MM3 (0-0.2); BASOPHIL % 1.2 % (0.0-2.0); EOSINOPHIL # 0.3 TH/MM3 (0-0.4); EOSINOPHIL % 5.9 % (0.0-4.0); HEMOGLOBIN 10.8 GM/DL (13.0-17.0); LYMPH % 21.3 % (9.0-44.0); LYMPHOCYTE # 0.9 TH/MM3 (1.0-4.8); MEAN CELL VOLUME 88.9 FL (80.0-100.0); MEAN CORPUSCULAR HGB CONC 34.9 % (32.0-36.0); MEAN PLATELET VOLUME 8.9 FL (7.0-11.0); MONO % 8.9 % (0.0-8.0); MONOCYTE # 0.4 TH/MM3 (0-0.9); NEUT % 62.7 % (16.0-70.0); PLATELET COUNT 180 TH/MM3 (150-450); RED BLOOD COUNT 3.48 MIL/MM3 (4.50-5.90); RED CELL DISTRIBUTION WIDTH 12.7 % (11.6-17.2); WHITE BLOOD COUNT 4.3 TH/MM3 (4.0-11.0)
[2017-03-12 06:39] LABS: BICARBONATE 31.7 MEQ/L (21.0-32.0); CREATININE 0.69 MG/DL (0.60-1.30)
--- NOTE | 2017-03-12 08:43 | HHI.PR ---
Subjective Remarks Pt more awake and alert. states he has some abdominal pain but it is the same as when he was discharged the last time, mainly around the incision sites. No nausea or vomiting. Wants to order breakfast. He is very upset at the ER because of the narcan he received. He denies being lethargic then and feels that it was wrong for them to give him that. He cannot remember who his surgeon is and would rather meet him in the office to speak w him. Discussed w RN, no concerns Objective Vitals Vital Signs Date Time Temp Pulse Resp B/P (MAP) Pulse Ox O2 Delivery O2 Flow Rate FiO2 03/12/17 04:44 17 03/12/17 04:27 97.5 59 18 135/73 (93) 97 03/12/17 00:00 97.6 63 16 148/86 (106) 96 03/11/17 22:40 Room Air 03/11/17 20:11 80 03/11/17 20:00 98.4 83 18 148/77 (100) 94 03/11/17 16:00 89 03/11/17 16:00 99.0 82 18 151/76 (101) 93 03/11/17 12:00 78 03/11/17 12:00 98.1 74 18 166/100 (122) 94 I/O 03/11/17 03/11/17 03/11/17 03/12/17 03/12/17 03/12/17 07:00 15:00 23:00 07:00 15:00 23:00 Intake Total 1522.5 ml 1150 ml 280 ml Output Total 1500 ml 450 ml Balance 22.5 ml 1150 ml -170 ml Intake Oral 0 ml 280 ml IV Total 1522.5 ml 1150 ml Output Urine Total 1500 ml 450 ml # Bowel Movements 0 Result Diagram: 03/12/17 0554 03/12/17 0554 Imaging Last Impressions Head CT 03/10/17 1425 Signed Impressions: Service Date/Time: Friday, March 10, 2017 18:04 - CONCLUSION: Slight atrophic and small vessel ischemic changes without any evidence for acute hemorrhage or mass effect, chronic sinusitis. Thomas Villa MD Chest X-Ray 03/10/17 1425 Signed Impressions: Service Date/Time: Friday, March 10, 2017 16:48 - CONCLUSION: No acute cardiopulmonary disease. Thomas Villa MD Abdomen/Pelvis CT 03/10/17 0000 Signed Impressions: Service Date/Time: Friday, March 10, 2017 19:09 - CONCLUSION: Fatty liver. Thomas Villa MD Abdomen X-Ray 03/10/17 0000 Signed Impressions: Service Date/Time: Friday, March 10, 2017 16:52 - CONCLUSION: Nonspecific abdomen. Thomas Villa MD Objective Remarks GENERAL: Middle-aged white male, laying in bed, much more awake and alert. pleasant HEENT: EOMI. no conjunctival injection CARDIOVASCULAR: Regular rate and rhythm. RESPIRATORY: Clear to auscultation. Breath sounds equal bilaterally. GASTROINTESTINAL: Abdomen soft, obese, incisions healing well, no redness or signs of infection. Some discomfort w deep palpation. MUSCULOSKELETAL: Extremities without edema. No obvious deformities. NEUROLOGICAL: awake. able to answer my questions. Moving both upper and lower extremities spontaneously. A/P Problem List: (1) Encephalopathy ICD Code: G93.40 - Encephalopathy, unspecified (2) Bacteremia ICD Code: R78.81 - Bacteremia (3) Lactic acidosis ICD Code: E87.2 - Acidosis (4) Hx of cholecystectomy ICD Code: Z98.890 - Other specified postprocedural states; Z90.49 - Acquired absence of other specified parts of digestive tract (5) HTN (hypertension) ICD Code: I10 - Essential (primary) hypertension Status: Chronic Assessment and Plan 1. Encephalopathy: found disoriented, confused, agitated, previous admit 02/19 w/ similar presentation. CT Head w/ no acute findings. Possibly drug- related, Urine Drug Screen positive for Opiates, given Narcan w/ immediate response and subsequently had to be sedated. Neuro Checks. Haldol prn. R/o infectious etiology, previous Bacteremia w/ E.Coli 02/23/17, unclear if completed antibiotic regimen as pt LEFT AMA. follow up on Blood Cultures which thus far have been negative. Pt tells me that he sees a pain management physician monthly and he has been compliant w his meds. currently on Vanc/ Cefepime IV for possible underlying SIRS-Temp 99.7, HR 97 and Lactic Acidosis which has now resolved. No source of infection found thus far. Psych eval as needed but will hold off for now as pt is cooperating and answering questions. 2. Bacteremia: Recent admit, Blood Cultures 02/23/17 x2 +E. Coli, on IV Cefepime and Vanc for broad spectrum coverage of possible sepsis. ID Consult as needed however thus far cultures neg. CXR w/ no acute findings. U/a negative for UTI. No obvious source of infection. 3. Lactic Acidosis: Lactate 2.2, now resolved, most likely from dehydration. 4. H/o Cholecystectomy: 02/23/[address] Mercado, has some pain which seems more incisional pain. CT Abd/Pelvis neg for acute process. 5. HTN: BP much improved on home meds PT eval for d/c planning Discharge Planning If blood cx neg x2, will d/c pt. awaiting PT recs. Pt will need to f/u w his pain management physician also pt has been counseled not to drink while on narcotics and he says he only drinks 1-2 beers whenever he watches a [employer] game otherwise he has been compliant. Pt might need adjustments of his meds. Pt has been on his currently home dose and doing well in the hospital. Awake and alert Pt to f/u w Dr. Mercado as an outpatient as pain currently seems incisional pain and CT abd/pelvis neg for acute process. Pt comfortable f/u as an outpatient. Daisy Truong MD Mar 12, 2017 08:43
[2017-03-12] MEDS: ATENOLOL 50 MG TAB PO SCH ×2 (09:00→19:57)
[2017-03-12] MEDS: SERTRALINE HCL 100 MG TAB PO SCH (09:00)
[2017-03-12] MEDS: LOSARTAN 50 MG TAB PO SCH (09:00)
[2017-03-12] MEDS: CEFEPIME INJ 1,000 MG in SODIUM CHLORIDE 0.9% INJ 100 ML IV SCH ×2 (09:00→19:56)
[2017-03-12] MEDS: clonazePAM 1 MG TAB PO SCH ×3 (09:01→18:32)
[2017-03-12] MEDS: ASPIRIN 81 MG CHEW TAB CHEW SCH (09:01)
[2017-03-12] MEDS: DOCUSATE SODIUM 50 MG/SENNA 8.6 MG TAB PO SCH ×2 (09:01→19:58)
[2017-03-12] MEDS: PRAVASTATIN SOD 40 MG TAB PO SCH (09:01)
[2017-03-12] MEDS: SODIUM CHLORIDE 0.9% FLUSH 10 ML FLUSH IV FLUSH SCH ×2 (09:01→19:59)
[2017-03-12] MEDS ORDERED: MAGNESIUM HYDROXIDE SUSP 30 ML CUP PO ONE (14:45)
[2017-03-12] MEDS ORDERED: POLYETHYLENE GLYCOL 17 GM PKG PO ONE (14:45)
--- NOTE | 2017-03-12 14:45 | RADRPT ---
EXAM DATE/TIME: 03/12/2017 13:38 [facility] COMPARISON: ABDOMEN KUB ONLY, March 10, 2017, 16:52. INDICATIONS : Pain. MEDICAL HISTORY : Hypertension. SURGICAL HISTORY : Cholecystectomy. Fusion, cervical. ENCOUNTER: Subsequent ACUITY: 3 weeks PAIN SCORE: 8/10 LOCATION: Bilateral Abdomen. FINDINGS: Supine view of the abdomen was performed. The abdominal bowel gas pattern is normal. Calcifications are seen in the pelvis. These are nonspecific. They likely represent phleboliths. There is degenerati ve change of the lower lumbar spine. Clips are seen in the right upper quadrant. CONCLUSION: No acute disease. Asael Mcnulty MD on March 12, 2017 at 14:42 Board Certified Radiologist. This report was verified electronically.
--- NOTE | 2017-03-12 14:53 | HHI.PR ---
Addendum to Inpatient Note Addendum Reason: Additional Documentation Additional Information I re-evaluated the patient because RN called me letting me know that pt had worsening abdominal pain and she was concerned. I ordered a STAT KUB which I have reviewed. I saw the patient and he claims that after getting the x-ray he went to the bathroom and had a "mooshy BM" but couldn't quantify. He denies feeling constipated and refused the laxatives I have ordered for him as from looking at the KUB it seems that pt does have stools in his bowels. I spoke w RN and she states that pt didn't use the restroom after the x-ray but he did have a small BM this morning. I saw the pt, and examined him. Pain seems to have subsided. States that his pain keeps coming on and off at times 7/10 but now 2-3/10. feels nauseous. appetite is poor which was confirmed by RN as he didn't touch his lunch and ate a little bit of his breakfast. At this time, I feel that monitoring the patient overnight is appropriate. I did place a consult to as I'm not quite sure what the cause of pt's abdominal pain is other than severe constipation from his opioid use. Pt refusing any stool softeners at this time which I had ordered. I asked RN to give him some zofran. will await final recs from . Daisy Truong MD Mar 12, 2017 14:53
[2017-03-12] MEDS: BACLOFEN 20 MG TAB PO SCH (19:57)
[2017-03-12] MEDS: MONTELUKAST SODIUM 10 MG TAB PO SCH (19:58)
[2017-03-12] MEDS: ACETAMINOPHEN 325 MG TAB PO PRN (20:35)
[2017-03-12] MEDS ORDERED: MSIR15 PO (20:38)
--- NOTE | 2017-03-12 21:28 | HHI.PR ---
Subjective Subjective Notes pt known to service, readmit for s/p fall and abdominal pain, states pain was 7/ 10 now 3/10 after bm Objective Vitals/I&O Vital Signs Date Time Temp Pulse Resp B/P (MAP) Pulse Ox O2 Delivery O2 Flow Rate FiO2 03/12/17 16:00 97.5 64 17 149/85 (106) 98 03/11/17 22:40 Room Air 03/10/17 21:44 2.00 Labs Laboratory Tests Test 03/12/17 05:54 White Blood Count 4.3 Red Blood Count 3.48 Hemoglobin 10.8 Hematocrit 31.0 Mean Corpuscular Volume 88.9 Mean Corpuscular Hemoglobin 31.0 Mean Corpuscular Hemoglobin Concent 34.9 Red Cell Distribution Width 12.7 Platelet Count 180 Mean Platelet Volume 8.9 Neutrophils (%) (Auto) 62.7 Lymphocytes (%) (Auto) 21.3 Monocytes (%) (Auto) 8.9 Eosinophils (%) (Auto) 5.9 Basophils (%) (Auto) 1.2 Neutrophils # (Auto) 2.7 Lymphocytes # (Auto) 0.9 Monocytes # (Auto) 0.4 Eosinophils # (Auto) 0.3 Basophils # (Auto) 0.1 CBC Comment DIFF FINAL Differential Comment Blood Urea Nitrogen 3 Creatinine 0.69 Random Glucose 104 Calcium Level 8.0 Sodium Level 140 Potassium Level 3.7 Chloride Level 102 Carbon Dioxide Level 31.7 Anion Gap 6 Estimat Glomerular Filtration Rate 117 Lactic Acid Level 1.0 Lipase 75 Date/Time Source Procedure Growth Status 03/10/17 14:32 Blood Peripheral Aerobic Blood Culture - Preliminary NO GROWTH IN 2 DAYS Resulted 03/10/17 14:32 Blood Peripheral Anaerobic Blood Culture - Preliminary NO GROWTH IN 2 DAYS Resulted Abdomen: Other (soft incision with scab, mild ttp, no rebound) A/P Assessment and Plan hx of gangrenous cholecystitis UH s/p lap bernarda with UHR readmit due to fall, improved abdominal pain PLAN No fevers wbc normal pain resolving after bm no surgical intervertion at this time continue pain control and abdominal exams Shemar Rivas MD Mar 12, 2017 21:28
[2017-03-12] MEDS ORDERED: MORPHINE SULFATE 2 MG/ML INJ IV ONE (22:15)
[2017-03-13] VITALS (10 sets, daily range): BP systolic 155–181; BP diastolic 83–98; PULSE 51–59; RESP 15–17; TEMP 95.3–97.4; O2SAT 92–99
[2017-03-13] MEDS ORDERED: PHARMACY ORDERED LAB ONE (00:45)
[2017-03-13] MEDS: VANCOMYCIN 1,500 MG/NS 500 ML IV SCH ×2 (01:44)
[2017-03-13] MEDS: MORPHINE SULFATE 30 MG CONTROLLED RELEASE TAB PO SCH ×3 (02:57→19:20)
[2017-03-13] MEDS: ACETAMINOPHEN 325 MG TAB PO PRN (05:50)
[2017-03-13] MEDS: CEFEPIME INJ 1,000 MG in SODIUM CHLORIDE 0.9% INJ 100 ML IV SCH (08:37)
[2017-03-13] MEDS: clonazePAM 1 MG TAB PO SCH ×3 (08:37→17:32)
[2017-03-13] MEDS: SERTRALINE HCL 100 MG TAB PO SCH (08:37)
[2017-03-13] MEDS: LOSARTAN 50 MG TAB PO SCH (08:37)
[2017-03-13] MEDS: ATENOLOL 50 MG TAB PO SCH ×2 (08:37→19:20)
[2017-03-13] MEDS: PRAVASTATIN SOD 40 MG TAB PO SCH (08:37)
[2017-03-13] MEDS: ASPIRIN 81 MG CHEW TAB CHEW SCH (08:38)
[2017-03-13] MEDS: SODIUM CHLORIDE 0.9% FLUSH 10 ML FLUSH IV FLUSH SCH ×2 (08:39→19:22)
[2017-03-13] MEDS: DOCUSATE SODIUM 50 MG/SENNA 8.6 MG TAB PO SCH ×2 (09:00→19:21)
--- NOTE | 2017-03-13 11:55 | HHI.PR ---
cc: Sean Mercado MD Subjective Subjective Notes Resting in bed Abdominal pain resolved Objective Vitals/I&O Vital Signs Date Time Temp Pulse Resp B/P (MAP) Pulse Ox O2 Delivery O2 Flow Rate FiO2 03/13/17 11:35 95.3 58 17 173/91 (118) 99 03/11/17 22:40 Room Air 03/10/17 21:44 2.00 Labs Laboratory Tests Test 03/13/17 01:10 Vancomycin Level Trough 22.9 Date/Time Source Procedure Growth Status 03/10/17 14:32 Blood Peripheral Aerobic Blood Culture - Preliminary NO GROWTH IN 3 DAYS Resulted 03/10/17 14:32 Blood Peripheral Anaerobic Blood Culture - Preliminary NO GROWTH IN 3 DAYS Resulted Cardiovascular: Regular Lungs: Clear Abdomen: Other (lap sites c/d/i; steri strips already removed; abdomen soft non tender ) Extremities: No edema A/P Assessment and Plan 61 year old male s/p lap bernarda; gangrenous; back with fall at home -Surgical stable -Regular diet -No need to follow up in office unless there is any issue -GS will sign off; please call with questions Silva Allen Mar 13, 2017 11:55
[2017-03-13] MEDS ORDERED: MORPHINE SULFATE 15 MG TAB PO PRN (12:30)
--- NOTE | 2017-03-13 14:03 | HHI.PR ---
Subjective Remarks The patient was requesting breakthrough pain medication. He says his abdominal pain is better. He says he was doing an exercise with the speech therapist and he was unable to remember certain animals and other items on the tests. Discussed with nursing. Objective Vitals Vital Signs Date Time Temp Pulse Resp B/P (MAP) Pulse Ox O2 Delivery O2 Flow Rate FiO2 03/13/17 11:35 95.3 58 17 173/91 (118) 99 03/13/17 07:42 96.6 52 17 159/87 (111) 92 03/13/17 05:44 57 15 161/91 (114) 95 03/13/17 04:03 51 03/13/17 00:07 59 03/13/17 00:03 97.4 55 15 155/88 (110) 96 03/12/17 20:04 65 03/12/17 20:00 97.2 68 15 164/85 (111) 98 03/12/17 16:00 97.5 64 17 149/85 (106) 98 I/O 03/12/17 03/12/17 03/12/17 03/13/17 03/13/17 03/13/17 07:00 15:00 23:00 07:00 15:00 23:00 Intake Total 280 ml 480 ml 100 ml 515 ml Output Total 450 ml Balance -170 ml 480 ml 100 ml 515 ml Intake Oral 280 ml 480 ml IV Total 100 ml 515 ml Output Urine Total 450 ml # Voids 6 # Bowel Movements 0 4 Result Diagram: 03/12/17 0554 03/12/17 0554 Imaging Last Impressions Abdomen X-Ray 03/12/17 0000 Signed Impressions: Service Date/Time: Sunday, March 12, 2017 13:38 - CONCLUSION: No acute disease. Asael Mcnulty MD Head CT 03/10/17 1425 Signed Impressions: Service Date/Time: Friday, March 10, 2017 18:04 - CONCLUSION: Slight atrophic and small vessel ischemic changes without any evidence for acute hemorrhage or mass effect, chronic sinusitis. Thomas Villa MD Chest X-Ray 03/10/17 1425 Signed Impressions: Service Date/Time: Friday, March 10, 2017 16:48 - CONCLUSION: No acute cardiopulmonary disease. Thomas Villa MD Abdomen/Pelvis CT 03/10/17 0000 Signed Impressions: Service Date/Time: Friday, March 10, 2017 19:09 - CONCLUSION: Fatty liver. Thomas Villa MD Objective Remarks GENERAL: Resting comfortably. HEENT: EOMI. no conjunctival injection. CARDIOVASCULAR: Regular rate and rhythm. RESPIRATORY: Clear to auscultation. Breath sounds equal bilaterally. GASTROINTESTINAL: Abdomen soft, obese, incisions healing well, no redness or signs of infection. Nontender. MUSCULOSKELETAL: Extremities without edema. No obvious deformities. NEUROLOGICAL: Awake. Able to answer my questions. Moving both upper and lower extremities spontaneously. Medications and IVs Current Medications Medications (Trade) Dose Ordered Sig/Juan Pablo Route Start Time Stop Time Status Last Admin Pharmacy Profile Note 0 ml @ 0 mls/hr UNSCH OTHER 03/10/17 19:30 Cefepime HCl 1000 mg/Sodium Chloride 100 ml @ 200 mls/hr Q12H IV 03/10/17 20:00 03/13/17 08:37 Sodium Chloride 1,000 ml @ 100 mls/hr Q10H IV 03/10/17 19:18 03/12/17 01:26 (NS Flush) 2 ml UNSCH PRN IV FLUSH 03/10/17 19:30 (NS Flush) 2 ml BID IV FLUSH 03/10/17 21:00 03/13/17 08:39 (Zofran Inj) 4 mg Q6H PRN IVP 03/10/17 19:30 03/11/17 20:33 (Tylenol) 650 mg Q6H PRN PO 03/10/17 19:30 03/13/17 05:50 (Lyndsey-Colace) 1 tab BID PO 03/10/17 21:00 03/13/17 09:00 (Milk Of Magnesia Liq) 30 ml Q12H PRN PO 03/10/17 19:30 (Senokot) 17.2 mg Q12H PRN PO 03/10/17 19:30 (Dulcolax Supp) 10 mg DAILY PRN RECTAL 03/10/17 19:30 (Lactulose Liq) 30 ml DAILY PRN PO 03/10/17 19:30 03/12/17 09:01 (Haldol Inj) 5 mg Q4H PRN IM 03/10/17 20:00 (Aspirin Chew) 81 mg DAILY CHEW 03/11/17 11:00 03/13/17 08:38 (Tenormin) 50 mg BID PO 03/11/17 21:00 03/13/17 08:37 (Lioresal) 20 mg HS PO 03/11/17 21:00 03/12/17 19:57 (KlonoPIN) 1 mg TID PO 03/11/17 13:00 03/13/17 12:31 (Cozaar) 50 mg DAILY PO 03/12/17 09:00 03/13/17 08:37 (Pravachol) 40 mg DAILY PO 03/12/17 09:00 03/13/17 08:37 (Singulair) 10 mg HS PO 03/11/17 21:00 03/12/17 19:58 (Oramorph Sr) 30 mg Q8H PO 03/11/17 11:00 03/13/17 12:33 (Zoloft) 100 mg DAILY PO 03/12/17 09:00 03/13/17 08:37 Vancomycin HCl 1500 mg/Sodium Chloride 515 ml @ 257.5 mls/ hr Q18H IV 03/13/17 20:00 Miscellaneous Information SPECIFIC LAB TO BE DRAWN:VANCOMYCIN TROUGH DATE TO... ONCE ONCE .XX 03/16/17 01:45 03/16/17 01:46 (Msir) 15 mg Q6H PRN PO 03/13/17 12:30 A/P Problem List: (1) Encephalopathy ICD Code: G93.40 - Encephalopathy, unspecified (2) Bacteremia ICD Code: R78.81 - Bacteremia (3) Lactic acidosis ICD Code: E87.2 - Acidosis (4) Hx of cholecystectomy ICD Code: Z98.890 - Other specified postprocedural states; Z90.49 - Acquired absence of other specified parts of digestive tract (5) HTN (hypertension) ICD Code: I10 - Essential (primary) hypertension Status: Chronic Assessment and Plan Encephalopathy The pt was found disoriented, confused, agitated. Has had previous admits for similar presentations. CT Head w/ no acute findings. Given Narcan w/ immediate response and subsequently had to be sedated. Previously has been evaluated by psychiatry. Concern for early onset dementia. - neurology consult requested. - neuro checks. - try to wean down pain medications. Bacteremia Recent admit, Blood Cultures 02/23/17 x2 +E. Coli. CXR w/ no acute findings. U/ a negative for UTI. No obvious source of infection. - would complete 3 more days of Augmentin as unsure if pt completed course of antibiotics on last AMA discharge. - follow repeat blood cultures. Lactic acidosis Most likely from dehydration. - s/p IVFs. H/o Cholecystectomy CT Abd/Pelvis neg for acute process. Surgical consult appreciated. - outpt follow-up. HTN Blood pressure has been elevated. - continue home meds. PPx: SCDs Discharge Planning Awaiting neuro Juwan Taylor DO Mar 13, 2017 14:03
[2017-03-13] MEDS ORDERED: cloNIDine HCL 0.1 MG TAB PO PRN (17:00)
--- NOTE | 2017-03-13 17:12 | MB ---
cc: ALIYA GUAN MD DATE OF CONSULTATION 03/13/17 This is a 61-year-old seen in neurological consultation in regards to altered mentation. The patient has been in the hospital since 03/10 when he was admitted with an apparent confusional episode. He was apparently at the [employer] and he gives me a history that he bought a computer and, during the transaction, apparently he had forgotten his telephone number and some other self information to provide to the store staff, but he was able to finish the deal. Apparently, outside of the store he describes that he missed the curb and fell. There was some relatively mild injuries and he was subsequently brought to the hospital. He does not think he lost consciousness, but it is difficult to gather an exact history and what he tells me is substantially different from the emergency room evaluation as well as H&P. It is reported that in the ER after given Narcan he became more alert and subsequently became extremely agitated. He has had a CT brain that showed no acute abnormality and the CT is from 03/10. PAST MEDICAL HISTORY 1. Hypertension, 2. Anxiety, 3. Chronic pain, 4. Hyperlipidemia. The HPI also describes pseudoseizure and the patient tells me he had seizures after a neck injury 10 years ago and he apparently used Keppra for a few years but has not taken Keppra for five years or so. He takes slow-release morphine 30 mg three times a day regularly and he is status post cervical spine fusion several years ago. He admits chronic low back pain. The chart indicates history of some recurrent abdominal pain. PHYSICAL EXAMINATION On exam he was alert, pleasant, calm, oriented and his demeanor seemed to be reasonable. His ocular movements and visual harris were full. There is no facial weakness. Tongue and palate move well. He is moderately overweight and he seems to have normal strength throughout. Reflexes were 2+ and plantar responses were flexor. ASSESSMENT Altered mentation. Apparently, a similar presentation back on February 19, 2017. He takes a painkiller on a regular basis, chronic for neck and lower back. He is relatively young, but certainly could have an evolving dementia as well. In any case, the pain killer medications will be at least an aggravating factor. He denies alcohol. He lives alone and we do not have additional history, but he apparently has a sister who may have been concerned about his overall mental status. I am going to order an MRI brain. We will obtain an EEG if not completed yet. He will need outpatient neurological followup and I will add B12 and TSH. Thank you for asking us to assist in his care. MD MILAGRO Stapleton/ /4:27 PM /4:43 PM
[2017-03-13] MEDS: MORPHINE SULFATE 15 MG TAB PO PRN (17:31)
[2017-03-13] MEDS ORDERED: GADODIAMIDE PF 287 MG/ML 5 ML VIAL (for RAD MRI) IV PUSH ONE (18:17)
--- NOTE | 2017-03-13 18:47 | RADRPT ---
EXAM DATE/TIME: 03/13/2017 18:02 [facility] COMPARISON: MRI BRAIN W & W/O CONTRAST, February 24, 2017, 8:06. INDICATIONS : Confusion. CONTRAST: 18 cc Omniscan (gadodiamide) IV MEDICAL HISTORY : Hypertension. Hypercholesterolemia. Arrhythmia. SURGICAL HISTORY : Fusion, cervical. Right ACL repair. ENCOUNTER: Subsequent ACUITY: 2 day PAIN SCORE: 0/10 LOCATION: cranial TECHNIQUE: Multiplanar, multisequence MRI of the brain was performed both prior to and following the administrat ion of paramagnetic contrast. FINDINGS: CEREBRUM: The ventricles are normal for age. No evidence of midline shift, mass lesion, hemorrhage or acute in farction. No extraaxial fluid collections are seen. The pituitary gland and suprasellar cistern are normal in configuration. WHITE MATTER: No significant signal abnormalities are seen in the white matter. POSTERIOR FOSSA: The cerebellum and brainstem are intact. The 4th ventricle is midline. The cerebellopontine angle is unremarkable. The cerebellar tonsils are normal in position. DIFFUSION IMAGING: No focal areas of restricted diffusion are seen. No evidence of acute infarction. EXTRACRANIAL: The visualized portions of the orbits and paranasal sinuses are unremarkable. POST-CONTRAST: No abnormal areas of parenchymal or dural enhancement. No evidence of blood-brain barrier breakdown. CONCLUSION: 1. No acute intracranial abnormality. 2. No change from previous study. 3. No acute infarction. Sidney Guillaume MD on March 13, 2017 at 18:43 Board Certified Radiologist. This report was verified electronically.
[2017-03-13] MEDS: BACLOFEN 20 MG TAB PO SCH (19:20)
[2017-03-13] MEDS: MONTELUKAST SODIUM 10 MG TAB PO SCH (19:21)
[2017-03-13] MEDS: AMOXICILLIN/CLAVULANATE K 875 MG TAB PO SCH (19:25)
[2017-03-13] MEDS ORDERED: VANCOMYCIN 1,500 MG/NS 500 ML IV SCH ×2 (20:00)
[2017-03-14] VITALS (10 sets, daily range): BP systolic 147–181; BP diastolic 81–94; PULSE 52–62; RESP 16–22; TEMP 95.5–98.2; O2SAT 93–99
[2017-03-14] MEDS: MORPHINE SULFATE 30 MG CONTROLLED RELEASE TAB PO SCH (02:59)
[2017-03-14] MEDS: MORPHINE SULFATE 15 MG TAB PO PRN ×3 (04:33→20:03)
[2017-03-14] MEDS: SODIUM CHLORIDE 0.9% FLUSH 10 ML FLUSH IV FLUSH SCH ×2 (08:47→20:04)
[2017-03-14] MEDS: ASPIRIN 81 MG CHEW TAB CHEW SCH (08:50)
[2017-03-14] MEDS: AMOXICILLIN/CLAVULANATE K 875 MG TAB PO SCH ×2 (08:50→20:02)
[2017-03-14] MEDS: clonazePAM 1 MG TAB PO SCH ×3 (08:50→18:17)
[2017-03-14] MEDS: LOSARTAN 50 MG TAB PO SCH (08:50)
[2017-03-14] MEDS: ATENOLOL 50 MG TAB PO SCH ×2 (08:50→20:02)
[2017-03-14] MEDS: DOCUSATE SODIUM 50 MG/SENNA 8.6 MG TAB PO SCH ×2 (08:50→20:02)
[2017-03-14] MEDS: SERTRALINE HCL 100 MG TAB PO SCH (08:50)
[2017-03-14] MEDS: PRAVASTATIN SOD 40 MG TAB PO SCH (08:50)
--- NOTE | 2017-03-14 10:28 | HHI.PR ---
Subjective Remarks The patient said that he did not want to have it brain waves measured while he is in so much pain. He said that he was having abdominal pain, and nausea and vomiting. He wanted his pain medications increased in frequency. He did not want to speak with the psychiatrist. He was concerned that he may be having dementia. Discussed with nursing. Objective Vitals Vital Signs Date Time Temp Pulse Resp B/P (MAP) Pulse Ox O2 Delivery O2 Flow Rate FiO2 03/14/17 07:52 95.7 52 19 147/87 (107) 96 03/14/17 04:45 95.5 57 16 163/81 (108) 93 03/14/17 04:19 53 03/14/17 00:10 62 03/13/17 23:35 97.2 58 16 174/98 (123) 94 03/13/17 21:10 56 03/13/17 20:05 97.3 58 16 171/83 (112) 95 03/13/17 15:35 96.0 59 17 181/89 (119) 97 03/13/17 11:35 95.3 58 17 173/91 (118) 99 I/O 03/13/17 03/13/17 03/13/17 03/14/17 03/14/17 03/14/17 07:00 15:00 23:00 07:00 15:00 23:00 Intake Total 515 ml 900 ml Balance 515 ml 900 ml Intake Oral 900 ml IV Total 515 ml # Voids 3 3 1 # Bowel Movements 2 Result Diagram: 03/12/17 0554 03/12/17 0554 Imaging Last Impressions Brain MRI 03/13/17 0000 Signed Impressions: Service Date/Time: Monday, March 13, 2017 18:02 - CONCLUSION: 1. No acute intracranial abnormality. 2. No change from previous study. 3. No acute infarction. Sidney Guillaume MD Abdomen X-Ray 03/12/17 0000 Signed Impressions: Service Date/Time: Sunday, March 12, 2017 13:38 - CONCLUSION: No acute disease. Asael Mcnulty MD Head CT 03/10/17 1425 Signed Impressions: Service Date/Time: Friday, March 10, 2017 18:04 - CONCLUSION: Slight atrophic and small vessel ischemic changes without any evidence for acute hemorrhage or mass effect, chronic sinusitis. Thomas Villa MD Chest X-Ray 03/10/17 1425 Signed Impressions: Service Date/Time: Friday, March 10, 2017 16:48 - CONCLUSION: No acute cardiopulmonary disease. Thomas Villa MD Abdomen/Pelvis CT 03/10/17 0000 Signed Impressions: Service Date/Time: Friday, March 10, 2017 19:09 - CONCLUSION: Fatty liver. Thomas Villa MD Objective Remarks GENERAL: Resting comfortably. HEENT: EOMI. no conjunctival injection. CARDIOVASCULAR: Regular rate and rhythm. RESPIRATORY: Clear to auscultation. Breath sounds equal bilaterally. GASTROINTESTINAL: Abdomen soft, obese, incisions healing well, no redness or signs of infection. Nontender. MUSCULOSKELETAL: Extremities without edema. No obvious deformities. NEUROLOGICAL: Awake. Able to answer my questions. Moving both upper and lower extremities spontaneously. PSYCH: Slightly agitated. A/P Problem List: (1) Encephalopathy ICD Code: G93.40 - Encephalopathy, unspecified (2) Bacteremia ICD Code: R78.81 - Bacteremia (3) Lactic acidosis ICD Code: E87.2 - Acidosis (4) Hx of cholecystectomy ICD Code: Z98.890 - Other specified postprocedural states; Z90.49 - Acquired absence of other specified parts of digestive tract (5) HTN (hypertension) ICD Code: I10 - Essential (primary) hypertension Status: Chronic Assessment and Plan Encephalopathy The pt was found disoriented, confused, agitated. Has had previous admits for similar presentations. CT Head w/ no acute findings. Given Narcan w/ immediate response and subsequently had to be sedated. Previously has been evaluated by psychiatry. Concern for early onset dementia. Neurology consult appreciated. - follow B12 and RPR. - neuro checks. - try to wean down pain medications. - psych consult pending. Bacteremia Recent admit, Blood Cultures 02/23/17 x2 +E. Coli. CXR w/ no acute findings. U/ a negative for UTI. No obvious source of infection. - would complete 2 more days of Augmentin as unsure if pt completed course of antibiotics on last AMA discharge. - follow repeat blood cultures. NGTD. Lactic acidosis Most likely from dehydration. - s/p IVFs. H/o Cholecystectomy CT Abd/Pelvis neg for acute process. Surgical consult appreciated. - outpt follow-up. HTN Blood pressure has been elevated. - continue home meds. N/V Evaluated by surgery. - check LFTs/ lipase level. - ADAT. - antiemetics as needed. PPx: SCDs Discharge Planning Awaiting psych Juwan Taylor DO Mar 14, 2017 10:28
[2017-03-14 10:52] LABS: ALBUMIN 2.7 GM/DL (3.4-5.0); AST (GOT) 29 U/L (15-37); BICARBONATE 28.1 MEQ/L (21.0-32.0); BLOOD UREA NITROGEN 3 MG/DL (7-18); CALCIUM 8.2 MG/DL (8.5-10.1); CHLORIDE 104 MEQ/L (98-107); CREATININE 0.78 MG/DL (0.60-1.30); GLOMERULAR FILTRATION RATE 101 ML/MIN (>89); GLUCOSE,RANDOM 87 MG/DL (74-106); LIPASE 70 U/L (73-393); SODIUM (NA) 140 MEQ/L (136-145)
[2017-03-14 10:53] LABS: ALT (GPT) 30 U/L (12-78)
[2017-03-14 11:19] LABS: ALKALINE PHOSPHATASE 66 U/L (45-117); TOTAL BILIRUBIN ADULT 0.4 MG/DL (0.2-1.0)
--- NOTE | 2017-03-14 13:54 | PD.PSY.CON ---
Provisional Diagnosis Admission Date Mar 10, 2017 at 19:26 [place] I. Unspecified psychosis, history of depression and anxiety History of Present Illness Service Psychiatry Consult Requested By Primary medical team Reason for Consult Disorganized thought process Primary Care Physician Marshal Carter MD HPI The patient is 61-year-old man, with psychiatric history of psychosis , anxiety, depression, he denies previous psychiatric hospitalizations, his not in psychotropics, he was seen by me in his previous hospitalization about a month ago due to delirium and to assess decision-making capacity, he has medical history of HTN, Hyperlipidemia, IBS and h/o Pseudoseizure who was brought to the ER by EMS after being found down at [facility]. Per report, pt noted to be disoriented, confused, agitated, complaints of abdominal pain but unable to elaborate. On arrival to ER, pt remained disoriented/lethargic, s/p Narcan w/ immediate response, episode of nausea/vomiting then became significantly agitated, kicking/spitting at staff, s/p Ativan, Benadryl 50mg and Geodon. He was admitted with Encephalopathy: found disoriented, confused , agitated, previous admit 02/19/17 w/ similar presentation. CT Head w/ no acute findings. Possibly drug-related, Urine Drug Screen positive for Opiates, given Narcan w/ immediate response and subsequently had to be sedated. Was consulted to psychiatry due to bizarre behavior and disorganized thought process. As per nursing charge the patient has been talking nonsense, incoherent, very irrational and illogical. On psychiatric evaluation patient recognized me from our previous encounters. He refused to talk to me and stated that he does not want to see me and he does not want to speak with a psychiatrist. He does deny depression, suicidal ideation, homicidal ideation, visual and auditory hallucinations, but refused further questioning About cognition. From previous conversation with his sister during his last hospitalization, she states that the patient has history of psychosis, but she could not clarify if the patient is a schizophrenic or bipolar. Past Family Social History Coded Allergies: No Known Allergies (Unverified Allergy, Unknown, 03/04/17) Active Scripts Morphine ER (Ms Contin) 15 Mg Tab, 30 MG PO Q8H for Pain Management, #30 TAB 0 Refills Prov:Juwan Rao DO 02/26/17 Reported Medications Morphine IR (Morphine IR) 15 Mg Tab, 15 MG PO Q6HR Y for PAIN, TAB 0 Refills 03/12/17 Clonazepam (Klonopin) 1 Mg Tab, 1 MG PO TID, TAB 0 Refills 03/11/17 Baclofen (Baclofen) 20 Mg Tab, 20 MG PO HS for Muscle Spasm, TAB 0 Refills 03/11/17 Montelukast (Singulair) 10 Mg Tab, 10 MG PO HS, #30 TAB 0 Refills 02/19/17 Sertraline (Sertraline) 100 Mg Tab, 100 MG PO DAILY, #30 TAB 0 Refills 02/19/17 Cholecalciferol (Vitamin D3) 2,000 Unit Cap, 2000 UNITS PO DAILY for Nutritional Supplement, #1 BOTTLE 0 Refills 02/19/17 Aspirin (Aspirin) 81 Mg Chew, 81 MG CHEW ONCE, #1 TAB 0 Refills 02/19/17 Omeprazole (Omeprazole) 40 Mg Cap, 40 MG PO DAILY, #30 CAP 0 Refills 02/19/17 Lovastatin (Lovastatin) 40 Mg Tab, 40 MG PO DAILY for Cholesterol Management, # 30 TAB 0 Refills 02/19/17 Atenolol (Atenolol) 50 Mg Tab, 50 MG PO BID for Blood Pressure Management, #60 TAB 0 Refills 02/19/17 Losartan (Losartan) 50 Mg Tab, 50 MG PO DAILY for Blood Pressure Management, # 30 TAB 0 Refills 02/19/17 Discontinued Scripts Cefuroxime (Cefuroxime) 500 Mg Tab, 500 MG PO Q12HR, #4 TAB Prov:Simon Flowers MD 03/05/17 Current Medications Medications (Trade) Dose Ordered Sig/Juan Pablo Route Start Time Stop Time Status Last Admin (NS Flush) 2 ml UNSCH PRN IV FLUSH 03/10/17 19:30 (NS Flush) 2 ml BID IV FLUSH 03/10/17 21:00 03/13/17 08:39 (Zofran Inj) 4 mg Q6H PRN IVP 03/10/17 19:30 03/11/17 20:33 (Tylenol) 650 mg Q6H PRN PO 03/10/17 19:30 03/13/17 05:50 (Lyndsey-Colace) 1 tab BID PO 03/10/17 21:00 03/14/17 08:50 (Milk Of Magnesia Liq) 30 ml Q12H PRN PO 03/10/17 19:30 (Senokot) 17.2 mg Q12H PRN PO 03/10/17 19:30 (Dulcolax Supp) 10 mg DAILY PRN RECTAL 03/10/17 19:30 (Lactulose Liq) 30 ml DAILY PRN PO 03/10/17 19:30 03/12/17 09:01 (Haldol Inj) 5 mg Q4H PRN IM 03/10/17 20:00 (Aspirin Chew) 81 mg DAILY CHEW 03/11/17 11:00 03/14/17 08:50 (Tenormin) 50 mg BID PO 03/11/17 21:00 03/14/17 08:50 (Lioresal) 20 mg HS PO 03/11/17 21:00 03/13/17 19:20 (KlonoPIN) 1 mg TID PO 03/11/17 13:00 03/14/17 12:31 (Cozaar) 50 mg DAILY PO 03/12/17 09:00 03/14/17 08:50 (Pravachol) 40 mg DAILY PO 03/12/17 09:00 03/14/17 08:50 (Singulair) 10 mg HS PO 03/11/17 21:00 03/13/17 19:21 (Zoloft) 100 mg DAILY PO 03/12/17 09:00 03/14/17 08:50 (Augmentin) 875 mg Q12HR PO 03/13/17 21:00 03/16/17 09:01 03/14/17 08:50 (Catapres) 0.1 mg Q6H PRN PO 03/13/17 17:00 (Oramorph Sr) 15 mg Q8HR PO 03/14/17 14:00 (Msir) 15 mg TID PRN PO 03/14/17 11:30 03/14/17 12:28 Physical Exam Vital Signs Vital Signs Date Time Temp Pulse Resp B/P (MAP) Pulse Ox O2 Delivery O2 Flow Rate FiO2 03/14/17 12:00 97.3 61 19 169/93 (118) 94 03/11/17 22:40 Room Air 03/10/17 21:44 2.00 Lab Results Test 03/13/17 20:13 Thyroid Stimulating Hormone 3rd Gen 2.190 uIU/ML Rapid Plasma Reagin NON-REACTIVE Date/Time Source Procedure Growth Status 03/10/17 14:32 Blood Peripheral Aerobic Blood Culture - Preliminary NO GROWTH IN 4 DAYS Resulted 03/10/17 14:32 Blood Peripheral Anaerobic Blood Culture - Preliminary NO GROWTH IN 4 DAYS Resulted Mental Status Examination Appearance: Appropriate Consciousness: Alert Mood: Oppositional Affect: Irritable Suicidal Ideation: No Suicidal Plan: No Suicidal Intention: No Homicidal Ideation: No Homicidal Plan: No Homicidal Intention: No Insight: Adequate Judgment: Adequate Mental Status Exam Remarks Mental status is limited due to lack of cooperation. Assessment & Plan Problem List: (1) Unspecified psychosis ICD Codes: F29 - Unspecified psychosis not due to a substance or known physiological condition Assessment & Plan: Patient refuses to cooperative with psychiatric evaluation. He has been described as disorganized and irrational. Will discussed the benefit of a potential psychiatric admission with primary medical team, will get collateral for baseline. No psychotropics at the moment. Will follow up. (2) Unspecified psychosis ICD Codes: F29 - Unspecified psychosis not due to a substance or known physiological condition Assessment & Plan Estimated LOS: Sawyer Decker MD Mar 14, 2017 13:54
[2017-03-14] MEDS: MORPHINE SULFATE 15 MG CONTROLLED RELEASE TAB PO SCH ×2 (15:01→21:45)
--- NOTE | 2017-03-14 16:21 | MG ---
cc: ALMA CHAWLA Sex: M DATE OF STUDY: 03/14/2017 Test number [id number] TECHNIQUE 17 channel EEG. DESCRIPTION The background reveals symmetrical alpha rhythm frequency 8 Hz amplitude 20-30 microvolts. No lateralizing features identified. There is some muscle artifact present. No epileptiform features are seen. Hyperventilation was done with no change in background rhythm. Photic stimulation results in normal driving response. INTERPRETATION Normal EEG. MD JAIME Mohr/PREMA /3:24 PM /3:58 PM [id number]
--- NOTE | 2017-03-14 17:53 | HHI.PR ---
Review/Management Daily Summary 03/14 seen in early am alert and describing poor sleep during night records reviewed, emotional yesterday with staff intt confusional episodes, recurrent mri brain negative, does not want eeg i am concerned about his decision making ability and possibly overuse of pain killer meds he does not have any supervision at the home environment and refusing psych care ! will also check B1 level Subjective Subjective Comments No acute neuro events reported No headache Active Medications Current Medications Medications (Trade) Dose Ordered Sig/Juan Pablo Route Start Time Stop Time Status Last Admin (NS Flush) 2 ml UNSCH PRN IV FLUSH 03/10/17 19:30 (NS Flush) 2 ml BID IV FLUSH 03/10/17 21:00 03/13/17 08:39 (Zofran Inj) 4 mg Q6H PRN IVP 03/10/17 19:30 03/11/17 20:33 (Tylenol) 650 mg Q6H PRN PO 03/10/17 19:30 03/13/17 05:50 (Lyndsey-Colace) 1 tab BID PO 03/10/17 21:00 03/14/17 08:50 (Milk Of Magnesia Liq) 30 ml Q12H PRN PO 03/10/17 19:30 (Senokot) 17.2 mg Q12H PRN PO 03/10/17 19:30 (Dulcolax Supp) 10 mg DAILY PRN RECTAL 03/10/17 19:30 (Lactulose Liq) 30 ml DAILY PRN PO 03/10/17 19:30 03/12/17 09:01 (Haldol Inj) 5 mg Q4H PRN IM 03/10/17 20:00 (Aspirin Chew) 81 mg DAILY CHEW 03/11/17 11:00 03/14/17 08:50 (Tenormin) 50 mg BID PO 03/11/17 21:00 03/14/17 08:50 (Lioresal) 20 mg HS PO 03/11/17 21:00 03/13/17 19:20 (KlonoPIN) 1 mg TID PO 03/11/17 13:00 03/14/17 12:31 (Cozaar) 50 mg DAILY PO 03/12/17 09:00 03/14/17 08:50 (Pravachol) 40 mg DAILY PO 03/12/17 09:00 03/14/17 08:50 (Singulair) 10 mg HS PO 03/11/17 21:00 03/13/17 19:21 (Zoloft) 100 mg DAILY PO 03/12/17 09:00 03/14/17 08:50 (Augmentin) 875 mg Q12HR PO 03/13/17 21:00 03/16/17 09:01 03/14/17 08:50 (Catapres) 0.1 mg Q6H PRN PO 03/13/17 17:00 (Oramorph Sr) 15 mg Q8HR PO 03/14/17 14:00 03/14/17 15:01 (Msir) 15 mg TID PRN PO 03/14/17 11:30 03/14/17 12:28 Allergies Allergies Coded Allergies No Known Allergies (Unverified Allergy, Unknown, 03/04/17) Review of Systems All other ROS: ROS reviewed as documented in chart Exam I&O / VS 03/14/17 03/14/17 03/15/17 15:00 23:00 07:00 Intake Total 950 ml Balance 950 ml Intake Oral 950 ml # Voids 4 Vital Signs Date Time Temp Pulse Resp B/P (MAP) Pulse Ox O2 Delivery O2 Flow Rate FiO2 03/14/17 16:00 54 03/14/17 15:28 97.8 60 19 181/87 (118) 98 03/14/17 12:00 97.3 61 19 169/93 (118) 94 03/14/17 08:00 54 03/14/17 07:52 95.7 52 19 147/87 (107) 96 03/14/17 04:45 95.5 57 16 163/81 (108) 93 03/14/17 04:19 53 03/14/17 00:10 62 03/13/17 23:35 97.2 58 16 174/98 (123) 94 03/13/17 21:10 56 03/13/17 20:05 97.3 58 16 171/83 (112) 95 Objective Radiology Results Last 48 hours Impressions Brain MRI 03/13/17 0000 Signed Impressions: Service Date/Time: Monday, March 13, 2017 18:02 - CONCLUSION: 1. No acute intracranial abnormality. 2. No change from previous study. 3. No acute infarction. Sidney Guillaume MD Micro and Labs Laboratory Tests Test 03/13/17 20:13 Thyroid Stimulating Hormone 3rd Gen 2.190 Rapid Plasma Reagin NON-REACTIVE Date/Time Source Procedure Growth Status 03/10/17 14:32 Blood Peripheral Aerobic Blood Culture - Preliminary NO GROWTH IN 4 DAYS Resulted 03/10/17 14:32 Blood Peripheral Anaerobic Blood Culture - Preliminary NO GROWTH IN 4 DAYS Resulted Carlos A Isaac MD Mar 14, 2017 17:53
[2017-03-14] MEDS: BACLOFEN 20 MG TAB PO SCH (20:02)
[2017-03-14] MEDS: MONTELUKAST SODIUM 10 MG TAB PO SCH (20:02)
[2017-03-15] VITALS (12 sets, daily range): BP systolic 136–173; BP diastolic 75–96; PULSE 51–67; RESP 18–22; TEMP 96.7–98.5; O2SAT 97–99
[2017-03-15] MEDS: MORPHINE SULFATE 15 MG TAB PO PRN ×3 (03:57→19:55)
[2017-03-15] MEDS: MORPHINE SULFATE 15 MG CONTROLLED RELEASE TAB PO SCH ×3 (05:38→22:57)
[2017-03-15] MEDS: clonazePAM 1 MG TAB PO SCH ×3 (08:50→18:28)
[2017-03-15] MEDS: SODIUM CHLORIDE 0.9% FLUSH 10 ML FLUSH IV FLUSH SCH ×2 (08:50→19:55)
[2017-03-15] MEDS: ASPIRIN 81 MG CHEW TAB CHEW SCH (08:50)
[2017-03-15] MEDS: PRAVASTATIN SOD 40 MG TAB PO SCH (08:50)
[2017-03-15] MEDS: LOSARTAN 50 MG TAB PO SCH (08:50)
[2017-03-15] MEDS: SERTRALINE HCL 100 MG TAB PO SCH (08:50)
[2017-03-15] MEDS: AMOXICILLIN/CLAVULANATE K 875 MG TAB PO SCH ×2 (08:50→19:54)
[2017-03-15] MEDS: DOCUSATE SODIUM 50 MG/SENNA 8.6 MG TAB PO SCH ×2 (08:51→19:54)
[2017-03-15] MEDS: ATENOLOL 50 MG TAB PO SCH ×2 (08:51→19:54)
--- NOTE | 2017-03-15 11:25 | HHI.PYPN ---
Subjective Remarks Patient was seen and examined today for psychiatric reevaluation. Documentation review. Case discussed with nurse in charge. On psychiatric evaluation the patient at the beginning was oppositional, refusing to cooperate with psychiatry. The patient was arguing that he is not here for psychiatric reason and he was not happy with the treatment he received for psychiatry in his last hospitalization. He accuses psychiatry, and to myself, of calling his sister and telling lies about him. After reassurance and redirection the patient finally accepted to cooperate. He says that he doesn't remember exactly the reason he is in the hospital. He says that he was somewhere around , and all of a sudden he opened his eyes and he was here in the hospital. Patient reports okay mood, he denies anhedonia, he denies depression, he denies anxiety, he denies perceptual disturbances, denies suicidal and homicidal ideation. He does report difficulty sleeping at night. He is fully oriented 3 at this moment. He shows some paranoia and at times he becomes kind of disorganized and confused, but easily redirectable. As per my conversation with the nursing charge the patient has been doing much better today than yesterday. Yesterday he was described as very disorganized and agitated. Review of Systems Except as stated in HPI: all other systems reviewed are Neg Mental Status Examination Appearance: Appropriate Consciousness: Alert Orientation: x4 Motor Activity: Normal gait Speech: Unremarkable Language: Adequate Fund of Knowledge: Adequate Attention and Concentration: Adequate Memory: Unremarkable Mood: Angry, Oppositional Affect: Irritable Thought Process & Associations: Intact Thought Content: Appropriate Hallucination Type: None Delusion Type: None Suicidal Ideation: No Suicidal Plan: No Suicidal Intention: No Homicidal Ideation: No Homicidal Plan: No Homicidal Intention: No Insight: Adequate Judgment: Adequate Results Labs Test 03/15/17 08:23 Date/Time Source Procedure Growth Status 03/10/17 14:32 Blood Peripheral Aerobic Blood Culture - Final NO GROWTH IN 5 DAYS Complete 03/10/17 14:32 Blood Peripheral Anaerobic Blood Culture - Final NO GROWTH IN 5 DAYS Complete Vitals/IOs Vital Signs Date Time Temp Pulse Resp B/P (MAP) Pulse Ox O2 Delivery O2 Flow Rate FiO2 03/15/17 08:47 66 03/15/17 08:00 96.7 18 136/75 (95) 97 03/15/17 07:54 Room Air Intake and Output 03/15/17 03/15/17 03/16/17 08:00 16:00 00:00 Intake Total 720 ml Balance 720 ml Assessment & Plan Problem List: (1) Unspecified psychosis ICD Codes: F29 - Unspecified psychosis not due to a substance or known physiological condition Assessment & Plan: At the moment of this evaluation the patient presents logical, coherent and relevant, with periods of confusion. He also shows some paranoid ideation, but he is not completely detached from reality. He denies mood symptoms, denies suicidal and homicidal ideation, denies visual and auditory hallucinations. He has been described as disorganized and agitated, but today seems to be doing much better. I have discussed the case with the nursing in order to continue close follow-up and money toward behavior and mood closely. No psychotropics at this moment. We'll follow-up. (2) Unspecified psychosis ICD Codes: F29 - Unspecified psychosis not due to a substance or known physiological condition Assessment & Plan Estimated LOS: days Justification for Cont. Inpt. There is no indication for psychiatric admission at this moment. Sawyer Cerda MD Mar 15, 2017 11:25
--- NOTE | 2017-03-15 16:16 | HHI.PR ---
Subjective Remarks The patient does not like the psychiatrist who spoke with him. The patient has no interest in going to inpatient psychiatry. He says his nausea and vomiting are better. His abdominal pain is better. He has not been sleeping well secondary to anxiety. Discussed with nursing. Objective Vitals Vital Signs Date Time Temp Pulse Resp B/P (MAP) Pulse Ox O2 Delivery O2 Flow Rate FiO2 03/15/17 12:00 96.8 58 18 157/88 (111) 98 03/15/17 08:47 66 03/15/17 08:00 96.7 51 18 136/75 (95) 97 03/15/17 07:54 Room Air 03/15/17 04:00 98.0 67 22 141/82 (101) 97 03/15/17 03:56 59 03/15/17 00:35 61 03/15/17 00:00 98.3 59 22 173/96 (121) 98 03/14/17 20:14 55 03/14/17 20:00 98.2 60 22 152/94 (113) 99 I/O 03/14/17 03/14/17 03/14/17 03/15/17 03/15/17 03/15/17 07:00 15:00 23:00 07:00 15:00 23:00 Intake Total 950 ml 720 ml 600 ml Balance 950 ml 720 ml 600 ml Intake Oral 950 ml 720 ml 600 ml # Voids 1 4 3 2 # Bowel Movements 1 1 Result Diagram: 03/12/17 0554 03/12/17 0554 Imaging Last Impressions Brain MRI 03/13/17 0000 Signed Impressions: Service Date/Time: Monday, March 13, 2017 18:02 - CONCLUSION: 1. No acute intracranial abnormality. 2. No change from previous study. 3. No acute infarction. Sidney Guillaume MD Abdomen X-Ray 03/12/17 0000 Signed Impressions: Service Date/Time: Sunday, March 12, 2017 13:38 - CONCLUSION: No acute disease. Asael Mcnulty MD Head CT 03/10/17 3109 Signed Impressions: Service Date/Time: Friday, March 10, 2017 18:04 - CONCLUSION: Slight atrophic and small vessel ischemic changes without any evidence for acute hemorrhage or mass effect, chronic sinusitis. Thomas Villa MD Chest X-Ray 03/10/17 6698 Signed Impressions: Service Date/Time: Friday, March 10, 2017 16:48 - CONCLUSION: No acute cardiopulmonary disease. Thomas Villa MD Abdomen/Pelvis CT 03/10/17 0000 Signed Impressions: Service Date/Time: Friday, March 10, 2017 19:09 - CONCLUSION: Fatty liver. Thomas Villa MD Objective Remarks GENERAL: Resting comfortably. HEENT: EOMI. no conjunctival injection. CARDIOVASCULAR: Regular rate and rhythm. RESPIRATORY: Clear to auscultation. Breath sounds equal bilaterally. GASTROINTESTINAL: Abdomen soft, obese, incisions healing well, no redness or signs of infection. Nontender. MUSCULOSKELETAL: Extremities without edema. No obvious deformities. NEUROLOGICAL: Awake. Able to answer my questions. Moving both upper and lower extremities spontaneously. PSYCH: Slightly agitated. Medications and IVs Current Medications Medications (Trade) Dose Ordered Sig/Juan Pablo Route Start Time Stop Time Status Last Admin (NS Flush) 2 ml UNSCH PRN IV FLUSH 03/10/17 19:30 (NS Flush) 2 ml BID IV FLUSH 03/10/17 21:00 03/14/17 20:04 (Zofran Inj) 4 mg Q6H PRN IVP 03/10/17 19:30 03/11/17 20:33 (Tylenol) 650 mg Q6H PRN PO 03/10/17 19:30 03/13/17 05:50 (Lyndsey-Colace) 1 tab BID PO 03/10/17 21:00 03/14/17 20:02 (Milk Of Magnesia Liq) 30 ml Q12H PRN PO 03/10/17 19:30 (Senokot) 17.2 mg Q12H PRN PO 03/10/17 19:30 (Dulcolax Supp) 10 mg DAILY PRN RECTAL 03/10/17 19:30 (Lactulose Liq) 30 ml DAILY PRN PO 03/10/17 19:30 03/12/17 09:01 (Haldol Inj) 5 mg Q4H PRN IM 03/10/17 20:00 (Aspirin Chew) 81 mg DAILY CHEW 03/11/17 11:00 03/15/17 08:50 (Tenormin) 50 mg BID PO 03/11/17 21:00 03/14/17 20:02 (Lioresal) 20 mg HS PO 03/11/17 21:00 03/14/17 20:02 (KlonoPIN) 1 mg TID PO 03/11/17 13:00 03/15/17 12:31 (Cozaar) 50 mg DAILY PO 03/12/17 09:00 03/15/17 08:50 (Pravachol) 40 mg DAILY PO 03/12/17 09:00 03/15/17 08:50 (Singulair) 10 mg HS PO 03/11/17 21:00 03/14/17 20:02 (Zoloft) 100 mg DAILY PO 03/12/17 09:00 03/15/17 08:50 (Augmentin) 875 mg Q12HR PO 03/13/17 21:00 03/16/17 09:01 03/15/17 08:50 (Catapres) 0.1 mg Q6H PRN PO 03/13/17 17:00 (Oramorph Sr) 15 mg Q8HR PO 03/14/17 14:00 03/15/17 15:25 (Msir) 15 mg TID PRN PO 03/14/17 11:30 03/15/17 12:32 A/P Problem List: (1) Encephalopathy ICD Code: G93.40 - Encephalopathy, unspecified (2) Bacteremia ICD Code: R78.81 - Bacteremia (3) Lactic acidosis ICD Code: E87.2 - Acidosis (4) Hx of cholecystectomy ICD Code: Z98.890 - Other specified postprocedural states; Z90.49 - Acquired absence of other specified parts of digestive tract (5) HTN (hypertension) ICD Code: I10 - Essential (primary) hypertension Status: Chronic Assessment and Plan Encephalopathy The pt was found disoriented, confused, agitated. Has had previous admits for similar presentations. CT Head w/ no acute findings. Given Narcan w/ immediate response and subsequently had to be sedated. Previously has been evaluated by psychiatry. Concern for early onset dementia. Neurology consult appreciated. MRI unremarkable. EEG normal. Psych consult appreciated. - follow B1 and RPR. - neuro checks. - try to wean down pain medications. - possible transfer to inpt psych. Bacteremia Recent admit, Blood Cultures 02/23/17 x2 +E. Coli. CXR w/ no acute findings. U/ a negative for UTI. No obvious source of infection. - would complete 2 more days of Augmentin as unsure if pt completed course of antibiotics on last AMA discharge. - follow repeat blood cultures. NGTD. Lactic acidosis Most likely from dehydration. - s/p IVFs. H/o Cholecystectomy CT Abd/Pelvis neg for acute process. Surgical consult appreciated. - outpt follow-up. HTN Blood pressure has been elevated. - continue home meds. N/V Evaluated by surgery. LFTs/ lipase level normal. Seems resolved. - ADAT. - antiemetics as needed. PPx: Juwan Saab DO Mar 15, 2017 16:16
[2017-03-15] MEDS: MONTELUKAST SODIUM 10 MG TAB PO SCH (19:54)
[2017-03-15] MEDS: BACLOFEN 20 MG TAB PO SCH (19:54)
[2017-03-16] VITALS: BP 150/91; PULSE 58; RESP 22; TEMP 97.6; O2SAT 98
[2017-03-16] MEDS ORDERED: PHARMACY ORDERED LAB ONE (01:45)
[2017-03-16 04:00] VITALS: BP 137/71; PULSE 56; RESP 24; TEMP 97.4; O2SAT 96
[2017-03-16] MEDS: MORPHINE SULFATE 15 MG TAB PO PRN ×3 (04:42→20:54)
[2017-03-16] MEDS: MORPHINE SULFATE 15 MG CONTROLLED RELEASE TAB PO SCH ×3 (06:14→21:03)
[2017-03-16 08:00] VITALS: BP 139/76; PULSE 50; RESP 17; TEMP 96.5; O2SAT 97
[2017-03-16] MEDS: SODIUM CHLORIDE 0.9% FLUSH 10 ML FLUSH IV FLUSH SCH ×2 (09:00→21:00)
[2017-03-16] MEDS: AMOXICILLIN/CLAVULANATE K 875 MG TAB PO SCH (09:55)
[2017-03-16] MEDS: PRAVASTATIN SOD 40 MG TAB PO SCH (09:55)
[2017-03-16] MEDS: SERTRALINE HCL 100 MG TAB PO SCH (09:55)
[2017-03-16] MEDS: DOCUSATE SODIUM 50 MG/SENNA 8.6 MG TAB PO SCH ×2 (09:55→20:42)
[2017-03-16] MEDS: ATENOLOL 50 MG TAB PO SCH ×2 (09:55→20:42)
[2017-03-16] MEDS: LOSARTAN 50 MG TAB PO SCH (09:55)
[2017-03-16] MEDS: ASPIRIN 81 MG CHEW TAB CHEW SCH (09:55)
[2017-03-16] MEDS: clonazePAM 1 MG TAB PO SCH ×3 (09:56→17:37)
[2017-03-16 11:49] VITALS: BP 133/81; PULSE 55; RESP 18; TEMP 98.7; O2SAT 96
--- NOTE | 2017-03-16 12:15 | HHI.PYPN ---
Subjective Remarks Patient was seen today for psychiatric reevaluation, patient is irritable, oppositional, he says that he doesn't want to see me anymore and he does not need any psychiatric care. Patient reports that he has been on pain and what he needs his pain medications. He denies mood symptoms, he denies suicidal and homicidal ideation, he denies visual and auditory hallucinations. The patient is fully oriented 3, even though at times seems to be confused, for example he told me that he has seen 2 different other psychiatrist today and they came with a global mobility specialist. He was redirected and he immediately became logical and coherent. No episodes of agitation or aggressive behavior or behavioral dysregulation reported. Review of Systems Psychiatric: COMPLAINS OF: Confusion Except as stated in HPI: all other systems reviewed are Neg Mental Status Examination Appearance: Appropriate Consciousness: Alert Orientation: x4 Motor Activity: Normal gait Speech: Unremarkable Language: Adequate Fund of Knowledge: Adequate Attention and Concentration: Adequate Memory: Unremarkable Mood: Angry, Oppositional Affect: Irritable Thought Process & Associations: Intact Thought Content: Appropriate Hallucination Type: None Delusion Type: None Suicidal Ideation: No Suicidal Plan: No Suicidal Intention: No Homicidal Ideation: No Homicidal Plan: No Homicidal Intention: No Insight: Adequate Judgment: Adequate Results Labs Date/Time Source Procedure Growth Status 03/10/17 14:32 Blood Peripheral Aerobic Blood Culture - Final NO GROWTH IN 5 DAYS Complete 03/10/17 14:32 Blood Peripheral Anaerobic Blood Culture - Final NO GROWTH IN 5 DAYS Complete Vitals/IOs Vital Signs Date Time Temp Pulse Resp B/P (MAP) Pulse Ox O2 Delivery O2 Flow Rate FiO2 03/16/17 11:49 98.7 55 18 133/81 (98) 96 03/15/17 19:58 Room Air Intake and Output 03/16/17 03/16/17 03/17/17 08:00 16:00 00:00 Intake Total 720 ml Balance 720 ml Assessment & Plan Problem List: (1) Unspecified psychosis ICD Codes: F29 - Unspecified psychosis not due to a substance or known physiological condition (2) Unspecified psychosis ICD Codes: F29 - Unspecified psychosis not due to a substance or known physiological condition Assessment & Plan: At this moment the patient doesn't present any prominent neuropsychiatric symptoms that require an immediate psychiatric intervention or admission. His episodic confusion and confabulatory statements could be related with an underlying undiagnosed neurocognitive disorder. He may be might benefit of Namenda and Aricept in order to slower a potential process of dementia. This could be addressed in outpatient basis. Psychiatry signing off. Assessment & Plan Estimated LOS: days Justification for Cont. Inpt. Patient does not meet criteria for involuntary psychiatric admission. Sawyer Cerda MD Mar 16, 2017 12:14
--- NOTE | 2017-03-16 15:59 | HHI.PR ---
Subjective Remarks The patient was encouraged to go to a care home facility but he refused. He said he just wants to go home. Discussed with nursing at the bedside. Objective Vitals Vital Signs Date Time Temp Pulse Resp B/P (MAP) Pulse Ox O2 Delivery O2 Flow Rate FiO2 03/16/17 11:49 98.7 55 18 133/81 (98) 96 03/16/17 08:00 96.5 50 17 139/76 (97) 97 03/16/17 04:00 97.4 56 24 137/71 (93) 96 03/16/17 00:00 97.6 58 22 150/91 (110) 98 03/15/17 23:57 53 03/15/17 23:49 56 03/15/17 19:58 Room Air 03/15/17 19:52 98.5 55 18 153/89 (110) 99 03/15/17 19:47 59 03/15/17 16:00 97.4 53 18 150/81 (104) 97 I/O 03/15/17 03/15/17 03/15/17 03/16/17 03/16/17 03/16/17 07:00 15:00 23:00 07:00 15:00 23:00 Intake Total 720 ml 600 ml 720 ml 600 ml Balance 720 ml 600 ml 720 ml 600 ml Intake Oral 720 ml 600 ml 720 ml 600 ml # Voids 3 2 1 3 # Bowel Movements 1 1 1 1 Result Diagram: 03/12/17 0554 03/12/17 0554 Imaging Last Impressions Brain MRI 03/13/17 0000 Signed Impressions: Service Date/Time: Monday, March 13, 2017 18:02 - CONCLUSION: 1. No acute intracranial abnormality. 2. No change from previous study. 3. No acute infarction. Sidney Guillaume MD Abdomen X-Ray 03/12/17 0000 Signed Impressions: Service Date/Time: Sunday, March 12, 2017 13:38 - CONCLUSION: No acute disease. Asael Mcnulty MD Head CT 03/10/17 6305 Signed Impressions: Service Date/Time: Friday, March 10, 2017 18:04 - CONCLUSION: Slight atrophic and small vessel ischemic changes without any evidence for acute hemorrhage or mass effect, chronic sinusitis. Thomas Villa MD Chest X-Ray 03/10/17 1425 Signed Impressions: Service Date/Time: Friday, March 10, 2017 16:48 - CONCLUSION: No acute cardiopulmonary disease. Thomas Villa MD Abdomen/Pelvis CT 03/10/17 0000 Signed Impressions: Service Date/Time: Friday, March 10, 2017 19:09 - CONCLUSION: Fatty liver. Thomas Villa MD Objective Remarks GENERAL: Resting comfortably. HEENT: EOMI. no conjunctival injection. CARDIOVASCULAR: Regular rate and rhythm. RESPIRATORY: Clear to auscultation. Breath sounds equal bilaterally. GASTROINTESTINAL: Abdomen soft, obese, incisions healing well, no redness or signs of infection. Nontender. MUSCULOSKELETAL: Extremities without edema. No obvious deformities. NEUROLOGICAL: Awake. Able to answer my questions. Moving both upper and lower extremities spontaneously. PSYCH: Slightly agitated. Medications and IVs Current Medications Medications (Trade) Dose Ordered Sig/Juan Pablo Route Start Time Stop Time Status Last Admin (NS Flush) 2 ml UNSCH PRN IV FLUSH 03/10/17 19:30 (NS Flush) 2 ml BID IV FLUSH 03/10/17 21:00 03/14/17 20:04 (Zofran Inj) 4 mg Q6H PRN IVP 03/10/17 19:30 03/11/17 20:33 (Tylenol) 650 mg Q6H PRN PO 03/10/17 19:30 03/13/17 05:50 (Lyndsey-Colace) 1 tab BID PO 03/10/17 21:00 03/16/17 09:55 (Milk Of Magnesia Liq) 30 ml Q12H PRN PO 03/10/17 19:30 (Senokot) 17.2 mg Q12H PRN PO 03/10/17 19:30 (Dulcolax Supp) 10 mg DAILY PRN RECTAL 03/10/17 19:30 (Lactulose Liq) 30 ml DAILY PRN PO 03/10/17 19:30 03/12/17 09:01 (Haldol Inj) 5 mg Q4H PRN IM 03/10/17 20:00 (Aspirin Chew) 81 mg DAILY CHEW 03/11/17 11:00 03/16/17 09:55 (Tenormin) 50 mg BID PO 03/11/17 21:00 03/16/17 09:55 (Lioresal) 20 mg HS PO 03/11/17 21:00 03/15/17 19:54 (KlonoPIN) 1 mg TID PO 03/11/17 13:00 03/16/17 12:47 (Cozaar) 50 mg DAILY PO 03/12/17 09:00 03/16/17 09:55 (Pravachol) 40 mg DAILY PO 03/12/17 09:00 03/16/17 09:55 (Singulair) 10 mg HS PO 03/11/17 21:00 03/15/17 19:54 (Zoloft) 100 mg DAILY PO 03/12/17 09:00 03/16/17 09:55 (Catapres) 0.1 mg Q6H PRN PO 03/13/17 17:00 (Oramorph Sr) 15 mg Q8HR PO 03/14/17 14:00 03/16/17 12:47 (Msir) 15 mg TID PRN PO 03/14/17 11:30 03/16/17 04:42 A/P Problem List: (1) Encephalopathy ICD Code: G93.40 - Encephalopathy, unspecified (2) Bacteremia ICD Code: R78.81 - Bacteremia (3) Lactic acidosis ICD Code: E87.2 - Acidosis (4) Hx of cholecystectomy ICD Code: Z98.890 - Other specified postprocedural states; Z90.49 - Acquired absence of other specified parts of digestive tract (5) HTN (hypertension) ICD Code: I10 - Essential (primary) hypertension Status: Chronic Assessment and Plan Encephalopathy The pt was found disoriented, confused, agitated. Has had previous admits for similar presentations. CT Head w/ no acute findings. Given Narcan w/ immediate response and subsequently had to be sedated. Previously has been evaluated by psychiatry. Concern for early onset dementia. Neurology consult appreciated. MRI unremarkable. EEG normal. Psych consult appreciated. - follow B1 and RPR. - neuro checks. - try to wean down pain medications. - continue PT/ OT. Bacteremia Recent admit, Blood Cultures 02/23/17 x2 +E. Coli. CXR w/ no acute findings. U/ a negative for UTI. No obvious source of infection. - would complete 2 more days of Augmentin as unsure if pt completed course of antibiotics on last AMA discharge. - follow repeat blood cultures. No growth, final. Lactic acidosis Most likely from dehydration. - s/p IVFs. H/o Cholecystectomy CT Abd/Pelvis neg for acute process. Surgical consult appreciated. - outpt follow-up. HTN Blood pressure has been elevated at times. - continue home meds. N/V Evaluated by surgery. LFTs/ lipase level normal. Seems resolved. - ADAT. - antiemetics as needed. PPx: SCDs Discharge Planning We need a safe discharge Juwan Rao DO Mar 16, 2017 15:59
[2017-03-16 16:00] VITALS: BP 155/82; PULSE 57; RESP 18; TEMP 97.8; O2SAT 98
[2017-03-16] MEDS ORDERED: PILL SPLITTER OTHER PRN (16:45)
[2017-03-16 20:00] VITALS: BP 149/80; PULSE 60; RESP 20; TEMP 98.3; O2SAT 97
[2017-03-16] MEDS: BACLOFEN 20 MG TAB PO SCH (20:42)
[2017-03-16] MEDS: MONTELUKAST SODIUM 10 MG TAB PO SCH (20:42)
[2017-03-16] MEDS ORDERED: MORPHINE SULFATE 15 MG CONTROLLED RELEASE TAB PO SCH (22:00)
[2017-03-16] MEDS ORDERED: MORPHINE SULFATE 15 MG TAB PO ONE (23:15)
[2017-03-17] VITALS (9 sets, daily range): BP systolic 120–159; BP diastolic 74–91; PULSE 50–63; RESP 16–20; TEMP 96.8–98.6; O2SAT 95–98
[2017-03-17] MEDS: MORPHINE SULFATE 15 MG TAB PO PRN ×4 (02:35→19:29)
[2017-03-17] MEDS: MORPHINE SULFATE 15 MG CONTROLLED RELEASE TAB PO SCH ×3 (05:44→22:07)
[2017-03-17] MEDS: DOCUSATE SODIUM 50 MG/SENNA 8.6 MG TAB PO SCH ×2 (08:43→20:20)
[2017-03-17] MEDS: PRAVASTATIN SOD 40 MG TAB PO SCH (08:43)
[2017-03-17] MEDS: LOSARTAN 50 MG TAB PO SCH (08:43)
[2017-03-17] MEDS: ATENOLOL 50 MG TAB PO SCH ×2 (08:43→20:20)
[2017-03-17] MEDS: clonazePAM 1 MG TAB PO SCH ×4 (08:44→20:19)
[2017-03-17] MEDS: ASPIRIN 81 MG CHEW TAB CHEW SCH (08:44)
[2017-03-17] MEDS: SODIUM CHLORIDE 0.9% FLUSH 10 ML FLUSH IV FLUSH SCH ×2 (08:44→20:20)
[2017-03-17] MEDS: SERTRALINE HCL 100 MG TAB PO SCH (08:44)
[2017-03-17] MEDS ORDERED: THIAMINE HCL 100 MG TAB PO SCH (14:15)
--- NOTE | 2017-03-17 14:42 | HHI.PR ---
Subjective Remarks The patient was resting comfortably in bed, watching football. He said that he would like to try working with physical therapy more frequently prior to going home. He said that he had diarrhea every once in a while but he has IBS and it is common. Discussed with nursing. Objective Vitals Vital Signs Date Time Temp Pulse Resp B/P (MAP) Pulse Ox O2 Delivery O2 Flow Rate FiO2 03/17/17 08:41 97.4 57 17 144/83 (103) 96 03/17/17 04:14 55 03/17/17 04:00 96.8 60 20 120/74 (89) 97 03/17/17 00:00 98.6 63 20 156/77 (103) 97 03/16/17 20:00 98.3 60 20 149/80 (103) 97 03/16/17 16:00 97.8 57 18 155/82 (106) 98 I/O 03/16/17 03/16/17 03/16/17 03/17/17 03/17/17 03/17/17 07:00 15:00 23:00 07:00 15:00 23:00 Intake Total 720 ml 600 ml 360 ml Balance 720 ml 600 ml 360 ml Intake Oral 720 ml 600 ml 360 ml # Voids 1 3 4 # Bowel Movements 1 1 Result Diagram: 03/12/17 0554 Imaging Last Impressions Brain MRI 03/13/17 0000 Signed Impressions: Service Date/Time: Monday, March 13, 2017 18:02 - CONCLUSION: 1. No acute intracranial abnormality. 2. No change from previous study. 3. No acute infarction. Sidney Guillaume MD Abdomen X-Ray 03/12/17 0000 Signed Impressions: Service Date/Time: Sunday, March 12, 2017 13:38 - CONCLUSION: No acute disease. Asael Mcnulty MD Head CT 03/10/17 1425 Signed Impressions: Service Date/Time: Friday, March 10, 2017 18:04 - CONCLUSION: Slight atrophic and small vessel ischemic changes without any evidence for acute hemorrhage or mass effect, chronic sinusitis. Thomas Villa MD Chest X-Ray 03/10/17 6997 Signed Impressions: Service Date/Time: Friday, March 10, 2017 16:48 - CONCLUSION: No acute cardiopulmonary disease. Thomas Villa MD Abdomen/Pelvis CT 03/10/17 0000 Signed Impressions: Service Date/Time: Friday, March 10, 2017 19:09 - CONCLUSION: Fatty liver. K. Lam Villa MD Objective Remarks GENERAL: Resting comfortably. HEENT: EOMI. no conjunctival injection. CARDIOVASCULAR: Regular rate and rhythm. RESPIRATORY: Clear to auscultation. Breath sounds equal bilaterally. GASTROINTESTINAL: Abdomen soft, obese, incisions healing well, no redness or signs of infection. Nontender. MUSCULOSKELETAL: Extremities without edema. No obvious deformities. NEUROLOGICAL: Awake. Able to answer my questions. Moving both upper and lower extremities spontaneously. PSYCH: Mood and affect appropriate. Medications and IVs Current Medications Medications (Trade) Dose Ordered Sig/Juan Pablo Route Start Time Stop Time Status Last Admin (NS Flush) 2 ml UNSCH PRN IV FLUSH 03/10/17 19:30 (NS Flush) 2 ml BID IV FLUSH 03/10/17 21:00 03/14/17 20:04 (Zofran Inj) 4 mg Q6H PRN IVP 03/10/17 19:30 03/11/17 20:33 (Tylenol) 650 mg Q6H PRN PO 03/10/17 19:30 03/13/17 05:50 (Lyndsey-Colace) 1 tab BID PO 03/10/17 21:00 03/17/17 08:43 (Milk Of Magnesia Liq) 30 ml Q12H PRN PO 03/10/17 19:30 (Senokot) 17.2 mg Q12H PRN PO 03/10/17 19:30 (Dulcolax Supp) 10 mg DAILY PRN RECTAL 03/10/17 19:30 (Lactulose Liq) 30 ml DAILY PRN PO 03/10/17 19:30 03/12/17 09:01 (Haldol Inj) 5 mg Q4H PRN IM 03/10/17 20:00 (Aspirin Chew) 81 mg DAILY CHEW 03/11/17 11:00 03/17/17 08:44 (Tenormin) 50 mg BID PO 03/11/17 21:00 03/17/17 08:43 (Lioresal) 20 mg HS PO 03/11/17 21:00 03/16/17 20:42 (KlonoPIN) 1 mg TID PO 03/11/17 13:00 03/17/17 14:07 (Cozaar) 50 mg DAILY PO 03/12/17 09:00 03/17/17 08:43 (Pravachol) 40 mg DAILY PO 03/12/17 09:00 03/17/17 08:43 (Singulair) 10 mg HS PO 03/11/17 21:00 03/16/17 20:42 (Zoloft) 100 mg DAILY PO 03/12/17 09:00 03/17/17 08:44 (Catapres) 0.1 mg Q6H PRN PO 03/13/17 17:00 (Msir) 7.5 mg TID PRN PO 03/16/17 16:30 03/17/17 08:44 (Oramorph Sr) 15 mg Q8HR PO 03/16/17 22:00 03/17/17 14:07 (Pill Splitter) 1 ea UNSCH PRN OTHER 03/16/17 16:45 (Vitamin B1) 100 mg DAILY PO 03/17/17 14:15 A/P Problem List: (1) Encephalopathy ICD Code: G93.40 - Encephalopathy, unspecified (2) Bacteremia ICD Code: R78.81 - Bacteremia (3) Lactic acidosis ICD Code: E87.2 - Acidosis (4) Hx of cholecystectomy ICD Code: Z98.890 - Other specified postprocedural states; Z90.49 - Acquired absence of other specified parts of digestive tract (5) HTN (hypertension) ICD Code: I10 - Essential (primary) hypertension Status: Chronic Assessment and Plan Encephalopathy The pt was found disoriented, confused, agitated. Has had previous admits for similar presentations. CT Head w/ no acute findings. Given Narcan w/ immediate response and subsequently had to be sedated. Previously has been evaluated by psychiatry. Concern for early onset dementia. Neurology consult appreciated. MRI unremarkable. EEG normal. Psych consult appreciated. RPR negative. Thiamine level low at 50. - Start IV thiamine. - Follow up with neurology. - neuro checks. - try to wean down pain medications. - continue PT/ OT. Add cognitive evaluation with speech therapy. Bacteremia Recent admit, Blood Cultures 02/23/17 x2 +E. Coli. CXR w/ no acute findings. U/ a negative for UTI. No obvious source of infection. Status post antibiotics. - follow repeat blood cultures. No growth, final. Lactic acidosis Most likely from dehydration. - s/p IVFs. H/o Cholecystectomy CT Abd/Pelvis neg for acute process. Surgical consult appreciated. - outpt follow-up. HTN Blood pressure has been elevated at times. - continue home meds. N/V Evaluated by surgery. LFTs/ lipase level normal. Seems resolved. - ADAT. - antiemetics as needed. PPx: Juwan Saab DO Mar 17, 2017 14:42
[2017-03-17] MEDS ORDERED: THIAMINE INJ 100 MG in SODIUM CHLORIDE 0.9% INJ 100 ML IV SCH (14:45)
[2017-03-17] MEDS: THIAMINE HCL 200 MG/2 ML VIAL IM SCH (15:56)
[2017-03-17] MEDS: MONTELUKAST SODIUM 10 MG TAB PO SCH (20:19)
[2017-03-17] MEDS: BACLOFEN 20 MG TAB PO SCH (20:20)
[2017-03-18] VITALS (8 sets, daily range): BP systolic 126–146; BP diastolic 68–83; PULSE 51–60; RESP 16–18; TEMP 96–97.7; O2SAT 96–99
[2017-03-18] MEDS: MORPHINE SULFATE 15 MG CONTROLLED RELEASE TAB PO SCH ×3 (06:05→21:55)
[2017-03-18] MEDS: DOCUSATE SODIUM 50 MG/SENNA 8.6 MG TAB PO SCH ×2 (09:00→20:35)
[2017-03-18] MEDS: SODIUM CHLORIDE 0.9% FLUSH 10 ML FLUSH IV FLUSH SCH ×2 (09:00→20:36)
[2017-03-18] MEDS: ATENOLOL 50 MG TAB PO SCH ×2 (09:31→20:34)
[2017-03-18] MEDS: ASPIRIN 81 MG CHEW TAB CHEW SCH (09:32)
[2017-03-18] MEDS: THIAMINE HCL 200 MG/2 ML VIAL IM SCH (09:32)
[2017-03-18] MEDS: LOSARTAN 50 MG TAB PO SCH (09:32)
[2017-03-18] MEDS: PRAVASTATIN SOD 40 MG TAB PO SCH (09:32)
[2017-03-18] MEDS: SERTRALINE HCL 100 MG TAB PO SCH (09:32)
[2017-03-18] MEDS: MORPHINE SULFATE 15 MG TAB PO PRN ×3 (09:32→20:35)
[2017-03-18] MEDS: clonazePAM 1 MG TAB PO SCH ×3 (09:32→17:59)
--- NOTE | 2017-03-18 14:46 | HHI.PR ---
Subjective Remarks The patient was resting comfortably in bed. He just finished his cognitive evaluation and said that he missed a few things. No other acute complaints. Discussed with nursing. Objective Vitals Vital Signs Date Time Temp Pulse Resp B/P (MAP) Pulse Ox O2 Delivery O2 Flow Rate FiO2 03/18/17 08:00 96.5 54 16 142/69 (93) 99 03/18/17 07:47 55 03/18/17 04:00 96.0 55 18 126/77 (93) 96 03/18/17 00:00 96.1 55 18 132/68 (89) 97 03/17/17 20:55 97.1 60 18 159/91 (113) 98 03/17/17 18:58 57 I/O 03/17/17 03/17/17 03/17/17 03/18/17 03/18/17 03/18/17 07:00 15:00 23:00 07:00 15:00 23:00 Intake Total 360 ml 1060 ml 360 ml Balance 360 ml 1060 ml 360 ml Intake Oral 360 ml 1060 ml 360 ml # Voids 4 6 3 # Bowel Movements 0 0 Result Diagram: 03/12/17 0554 Imaging Last Impressions Brain MRI 03/13/17 0000 Signed Impressions: Service Date/Time: Monday, March 13, 2017 18:02 - CONCLUSION: 1. No acute intracranial abnormality. 2. No change from previous study. 3. No acute infarction. Sidney Guillaume MD Abdomen X-Ray 03/12/17 0000 Signed Impressions: Service Date/Time: Sunday, March 12, 2017 13:38 - CONCLUSION: No acute disease. Asael Mcnulty MD Head CT 03/10/17 1425 Signed Impressions: Service Date/Time: Friday, March 10, 2017 18:04 - CONCLUSION: Slight atrophic and small vessel ischemic changes without any evidence for acute hemorrhage or mass effect, chronic sinusitis. Thomas Villa MD Chest X-Ray 03/10/17 1425 Signed Impressions: Service Date/Time: Friday, March 10, 2017 16:48 - CONCLUSION: No acute cardiopulmonary disease. Thomas Villa MD Abdomen/Pelvis CT 03/10/17 0000 Signed Impressions: Service Date/Time: Friday, March 10, 2017 19:09 - CONCLUSION: Fatty liver. Thomas Villa MD Objective Remarks GENERAL: Resting comfortably. HEENT: EOMI. no conjunctival injection. CARDIOVASCULAR: Regular rate and rhythm. RESPIRATORY: Clear to auscultation. Breath sounds equal bilaterally. GASTROINTESTINAL: Abdomen soft, obese, incisions healing well, no redness or signs of infection. Nontender. MUSCULOSKELETAL: Extremities without edema. No obvious deformities. NEUROLOGICAL: Awake. Able to answer my questions. Moving both upper and lower extremities spontaneously. PSYCH: Mood and affect appropriate. Medications and IVs Current Medications Medications (Trade) Dose Ordered Sig/Juan Pablo Route Start Time Stop Time Status Last Admin (NS Flush) 2 ml UNSCH PRN IV FLUSH 03/10/17 19:30 (NS Flush) 2 ml BID IV FLUSH 03/10/17 21:00 03/14/17 20:04 (Zofran Inj) 4 mg Q6H PRN IVP 03/10/17 19:30 03/11/17 20:33 (Tylenol) 650 mg Q6H PRN PO 03/10/17 19:30 03/13/17 05:50 (Lyndsey-Colace) 1 tab BID PO 03/10/17 21:00 03/17/17 20:20 (Milk Of Magnesia Liq) 30 ml Q12H PRN PO 03/10/17 19:30 (Senokot) 17.2 mg Q12H PRN PO 03/10/17 19:30 (Dulcolax Supp) 10 mg DAILY PRN RECTAL 03/10/17 19:30 (Lactulose Liq) 30 ml DAILY PRN PO 03/10/17 19:30 03/12/17 09:01 (Haldol Inj) 5 mg Q4H PRN IM 03/10/17 20:00 (Aspirin Chew) 81 mg DAILY CHEW 03/11/17 11:00 03/18/17 09:32 (Tenormin) 50 mg BID PO 03/11/17 21:00 03/18/17 09:31 (Lioresal) 20 mg HS PO 03/11/17 21:00 03/17/17 20:20 (KlonoPIN) 1 mg TID PO 03/11/17 13:00 03/18/17 13:42 (Cozaar) 50 mg DAILY PO 03/12/17 09:00 03/18/17 09:32 (Pravachol) 40 mg DAILY PO 03/12/17 09:00 03/18/17 09:32 (Singulair) 10 mg HS PO 03/11/17 21:00 03/17/17 20:19 (Zoloft) 100 mg DAILY PO 03/12/17 09:00 03/18/17 09:32 (Catapres) 0.1 mg Q6H PRN PO 03/13/17 17:00 (Msir) 7.5 mg TID PRN PO 03/16/17 16:30 03/18/17 09:32 (Oramorph Sr) 15 mg Q8HR PO 03/16/17 22:00 03/18/17 13:42 (Pill Splitter) 1 ea UNSCH PRN OTHER 03/16/17 16:45 (Thiamine Inj) 100 mg DAILY IM 03/17/17 14:45 03/18/17 09:32 A/P Problem List: (1) Encephalopathy ICD Code: G93.40 - Encephalopathy, unspecified (2) Bacteremia ICD Code: R78.81 - Bacteremia (3) Lactic acidosis ICD Code: E87.2 - Acidosis (4) Hx of cholecystectomy ICD Code: Z98.890 - Other specified postprocedural states; Z90.49 - Acquired absence of other specified parts of digestive tract (5) HTN (hypertension) ICD Code: I10 - Essential (primary) hypertension Status: Chronic Assessment and Plan Encephalopathy The pt was found disoriented, confused, agitated. Has had previous admits for similar presentations. CT Head w/ no acute findings. Given Narcan w/ immediate response and subsequently had to be sedated. Previously has been evaluated by psychiatry. Concern for early onset dementia. Neurology consult appreciated. MRI unremarkable. EEG normal. Psych consult appreciated. RPR negative. Thiamine level low at 50. The patient has mild to moderate cognitive deficits based on therapy cognitive evaluation. - continue IM thiamine. - Follow up with neurology. - neuro checks. - try to wean down pain medications. - continue PT/ OT/ ST cognitive evals. Bacteremia Recent admit, Blood Cultures 02/23/17 x2 +E. Coli. CXR w/ no acute findings. U/ a negative for UTI. No obvious source of infection. Status post antibiotics. - follow repeat blood cultures. No growth, final. Lactic acidosis Most likely from dehydration. - s/p IVFs. H/o Cholecystectomy CT Abd/Pelvis neg for acute process. Surgical consult appreciated. - outpt follow-up. HTN Blood pressure has been elevated at times. Stable. - continue home meds. N/V Evaluated by surgery. LFTs/ lipase level normal. Seems resolved. - ADAT. - antiemetics as needed. PPx: SCDs Discharge Planning Disposition is difficult with this patient. He lives alone and wants to go home. He has cleared physical and occupational therapy, however, he does have cognitive deficits as demonstrated on the speech therapy cognitive evaluation. There is also some degree of concern about the patient's capacity to make decisions. His sister says he cannot move in with her. He refuses to go to a jail facility. Goal will be to discharge home with supportive care if possible. Juwan Rao DO Mar 18, 2017 14:46
[2017-03-18] MEDS: BACLOFEN 20 MG TAB PO SCH (20:35)
[2017-03-18] MEDS: MONTELUKAST SODIUM 10 MG TAB PO SCH (20:35)
[2017-03-19] VITALS (7 sets, daily range): BP systolic 136–159; BP diastolic 71–89; PULSE 51–61; RESP 16–19; TEMP 96.3–97.5; O2SAT 95–98
[2017-03-19] MEDS: MORPHINE SULFATE 15 MG CONTROLLED RELEASE TAB PO SCH ×3 (05:57→20:20)
[2017-03-19] MEDS: ATENOLOL 50 MG TAB PO SCH ×2 (08:42→20:20)
[2017-03-19] MEDS: LOSARTAN 50 MG TAB PO SCH (08:42)
[2017-03-19] MEDS: MORPHINE SULFATE 15 MG TAB PO PRN ×3 (08:44→23:42)
[2017-03-19] MEDS: PRAVASTATIN SOD 40 MG TAB PO SCH (08:44)
[2017-03-19] MEDS: ASPIRIN 81 MG CHEW TAB CHEW SCH (08:44)
[2017-03-19] MEDS: clonazePAM 1 MG TAB PO SCH ×3 (08:44→17:31)
[2017-03-19] MEDS: SERTRALINE HCL 100 MG TAB PO SCH (08:44)
[2017-03-19] MEDS: THIAMINE HCL 200 MG/2 ML VIAL IM SCH (08:54)
[2017-03-19] MEDS: SODIUM CHLORIDE 0.9% FLUSH 10 ML FLUSH IV FLUSH SCH ×2 (08:55→20:17)
[2017-03-19] MEDS: DOCUSATE SODIUM 50 MG/SENNA 8.6 MG TAB PO SCH ×2 (09:00→20:19)
--- NOTE | 2017-03-19 13:45 | HHI.PR ---
Subjective Remarks Follow-up Encephalopathy. He has no complaints denies headache or dizziness. He is oriented 3. Refuses rehabilitation. States he lives alone. Denies alcohol use. Discussed with RN Objective Vitals Vital Signs Date Time Temp Pulse Resp B/P (MAP) Pulse Ox O2 Delivery O2 Flow Rate FiO2 03/19/17 12:10 97.1 52 19 139/79 (99) 95 03/19/17 08:11 97.4 51 17 140/80 (100) 95 03/19/17 04:00 96.3 51 18 159/87 (111) 98 03/19/17 00:00 97.5 52 16 136/83 (100) 95 03/18/17 20:00 96.8 60 18 146/83 (104) 99 03/18/17 19:30 59 03/18/17 16:00 51 I/O 03/18/17 03/18/17 03/18/17 03/19/17 03/19/17 03/19/17 07:00 15:00 23:00 07:00 15:00 23:00 Intake Total 360 ml 1250 ml 480 ml Output Total 4 ml Balance 360 ml 1246 ml 480 ml Intake Oral 360 ml 1250 ml 480 ml Output Urine Total 4 ml # Voids 3 2 1 # Bowel Movements 0 Imaging Last Impressions Brain MRI 03/13/17 0000 Signed Impressions: Service Date/Time: Monday, March 13, 2017 18:02 - CONCLUSION: 1. No acute intracranial abnormality. 2. No change from previous study. 3. No acute infarction. Sidney Guillaume MD Abdomen X-Ray 03/12/17 0000 Signed Impressions: Service Date/Time: Sunday, March 12, 2017 13:38 - CONCLUSION: No acute disease. Asael Mcnulty MD Head CT 03/10/17 1425 Signed Impressions: Service Date/Time: Friday, March 10, 2017 18:04 - CONCLUSION: Slight atrophic and small vessel ischemic changes without any evidence for acute hemorrhage or mass effect, chronic sinusitis. Thomas Villa MD Chest X-Ray 03/10/17 1424 Signed Impressions: Service Date/Time: Friday, March 10, 2017 16:48 - CONCLUSION: No acute cardiopulmonary disease. Thomas Villa MD Abdomen/Pelvis CT 03/10/17 0000 Signed Impressions: Service Date/Time: Friday, March 10, 2017 19:09 - CONCLUSION: Fatty liver. Thomas Villa MD Objective Remarks GENERAL: Resting comfortably. Well-developed obese in no distress HEENT: EOMI. no conjunctival injection. CARDIOVASCULAR: Regular rate and rhythm. RESPIRATORY: Clear to auscultation. Breath sounds equal bilaterally. GASTROINTESTINAL: Abdomen soft, obese, incisions healing well, no redness or signs of infection. Nontender. MUSCULOSKELETAL: Extremities without edema. No obvious deformities. NEUROLOGICAL: Awake. Able to answer my questions. Moving both upper and lower extremities spontaneously. PSYCH: Mood and affect appropriate. Procedures none A/P Problem List: (1) Encephalopathy ICD Code: G93.40 - Encephalopathy, unspecified (2) Bacteremia ICD Code: R78.81 - Bacteremia (3) Lactic acidosis ICD Code: E87.2 - Acidosis (4) Hx of cholecystectomy ICD Code: Z98.890 - Other specified postprocedural states; Z90.49 - Acquired absence of other specified parts of digestive tract (5) HTN (hypertension) ICD Code: I10 - Essential (primary) hypertension Status: Chronic Assessment and Plan Encephalopathy The pt was found disoriented, confused, agitated. Has had previous admits for similar presentations. CT Head w/ no acute findings. Given Narcan w/ immediate response and subsequently had to be sedated. Previously has been evaluated by psychiatry. Concern for early onset dementia. Neurology consult appreciated. MRI unremarkable. EEG normal. Psych consult appreciated. RPR negative. Thiamine level low at 50. The patient has mild to moderate cognitive deficits based on therapy cognitive evaluation. Suspect Wernicke's encephalopathy - Start IV thiamine 500 mg every 8 hours for 2 days then 250 mg IV/IM daily for 5 doses then 100 mg by mouth daily. - Follow up with neurology. - neuro checks. - try to wean down pain medications. - continue PT/ OT/ ST cognitive evals. Bacteremia Recent admit, Blood Cultures 02/23/17 x2 +E. Coli. CXR w/ no acute findings. U/ a negative for UTI. No obvious source of infection. Status post antibiotics. - follow repeat blood cultures. No growth, final. Lactic acidosis Most likely from dehydration. - s/p IVFs. H/o Cholecystectomy CT Abd/Pelvis neg for acute process. Surgical consult appreciated. - outpt follow-up. HTN Blood pressure has been elevated at times. Stable. - continue home meds. N/V Evaluated by surgery. LFTs/ lipase level normal. Seems resolved. - ADAT. - antiemetics as needed. PPx: SCDs Discharge Planning Disposition is difficult with this patient. He lives alone and wants to go home. He has cleared physical and occupational therapy, however, he does have cognitive deficits as demonstrated on the speech therapy cognitive evaluation. There is also some degree of concern about the patient's capacity to make decisions. His sister says he cannot move in with her. He refuses to go to a chcf facility. Goal will be to discharge home with supportive care if possible. Obtain competency evaluation by Jamie Shi MD Mar 19, 2017 13:45
[2017-03-19] MEDS ORDERED: THIAMINE INJ 500 MG in SODIUM CHLORIDE 0.9% INJ 100 ML IV SCH (14:00)
--- NOTE | 2017-03-19 15:59 | HHI.PR ---
Progress Notes/Response to Tx Progress Note Narrative Patient pleasant and participatory. Mood stable. Mariajose Sheets PhD Mar 19, 2017 15:59
[2017-03-19] MEDS: THIAMINE INJ 500 MG in SODIUM CHLOR 0.9% 250 ML INJ 250 ML IV SCH ×2 (16:00→23:42)
[2017-03-19] MEDS: MONTELUKAST SODIUM 10 MG TAB PO SCH (20:19)
[2017-03-19] MEDS: BACLOFEN 20 MG TAB PO SCH (20:20)
[2017-03-20] MEDS: MORPHINE SULFATE 15 MG CONTROLLED RELEASE TAB PO SCH ×3 (06:25→20:24)
[2017-03-20 07:42] VITALS: BP 152/84; PULSE 52; RESP 19; TEMP 96.9; O2SAT 98
[2017-03-20] MEDS: LOSARTAN 50 MG TAB PO SCH (09:00)
[2017-03-20] MEDS: DOCUSATE SODIUM 50 MG/SENNA 8.6 MG TAB PO SCH ×2 (09:00→20:24)
[2017-03-20] MEDS: ATENOLOL 50 MG TAB PO SCH ×2 (09:00→20:23)
[2017-03-20] MEDS: clonazePAM 1 MG TAB PO SCH ×3 (09:11→17:14)
[2017-03-20] MEDS: PRAVASTATIN SOD 40 MG TAB PO SCH (09:11)
[2017-03-20] MEDS: SERTRALINE HCL 100 MG TAB PO SCH (09:11)
[2017-03-20] MEDS: MORPHINE SULFATE 15 MG TAB PO PRN ×2 (09:12→17:15)
[2017-03-20] MEDS: SODIUM CHLORIDE 0.9% FLUSH 10 ML FLUSH IV FLUSH SCH ×2 (09:13→20:23)
[2017-03-20] MEDS: THIAMINE INJ 500 MG in SODIUM CHLOR 0.9% 250 ML INJ 250 ML IV SCH ×2 (09:17→16:00)
[2017-03-20] MEDS: ASPIRIN 81 MG CHEW TAB CHEW SCH (09:17)
[2017-03-20 11:58] VITALS: BP 137/80; PULSE 51; RESP 19; TEMP 97.3; O2SAT 96
--- NOTE | 2017-03-20 12:10 | HHI.PR ---
Subjective Remarks Follow-up encephalopathy. Complains of slight weakness today no other symptoms. Discussed with RN Objective Vitals Vital Signs Date Time Temp Pulse Resp B/P (MAP) Pulse Ox O2 Delivery O2 Flow Rate FiO2 03/20/17 11:58 97.3 51 19 137/80 (99) 96 03/20/17 07:42 96.9 52 19 152/84 (106) 98 03/20/17 07:25 18 03/20/17 03:20 Room Air 03/20/17 00:53 19 03/19/17 23:45 96.7 60 18 138/71 (93) 96 03/19/17 19:38 97.5 61 18 151/89 (109) 98 03/19/17 16:00 97.5 58 18 147/89 (108) 96 I/O 03/19/17 03/19/17 03/19/17 03/20/17 03/20/17 03/20/17 06:59 14:59 22:59 06:59 14:59 22:59 Intake Total 480 ml 720 ml 735 ml Balance 480 ml 720 ml 735 ml Intake Oral 480 ml 720 ml 480 ml IV Total 255 ml # Voids 1 4 4 # Bowel Movements 1 1 Objective Remarks GENERAL: Resting comfortably. Well-developed obese in no distress HEENT: EOMI. no conjunctival injection. CARDIOVASCULAR: Regular rate and rhythm. RESPIRATORY: Clear to auscultation. Breath sounds equal bilaterally. GASTROINTESTINAL: Abdomen soft, obese, incisions healing well, no redness or signs of infection. Nontender. MUSCULOSKELETAL: Extremities without edema. No obvious deformities. NEUROLOGICAL: Awake. Able to answer my questions. Moving both upper and lower extremities spontaneously. PSYCH: Mood and affect appropriate. Procedures none A/P Problem List: (1) Encephalopathy ICD Code: G93.40 - Encephalopathy, unspecified (2) Bacteremia ICD Code: R78.81 - Bacteremia (3) Lactic acidosis ICD Code: E87.2 - Acidosis (4) Hx of cholecystectomy ICD Code: Z98.890 - Other specified postprocedural states; Z90.49 - Acquired absence of other specified parts of digestive tract (5) HTN (hypertension) ICD Code: I10 - Essential (primary) hypertension Status: Chronic Assessment and Plan Encephalopathy The pt was found disoriented, confused, agitated. Has had previous admits for similar presentations. CT Head w/ no acute findings. Given Narcan w/ immediate response and subsequently had to be sedated. Previously has been evaluated by psychiatry. Concern for early onset dementia. Neurology consult appreciated. MRI unremarkable. EEG normal. Psych consult appreciated. RPR negative. Thiamine level low at 50. The patient has mild to moderate cognitive deficits based on therapy cognitive evaluation. Suspect Wernicke's encephalopathy -Continue IV thiamine 500 mg every 8 hours for 2 days then 250 mg IV/IM daily for 5 doses then 100 mg by mouth daily. - Follow up with neurology. - neuro checks. - try to wean down pain medications as well as benzodiazepines. - continue PT/ OT/ ST cognitive evals. Neuropsych evaluation for competency Bacteremia Recent admit, Blood Cultures 02/23/17 x2 +E. Coli. CXR w/ no acute findings. U/ a negative for UTI. No obvious source of infection. Status post antibiotics. - follow repeat blood cultures. No growth, final. Lactic acidosis Most likely from dehydration. - s/p IVFs. H/o Cholecystectomy CT Abd/Pelvis neg for acute process. Surgical consult appreciated. - outpt follow-up. HTN Blood pressure has been elevated at times. Stable. - continue home meds. N/V Evaluated by surgery. LFTs/ lipase level normal. Seems resolved. - ADAT. - antiemetics as needed. PPx: SCDs Discharge Planning Disposition is difficult with this patient. He lives alone and wants to go home. He has cleared physical and occupational therapy, however, he does have cognitive deficits as demonstrated on the speech therapy cognitive evaluation. There is also some degree of concern about the patient's capacity to make decisions. His sister says he cannot move in with her. He refuses to go to a care home facility. Goal will be to discharge home with supportive care if possible. Consult palliative care Jamie Easley MD Mar 20, 2017 12:10
[2017-03-20] MEDS ORDERED: VITA100T54 PO (12:17)
--- NOTE | 2017-03-20 12:17 | HHI.DCPOC ---
Discharge Care Plan Diagnosis: (1) Acute encephalopathy Your Health Problems Are: Difficulty with ADL Exercise Tolerance Goals to Promote Your Health * To prevent worsening of your condition and complications * To maintain your health at the optimal level Directions to Meet Your Goals Take your medications as prescribed Follow your dietary instruction Follow activity as directed Keep your appointments as scheduled Take your immunizations and boosters as scheduled If your symptoms worsen call your PCP, if no PCP go to Urgent Care Center or Emergency Room Smoking is Dangerous to Your Health. Avoid second hand smoke Call the 24-hour hour crisis hotline for domestic abuse at Jamie Easley MD Mar 20, 2017 12:17
--- NOTE | 2017-03-20 12:20 | HHI.FF ---
Face to Face Verification Diagnosis: (1) Acute encephalopathy Speech Therapy Order: To Improve: Cognitive skills Natural Resources Specialist Order: To Evaluate: Living conditions/environment, Support services Order: To Provide: Long range planning, Community services I have seen patient Juwan Cardenas on 03/20/17. My clinical findings support the need for the requested home health care services because: Med compliance is questionable I certify that my clinical findings support that this patient is homebound because: Need for psychosocial assistance Jamie Easley MD Mar 20, 2017 12:20
[2017-03-20] MEDS ORDERED: CANE/WOOD/MENS1 MI1 (12:23)
--- NOTE | 2017-03-20 14:59 | PD.HHIRCNE ---
Disclaimer Patient was given an explanation of the nature and purpose of the evaluation. Patient agreed to proceed with the evaluation and treatment plan. History Reason for Referral The patient is a 61 year old right handed male who was admitted for acute mental status changes after being found in a [employer] parking lot on 03/10/2017. He reportedly has had similar admissions in the past. Since his admission, there has been a concern about early onset dementia. Brain MRI was unremarkable , and EEG was normal. Recent cognition evaluation by [facility]NALY[facility] was notable for mild to moderate cognitive deficits. Historically, this patient graduated high school, college and graduate school, and for a time was working as an lead software qa engineer. He has been on SSDI for years for some type of back and neck injury. He is , has no children and lives alone. Given his cognitive presentation in light of his psychosocial situation, there is a concern about his decision making capacity. He is referred for baseline neuropsychological evaluation to assess cognitive, behavioral and emotional aspects of the injury and to provide treatment recommendations. Additional Psychosocial Hx Smoking Status: Never Smoker Tobacco Use In Past 12 Months: Cigarettes Hx Caffeine Use: Yes (SODA/DAILY) Hx Substance Use: No Level of Education: Graduate School Employment Status: Disabled Prior Living Setting: Home Past Surgical/Medical History Past Surgery: Yes (CERVICAL FUSION C2-3 4-5 5-6) Major surgery in last 100 days: Unknown Hx Anesthesia Reactions: No Hx Orthopedic Surgery: Yes (BILATERAL KNEE ARTHROSCOPY/ACL REPAIR RT KNEE, ) Hx of Neuro Prob: Yes Hx Seizures: Yes (PSEUDOSEIZURES) Hx of Musculoskeletal Pro: Yes Hx Arthritis: Yes Hx of Cardiovascular Prob: Yes Hypertension (High Blood Press: Yes Hx of Respiratory Problem: No Hx of GI Problems: Yes (IBS) Hx of Problems: No Hx of Immuno Disor: No Hx of Endocrine Problems: No Hx Psychiatric Problems: Yes Hx Anxiety: Yes Hx Depression: Yes Hx of MDRO: No Hx of MRSA: No Hx of VRE: No Hx of CDIFF: No Hx of Tuberculosis: No Hx of Body/Medical Devices: Yes Other Devices: titanium rods/screws neck Blood Transfusion History Will receive Blood /Blood prod: Yes Hx Blood Transfusions: No Medication Active Medications Thiamine HCl 500 mg/Sodium Chloride 255 ml @ 255 mls/hr Q8H IV Last administered on 03/20/17at 09:17; Admin Dose 255 MLS/HR; Start 03/19/17 at 16:00; Stop 03/21/17 at 08:59 Mental Status Assessment Orientation: oriented to Self, oriented to Place, oriented to Time, oriented to Situation Mental Status: WFL: Language/Interactions, Attention, Impaired: Thought processing, Learning/Memory, Problem-Solving Adjustment/Coping Assessment Adjustment/Coping: None: Depression, Anxiety, Severe: Awareness, Insight Observation In terms of emotional functioning, the patient demonstrated normal adjustment although his self-appraisal is attenuated by his deficits of insight, awareness and judgment. This patient demonstrated no signs of agitation, impulsivity or disinhibition, nor was there remarkable evidence of a formal thought disorder or psychosis. There was no evidence of depression or anxiety. The Geriatric Depression Scale-Short Form was administered given the ease to which it is administered to persons with known neurological pathology, and the patient endorsed 2 of 15 symptoms, which falls within the non depressed range. Thought content was free from suicidal, homicidal or paranoid ideation, and thought processes were bradyphrenic and tangential. The patients mood was euthymic, and his affect was stable and appropriate. The patient appears to possess poor insight and awareness into their situation and within the limits of this brief evaluation, poor judgment. LTG Status: Deferred STG Status: Deferred Team Members: Physician, Neuropsychologist Effort Assessment Effort: Average Cognition Assessment Rating: WFL: Language, Visual Perception, Spatial Judgement, Impaired: Attention/Processing, Immediate & Delayed Memor, Executive, Awareness-Insight Adjustm Observation The patient was alert and oriented to person, place, time and circumstances surrounding the recent hospitalization. The Mini-Mental State Exam was administered, and the patient obtained a score of 27 out of 30 points, which falls in the normal range. However, on further evaluation, specific deficits were identified. In terms of attention skills, the patient exhibited marginally normal abilities. The patient was able to remain on task and remember basic verbal instructions, but his attentional ability attenuated with increasingly complex verbal instructions. In terms of memory functioning, the patient exhibited challenges. The patients initial registration of verbal information was normal, but the patient was unable to improve their memory with repetition. After a period of delay, the patient was unable to recall an acceptable amount of this information from memory. More specifically, on the Luria Memory Words Test-Short Form, the patients trial one performance was 4 of 7 words, trial five performance was 5 of 7 words, the patients Total Learning score was 22 (below cut-off), and the patients Delayed recall score was 3 of 7 words (below cut-off). Additionally, recognition cues did not facilitate his recall of this information. In terms of speech and language skills, the patient demonstrated normal abilities. The patients initiated spontaneous conversation throughout the assessment. Speech was characterized by adequate prosody, grammar, articulation, volume and rate. No remarkable dysnomic or paraphasic errors were noted either during conversational speech or on confrontation naming tasks. Reading recognition skills were adequate, as were writing skills. On a test of reading recognition, his performance fell within the average range, with a standard score of 95 ( percentile rank of 37). The patients comprehension for basic one- and two- stage commands was attenuated with increasing complexity. In terms of problem- solving skills, the patient exhibited challenges. The patients ability to understand abstraction reasoning was poor as reflected in his fluctuating ability to abstract essential shared characteristics of objects and concepts. Mathematical reasoning skills were also abnormal. Speed of information processing, as evaluated by both the Letter and Category Fluency Tests was abnormal. Finally, there was no evidence of ideomotor apraxia or constructional difficulties during this brief evaluation. Summary/Diagnosis Summary This 61 year old man with a past medical history of acute mental status changes and was admitted on 03/10/2017, yet at 11 days out he continues to exhibit neuropsychological deficits inconsistent with baseline expectations. On examination, this patient exhibits impairments of learning and memory and executive functioning. His ability to understand complex instructions are attenuated by his impairments of learning and memory so much so that he would be unable to learn and remember medical directives provided to him. Additionally, he demonstrates impairments of insight, awareness and judgment that in addition to his neuropsychological deficits, preclude his decision making capacity at this point in his recovery process. Impressions Neuropsychological deficits inconsistent with baseline expectations. Diagnosis: (1) Major neurocognitive disorder due to another medical condition Recommendations Recommendations Recommendations Juwan is NOT considered to be cognitively capable of making decisions of legal , financial and medical nature at this point in his recovery process. He demonstrates the impaired ability to appreciate a situation and its likely consequences and he demonstrates the impaired ability to manipulate information rationally. In essence, he lacks decision making capacity at this time. His living situation makes it all the more difficult to discharge him safely at this time. Continued medical evaluation and treatment for his residual neurocognitive deficits is recommended. It is suggested to avoid benzodiazepines, as such use may exacerbate his cognitive issues, unless medically contraindicated. I will round on him every day to assess for an improvement of his decision making capacity. Session Attendance Variance 60 minutes. Edward Kidd PhD Mar 20, 2017 2:59 pm
[2017-03-20 15:33] VITALS: BP 133/76; PULSE 54; RESP 19; TEMP 97.2; O2SAT 97
[2017-03-20 19:56] VITALS: BP 134/71; PULSE 60; RESP 18; TEMP 97.3; O2SAT 98
[2017-03-20 20:00] VITALS: PULSE 58
[2017-03-20] MEDS: BACLOFEN 20 MG TAB PO SCH (20:23)
[2017-03-20] MEDS: MONTELUKAST SODIUM 10 MG TAB PO SCH (20:24)
[2017-03-20 20:40] VITALS: BP 166/79; PULSE 59; RESP 18; TEMP 98.6; O2SAT 97
[2017-03-21] VITALS (7 sets, daily range): BP systolic 137–177; BP diastolic 80–98; PULSE 47–55; RESP 16–20; TEMP 97.4–98.7; O2SAT 93–98
[2017-03-21] MEDS: MORPHINE SULFATE 15 MG TAB PO PRN ×2 (02:48→20:48)
[2017-03-21] MEDS: MORPHINE SULFATE 15 MG CONTROLLED RELEASE TAB PO SCH ×3 (05:41→23:17)
[2017-03-21] MEDS: ATENOLOL 50 MG TAB PO SCH ×3 (09:00→20:30)
[2017-03-21] MEDS: DOCUSATE SODIUM 50 MG/SENNA 8.6 MG TAB PO SCH ×2 (09:00→20:30)
[2017-03-21] MEDS: PRAVASTATIN SOD 40 MG TAB PO SCH (10:09)
[2017-03-21] MEDS: SERTRALINE HCL 100 MG TAB PO SCH ×2 (10:09→11:52)
[2017-03-21] MEDS: ASPIRIN 81 MG CHEW TAB CHEW SCH ×2 (10:09→11:52)
[2017-03-21] MEDS: SODIUM CHLORIDE 0.9% FLUSH 10 ML FLUSH IV FLUSH SCH ×2 (10:11→20:33)
[2017-03-21] MEDS: THIAMINE INJ 500 MG in SODIUM CHLOR 0.9% 250 ML INJ 250 ML IV SCH ×3 (10:11)
--- NOTE | 2017-03-21 11:14 | HHI.PR ---
Subjective Remarks Follow up encephalopathy. Patient was agitated earlier currently denies any complaints. Discussed with nursing staff Objective Vitals Vital Signs Date Time Temp Pulse Resp B/P (MAP) Pulse Ox O2 Delivery O2 Flow Rate FiO2 03/21/17 06:41 20 03/21/17 04:00 97.4 54 20 164/86 (112) 97 03/21/17 03:48 20 03/21/17 00:00 98.0 54 20 165/83 (110) 93 03/20/17 20:40 Room Air 03/20/17 20:40 98.6 59 18 166/79 (108) 97 03/20/17 20:00 58 03/20/17 19:56 97.3 60 18 134/71 (92) 98 03/20/17 15:33 97.2 54 19 133/76 (95) 97 03/20/17 11:58 97.3 51 19 137/80 (99) 96 I/O 03/20/17 03/20/17 03/20/17 03/21/17 03/21/17 03/21/17 07:00 15:00 23:00 07:00 15:00 23:00 Intake Total 735 ml 950 ml 480 ml 480 ml 120 ml Output Total 880 ml Balance 735 ml 950 ml 480 ml -400 ml 120 ml Intake Oral 480 ml 950 ml 480 ml 480 ml 120 ml IV Total 255 ml Output Urine Total 880 ml # Voids 4 4 5 # Bowel Movements 1 1 0 Objective Remarks GENERAL: Resting comfortably. Well-developed obese in no distress HEENT: EOMI. no conjunctival injection. CARDIOVASCULAR: Regular rate and rhythm. RESPIRATORY: Clear to auscultation. Breath sounds equal bilaterally. GASTROINTESTINAL: Abdomen soft, obese, incisions healing well, no redness or signs of infection. Nontender. MUSCULOSKELETAL: Extremities without edema. No obvious deformities. NEUROLOGICAL: Awake. Able to answer my questions. Moving both upper and lower extremities spontaneously. PSYCH: Mood and affect appropriate. No significant change in PE from previous Procedures none A/P Problem List: (1) Encephalopathy ICD Code: G93.40 - Encephalopathy, unspecified (2) Bacteremia ICD Code: R78.81 - Bacteremia (3) Lactic acidosis ICD Code: E87.2 - Acidosis (4) Hx of cholecystectomy ICD Code: Z98.890 - Other specified postprocedural states; Z90.49 - Acquired absence of other specified parts of digestive tract (5) HTN (hypertension) ICD Code: I10 - Essential (primary) hypertension Status: Chronic Assessment and Plan Encephalopathy The pt was found disoriented, confused, agitated. Has had previous admits for similar presentations. CT Head w/ no acute findings. Given Narcan w/ immediate response and subsequently had to be sedated. Previously has been evaluated by psychiatry. Concern for early onset dementia. Neurology consult appreciated. MRI unremarkable. EEG normal. Psych consult appreciated. RPR negative. Thiamine level low at 50. The patient has mild to moderate cognitive deficits based on therapy cognitive evaluation. Suspect Wernicke's encephalopathy -Continue IV thiamine 250 mg IV/IM daily for 5 doses then 100 mg by mouth daily. - Follow up with neurology. - neuro checks. - try to wean down pain medications as well as benzodiazepines. - continue PT/ OT/ ST cognitive evals. Patient is not competent to make decisions and unsafe to be discharged home due to cognitive deficits per neuropsychiatry Bacteremia Recent admit, Blood Cultures 02/23/17 x2 +E. Coli. CXR w/ no acute findings. U/ a negative for UTI. No obvious source of infection. Status post antibiotics. - follow repeat blood cultures. No growth, final. Lactic acidosis Most likely from dehydration. - s/p IVFs. H/o Cholecystectomy CT Abd/Pelvis neg for acute process. Surgical consult appreciated. - outpt follow-up. HTN Blood pressure has been elevated at times. Stable. - continue home meds. N/V Evaluated by surgery. LFTs/ lipase level normal. Seems resolved. - ADAT. - antiemetics as needed. PPx: SCDs Discharge Planning Disposition is difficult with this patient. He lives alone and wants to go home. He has cleared physical and occupational therapy, however, he does have cognitive deficits as demonstrated on the speech therapy cognitive evaluation. At this time, he has no capacity to make decisions. His sister says he cannot move in with her. He refuses to go to a long term facility. Goal will be to discharge home with supportive care if possible. Consult palliative care Jamie Easley MD Mar 21, 2017 11:14
[2017-03-21] MEDS: clonazePAM 0.5 MG TAB PO SCH ×3 (11:52→18:00)
--- NOTE | 2017-03-21 12:26 | PD.CONS ---
Consult Service Palliative Care Consult Requested By Dr. Easley Primary Care Physician Marshal Carter MD Reason for Consultation a. To assist with evaluation and management of symptoms including: Confusion , pain b. To assist medical decision maker(s) with: better understanding of current medical conditions; weighing benefits/burdens of medical treatment options; making medical treatment decisions. HPI History of Present Illness Mr Cardenas is a 61 years old male with a past medical history of hypertension , hyperlipidemia, chronic pain, anxiety, depression and pseudoseizure. Patient has had 2 admissions in February prior to this current admission. In both cases patient was complaining of intractable abdominal pain and was also treated for confusion and delirium. During hospitalization from Feb 22 - Mar 03 patient was treated for delirium and gangrenous cholecystitis and he underwent laparoscopic cholecystectomy and umbilical hernia repair 02/23/17. Close to medical discharge, it was felt that patient would be safely discharged to a SNF and patient refused to go to a SNF and he signed out AMA. Patient returned to the hospital on March 04, 2017 complaining of abdominal pain and diarrhea. Patient was brought in by EMS on 03/10/17 after he was found with altered mental status in the mul[facility] at [facility]. At that time patient was only oriented to himself. ER Course: * Vital signs: Temperature 99.7, pulse 97, respirations 14, BP 148/84, O2 saturation 95% on room air * Laboratory workup revealed WBC 7.0, hemoglobin 10.8, hematocrit 31.6, platelet count 180, sodium 135, potassium 4.0, GFR 73, BUN/creatinine 8/1.03, lactic acid 2.2, total protein 7.3, albumin 3.3 * Head CT revealed slight atrophic and small vessel ischemic changes without any evidence for acute hemorrhage or mass effect, chronic sinusitis. * Chest x-ray revealed no acute cardiopulmonary disease. * Abdomen x-ray revealed nonspecific abdomen. * UA negative * Toxicology positive for opiates which is expected * Narcan IV administered-Patient became more alert after Narcan administration * Had projectile vomiting and Zofran IVP was administered. * Patient became agitated requiring use of bilateral soft restraints and Geodon 20mg IM was given. * 3L IV fluids administered. Neurology Dr. Isaac consulted for management of altered mentation. Psychiatry Dr. Dominique 03/14/17 consulted for evaluation and management of disorganized thought process. His psychiatry not patient`s confusion could not related with underlying undiagnosed neurocognitive disorder, recommended starting patient on Namenda and Aricept to slow a potential process of dementia. Psychiatry signed off. Neuropsychology Marti PhD, consulted 03/20/17 and noted that patient has neuropsychological deficits inconsistent with baseline expectations and he demonstrated impairment of insight, awareness and judgment. Clinical case complicated with encephalopathy and concern for patient`s capability to participate in decision making regarding his care. His disposition has been difficult because patient wants to be discharged home instead of a SNF. Palliative care consulted to assist with clarification of medical treatment goals. Patient seen and examined in his room on [facility]. Patient is awake, alert, oriented 3 with some confusion, and is paranoid. Obtained psychosocial history and some of it was true and some was fabricated information after confirming with patient`s sister over a telephone conversation. Patient is able to follow simple commands with all extremities. Vital signs stable. Denies pain during this visit though he states that he does get painful sometimes and was not able to state location of pain and description of pain. No recent laboratory work up. Patient stated that he lives alone and he is ready to be discharged home. Patient states that he has a sister, stepmother and neighbors who can check on him. Discussed his safety regarding living alone and patient states he will be safe with the aforementioned people checking on him and he said he will not go anywhere else but his home. Discussed advance directives and patient stated that he has them locked up in a safe somewhere and was not going to tell me where. Patient stated that his sister is his healthcare surrogate. When offered assistance with completing HCS forms, patient became paranoid and said he was not comfortable having a stranger make him sign papers and he got agitated, refused to talk any further and said he was going to leave. Bedside RN immediately notified. Patient out of bed and went to the bathroom, where he stayed for a few minutes and then later came back in room and went back to bed after everyone had walked out of the room. Telephone conversation with patient's sister. Patient's sister, stated that she is not able to live with her brother because she has tried that before and almost lost her marriage. She stated that the patient is argumentative, paranoid and very accusing. She mentioned that she is not able to control his behavior and that she doubts if he has any advance directives. 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 Case discussed with bedside RN and case management Hodan. . Function/Cognitive Trajectory Patient lives at home alone. Independent of all his ADLs. Patient has had problems with confusion, delirium and inability to participate in decision making. Per his sister, patient has no one to check up on him, his sister is not able to live with him. She mentions that patient is a hoarder and there was a time while helping patient clean up his house she noticed that he had 2 Morphine Sulfate bottles with different dosages prescribed by 2 different physicians. . Review of Systems ROS Limitations: Altered Mental Status Constitutional: COMPLAINS OF: Pain, DENIES: Fever, Change in appetite, Generalized weakness Eyes: DENIES: Eye inflammation Ears, nose, mouth, throat: DENIES: Hearing loss, Running Nose Respiratory: DENIES: Cough, Shortness of breath Cardiovascular: DENIES: Lower Extremity Edema Gastrointestinal: COMPLAINS OF: Vomiting Hematologic/Lymphatics: COMPLAINS OF: Bruising Psychiatric: COMPLAINS OF: Confusion, Depression, Hallucinations, Agitation Past Family Social History Coded Allergies: No Known Allergies (Unverified Allergy, Unknown, 03/04/17) Past Medical History Hypertension Hyperlipidemia Chronic pain Anxiety Depression Pseudoseizure . Past Surgical History Cervical fusion A right knee reconstruction Bilateral knee arthroplasties Right foot repair Laparoscopic cholecystectomy and umbilical hernia repair 02/23/17 . Reported Medications Ms Contin (Morphine Sulfate) 15 Mg Tab 30 Mg PO Q8H Morphine IR (Morphine Sulfate) 15 Mg Tab 15 Mg PO Q6HR PRN Klonopin (Clonazepam) 1 Mg Tab 1 Mg PO TID Baclofen 20 Mg Tab 20 Mg PO HS Singulair (Montelukast Sodium) 10 Mg Tab 10 Mg PO HS Sertraline (Sertraline HCl) 100 Mg Tab 100 Mg PO DAILY Vitamin D3 (Cholecalciferol) 2,000 Unit Cap 2,000 Units PO DAILY Aspirin 81 Mg Chew 81 Mg CHEW ONCE Omeprazole 40 Mg Cap 40 Mg PO DAILY Lovastatin 40 Mg Tab 40 Mg PO DAILY Atenolol 50 Mg Tab 50 Mg PO BID Losartan (Losartan Potassium) 50 Mg Tab 50 Mg PO DAILY . Current Medications Medications (Trade) Dose Ordered Sig/Juan Pablo Route Start Time Stop Time Status Last Admin (NS Flush) 2 ml UNSCH PRN IV FLUSH 03/10/17 19:30 03/20/17 16:00 (NS Flush) 2 ml BID IV FLUSH 03/10/17 21:00 03/21/17 10:11 (Zofran Inj) 4 mg Q6H PRN IVP 03/10/17 19:30 03/11/17 20:33 (Tylenol) 650 mg Q6H PRN PO 03/10/17 19:30 03/13/17 05:50 (Lyndsey-Colace) 1 tab BID PO 03/10/17 21:00 03/18/17 20:35 (Milk Of Magnesia Liq) 30 ml Q12H PRN PO 03/10/17 19:30 (Senokot) 17.2 mg Q12H PRN PO 03/10/17 19:30 (Dulcolax Supp) 10 mg DAILY PRN RECTAL 03/10/17 19:30 (Lactulose Liq) 30 ml DAILY PRN PO 03/10/17 19:30 03/12/17 09:01 (Haldol Inj) 5 mg Q4H PRN IM 03/10/17 20:00 (Aspirin Chew) 81 mg DAILY CHEW 03/11/17 11:00 03/21/17 10:09 (Tenormin) 50 mg BID PO 03/11/17 21:00 03/21/17 10:08 (Lioresal) 20 mg HS PO 03/11/17 21:00 03/20/17 20:23 (Cozaar) 50 mg DAILY PO 03/12/17 09:00 03/19/17 08:42 (Pravachol) 40 mg DAILY PO 03/12/17 09:00 03/21/17 10:09 (Singulair) 10 mg HS PO 03/11/17 21:00 03/20/17 20:24 (Zoloft) 100 mg DAILY PO 03/12/17 09:00 03/21/17 10:09 (Catapres) 0.1 mg Q6H PRN PO 03/13/17 17:00 (Msir) 7.5 mg TID PRN PO 03/16/17 16:30 03/21/17 02:48 (Oramorph Sr) 15 mg Q8HR PO 03/16/17 22:00 03/21/17 05:41 (Pill Splitter) 1 ea UNSCH PRN OTHER 1/5/18 16:45 (KlonoPIN) 0.5 mg TID PO 03/21/17 09:00 Family History Mother-head the emphysema and from stroke complications Father- in his mid 80s. Patient had a patient's daughter, patient is acting exactly as his father did "argumentative and paranoid" . Substance Use Tobacco: None report Alcohol: None reported Prescription med abuse: Denies- Per patient`s sister, there was a time while helping patient clean up his room she noticed that he had 2 Morphine Sulfate bottles with different dosages prescribed by 2 different physicians. Illicits: None reported. . Psychosocial History Patient was born and raised in [place], [place]. Patient served in the [employer] for 6 years. Patient was and twice. According to patient's sister patient started having health problems about 10 years ago and that's when he became very argumentative, paranoid and very accusing. This led to his second him. He never had children. 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 . Spiritual/Cultural Factors Patient stated that he is a Rastafari and is open to transportation modeler services. . Living Will: Never completed Health Care Surrogate: Never completed Durable Power of Supervisor Metal Hanging: Never completed Health Care Surrogate(s): Health Care Proxy- Sister -Angie Morrow [phone]. . Physical Exam Vital Signs Date Time Temp Pulse Resp B/P (MAP) Pulse Ox O2 Delivery O2 Flow Rate FiO2 03/21/17 06:41 20 03/21/17 04:00 97.4 54 20 164/86 (112) 97 03/21/17 03:48 20 03/21/17 00:00 98.0 54 20 165/83 (110) 93 03/20/17 20:40 Room Air 03/20/17 20:40 98.6 59 18 166/79 (108) 97 03/20/17 20:00 58 03/20/17 19:56 97.3 60 18 134/71 (92) 98 03/20/17 15:33 97.2 54 19 133/76 (95) 97 03/20/17 11:58 97.3 51 19 137/80 (99) 96 03/21/17 03/22/17 19:00 07:00 Intake Total 120 ml Balance 120 ml Intake Oral 120 ml Exam CONSTITUTIONAL/GENERAL: This is an adequately nourished patient, in no apparent distress. TUBES/LINES/DRAINS: PIV SKIN: No jaundice, rashes, or lesions. Ecchymoses on upper extremities. No wounds seen anteriorly. Skin temperature appropriate. Not diaphoretic. HEAD: Atraumatic. Normocephalic. EYES: Pupils equal and round and reactive. Extraocular motions intact. No scleral icterus. No injection or drainage. Fundi not examined. ENT: Hearing grossly normal. Nose without bleeding or purulent drainage. NECK: Trachea midline. Supple, nontender. No palpable thyroid enlargement or nodularity. CARDIOVASCULAR: Regular rate and rhythm without murmurs, gallops, or rubs. No JVD. Peripheral pulses symmetric. RESPIRATORY/CHEST: Symmetric, unlabored respirations. Clear to auscultation. Breath sounds equal bilaterally. No wheezes, rales, or rhonchi. GASTROINTESTINAL: Abdomen soft, non-tender, nondistended. No hepato-splenomegaly , or palpable masses. No guarding. Bowel sounds present. GENITOURINARY: Without palpable bladder distension. MUSCULOSKELETAL: Extremities without clubbing, cyanosis, or edema. No joint tenderness or effusion noted. No calf tenderness. No mottling or clubbing. NEUROLOGICAL: Awake and alert, oriented x 3 with come confusion. Motor and sensory grossly within normal limits. Follows commands. Moves all extremities. PSYCHIATRIC: No obvious anxiety/depression. no apparent hallucinations or other psychotic thought process. Diagnostic Tests Laboratory Laboratory Tests Test 03/19/17 13:15 Folate 8.1 NG/ML (3.1-17.5) Imaging Last Impressions Brain MRI 03/13/17 0000 Signed Impressions: Service Date/Time: Monday, March 13, 2017 18:02 - CONCLUSION: 1. No acute intracranial abnormality. 2. No change from previous study. 3. No acute infarction. Sidney Guillaume MD Abdomen X-Ray 03/12/17 0000 Signed Impressions: Service Date/Time: Sunday, March 12, 2017 13:38 - CONCLUSION: No acute disease. Asael Mcnulty MD Head CT 03/10/17 1425 Signed Impressions: Service Date/Time: Friday, March 10, 2017 18:04 - CONCLUSION: Slight atrophic and small vessel ischemic changes without any evidence for acute hemorrhage or mass effect, chronic sinusitis. Thomas Villa MD Chest X-Ray 03/10/17 1425 Signed Impressions: Service Date/Time: Friday, March 10, 2017 16:48 - CONCLUSION: No acute cardiopulmonary disease. Thomas Villa MD Abdomen/Pelvis CT 03/10/17 0000 Signed Impressions: Service Date/Time: Friday, March 10, 2017 19:09 - CONCLUSION: Fatty liver. Thomas Villa MD Patient/Family Conference Family Conference Location: Bedside, Telephone Issues Discussed: * Palliative care role, purpose, approach * Additional medical, psychosocial, and spiritual history * Patients general health, functional status, and cognitive changes in the months leading up to the current hospitalization * Patient/family understanding of the current medical problems * Patient/family understanding of prognosis * Patients goals of care as best understood from advance directives and/or conversations and/or values * Current medical treatment options and benefits/burdens of those options * Likely scenarios comparing ongoing aggressive care with a transition to comfort measures only * Questions answered to the best of my ability * Palliative care contact information provided Assessment and Plan Disease Oriented Problem List: (1) Encephalopathy (2) Bacteremia (3) Lactic acidosis (4) HTN (hypertension) (5) Hx of cholecystectomy Symptom Scale: (1) Confusion Comment: Multifactorial. Admitted with altered mental status. . (2) Pain Comment: Chronic opiate use. Patient takes Morphine Sulfate at home. . Pertinent Non-Medical Issues Psychosocial:Patient was born and raised in [place], [place]. Patient served in the [employer] for 6 years. Patient was and twice. According to patient's sister patient started having health problems about 10 years ago and that's when he became very argumentative, paranoid and very accusing. This led to his second him. He never had children. 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 Spiritual:Patient stated that he is a Rastafari and is open to transportation modeler services. Legal: Patient states that he completed advance directives (Living will and HCS form) but his sister states that he never completed any advance directives. Ethical issues impacting care:None identified at this time Important Contacts Sister- Odalys Adams [phone] . Prognosis Mr Cardenas is a 61 years old male with a past medical history of hypertension , hyperlipidemia, chronic pain, anxiety, depression and pseudoseizure. Patient has had 2 admissions in February prior to this current admission. In both cases patient was complaining of intractable abdominal pain and was also treated for confusion and delirium. Patient was brought in by EMS on 03/10/17 after he was found with altered mental status in the [facility]. At that time patient was only oriented to himself. Clinical case complicated with encephalopathy and concern for patient`s capability to participate in decision making regarding his care. Code Status: Full Code Plan PLAN: Legal decision maker: Patient seems to lack insight in regards to his medical condition and seems unable to demonstrate ability to make good judgement or make sound decisions regarding his health care. Patient has one living sibling, a sister Odalys Adams, who according to [place] statute would serve as his health care proxy. Goals: Aggressive CODE STATUS: Full Code by default SYMPTOMS: * Confusion: Multifactorial. Chronic opiate use. Patient has had hospital admissions and has had confusion and delirium. Patient came into the hospital with altered mental status. Patient gets paranoid and delusional. Neurology and Psychiatry consulted. No recommendations at this time. * Pain: Hx of cervical fusion and the cystectomy. Patient on MS Contin, baclofen at home. Currently receiving morphine sulfate p.o 15 mg every 8 hours and morphine sulfate 7.5 mg TID for breakthrough pain. No recommendations at this time. Palliative care will continue to follow the patient during hospital course as condition evolves, to assist patient/decision-maker with understanding of their medical conditions, weighing benefits/burdens of treatment options, for clarification of goals of treatment. Additionally will assist with any symptoms of palliative concern Thank you for the opportunity to participate in the care of Mr. Cardenas. Attestation To help prompt me to consider important information that might be impacting today's encounter and assessment, information from prior notes written by myself or my colleagues may have been "brought forward" into today's note. My signature on this note, however, is an attestation that I personally performed the exam, history, and/or decision-making noted today, and, unless otherwise indicated, the interactions with patient, family, and staff as well as the review of records all occurred today. I also attest that the listed assessment and stated plan reflect my best clinical judgment today based on the combination of historical information, prior notes, and today's exam/ interactions. When time spent is documented, it refers only to time spent today by the signer, or if indicated, combined time spent today by collaborating physician/nurse practitioner. Haider Booth Mar 21, 2017 12:22
[2017-03-21] MEDS: LOSARTAN 50 MG TAB PO SCH (13:40)
[2017-03-21] MEDS: BACLOFEN 20 MG TAB PO SCH (20:32)
[2017-03-21] MEDS: MONTELUKAST SODIUM 10 MG TAB PO SCH (20:33)
[2017-03-22] VITALS (7 sets, daily range): BP systolic 136–174; BP diastolic 65–92; PULSE 45–73; RESP 15–26; TEMP 97.8–98.9; O2SAT 94–99
[2017-03-22] MEDS: MORPHINE SULFATE 15 MG TAB PO PRN ×3 (03:37→23:14)
[2017-03-22] MEDS: MORPHINE SULFATE 15 MG CONTROLLED RELEASE TAB PO SCH ×3 (05:30→21:35)
--- NOTE | 2017-03-22 08:35 | HHI.PR ---
Neuropsych Emotional Emotional: UnabletoAssess: Emotional, Anxious/Fearful, Depressed/Sad, Hostile/ Resentful, Irritable/Angry/Frustrate, Labile, Constricted/Blunted Behavior Behavior: Intact: Impulsive/Agitated Cognitive Cognitive: Moderate: Cognitive, Attention/Concentration, Confused/Orientation, Judgement/Problem-Solving, Severe: Insight/Awareness, Memory Psychosocial Psychosocial: Severe: Psychosocial, Family/Other Adjustment, Realistic Expectation, Unable to Asses: Self-Esteem/Confidence Progress Notes/Response to Tx Contents of Sessions: Adjustment, Level of Consciousness Time with Patient: 15 minutes Premorbid psychological status Premorbid Cognitive, Emotional and Behavioral Status: Stable. The patient has college years of education and was on disability. The patient has no prior psychiatric difficulties, as described above. Substance abuse history includes alcohol abuse. Behavioral Reactions of Patient and Family/Support System: Unable to Assess. The patients family is experiencing ongoing issues of adjustment given the nature of the injury, and this aspect of recovery will require ongoing monitoring. Emotional/Behavioral Status of Patient and Family/Support System: Unstable. Pertinent issues, if appropriate to this patients clinical care, are described in detail above. Maximizing acute care outcome It is recommended that the patient be monitored for emergent behavioral impulsivity and cognitive dysfunction as the medical condition evolves. This patients neuropathological challenges may limit his rehabilitation potential going forward, and these challenges will require specialized therapeutic skills to maximize outcome. At this point in the recovery process, the patient does not have cognitive capacity as the patient is unable to understand a situation and its likely consequences, nor is he able to manipulate information rationally. Cognitive capacity will be assessed throughout the recovery process. Anticipated Problems Ongoing areas of concern will include behavioral impulsivity, lack of insight and judgment, which is expected to improve with time and treatment. Presently , the patient is confused and lacks decision making capacity. Given the severity of the patient's injuries it is my clinical opinion that this patient will be unable to return to any type of productive employment for at least one year, perhaps longer and likely never. This patient is not considered safe to discharge home with supervision. Treatment Plan This clinician will continue to follow with you throughout the course of this patients acute care treatment, and I will be available to meet with the patient s family/support system to facilitate their understanding and the ongoing care of their family member. The goals of neuropsychological intervention shall be both educational and supportive to the family/support system as is deemed clinically appropriate. Diagnosis: (1) Major neurocognitive disorder due to another medical condition Progress Note Narrative Ongoing follow-up of patient seen during daily neuropsychology rounds. This is day 12 post injury. He was transferred to ICU for further care. He remains neurocognitively impaired and continues to lack decision making capacity. On brief exam, the patient did not recall me or the cognitive exam I conducted with him two days ago. He continues to demonstrate impaired insight, awareness and judgment. I will continue to follow. Edward Kidd PhD Mar 22, 2017 8:35 am
[2017-03-22] MEDS: ATENOLOL 50 MG TAB PO SCH ×2 (09:00→21:35)
[2017-03-22] MEDS: PRAVASTATIN SOD 40 MG TAB PO SCH (09:01)
[2017-03-22] MEDS: DOCUSATE SODIUM 50 MG/SENNA 8.6 MG TAB PO SCH ×2 (09:01→21:35)
[2017-03-22] MEDS: clonazePAM 0.5 MG TAB PO SCH ×3 (09:01→18:20)
[2017-03-22] MEDS: SERTRALINE HCL 100 MG TAB PO SCH (09:02)
[2017-03-22] MEDS: LOSARTAN 50 MG TAB PO SCH (09:02)
--- NOTE | 2017-03-22 12:10 | HHI.PR ---
Subjective Remarks Follow-up encephalopathy. No aggression discussed with RN. Also discussed with protective services case worker, patient is cleared for discharge to rehabilitation or [facility]. Patient has no capacity to make decisions. Sister being the only sibling and next of kin is the healthcare surrogate per [place] statute Objective Vitals Vital Signs Date Time Temp Pulse Resp B/P (MAP) Pulse Ox O2 Delivery O2 Flow Rate FiO2 03/22/17 08:00 98.2 45 18 136/78 (97) 95 03/22/17 04:00 49 03/22/17 04:00 97.8 73 20 160/65 (96) 97 03/22/17 00:00 98.6 48 26 170/87 (114) 95 03/22/17 00:00 50 03/21/17 20:00 97.9 55 20 177/98 (124) 98 03/21/17 20:00 51 03/21/17 18:06 54 03/21/17 16:28 18 03/21/17 16:00 98.3 50 16 137/80 (99) 94 I/O 03/21/17 03/21/17 03/21/17 03/22/17 03/22/17 03/22/17 07:00 15:00 23:00 07:00 15:00 23:00 Intake Total 480 ml 120 ml 250 ml 1200 ml Output Total 880 ml 800 ml Balance -400 ml 120 ml 250 ml 400 ml Intake Oral 480 ml 120 ml 1200 ml IV Total 250 ml Output Urine Total 880 ml 800 ml # Voids 3 # Bowel Movements 0 Objective Remarks GENERAL: Resting comfortably. Well-developed obese in no distress HEENT: EOMI. no conjunctival injection. CARDIOVASCULAR: Regular rate and rhythm. RESPIRATORY: Clear to auscultation. Breath sounds equal bilaterally. GASTROINTESTINAL: Abdomen soft, obese, incisions healing well, no redness or signs of infection. Nontender. MUSCULOSKELETAL: Extremities without edema. No obvious deformities. NEUROLOGICAL: Awake. Able to answer my questions. Moving both upper and lower extremities spontaneously. PSYCH: Mood and affect appropriate. Procedures none A/P Problem List: (1) Encephalopathy ICD Code: G93.40 - Encephalopathy, unspecified (2) Bacteremia ICD Code: R78.81 - Bacteremia (3) Lactic acidosis ICD Code: E87.2 - Acidosis (4) Hx of cholecystectomy ICD Code: Z98.890 - Other specified postprocedural states; Z90.49 - Acquired absence of other specified parts of digestive tract (5) HTN (hypertension) ICD Code: I10 - Essential (primary) hypertension Status: Chronic Assessment and Plan Encephalopathy The pt was found disoriented, confused, agitated. Has had previous admits for similar presentations. CT Head w/ no acute findings. Given Narcan w/ immediate response and subsequently had to be sedated. Previously has been evaluated by psychiatry. Concern for early onset dementia. Neurology consult appreciated. MRI unremarkable. EEG normal. Psych consult appreciated. RPR negative. Thiamine level low at 50. The patient has mild to moderate cognitive deficits based on therapy cognitive evaluation. Suspect Wernicke's encephalopathy -Continue IV thiamine 250 mg IV/IM daily for 5 doses then 100 mg by mouth daily. - Follow up with neurology. - neuro checks. - try to wean down pain medications as well as benzodiazepines. - continue PT/ OT/ ST cognitive evals. Patient is not competent to make decisions and unsafe to be discharged home due to cognitive deficits per neuropsychiatry Bacteremia Recent admit, Blood Cultures 02/23/17 x2 +E. Coli. CXR w/ no acute findings. U/ a negative for UTI. No obvious source of infection. Status post antibiotics. - follow repeat blood cultures. No growth, final. Lactic acidosis Most likely from dehydration. - s/p IVFs. H/o Cholecystectomy CT Abd/Pelvis neg for acute process. Surgical consult appreciated. - outpt follow-up. HTN Blood pressure has been elevated at times. Stable. - continue home meds. N/V Evaluated by surgery. LFTs/ lipase level normal. Seems resolved. - ADAT. - antiemetics as needed. PPx: SCDs Discharge Planning Disposition is difficult with this patient. He lives alone and wants to go home. He has cleared physical and occupational therapy, however, he does have cognitive deficits as demonstrated on the speech therapy cognitive evaluation. At this time, he has no capacity to make decisions. His sister says he cannot move in with her. He refuses to go to a correction facility. Dw , patient is cleared for discharge to rehabilitation or [facility] if ok with Sister being the only sibling and next of kin. She is the healthcare surrogate per [place] statute Jaime Easley MD Mar 22, 2017 12:10
[2017-03-22] MEDS ORDERED: MORP1TAB24 PO (12:12)
[2017-03-22] MEDS ORDERED: CLON.5 PO (12:12)
[2017-03-22] MEDS ORDERED: MSIR15 PO (12:12)
--- NOTE | 2017-03-22 13:34 | HHI.HCPN ---
Reason for visit a. To assist with evaluation and management of symptoms including: Confusion , pain b. To assist medical decision maker(s) with: better understanding of current medical conditions; weighing benefits/burdens of medical treatment options; making medical treatment decisions. Subjective/Interval History Patient seen and examined in his room. Alert and oriented to self, place and situation. Patient is calm and cooperative today. Patient endorsing pain to his neck, voicing concerns that he is not getting his prescribed dose of Morphine sulfate he takes at home. Patient denies abdominal pain. Explained to patient that he came in with altered mental status. Patient explains that may be now he can get an implanted Morphine Sulfate pain pump through his pain management physician Dr. Clement since he had cholecystectomy and hernia repair done. He will not have to worry about anyone trying to steal his Morphine sulfate at home. Patient states he wants to go home and he is able to take care of himself. Patient states that he does not want to go to a care home facility. Afebrile. SB mid 40s-50s. SBP 130s-170s. O2 saturation mid to high 90s. Case discussed with Dr. Easley and continuous pillowcase cutter Hodan. . Family/friend interactions No family at bedside. . Advance Directives Living Will: Never completed Health Care Surrogate: Never completed Durable Power of Mother Baby Rn: Never completed Advance Directive Specifics Health Care Surrogate(s): Health Care Proxy- Sister Gus Morrow [phone]. . Objective Vital Signs Date Time Temp Pulse Resp B/P (MAP) Pulse Ox O2 Delivery O2 Flow Rate FiO2 03/22/17 08:00 98.2 45 18 136/78 (97) 95 03/22/17 04:00 49 03/22/17 04:00 97.8 73 20 160/65 (96) 97 03/22/17 00:00 98.6 48 26 170/87 (114) 95 03/22/17 00:00 50 03/21/17 20:00 97.9 55 20 177/98 (124) 98 03/21/17 20:00 51 03/21/17 18:06 54 03/21/17 16:28 18 03/21/17 16:00 98.3 50 16 137/80 (99) 94 Intake & Output 03/22/17 03/22/17 07:00 19:00 Intake Total 1200 ml Output Total 800 ml Balance 400 ml Intake Oral 1200 ml Output Urine Total 800 ml Physical Exam CONSTITUTIONAL/GENERAL: This is an adequately nourished patient, in no acute distress. TUBES/LINES/DRAINS: PIV SKIN: No jaundice, rashes, or lesions. Ecchymoses on upper extremities. No wounds seen anteriorly. Skin temperature appropriate. Not diaphoretic. HEAD: Atraumatic. Normocephalic. EYES: Pupils equal and round and reactive. Extraocular motions intact. No scleral icterus. No injection or drainage. Fundi not examined. ENT: Hearing grossly normal. Nose without bleeding or purulent drainage. NECK: Trachea midline. Supple, nontender. No palpable thyroid enlargement or nodularity. CARDIOVASCULAR: Regular rate and rhythm without murmurs, gallops, or rubs. No JVD. Peripheral pulses symmetric. RESPIRATORY/CHEST: Symmetric, unlabored respirations. Clear to auscultation. Breath sounds equal bilaterally. No wheezes, rales, or rhonchi. GASTROINTESTINAL: Abdomen soft, non-tender, nondistended. No hepato-splenomegaly , or palpable masses. No guarding. Bowel sounds present. GENITOURINARY: Without palpable bladder distension. MUSCULOSKELETAL: Extremities without clubbing, cyanosis, or edema. No joint tenderness or effusion noted. No calf tenderness. No mottling or clubbing. NEUROLOGICAL: Awake and alert, oriented x 3 with come confusion. Motor and sensory grossly within normal limits. Follows commands. Moves all extremities. PSYCHIATRIC: No obvious anxiety/depression. no apparent hallucinations or other psychotic thought process. Diagnostic Tests Laboratory Laboratory Tests Test 03/19/17 13:15 Folate 8.1 NG/ML (3.1-17.5) Assessment and Plan Disease Oriented Problem List: (1) Encephalopathy (2) Bacteremia (3) Lactic acidosis (4) HTN (hypertension) (5) Hx of cholecystectomy Symptom Scale: (1) Confusion Comment: Multifactorial. Admitted with altered mental status. . (2) Pain Comment: Chronic opiate use. Patient takes Morphine Sulfate at home. . Pertinent Non-Medical Issues Psychosocial:Patient was born and raised in [place], [place]. Patient served in the [employer] for 6 years. Patient was and twice. According to patient's sister patient started having health problems about 10 years ago and that's when he became very argumentative, paranoid and very accusing. This led to his second him. He never had children. 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 Spiritual:Patient stated that he is a Christianity and is open to architectural model maker services. Legal:Patient states that he has a Living Will and HCS but his sister states that he does not. Ethical issues impacting care: None identified at this time. Important Contacts Sister- Odalys Adams [phone] . Prognosis Mr Cardenas is a 61 years old male with a past medical history of hypertension , hyperlipidemia, chronic pain, anxiety, depression and pseudoseizure. Patient has had 2 admissions in February prior to this current admission. In both cases patient was complaining of intractable abdominal pain and was also treated for confusion and delirium. Patient was brought in by EMS on 03/10/17 after he was found with altered mental status in the [facility]. At that time patient was only oriented to himself. Clinical case complicated with encephalopathy and concern for patient`s capability to participate in decision making regarding his care. Code Status: Full Code Plan PLAN: Legal decision maker: Patient seems to lack insight in regards to his medical condition and seems unable to demonstrate ability to make good judgement or make sound decisions regarding his health care. Patient has one living sibling, a sister Odalys Adams, who according to [place] statute would serve as his health care proxy. Goals: Aggressive CODE STATUS: Full Code by default SYMPTOMS: * Confusion: Multifactorial. Chronic opiate use. Patient has had hospital admissions and has had confusion and delirium. Patient came into the hospital with altered mental status. Patient gets paranoid and delusional. Neurology and Psychiatry consulted. No recommendations at this time. * Pain: Hx of cervical fusion and the cystectomy. Patient on MS Contin, baclofen at home. Currently receiving morphine sulfate p.o 15 mg every 8 hours and morphine sulfate 7.5 mg TID for breakthrough pain. No recommendations at this time. Palliative care will continue to follow the patient during hospital course as condition evolves, to assist patient/decision-maker with understanding of their medical conditions, weighing benefits/burdens of treatment options, for clarification of goals of treatment. Additionally will assist with any symptoms of palliative concern Attestation To help prompt me to consider important information that might be impacting today's encounter and assessment, information from prior notes written by myself or my colleagues may have been "brought forward" into today's note. My signature on this note, however, is an attestation that I personally performed the exam, history, and/or decision-making noted today, and, unless otherwise indicated, the interactions with patient, family, and staff as well as the review of records all occurred today. I also attest that the listed assessment and stated plan reflect my best clinical judgment today based on the combination of historical information, prior notes, and today's exam/ interactions. When time spent is documented, it refers only to time spent today by the signer, or if indicated, combined time spent today by collaborating physician/nurse practitioner. Haider Booth Mar 22, 2017 13:34
[2017-03-22] MEDS: THIAMINE INJ 250 MG in SODIUM CHLORIDE 0.9% INJ 100 ML IV SCH (18:20)
[2017-03-22] MEDS: SODIUM CHLORIDE 0.9% FLUSH 10 ML FLUSH IV FLUSH SCH ×2 (18:20→21:35)
[2017-03-22] MEDS: BACLOFEN 20 MG TAB PO SCH (21:34)
[2017-03-22] MEDS: MONTELUKAST SODIUM 10 MG TAB PO SCH (21:35)
[2017-03-23] VITALS (8 sets, daily range): BP systolic 142–190; BP diastolic 74–91; PULSE 46–89; RESP 18–22; TEMP 97.7–98.5; O2SAT 95–100
[2017-03-23] MEDS: MORPHINE SULFATE 15 MG CONTROLLED RELEASE TAB PO SCH ×3 (05:50→20:54)
[2017-03-23] MEDS: ASPIRIN 81 MG CHEW TAB CHEW SCH (10:01)
[2017-03-23] MEDS: PRAVASTATIN SOD 40 MG TAB PO SCH (10:02)
[2017-03-23] MEDS: clonazePAM 0.5 MG TAB PO SCH ×3 (10:02→17:13)
[2017-03-23] MEDS: SERTRALINE HCL 100 MG TAB PO SCH (10:02)
[2017-03-23] MEDS: ATENOLOL 50 MG TAB PO SCH ×3 (10:02→20:55)
[2017-03-23] MEDS: LOSARTAN 50 MG TAB PO SCH (10:02)
[2017-03-23] MEDS: DOCUSATE SODIUM 50 MG/SENNA 8.6 MG TAB PO SCH ×2 (10:04→20:53)
[2017-03-23] MEDS: THIAMINE INJ 250 MG in SODIUM CHLORIDE 0.9% INJ 100 ML IV SCH (10:17)
[2017-03-23] MEDS: MORPHINE SULFATE 15 MG TAB PO PRN ×2 (10:17→17:14)
[2017-03-23] MEDS: SODIUM CHLORIDE 0.9% FLUSH 10 ML FLUSH IV FLUSH SCH ×2 (10:22→20:54)
--- NOTE | 2017-03-23 11:53 | HHI.PR ---
Neuropsych Behavior Behavior: Intact: Coping/Acceptance, Cooperative w/ Treatment, Motivation, Frustration Tolerance/[place], Impulsive/Agitated Cognitive Cognitive: Severe: Cognitive, Attention/Concentration, Confused/Orientation, Insight/Awareness, Judgement/Problem-Solving, Memory Psychosocial Psychosocial: Severe: Psychosocial, Family/Other Adjustment, Realistic Expectation, Unable to Asses: Self-Esteem/Confidence Progress Notes/Response to Tx Contents of Sessions: Adjustment, Level of Consciousness Time with Patient: 15 minutes Premorbid psychological status Premorbid Cognitive, Emotional and Behavioral Status: Stable. The patient has college years of education and was on disability. The patient has no prior psychiatric difficulties, as described above. Substance abuse history includes alcohol abuse. Behavioral Reactions of Patient and Family/Support System: Unable to Assess. The patients family is experiencing ongoing issues of adjustment given the nature of the injury, and this aspect of recovery will require ongoing monitoring. Emotional/Behavioral Status of Patient and Family/Support System: Unstable. Pertinent issues, if appropriate to this patients clinical care, are described in detail above. Maximizing acute care outcome It is recommended that the patient be monitored for emergent behavioral impulsivity and cognitive dysfunction as the medical condition evolves. This patients neuropathological challenges may limit his rehabilitation potential going forward, and these challenges will require specialized therapeutic skills to maximize outcome. At this point in the recovery process, the patient does not have cognitive capacity as the patient is unable to understand a situation and its likely consequences, nor is he able to manipulate information rationally. Cognitive capacity will be assessed throughout the recovery process. Anticipated Problems Ongoing areas of concern will include behavioral impulsivity, lack of insight and judgment, which is expected to improve with time and treatment. Presently , the patient is confused and lacks decision making capacity. Given the severity of the patient's injuries it is my clinical opinion that this patient will be unable to return to any type of productive employment for at least one year, perhaps longer and likely never. This patient is not considered safe to discharge home with supervision. Treatment Plan This clinician will continue to follow with you throughout the course of this patients acute care treatment, and I will be available to meet with the patient s family/support system to facilitate their understanding and the ongoing care of their family member. The goals of neuropsychological intervention shall be both educational and supportive to the family/support system as is deemed clinically appropriate. Diagnosis: (1) Major neurocognitive disorder due to another medical condition Progress Note Narrative Ongoing follow-up of patient seen during daily neuropsychology rounds. This is day 13 of his hospitalization. There is no change in his neurocognitive status and he remains confused, with diminished insight, awareness and judgment. In my opinion, he still lacks decision making capacity. I will continue to follow. Edward Kidd PhD Mar 23, 2017 11:53 am
--- NOTE | 2017-03-23 13:16 | HHI.PR ---
Subjective Remarks Follow-up encephalopathy. No episodes of agitation. Discussed with RN Objective Vitals Vital Signs Date Time Temp Pulse Resp B/P (MAP) Pulse Ox O2 Delivery O2 Flow Rate FiO2 03/23/17 12:00 97.9 48 22 160/83 (108) 95 03/23/17 08:00 98.0 47 19 154/75 (101) 100 03/23/17 06:50 20 03/23/17 04:15 98.0 89 20 142/80 (100) 100 03/23/17 04:00 47 03/23/17 00:14 20 03/23/17 00:00 50 03/23/17 00:00 Room Air 03/23/17 00:00 Room Air 03/22/17 23:53 98.7 51 16 174/83 (113) 95 03/22/17 20:00 Room Air 03/22/17 20:00 98.9 56 15 169/79 (109) 97 03/22/17 20:00 55 03/22/17 16:00 98.3 49 18 137/82 (100) 94 I/O 03/22/17 03/22/17 03/22/17 03/23/17 03/23/17 03/23/17 07:00 15:00 23:00 07:00 15:00 23:00 Intake Total 1200 ml 1180 ml 480 ml Output Total 800 ml 1000 ml Balance 400 ml 1180 ml -520 ml Intake Oral 1200 ml 1080 ml 480 ml IV Total 100 ml Output Urine Total 800 ml 1000 ml # Voids 11 # Bowel Movements 1 Objective Remarks GENERAL: Resting comfortably. Well-developed obese in no distress HEENT: EOMI. no conjunctival injection. CARDIOVASCULAR: Regular rhythm but bradycardic. RESPIRATORY: Clear to auscultation. Breath sounds equal bilaterally. GASTROINTESTINAL: Abdomen soft, obese, incisions healing well, no redness or signs of infection. Nontender. MUSCULOSKELETAL: Extremities without edema. No obvious deformities. NEUROLOGICAL: Awake. Able to answer my questions. Moving both upper and lower extremities spontaneously. PSYCH: Mood and affect appropriate. Procedures none A/P Problem List: (1) Encephalopathy ICD Code: G93.40 - Encephalopathy, unspecified (2) Bacteremia ICD Code: R78.81 - Bacteremia (3) Lactic acidosis ICD Code: E87.2 - Acidosis (4) Hx of cholecystectomy ICD Code: Z98.890 - Other specified postprocedural states; Z90.49 - Acquired absence of other specified parts of digestive tract (5) HTN (hypertension) ICD Code: I10 - Essential (primary) hypertension Status: Chronic Assessment and Plan Encephalopathy The pt was found disoriented, confused, agitated. Has had previous admits for similar presentations. CT Head w/ no acute findings. Given Narcan w/ immediate response and subsequently had to be sedated. Previously has been evaluated by psychiatry. Concern for early onset dementia. Neurology consult appreciated. MRI unremarkable. EEG normal. Psych consult appreciated. RPR negative. Thiamine level low at 50. The patient has mild to moderate cognitive deficits based on therapy cognitive evaluation. Suspect Wernicke's encephalopathy -Continue IV thiamine 250 mg IV/IM daily for 5 doses then 100 mg by mouth daily. - Follow up with neurology. - neuro checks. - try to wean down pain medications as well as benzodiazepines. - continue PT/ OT/ ST cognitive evals. Patient is not competent to make decisions and unsafe to be discharged home due to cognitive deficits per neuropsychiatry Bacteremia Recent admit, Blood Cultures 02/23/17 x2 +E. Coli. CXR w/ no acute findings. U/ a negative for UTI. No obvious source of infection. Status post antibiotics. - follow repeat blood cultures. No growth, final. Lactic acidosis Most likely from dehydration. - s/p IVFs. H/o Cholecystectomy CT Abd/Pelvis neg for acute process. Surgical consult appreciated. - outpt follow-up. HTN Blood pressure has been elevated at times. Stable. - continue home meds. N/V Evaluated by surgery. LFTs/ lipase level normal. Seems resolved. - ADAT. - antiemetics as needed. Bradycardia secondary to atenolol. Asymptomatic. Continue beta larissa will hold parameters. Monitor PPx: SCDs Discharge Planning Disposition is difficult with this patient. He lives alone and wants to go home. He has cleared physical and occupational therapy, however, he does have cognitive deficits as demonstrated on the speech therapy cognitive evaluation. At this time, he has no capacity to make decisions. His sister says he cannot move in with her. He refuses to go to a [facility] facility. Dw , patient is cleared for discharge to rehabilitation or [facility] if ok with Sister being the only sibling and next of kin. She is the healthcare surrogate per [place] statute Jamie Easley MD Mar 23, 2017 13:16
[2017-03-23] MEDS: MONTELUKAST SODIUM 10 MG TAB PO SCH (20:53)
[2017-03-23] MEDS: BACLOFEN 20 MG TAB PO SCH (20:53)
[2017-03-24] VITALS: BP 161/79; PULSE 48; PULSE 53; RESP 20; TEMP 98.4; O2SAT 96
[2017-03-24] MEDS: MORPHINE SULFATE 15 MG TAB PO PRN ×3 (01:13→17:32)
[2017-03-24 04:00] VITALS: BP 165/73; PULSE 50; PULSE 52; RESP 20; TEMP 98.2; O2SAT 94
[2017-03-24] MEDS: MORPHINE SULFATE 15 MG CONTROLLED RELEASE TAB PO SCH ×3 (05:34→21:34)
[2017-03-24 08:00] VITALS: BP 142/75; PULSE 47; RESP 16; TEMP 98; O2SAT 93
[2017-03-24] MEDS: DOCUSATE SODIUM 50 MG/SENNA 8.6 MG TAB PO SCH ×2 (09:00→21:00)
[2017-03-24] MEDS: SERTRALINE HCL 100 MG TAB PO SCH (09:40)
[2017-03-24] MEDS: ASPIRIN 81 MG CHEW TAB CHEW SCH (09:41)
[2017-03-24] MEDS: clonazePAM 0.5 MG TAB PO SCH ×3 (09:41→17:32)
[2017-03-24] MEDS: PRAVASTATIN SOD 40 MG TAB PO SCH (09:41)
[2017-03-24] MEDS: LOSARTAN 50 MG TAB PO SCH (09:41)
[2017-03-24] MEDS: ATENOLOL 50 MG TAB PO SCH ×2 (09:41→21:33)
[2017-03-24] MEDS: THIAMINE INJ 250 MG in SODIUM CHLORIDE 0.9% INJ 100 ML IV SCH (09:42)
[2017-03-24] MEDS: SODIUM CHLORIDE 0.9% FLUSH 10 ML FLUSH IV FLUSH SCH ×2 (09:42→21:35)
[2017-03-24 12:00] VITALS: BP 176/96; PULSE 50; RESP 17; TEMP 97.9; O2SAT 95
--- NOTE | 2017-03-24 12:59 | HHI.PR ---
Subjective Remarks Follow-up encephalopathy. States he is tired and sleepy deprived sleep because of frequent interruptions overnight. Discussed with RN, no vital signs from 10 PM to 6 in the morning Objective Vitals Vital Signs Date Time Temp Pulse Resp B/P (MAP) Pulse Ox O2 Delivery O2 Flow Rate FiO2 03/24/17 12:00 97.9 50 17 176/96 (122) 95 03/24/17 08:00 98.0 47 16 142/75 (97) 93 03/24/17 07:52 Room Air 03/24/17 06:34 20 03/24/17 04:00 52 03/24/17 04:00 98.2 50 20 165/73 (103) 94 03/24/17 02:13 20 03/24/17 00:00 98.4 53 20 161/79 (106) 96 03/24/17 00:00 48 03/23/17 20:00 Room Air 03/23/17 20:00 51 03/23/17 20:00 98.5 56 20 172/84 (113) 95 03/23/17 17:55 154/74 (100) 03/23/17 16:00 97.7 49 18 190/91 (124) 97 03/23/17 16:00 50 I/O 03/23/17 03/23/17 03/23/17 03/24/17 03/24/17 03/24/17 07:00 15:00 23:00 07:00 15:00 23:00 Intake Total 480 ml 960 ml 240 ml 0 ml Output Total 1000 ml 300 ml 350 ml 725 ml 300 ml Balance -520 ml 660 ml -350 ml -485 ml -300 ml Intake Oral 480 ml 960 ml 240 ml IV Total 0 ml Output Urine Total 1000 ml 300 ml 350 ml 725 ml 300 ml # Bowel Movements 1 Objective Remarks GENERAL: Resting comfortably. Well-developed obese in no distress HEENT: EOMI. no conjunctival injection. CARDIOVASCULAR: Regular rhythm but bradycardic. RESPIRATORY: Clear to auscultation. Breath sounds equal bilaterally. GASTROINTESTINAL: Abdomen soft, obese, incisions healing well, no redness or signs of infection. Nontender. MUSCULOSKELETAL: Extremities without edema. No obvious deformities. NEUROLOGICAL: Awake. Able to answer my questions. Moving both upper and lower extremities spontaneously. PSYCH: Mood and affect appropriate. Procedures none A/P Problem List: (1) Encephalopathy ICD Code: G93.40 - Encephalopathy, unspecified (2) Bacteremia ICD Code: R78.81 - Bacteremia (3) Lactic acidosis ICD Code: E87.2 - Acidosis (4) Hx of cholecystectomy ICD Code: Z98.890 - Other specified postprocedural states; Z90.49 - Acquired absence of other specified parts of digestive tract (5) HTN (hypertension) ICD Code: I10 - Essential (primary) hypertension Status: Chronic Assessment and Plan Encephalopathy The pt was found disoriented, confused, agitated. Has had previous admits for similar presentations. CT Head w/ no acute findings. Given Narcan w/ immediate response and subsequently had to be sedated. Previously has been evaluated by psychiatry. Concern for early onset dementia. Neurology consult appreciated. MRI unremarkable. EEG normal. Psych consult appreciated. RPR negative. Thiamine level low at 50. The patient has mild to moderate cognitive deficits based on therapy cognitive evaluation. Suspect Wernicke's encephalopathy -Continue IV thiamine 250 mg IV/IM daily for 5 doses til tomorrow then 100 mg by mouth daily. - Follow up with neurology. - neuro checks. - try to wean down pain medications as well as benzodiazepines. - continue PT/ OT/ ST cognitive evals. Patient is not competent to make decisions and unsafe to be discharged home due to cognitive deficits per neuropsychiatry Bacteremia Recent admit, Blood Cultures 02/23/17 x2 +E. Coli. CXR w/ no acute findings. U/ a negative for UTI. No obvious source of infection. Status post antibiotics. - follow repeat blood cultures. No growth, final. Lactic acidosis Most likely from dehydration. - s/p IVFs. H/o Cholecystectomy CT Abd/Pelvis neg for acute process. Surgical consult appreciated. - outpt follow-up. HTN Blood pressure has been elevated at times. Stable. - continue home meds. N/V Evaluated by surgery. LFTs/ lipase level normal. Seems resolved. - ADAT. - antiemetics as needed. Bradycardia secondary to atenolol. Asymptomatic. Continue beta larissa will hold parameters. Monitor PPx: SCDs Discharge Planning Disposition is difficult with this patient. He lives alone and wants to go home. He has cleared physical and occupational therapy, however, he does have cognitive deficits as demonstrated on the speech therapy cognitive evaluation. At this time, he has no capacity to make decisions. His sister says he cannot move in with her. He refuses to go to a half-way facility. Dw , patient is cleared for discharge to rehabilitation or [facility] if ok with Sister being the only sibling and next of kin. She is the healthcare surrogate per [place] statute Jamie Easley MD Mar 24, 2017 12:59
[2017-03-24 16:00] VITALS: BP 138/72; PULSE 49; RESP 18; TEMP 97.8; O2SAT 93
[2017-03-24 20:00] VITALS: BP 174/74; PULSE 54; RESP 22; TEMP 98; O2SAT 99
[2017-03-24] MEDS: BACLOFEN 20 MG TAB PO SCH (21:34)
[2017-03-24] MEDS: MONTELUKAST SODIUM 10 MG TAB PO SCH (21:34)
[2017-03-25] MEDS: MORPHINE SULFATE 15 MG TAB PO PRN ×4 (00:38→20:18)
[2017-03-25] MEDS: MORPHINE SULFATE 15 MG CONTROLLED RELEASE TAB PO SCH ×3 (06:04→22:00)
[2017-03-25 08:00] VITALS: BP 192/92; PULSE 94; RESP 18; TEMP 98.9; O2SAT 98
[2017-03-25] MEDS: SERTRALINE HCL 100 MG TAB PO SCH (08:08)
[2017-03-25] MEDS: LOSARTAN 50 MG TAB PO SCH (08:08)
[2017-03-25] MEDS: PRAVASTATIN SOD 40 MG TAB PO SCH (08:08)
[2017-03-25] MEDS: ASPIRIN 81 MG CHEW TAB CHEW SCH (08:08)
[2017-03-25] MEDS: clonazePAM 0.5 MG TAB PO SCH ×3 (08:09→17:28)
[2017-03-25] MEDS: ATENOLOL 50 MG TAB PO SCH ×2 (08:09→20:18)
[2017-03-25] MEDS: THIAMINE INJ 250 MG in SODIUM CHLORIDE 0.9% INJ 100 ML IV SCH (08:16)
[2017-03-25] MEDS: SODIUM CHLORIDE 0.9% FLUSH 10 ML FLUSH IV FLUSH SCH ×2 (08:16→20:18)
[2017-03-25] MEDS: DOCUSATE SODIUM 50 MG/SENNA 8.6 MG TAB PO SCH ×2 (08:17→20:18)
[2017-03-25 12:00] VITALS: BP 122/65; PULSE 48; RESP 18; TEMP 97.8; O2SAT 96
--- NOTE | 2017-03-25 14:22 | HHI.PR ---
Subjective Remarks Follow-up encephalopathy. No new complaints stable overnight discussed with RN Objective Vitals Vital Signs Date Time Temp Pulse Resp B/P (MAP) Pulse Ox O2 Delivery O2 Flow Rate FiO2 03/25/17 12:00 97.8 48 18 122/65 (84) 96 03/25/17 10:17 18 03/25/17 08:00 98.9 94 18 192/92 (125) 98 03/25/17 07:04 22 03/24/17 20:00 Room Air 03/24/17 20:00 98.0 54 22 174/74 (107) 99 03/24/17 16:00 97.8 49 18 138/72 (94) 93 I/O 03/24/17 03/24/17 03/24/17 03/25/17 03/25/17 03/25/17 07:00 15:00 23:00 07:00 15:00 23:00 Intake Total 240 ml 0 ml 0 ml Output Total 725 ml 300 ml 360 ml 1000 ml Balance -485 ml -300 ml -360 ml -1000 ml Intake Oral 240 ml IV Total 0 ml 0 ml Output Urine Total 725 ml 300 ml 360 ml 1000 ml # Voids 2 Imaging Last Impressions Brain MRI 03/13/17 0000 Signed Impressions: Service Date/Time: Monday, March 13, 2017 18:02 - CONCLUSION: 1. No acute intracranial abnormality. 2. No change from previous study. 3. No acute infarction. Sidney Guillaume MD Abdomen X-Ray 03/12/17 0000 Signed Impressions: Service Date/Time: Sunday, March 12, 2017 13:38 - CONCLUSION: No acute disease. Asael Mcnulty MD Head CT 03/10/17 1425 Signed Impressions: Service Date/Time: Friday, March 10, 2017 18:04 - CONCLUSION: Slight atrophic and small vessel ischemic changes without any evidence for acute hemorrhage or mass effect, chronic sinusitis. Thomas Villa MD Chest X-Ray 03/10/17 1425 Signed Impressions: Service Date/Time: Friday, March 10, 2017 16:48 - CONCLUSION: No acute cardiopulmonary disease. Thomas Villa MD Abdomen/Pelvis CT 03/10/17 0000 Signed Impressions: Service Date/Time: Friday, March 10, 2017 19:09 - CONCLUSION: Fatty liver. Thomas Villa MD Objective Remarks GENERAL: Resting comfortably. Well-developed obese in no distress HEENT: EOMI. no conjunctival injection. CARDIOVASCULAR: Regular rhythm but bradycardic. RESPIRATORY: Clear to auscultation. Breath sounds equal bilaterally. GASTROINTESTINAL: Abdomen soft, obese, incisions healing well, no redness or signs of infection. Nontender. MUSCULOSKELETAL: Extremities without edema. No obvious deformities. NEUROLOGICAL: Awake. Able to answer my questions. Moving both upper and lower extremities spontaneously. PSYCH: Mood and affect appropriate. Procedures none A/P Problem List: (1) Encephalopathy ICD Code: G93.40 - Encephalopathy, unspecified (2) Bacteremia ICD Code: R78.81 - Bacteremia (3) Lactic acidosis ICD Code: E87.2 - Acidosis (4) Hx of cholecystectomy ICD Code: Z98.890 - Other specified postprocedural states; Z90.49 - Acquired absence of other specified parts of digestive tract (5) HTN (hypertension) ICD Code: I10 - Essential (primary) hypertension Status: Chronic Assessment and Plan Encephalopathy The pt was found disoriented, confused, agitated. Has had previous admits for similar presentations. CT Head w/ no acute findings. Given Narcan w/ immediate response and subsequently had to be sedated. Previously has been evaluated by psychiatry. Concern for early onset dementia. Neurology consult appreciated. MRI unremarkable. EEG normal. Psych consult appreciated. RPR negative. Thiamine level low at 50. The patient has mild to moderate cognitive deficits based on therapy cognitive evaluation. Suspect Wernicke's encephalopathy -Continue IV thiamine 250 mg IV/IM daily for 5 doses til today then 100 mg by mouth daily. - Follow up with neurology. - neuro checks. - try to wean down pain medications as well as benzodiazepines. - continue PT/ OT/ ST cognitive evals. Patient is not competent to make decisions and unsafe to be discharged home due to cognitive deficits per neuropsychiatry Bacteremia Recent admit, Blood Cultures 02/23/17 x2 +E. Coli. CXR w/ no acute findings. U/ a negative for UTI. No obvious source of infection. Status post antibiotics. - follow repeat blood cultures. No growth, final. Lactic acidosis Most likely from dehydration. - s/p IVFs. H/o Cholecystectomy CT Abd/Pelvis neg for acute process. Surgical consult appreciated. - outpt follow-up. HTN Blood pressure has been elevated at times. Stable. - continue home meds. N/V Evaluated by surgery. LFTs/ lipase level normal. Seems resolved. - ADAT. - antiemetics as needed. Bradycardia secondary to atenolol. Asymptomatic. Continue beta larissa will hold parameters. Monitor PPx: SCDs Discharge Planning Disposition is difficult with this patient. He lives alone and wants to go home. He has cleared physical and occupational therapy, however, he does have cognitive deficits as demonstrated on the speech therapy cognitive evaluation. At this time, he has no capacity to make decisions. His sister says he cannot move in with her. He refuses to go to a shelter facility. Dw , patient is cleared for discharge to rehabilitation pending arrangements. Sister being the only sibling and next of kin, agrees with discharge plan. She is the healthcare surrogate per [place] statute Jamie Easley MD Mar 25, 2017 14:22
[2017-03-25 16:00] VITALS: BP 156/73; PULSE 53; RESP 18; TEMP 98.5; O2SAT 96
[2017-03-25 20:00] VITALS: BP 138/77; RESP 18; TEMP 97.7; O2SAT 96
[2017-03-25] MEDS: MONTELUKAST SODIUM 10 MG TAB PO SCH (20:18)
[2017-03-25] MEDS: BACLOFEN 20 MG TAB PO SCH (20:18)
[2017-03-26] MEDS: MORPHINE SULFATE 15 MG TAB PO PRN ×3 (00:55→16:59)
[2017-03-26] MEDS: MORPHINE SULFATE 15 MG CONTROLLED RELEASE TAB PO SCH ×3 (06:05→22:19)
[2017-03-26 08:00] VITALS: BP 150/76; PULSE 47; RESP 18; TEMP 97.6; O2SAT 93
--- NOTE | 2017-03-26 08:09 | HHI.PR ---
Neuropsych Behavior Behavior: Intact: Impulsive/Agitated Cognitive Cognitive: Severe: Cognitive, Attention/Concentration, Confused/Orientation, Insight/Awareness, Judgement/Problem-Solving, Memory Progress Notes/Response to Tx Contents of Sessions: Adjustment, Level of Consciousness Time with Patient: 15 minutes Premorbid psychological status Premorbid Cognitive, Emotional and Behavioral Status: Stable. The patient has college years of education and was on disability. The patient has no prior psychiatric difficulties, as described above. Substance abuse history includes alcohol abuse. Behavioral Reactions of Patient and Family/Support System: Unable to Assess. The patients family is experiencing ongoing issues of adjustment given the nature of the injury, and this aspect of recovery will require ongoing monitoring. Emotional/Behavioral Status of Patient and Family/Support System: Unstable. Pertinent issues, if appropriate to this patients clinical care, are described in detail above. Maximizing acute care outcome It is recommended that the patient be monitored for emergent behavioral impulsivity and cognitive dysfunction as the medical condition evolves. This patients neuropathological challenges may limit his rehabilitation potential going forward, and these challenges will require specialized therapeutic skills to maximize outcome. At this point in the recovery process, the patient does not have cognitive capacity as the patient is unable to understand a situation and its likely consequences, nor is he able to manipulate information rationally. Cognitive capacity will be assessed throughout the recovery process. Anticipated Problems Ongoing areas of concern will include behavioral impulsivity, lack of insight and judgment, which is expected to improve with time and treatment. Presently , the patient is confused and lacks decision making capacity. Given the severity of the patient's injuries it is my clinical opinion that this patient will be unable to return to any type of productive employment for at least one year, perhaps longer and likely never. This patient is not considered safe to discharge home with supervision. Treatment Plan This clinician will continue to follow with you throughout the course of this patients acute care treatment, and I will be available to meet with the patient s family/support system to facilitate their understanding and the ongoing care of their family member. The goals of neuropsychological intervention shall be both educational and supportive to the family/support system as is deemed clinically appropriate. Diagnosis: (1) Major neurocognitive disorder due to another medical condition Progress Note Narrative Ongoing follow-up of patient seen during daily neuropsychology rounds. This is day 16 of his present hospitalization. The patient remains neurobehaviorally stable with no improvements or declines. He continues to demonstrate pervasive neurocognitive deficits. Discussed with RN at bedside. I will continue to follow. Edward Kidd PhD Mar 26, 2017 8:09 am
[2017-03-26] MEDS: DOCUSATE SODIUM 50 MG/SENNA 8.6 MG TAB PO SCH ×2 (09:00→21:00)
[2017-03-26] MEDS: LOSARTAN 50 MG TAB PO SCH (09:03)
[2017-03-26] MEDS: SERTRALINE HCL 100 MG TAB PO SCH (09:03)
[2017-03-26] MEDS: ATENOLOL 50 MG TAB PO SCH ×2 (09:03→21:01)
[2017-03-26] MEDS: THIAMINE HCL 100 MG TAB PO SCH (09:03)
[2017-03-26] MEDS: clonazePAM 0.5 MG TAB PO SCH ×3 (09:03→16:59)
[2017-03-26] MEDS: PRAVASTATIN SOD 40 MG TAB PO SCH (09:04)
[2017-03-26] MEDS: SODIUM CHLORIDE 0.9% FLUSH 10 ML FLUSH IV FLUSH SCH ×2 (09:04→21:02)
[2017-03-26] MEDS: ASPIRIN 81 MG CHEW TAB CHEW SCH (09:04)
--- NOTE | 2017-03-26 10:15 | HHI.PR ---
Subjective Remarks Follow-up encephalopathy. No agitation. Discussed with RN, patient cleared for discharge once SNF arranged. Objective Vitals Vital Signs Date Time Temp Pulse Resp B/P (MAP) Pulse Ox O2 Delivery O2 Flow Rate FiO2 03/26/17 08:00 97.6 47 18 150/76 (100) 93 03/26/17 07:16 18 03/25/17 20:00 97.7 18 138/77 (97) 96 03/25/17 19:00 96 Room Air 03/25/17 17:39 18 03/25/17 16:00 98.5 53 18 156/73 (100) 96 03/25/17 12:00 97.8 48 18 122/65 (84) 96 I/O 03/25/17 03/25/17 03/25/17 03/26/17 03/26/17 03/26/17 07:00 15:00 23:00 07:00 15:00 23:00 Intake Total 100 ml 1000 ml 400 ml Output Total 1000 ml 400 ml Balance -1000 ml 100 ml 1000 ml 0 ml Intake Oral 1000 ml 400 ml IV Total 100 ml Output Urine Total 1000 ml 400 ml # Voids 2 # Bowel Movements 2 Imaging Last Impressions Brain MRI 03/13/17 0000 Signed Impressions: Service Date/Time: Monday, March 13, 2017 18:02 - CONCLUSION: 1. No acute intracranial abnormality. 2. No change from previous study. 3. No acute infarction. Sidney Guillaume MD Abdomen X-Ray 03/12/17 0000 Signed Impressions: Service Date/Time: Sunday, March 12, 2017 13:38 - CONCLUSION: No acute disease. Asael Mcnulty MD Head CT 03/10/17 1425 Signed Impressions: Service Date/Time: Friday, March 10, 2017 18:04 - CONCLUSION: Slight atrophic and small vessel ischemic changes without any evidence for acute hemorrhage or mass effect, chronic sinusitis. Thomas Villa MD Chest X-Ray 03/10/17 1425 Signed Impressions: Service Date/Time: Friday, March 10, 2017 16:48 - CONCLUSION: No acute cardiopulmonary disease. Thomas Villa MD Abdomen/Pelvis CT 03/10/17 0000 Signed Impressions: Service Date/Time: Friday, March 10, 2017 19:09 - CONCLUSION: Fatty liver. Thomas Villa MD Objective Remarks GENERAL: Resting comfortably. Well-developed obese in no distress HEENT: EOMI. no conjunctival injection. CARDIOVASCULAR: Regular rhythm but bradycardic. RESPIRATORY: Clear to auscultation. Breath sounds equal bilaterally. GASTROINTESTINAL: Abdomen soft, obese, incisions healing well, no redness or signs of infection. Nontender. MUSCULOSKELETAL: Extremities without edema. No obvious deformities. NEUROLOGICAL: Awake. Able to answer my questions. Moving both upper and lower extremities spontaneously. PSYCH: Mood and affect appropriate. Procedures none A/P Problem List: (1) Encephalopathy ICD Code: G93.40 - Encephalopathy, unspecified (2) Bacteremia ICD Code: R78.81 - Bacteremia (3) Lactic acidosis ICD Code: E87.2 - Acidosis (4) Hx of cholecystectomy ICD Code: Z98.890 - Other specified postprocedural states; Z90.49 - Acquired absence of other specified parts of digestive tract (5) HTN (hypertension) ICD Code: I10 - Essential (primary) hypertension Status: Chronic Assessment and Plan Encephalopathy The pt was found disoriented, confused, agitated. Has had previous admits for similar presentations. CT Head w/ no acute findings. Given Narcan w/ immediate response and subsequently had to be sedated. Previously has been evaluated by psychiatry. Concern for early onset dementia. Neurology consult appreciated. MRI unremarkable. EEG normal. Psych consult appreciated. RPR negative. Thiamine level low at 50. The patient has mild to moderate cognitive deficits based on therapy cognitive evaluation. Suspect Wernicke's encephalopathy -Continue thiamine 100 mg by mouth daily - Follow up with neurology. - neuro checks. - try to wean down pain medications as well as benzodiazepines. - continue PT/ OT/ ST cognitive evals. Patient is not competent to make decisions and unsafe to be discharged home due to cognitive deficits per neuropsychiatry Bacteremia Recent admit, Blood Cultures 02/23/17 x2 +E. Coli. CXR w/ no acute findings. U/ a negative for UTI. No obvious source of infection. Status post antibiotics. - follow repeat blood cultures. No growth, final. Lactic acidosis Most likely from dehydration. - s/p IVFs. H/o Cholecystectomy CT Abd/Pelvis neg for acute process. Surgical consult appreciated. - outpt follow-up. HTN Blood pressure has been elevated at times. Stable. - continue home meds. N/V Evaluated by surgery. LFTs/ lipase level normal. Seems resolved. - ADAT. - antiemetics as needed. Bradycardia secondary to atenolol. Asymptomatic. Continue beta larissa will hold parameters. Monitor PPx: SCDs Discharge Planning Disposition is difficult with this patient. He lives alone and wants to go home. He has cleared physical and occupational therapy, however, he does have cognitive deficits as demonstrated on the speech therapy cognitive evaluation. At this time, he has no capacity to make decisions. His sister says he cannot move in with her. He refuses to go to a alf facility. Dw , patient is cleared for discharge to rehabilitation pending arrangements. Sister being the only sibling and next of kin, agrees with discharge plan. She is the healthcare surrogate per [place] statute Jamie Easley MD Mar 26, 2017 10:15
[2017-03-26 12:00] VITALS: BP 146/90; PULSE 51; RESP 18; TEMP 98.2; O2SAT 94
[2017-03-26 15:00] VITALS: BP 146/74; PULSE 58; RESP 18; TEMP 98.3; O2SAT 96
[2017-03-26 20:00] VITALS: BP 181/89; PULSE 53; RESP 18; TEMP 98.3; O2SAT 95
[2017-03-26] MEDS: MONTELUKAST SODIUM 10 MG TAB PO SCH (21:01)
[2017-03-26] MEDS: BACLOFEN 20 MG TAB PO SCH (21:01)
[2017-03-27] VITALS: BP 157/70; PULSE 54; RESP 22; TEMP 99; O2SAT 94
[2017-03-27] MEDS: MORPHINE SULFATE 15 MG TAB PO PRN ×2 (01:18→16:56)
[2017-03-27] MEDS: MORPHINE SULFATE 15 MG CONTROLLED RELEASE TAB PO SCH ×2 (06:13→13:40)
[2017-03-27 08:00] VITALS: BP 155/82; PULSE 57; RESP 18; TEMP 97.8; O2SAT 97
--- NOTE | 2017-03-27 08:02 | HHI.PR ---
Neuropsych Behavior Behavior: Intact: Coping/Acceptance, Cooperative w/ Treatment, Motivation, Frustration Tolerance/[place], Impulsive/Agitated Cognitive Cognitive: Severe: Cognitive, Attention/Concentration, Confused/Orientation, Insight/Awareness, Judgement/Problem-Solving, Memory Psychosocial Psychosocial: Moderate: Psychosocial, Family/Other Adjustment, Realistic Expectation, Unable to Asses: Self-Esteem/Confidence Progress Notes/Response to Tx Contents of Sessions: Adjustment, Level of Consciousness Time with Patient: 15 minutes Premorbid psychological status Premorbid Cognitive, Emotional and Behavioral Status: Stable. The patient has college years of education and was on disability. The patient has no prior psychiatric difficulties, as described above. Substance abuse history includes alcohol abuse. Behavioral Reactions of Patient and Family/Support System: Unable to Assess. The patients family is experiencing ongoing issues of adjustment given the nature of the injury, and this aspect of recovery will require ongoing monitoring. Emotional/Behavioral Status of Patient and Family/Support System: Unstable. Pertinent issues, if appropriate to this patients clinical care, are described in detail above. Maximizing acute care outcome It is recommended that the patient be monitored for emergent behavioral impulsivity and cognitive dysfunction as the medical condition evolves. This patients neuropathological challenges may limit his rehabilitation potential going forward, and these challenges will require specialized therapeutic skills to maximize outcome. At this point in the recovery process, the patient does not have cognitive capacity as the patient is unable to understand a situation and its likely consequences, nor is he able to manipulate information rationally. Cognitive capacity will be assessed throughout the recovery process. Anticipated Problems Ongoing areas of concern will include behavioral impulsivity, lack of insight and judgment, which is expected to improve with time and treatment. Presently , the patient is confused and lacks decision making capacity. Given the severity of the patient's injuries it is my clinical opinion that this patient will be unable to return to any type of productive employment for at least one year, perhaps longer and likely never. This patient is not considered safe to discharge home with supervision. Treatment Plan This clinician will continue to follow with you throughout the course of this patients acute care treatment, and I will be available to meet with the patient s family/support system to facilitate their understanding and the ongoing care of their family member. The goals of neuropsychological intervention shall be both educational and supportive to the family/support system as is deemed clinically appropriate. Diagnosis: (1) Major neurocognitive disorder due to another medical condition Progress Note Narrative Ongoing follow-up of patient seen during daily neuropsychology rounds. This is day 17 of his hospitalization. The patient is stable, remains confused and lacking decision making capacity. While he is alert and oriented x 3 (not circumstances) his thought processing and executive functioning abilities are what interferes with his ability to make informed decisions. He is cleared for discharge to SNF. Presently on klonopin 0.5 TID and Zoloft. No agitation/ restlessness or impulsivity. I will continue to follow for neuropsychological monitoring of his cognition. Edward Kidd PhD Mar 27, 2017 8:02 am
[2017-03-27] MEDS: SODIUM CHLORIDE 0.9% FLUSH 10 ML FLUSH IV FLUSH SCH (09:00)
[2017-03-27] MEDS: DOCUSATE SODIUM 50 MG/SENNA 8.6 MG TAB PO SCH (09:00)
[2017-03-27] MEDS: PRAVASTATIN SOD 40 MG TAB PO SCH (09:00)
[2017-03-27] MEDS: clonazePAM 0.5 MG TAB PO SCH ×3 (09:16→16:56)
[2017-03-27] MEDS: SERTRALINE HCL 100 MG TAB PO SCH (09:16)
[2017-03-27] MEDS: ATENOLOL 50 MG TAB PO SCH (09:16)
[2017-03-27] MEDS: LOSARTAN 50 MG TAB PO SCH (09:17)
[2017-03-27] MEDS: THIAMINE HCL 100 MG TAB PO SCH (09:17)
[2017-03-27] MEDS: ASPIRIN 81 MG CHEW TAB CHEW SCH (09:17)
[2017-03-27 12:00] VITALS: BP 169/84; PULSE 53; RESP 18; TEMP 98.3; O2SAT 96
[2017-03-27 16:00] VITALS: BP 177/94; PULSE 54; RESP 18; TEMP 98; O2SAT 95
--- NOTE | 2017-03-27 16:56 | HHI.HCPN ---
Reason for visit a. To assist with evaluation and management of symptoms including: Confusion , pain b. To assist medical decision maker(s) with: better understanding of current medical conditions; weighing benefits/burdens of medical treatment options; making medical treatment decisions. Subjective/Interval History Patient seen in his problems on ISC sitting up in his bed. No signs of acute distress or discomfort. Alert and oriented to self, place and situation. Patient is calm. Patient endorsing pain to his neck and slight headache. Bedside RN notified. Afebrile. Sinus bradycardia with heart rates in the 50s- asymptomatic. SBP 150s to 160s. O2 saturation mid to high 90s on room air. Case discussed with Dr. Huynh and bedside RN. Per patient's sister has accepted to take patient home to [place] with her. Discharge home planned for today. . Family/friend interactions No family at bedside. . Advance Directives Living Will: Never completed Health Care Surrogate: Never completed Durable Power of General Administrator: Never completed Advance Directive Specifics Health Care Surrogate(s): Health Care Proxy- Sister Gus Morrow [id number]. . Objective Vital Signs Date Time Temp Pulse Resp B/P (MAP) Pulse Ox O2 Delivery O2 Flow Rate FiO2 03/27/17 12:00 98.3 53 18 169/84 (112) 96 03/27/17 08:00 97.8 57 18 155/82 (106) 97 03/27/17 08:00 Room Air 03/27/17 00:00 99.0 54 22 157/70 (99) 94 03/26/17 20:00 98.3 53 18 181/89 (119) 95 03/26/17 19:00 95 Room Air 03/26/17 18:29 18 Intake & Output 03/27/17 03/27/17 07:00 19:00 Intake Total 600 ml Output Total 200 ml Balance 400 ml Intake Oral 600 ml Output Urine Total 200 ml Physical Exam CONSTITUTIONAL/GENERAL: This is an adequately nourished patient, in no acute distress. TUBES/LINES/DRAINS: PIV SKIN: No jaundice, rashes, or lesions. Ecchymoses on upper extremities. No wounds seen anteriorly. Skin temperature appropriate. Not diaphoretic. HEAD: Atraumatic. Normocephalic. EYES: Pupils equal and round and reactive. Extraocular motions intact. No scleral icterus. No injection or drainage. Fundi not examined. ENT: Hearing grossly normal. Nose without bleeding or purulent drainage. NECK: Trachea midline. Supple, nontender. No palpable thyroid enlargement or nodularity. CARDIOVASCULAR: Regular rate and rhythm without murmurs, gallops, or rubs. No JVD. Peripheral pulses symmetric. RESPIRATORY/CHEST: Symmetric, unlabored respirations. Clear to auscultation. Breath sounds equal bilaterally. No wheezes, rales, or rhonchi. GASTROINTESTINAL: Abdomen soft, non-tender, nondistended. No hepato-splenomegaly , or palpable masses. No guarding. Bowel sounds present. GENITOURINARY: Without palpable bladder distension. MUSCULOSKELETAL: Extremities without clubbing, cyanosis, or edema. No joint tenderness or effusion noted. No calf tenderness. No mottling or clubbing. NEUROLOGICAL: Awake and alert, oriented to self, place and time. Motor and sensory grossly within normal limits. Follows commands. Moves all extremities. PSYCHIATRIC: Calm. No obvious anxiety/depression. no apparent hallucinations or other psychotic thought process. Assessment and Plan Disease Oriented Problem List: (1) Encephalopathy (2) Bacteremia (3) Lactic acidosis (4) HTN (hypertension) (5) Hx of cholecystectomy Symptom Scale: (1) Confusion Comment: Multifactorial. Admitted with altered mental status. . (2) Pain Comment: Chronic opiate use. Patient takes Morphine Sulfate at home. . Pertinent Non-Medical Issues Psychosocial:Patient was born and raised in [place], [place]. Patient served in the [employer] for 6 years. Patient was and twice. According to patient's sister patient started having health problems about 10 years ago and that's when he became very argumentative, paranoid and very accusing. This led to his second him. He never had children. 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 Spiritual:Patient stated that he is a Orthodoxy and is open to mental health unit lead psychologist services. Legal: Patient states that he completed advance directives (Living will and HCS form) but his sister states that he never completed any advance directives. Ethical issues impacting care:None identified at this time . Important Contacts Sister- Angie, Odalys [phone] . Prognosis Mr Cardenas is a 61 years old male with a past medical history of hypertension , hyperlipidemia, chronic pain, anxiety, depression and pseudoseizure. Patient has had 2 admissions in February prior to this current admission. In both cases patient was complaining of intractable abdominal pain and was also treated for confusion and delirium. Patient was brought in by EMS on 03/10/17 after he was found with altered mental status in the [facility]. At that time patient was only oriented to himself. Clinical case complicated with encephalopathy and concern for patient`s capability to participate in decision making regarding his care. Code Status: Full Code Plan PLAN: Legal decision maker: Patient seems to lack insight in regards to his medical condition and seems unable to demonstrate ability to make good judgement or make sound decisions regarding his health care. Patient has one living sibling, a sister Odalys Adams, who according to [place] statute would serve as his health care proxy. Goals: Aggressive CODE STATUS: Full Code SYMPTOMS: * Confusion: Multifactorial. Chronic opiate use. Patient has had hospital admissions and has had confusion and delirium. Patient came into the hospital with altered mental status. Patient gets paranoid and delusional. Neurology and Psychiatry consulted. No recommendations at this time. * Pain: Hx of cervical fusion and the cystectomy. Patient on MS Contin, baclofen at home. Currently receiving morphine sulfate p.o 15 mg every 8 hours and morphine sulfate 7.5 mg TID for breakthrough pain. Patient also has baclofen 20 mg at at bedtime. Last bowel movement 03/27/17. No recommendations at this time. Palliative care will continue to follow the patient during hospital course as condition evolves, to assist patient/decision-maker with understanding of their medical conditions, weighing benefits/burdens of treatment options, for clarification of goals of treatment. Additionally will assist with any symptoms of palliative concern Attestation To help prompt me to consider important information that might be impacting today's encounter and assessment, information from prior notes written by myself or my colleagues may have been "brought forward" into today's note. My signature on this note, however, is an attestation that I personally performed the exam, history, and/or decision-making noted today, and, unless otherwise indicated, the interactions with patient, family, and staff as well as the review of records all occurred today. I also attest that the listed assessment and stated plan reflect my best clinical judgment today based on the combination of historical information, prior notes, and today's exam/ interactions. When time spent is documented, it refers only to time spent today by the signer, or if indicated, combined time spent today by collaborating physician/nurse practitioner. Haider Booth Mar 27, 2017 16:56
--- NOTE | 2017-03-27 17:32 | HHI.DS ---
Discharge Summary Admission Date Mar 10, 2017 at 19:26 Discharge Date: Mar 27, 2017 Admitting Diagnosis (1) Encephalopathy ICD Code: G93.40 - Encephalopathy, unspecified Diagnosis: Principal (2) Bacteremia ICD Code: R78.81 - Bacteremia Diagnosis: Principal (3) Lactic acidosis ICD Code: E87.2 - Acidosis Diagnosis: Principal (4) Hx of cholecystectomy ICD Code: Z98.890 - Other specified postprocedural states; Z90.49 - Acquired absence of other specified parts of digestive tract Diagnosis: Principal (5) HTN (hypertension) ICD Code: I10 - Essential (primary) hypertension Diagnosis: Principal Status: Chronic Procedures none Brief History - From Admission This is a 61-year-old male with PMH of HTN, Anxiety, Depression, Hyperlipidemia , IBS and h/o Pseudoseizure who was brought to the ER by EMS after being found down at [facility]. Per report, pt noted to be disoriented, confused, agitated, complaints of abdominal pain but unable to elaborate. On arrival to ER, pt remained disoriented/lethargic, s/p Narcan w/ immediate response, episode of nausea/vomiting then became significantly agitated, kicking/spitting at staff, s /p Ativan, Benadryl 50mg and Geodon. Now asleep. Unable to obtain history from pt in light of above. BP 158/84, HR 97, O2 sat 95% on RA, Temp 99.7. CBC essentially unremarkable. Chemistry unremarkable except for GFR 73. Lactic Acid 2.2, repeat 2.8. INR 1.1. UA negative. Urine Drug Screen positive for Opiates. Alcohol negative. CT Head with no acute findings. CXR negative. Abd X-ray negative. Per review of previous records, pt admitted 02/19/17 for AMS and abdominal pain , found to have gangrenous cholecystitis, s/p Cholecystectomy and Hernia Repair by Dr. Mercado on 02/23/17, s/p eval by Psych thought to have Delirium due to underlying medical condition. B/C 02/21/17 +E.Coli x2, started on antibiotic regimen, however pt LEFT AMA on 03/03/17. Re-admitted 03/04-03/05/17 for c/o abdominal pain. PE at Discharge GENERAL: Resting comfortably. Well-developed obese in no distress HEENT: EOMI. no conjunctival injection. CARDIOVASCULAR: Regular rhythm but bradycardic. RESPIRATORY: Clear to auscultation. Breath sounds equal bilaterally. GASTROINTESTINAL: Abdomen soft, obese, incisions healing well, no redness or signs of infection. Nontender. MUSCULOSKELETAL: Extremities without edema. No obvious deformities. NEUROLOGICAL: Awake. Able to answer my questions. Moving both upper and lower extremities spontaneously. PSYCH: Mood and affect appropriate. Hospital Course Mr. Cardenas is a 61 -year-old male. He was admitted secondary to altered mental status and lactic acidosis. She was originally found down unconscious and disoriented. He has improved through time. long term facility options were provided patient declines these options. His sister is willing to house him and watch over him. Patient wishes to discharge with his sister. Medically cleared and stable for discharge home with sister today. Pt Condition on Discharge: Stable Discharge Disposition: Discharge Home Discharge Time: <= 30 minutes Discharge Instructions DIET: Follow Instructions for: Heart Healthy Diet Activities you can perform: Regular-No Restrictions Activities to Avoid: Driving Follow up Referrals: PCP Follow-up - 2-3 Days PCP Follow-up @ DR. VALENZUELA New Medications: Cane/Wood/Mens Standard (Cane/Wood/Mens Standard) 1 Mis Mis EA .ROUTE DIRECTED, #1 Thiamine (Vitamin B-1) 100 Mg Tab 100 MG PO DAILY for Nutritional Supplement, #30 TAB 0 Refills start this dose 03/27/17 Clonazepam (Klonopin) 0.5 Mg Tab 0.5 MG PO TID for Control Anxiety, #10 TAB Morphine ER (Morphine ER) 15 Mg Tab 15 MG PO Q8HR for Pain Management, #10 TAB Continued Medications: Aspirin (Aspirin) 81 Mg Chew 81 MG CHEW ONCE, #1 TAB 0 Refills Atenolol (Atenolol) 50 Mg Tab 50 MG PO BID for Blood Pressure Management, #60 TAB 0 Refills Baclofen (Baclofen) 20 Mg Tab 20 MG PO HS for Muscle Spasm, TAB 0 Refills Cholecalciferol (Vitamin D3) 2,000 Unit Cap 2000 UNITS PO DAILY for Nutritional Supplement, #1 BOTTLE 0 Refills Losartan (Losartan) 50 Mg Tab 50 MG PO DAILY for Blood Pressure Management, #30 TAB 0 Refills Lovastatin (Lovastatin) 40 Mg Tab 40 MG PO DAILY for Cholesterol Management, #30 TAB 0 Refills Montelukast (Singulair) 10 Mg Tab 10 MG PO HS, #30 TAB 0 Refills Morphine IR (Morphine IR) 15 Mg Tab 15 MG PO Q6HR PRN for PAIN, #15 TAB 0 Refills (This prescription has been renewed) Omeprazole (Omeprazole) 40 Mg Cap 40 MG PO DAILY, #30 CAP 0 Refills Sertraline (Sertraline) 100 Mg Tab 100 MG PO DAILY, #30 TAB 0 Refills Discontinued Medications: Clonazepam (Klonopin) 1 Mg Tab 1 MG PO TID, TAB 0 Refills Morphine ER (Ms Contin) 15 Mg Tab 30 MG PO Q8H for Pain Management, #30 TAB 0 Refills Karl Huynh MD Mar 27, 2017 17:32
== END 2017-03-27 18:51 | disposition home or self-care (01) | DRG 71 ==
LOC: NEPC 14:10 → NEDA 19:26 → N06A 20:25 → N03B 03-20 20:35
PROVIDERS: ADMIT Hospitalist; ATTEND Hospitalist
DX: G93.40 Encephalopathy, unspecified (principal); E87.2 Acidosis; K76.0 Fatty (change of) liver, not elsewhere classified; Z78.1 Physical restraint status; I10 Essential (primary) hypertension; E86.0 Dehydration; K58.0 Irritable bowel syndrome with diarrhea; E78.5 Hyperlipidemia, unspecified; E66.9 Obesity, unspecified; J32.9 Chronic sinusitis, unspecified; E78.00 Pure hypercholesterolemia, unspecified; R10.9 Unspecified abdominal pain; R00.1 Bradycardia, unspecified; T44.7X5A Adverse effect of beta-adrenoreceptor antagonists, initial encounter; M54.5 Low back pain; G89.29 Other chronic pain; M19.90 Unspecified osteoarthritis, unspecified site; F02.80 Dementia in other diseases classified elsewhere, unspecified severity, without behavioral disturbance, psychotic disturbance, mood disturbance, and anxiety; F22 Delusional disorders; F29 Unspecified psychosis not due to a substance or known physiological condition; F41.9 Anxiety disorder, unspecified; F32.9 Major depressive disorder, single episode, unspecified; Z68.37 Body mass index [BMI] 37.0-37.9, adult; Z79.891 Long term (current) use of opiate analgesic; Z96.653 Presence of artificial knee joint, bilateral; Z98.1 Arthrodesis status
CPT/HCPCS: 70450; 70553; 71010; 74000; 74018; 74177; 80048; 80053; 80202; 80307; 81001; 82140; 82550; 82607; 82746; 83605; 83690; 84425; 84443; 85025; 85610; 85730; 86592; 87040; 93005; 95819; 96361; 96372; 96374; 96375; A9579; J0692; J1200; J2060; J2270; J2310; J2405; J3370; J3411; J3486; J7030; J7040; J7050; Q9967

== ENCOUNTER 2017-12-17 09:25 | Inpatient (IN) ==
[2017-12-17] MEDS ORDERED: Sod Chloride 0.9% Inj 1,000 ML IV.CONT SCH (10:30)
[2017-12-17 10:51] LABS: Baso % (Auto) 0.3 % (0.0-2.0); Eos # (Auto) 0.3 th/mm3 (0.0-0.4); Hematocrit 42.1 % (39.0-51.0); Hemoglobin 14.5 gm/dL (13.0-17.0); Lymph # (Auto) 0.9 th/mm3 (1.0-4.8); Lymph % (Auto) 9.1 % (9.0-44.0); Mean Corpuscular HGB Conc 34.3 % (32.0-36.0); Mean Corpuscular Hemoglobin 30.4 pg (27.0-34.0); Mean Corpuscular Volume 88.6 fL (80.0-100.0); Mean Platelet Volume 8.1 fL (7.0-11.0); Mono # (Auto) 0.5 th/mm3 (0.0-0.9); Mono % (Auto) 5.4 % (0.0-8.0); Neut # (Auto) 7.8 th/mm3 (1.8-7.7); Neut % (Auto) 82.2 % (16.0-70.0); Platelet Count 169 th/mm3 (150-450); Red Blood Count 4.76 mil/mm3 (4.50-5.90); Red Cell Distribution Width 13.8 % (11.6-17.2); White Blood Count 9.5 th/mm3 (4.0-11.0)
[2017-12-17 11:13] LABS: Alanine Aminotransferase 21 U/L (12-78); Anion Gap 12 meq/L (5-15); Aspartate Aminotransferase 22 U/L (15-37); Blood Urea Nitrogen 14 mg/dL (7-18); Calcium 9.3 mg/dL (8.5-10.1); Carbon Dioxide 24.4 meq/L (21.0-32.0); Chloride 105 meq/L (98-107); Glomerular Filtration Rate 50 mL/min (>89); Glucose,Random 114 mg/dL (74-106); Lipase 186 U/L (73-393); Sodium 141 meq/L (136-145)
[2017-12-17 11:15] LABS: Alkaline Phosphatase 86 U/L (45-117)
--- NOTE | 2017-12-17 11:59 | ED ---
HPI General Chief complaint: Nausea/Vomiting/Diarrhea Stated complaint: Weak/vomitting/diarrhea Time Seen by Provider: 12/17/17 10:09 History of Present Illness HPI Narrative: This is a 62-year-old male with history of hypertension, previous gallbladder disease in March 2017, presents today with complaints of generalized abdominal pain with associated nausea vomiting diarrhea. Patient states it started as diarrhea 5 days ago. He states he has green loose stool. There is no blood. He also reports that he had nausea vomiting. The patient reports that the vomiting has improved however he still extremely nauseous. He still has the loose green watery diarrhea. He had an explosive movement in our bathroom just prior to me seeing him. Related Data Home Medications Medication Instructions Recorded Confirmed atenolol 50 mg PO BID 12/17/17 12/17/17 Allergies Allergy/AdvReac Type Severity Reaction Status Date / Time No Known Allergies Allergy Unverified 12/17/17 12:43 Review of Systems ROS: all other systems reviewed are negative Constitutional Denies chills and Denies fever(s) Eyes Denies blurry vision and Denies diplopia ENT Denies vertigo and Denies dizziness Cardiovascular Reports chest pain, Denies palpitations and Reports dyspnea Respiratory Denies cough, Denies pain on inspiration and Reports dyspnea Gastrointestinal Reports abdominal pain, Reports diarrhea, Reports nausea and Reports vomiting ( Which has nearly subsided) Genitourinary Denies dysuria, Denies flank pain and Denies urinary urgency Musculoskeletal Reports system reviewed and no additional complaints, except as docu Neurologic Reports confusion, Denies headache(s), Reports weakness and Reports other ( Patient states he feels slight confusion.) PMFSH Family History Family History Father Diabetes mellitus Mother Stroke Social History Social History Substance History: No History of Abuse Second Hand Smoke Exposure: No Smoking Status: Never smoker How Often Do You Have a Drink Containing Alcohol: Monthly or less Recent Travel in [facility] within the Last 8 Weeks: No Recent Out of Country Travel within the Last 8 Weeks: No Immunization History Tetanus Immunization: <5 Years Exam Narrative Exam Narrative: GENERAL: Well-developed well-nourished male in no acute respiratory distress. SKIN: Focused skin assessment warm/dry. HEAD: Atraumatic. Normocephalic. EYES:No scleral icterus. No injection or drainage. ENT: No nasal bleeding or discharge. Mucous membranes pink and moist. NECK: Trachea midline. Supple. CARDIOVASCULAR: Regular rate and rhythm. No murmur appreciated. RESPIRATORY: No accessory muscle use. Clear to auscultation. Breath sounds equal bilaterally. GASTROINTESTINAL: Abdomen soft, nondistended. He has tenderness in the infraumbilical area. No rebound or guarding. MUSCULOSKELETAL: No obvious deformities. No clubbing. No cyanosis. No edema. NEUROLOGICAL: Awake and alert. No obvious cranial nerve deficits. Motor grossly within normal limits. Normal speech. Course Initial Documented Vital Signs Temperature 98.1 F 12/17/17 09:44 Pulse Rate 72 12/17/17 09:44 Respiratory Rate 18 12/17/17 09:44 Blood Pressure 171/100 H 12/17/17 09:44 Pulse Oximetry 99 12/17/17 09:44 Last Documented Vital Signs Temperature 98.8 F 12/20/17 12:00 Pulse Rate 64 12/20/17 12:00 Respiratory Rate 20 12/20/17 12:00 Blood Pressure 126/76 12/20/17 12:00 Pulse Oximetry 93 L 12/20/17 12:00 Medical Decision Making [facility] Narrative Medical decision making narrative: 62-year-old male with a history of comp gated gallbladder surgery previously, presents today with complaints of abdominal pain. Patient had a repeat CAT scan done today. There is no evidence of acute obstruction. There is no evidence of acute pathology noted on his abdominal exam. Patient is noted to be dehydrated with hypokalemia. He will be admitted for observation for IV hydration. Case was discussed with the admitting physician who is agreeable. Medical Screen Exam Complete: Yes Emergency Medical Condition: Yes Differential Diagnosis Differential Diagnosis: Diverticulitis versus partial bowel obstruction versus gastroenteritis Lab Data Result diagrams: 12/20/17 07:09 12/20/17 07:09 Lab Results 12/17/17 12/17/17 12/17/17 Range/Units 10:35 10:35 10:35 WBC 9.5 (4.0-11.0) th/mm3 RBC 4.76 (4.50-5.90) mil/mm3 Hgb 14.5 (13.0-17.0) gm/dL Hct 42.1 (39.0-51.0) % MCV 88.6 (80.0-100.0) fL MCH 30.4 (27.0-34.0) pg MCHC 34.3 (32.0-36.0) % RDW 13.8 (11.6-17.2) % Plt Count 169 (150-450) th/mm3 MPV 8.1 (7.0-11.0) fL Neut % (Auto) 82.2 H (16.0-70.0) % Lymph % (Auto) 9.1 (9.0-44.0) % [place] % (Auto) 5.4 (0.0-8.0) % Eos % (Auto) 3.0 (0.0-4.0) % Baso % (Auto) 0.3 (0.0-2.0) % Neut # (Auto) 7.8 H (1.8-7.7) th/mm3 Lymph # (Auto) 0.9 L (1.0-4.8) th/mm3 [place] # (Auto) 0.5 (0.0-0.9) th/mm3 Eos # (Auto) 0.3 (0.0-0.4) th/mm3 Baso # (Auto) 0.0 (0.0-0.2) th/mm3 WBC Differential . Differential Comment Auto diff final Sodium 141 (136-145) meq/L Potassium 3.0 L (3.5-5.1) meq/L Chloride 105 (98-107) meq/L Carbon Dioxide 24.4 (21.0-32.0) meq/L Anion Gap 12 (5-15) meq/L BUN 14 (7-18) mg/dL Creatinine 1.44 H (0.60-1.30) mg/dL Estimated GFR 50 L (>89) mL/min POC Glucose (68-110) mg/dl Random Glucose 114 H (74-106) mg/dL Calcium 9.3 (8.5-10.1) mg/dL Phosphorus (2.5-4.9) mg/dL Magnesium 2.0 (1.5-2.5) mg/dL Total Bilirubin 1.1 H (0.2-1.0) mg/dL Direct Bilirubin (0.0-0.2) mg/dL Indirect Bilirubin (0.0-0.8) mg/dL AST 22 (15-37) U/L ALT 21 (12-78) U/L Alkaline Phosphatase 86 (45-117) U/L Total Protein 8.0 (6.4-8.2) g/dL Albumin 4.0 (3.4-5.0) g/dL Lipase 186 (73-393) U/L Urine Color (Yellw/Straw) Urine Clarity (Clear) Urine pH (5.0-8.5) Ur Specific [place] (1.002-1.035) Urine Protein (Neg-Trace) mg/dL Urine Glucose (UA) (Negative) mg/dL Urine Ketones (Negative) mg/dL Urine Occult Blood (Negative) Urine Nitrate (Negative) Urine Bilirubin (Negative) Urine Urobilinogen (Less than 2) mg/dL Ur Leukocyte Esterase (Negative) Urine RBC (0-3) /hpf Urine WBC (0-5) /hpf Calcium Oxalate Crystal (None) /hpf Hyaline Casts (0-3) /lpf Urine Mucus (Occasional) /lpf Ur Microscopic Review Stl C.difficile DNA Amp (Negative) St C. diff Tox Epid 027 (Negative) 12/17/17 12/17/17 12/18/17 Range/Units 10:35 11:50 06:22 WBC 6.4 (4.0-11.0) th/mm3 RBC 4.20 L (4.50-5.90) mil/mm3 Hgb 12.7 L (13.0-17.0) gm/dL Hct 37.5 L (39.0-51.0) % MCV 89.4 (80.0-100.0) fL MCH 30.2 (27.0-34.0) pg MCHC 33.8 (32.0-36.0) % RDW 14.4 (11.6-17.2) % Plt Count 130 L (150-450) th/mm3 MPV 8.4 (7.0-11.0) fL Neut % (Auto) 63.4 (16.0-70.0) % Lymph % (Auto) 20.3 (9.0-44.0) % [place] % (Auto) 8.1 H (0.0-8.0) % Eos % (Auto) 7.7 H (0.0-4.0) % Baso % (Auto) 0.5 (0.0-2.0) % Neut # (Auto) 4.1 (1.8-7.7) th/mm3 Lymph # (Auto) 1.3 (1.0-4.8) th/mm3 [place] # (Auto) 0.5 (0.0-0.9) th/mm3 Eos # (Auto) 0.5 H (0.0-0.4) th/mm3 Baso # (Auto) 0.0 (0.0-0.2) th/mm3 WBC Differential . Differential Comment Auto diff final Sodium (136-145) meq/L Potassium (3.5-5.1) meq/L Chloride (98-107) meq/L Carbon Dioxide (21.0-32.0) meq/L Anion Gap (5-15) meq/L BUN (7-18) mg/dL Creatinine (0.60-1.30) mg/dL Estimated GFR (>89) mL/min POC Glucose (68-110) mg/dl Random Glucose (74-106) mg/dL Calcium (8.5-10.1) mg/dL Phosphorus (2.5-4.9) mg/dL Magnesium (1.5-2.5) mg/dL Total Bilirubin 1.1 H (0.2-1.0) mg/dL Direct Bilirubin 0.3 H (0.0-0.2) mg/dL Indirect Bilirubin 0.8 (0.0-0.8) mg/dL AST (15-37) U/L ALT (12-78) U/L Alkaline Phosphatase (45-117) U/L Total Protein (6.4-8.2) g/dL Albumin (3.4-5.0) g/dL Lipase (73-393) U/L Urine Color (Yellw/Straw) Urine Clarity (Clear) Urine pH (5.0-8.5) Ur Specific [place] (1.002-1.035) Urine Protein (Neg-Trace) mg/dL Urine Glucose (UA) (Negative) mg/dL Urine Ketones (Negative) mg/dL Urine Occult Blood (Negative) Urine Nitrate (Negative) Urine Bilirubin (Negative) Urine Urobilinogen (Less than 2) mg/dL Ur Leukocyte Esterase (Negative) Urine RBC (0-3) /hpf Urine WBC (0-5) /hpf Calcium Oxalate Crystal (None) /hpf Hyaline Casts (0-3) /lpf Urine Mucus (Occasional) /lpf Ur Microscopic Review Stl C.difficile DNA Amp Negative (Negative) St C. diff Tox Epid 027 Negative (Negative) 12/18/17 12/18/17 12/19/17 Range/Units 06:22 07:50 06:09 WBC (4.0-11.0) th/mm3 RBC (4.50-5.90) mil/mm3 Hgb (13.0-17.0) gm/dL Hct (39.0-51.0) % MCV (80.0-100.0) fL MCH (27.0-34.0) pg MCHC (32.0-36.0) % RDW (11.6-17.2) % Plt Count (150-450) th/mm3 MPV (7.0-11.0) fL Neut % (Auto) (16.0-70.0) % Lymph % (Auto) (9.0-44.0) % [place] % (Auto) (0.0-8.0) % Eos % (Auto) (0.0-4.0) % Baso % (Auto) (0.0-2.0) % Neut # (Auto) (1.8-7.7) th/mm3 Lymph # (Auto) (1.0-4.8) th/mm3 [place] # (Auto) (0.0-0.9) th/mm3 Eos # (Auto) (0.0-0.4) th/mm3 Baso # (Auto) (0.0-0.2) th/mm3 WBC Differential Differential Comment Sodium 144 144 (136-145) meq/L Potassium 3.2 L 3.7 (3.5-5.1) meq/L Chloride 111 H 107 (98-107) meq/L Carbon Dioxide 23.4 24.4 (21.0-32.0) meq/L Anion Gap 10 13 (5-15) meq/L BUN 16 24 H (7-18) mg/dL Creatinine 1.32 H 1.90 H (0.60-1.30) mg/dL Estimated GFR 55 L 36 L (>89) mL/min POC Glucose (68-110) mg/dl Random Glucose 85 78 (74-106) mg/dL Calcium 8.0 L D 7.7 L (8.5-10.1) mg/dL Phosphorus 5.4 H (2.5-4.9) mg/dL Magnesium 2.2 (1.5-2.5) mg/dL Total Bilirubin 0.8 (0.2-1.0) mg/dL Direct Bilirubin (0.0-0.2) mg/dL Indirect Bilirubin (0.0-0.8) mg/dL AST 18 (15-37) U/L ALT 19 (12-78) U/L Alkaline Phosphatase 73 (45-117) U/L Total Protein 6.8 D (6.4-8.2) g/dL Albumin 3.4 D 3.7 (3.4-5.0) g/dL Lipase (73-393) U/L Urine Color Emily (Yellw/Straw) Urine Clarity Hazy H (Clear) Urine pH 6.0 (5.0-8.5) Ur Specific [place] 1.059 H (1.002-1.035) Urine Protein 30 H (Neg-Trace) mg/dL Urine Glucose (UA) Negative (Negative) mg/dL Urine Ketones Negative (Negative) mg/dL Urine Occult Blood Negative (Negative) Urine Nitrate Negative (Negative) Urine Bilirubin Negative (Negative) Urine Urobilinogen Less than 2 (Less than 2) mg/dL Ur Leukocyte Esterase Negative (Negative) Urine RBC 18 H (0-3) /hpf Urine WBC 2 (0-5) /hpf Calcium Oxalate Crystal Rare H (None) /hpf Hyaline Casts 8 (0-3) /lpf Urine Mucus Few H (Occasional) /lpf Ur Microscopic Review Not Reportable Stl C.difficile DNA Amp (Negative) St C. diff Tox Epid 027 (Negative) 12/19/17 12/20/17 12/20/17 Range/Units 16:16 00:21 07:09 WBC 5.4 (4.0-11.0) th/mm3 RBC 4.09 L (4.50-5.90) mil/mm3 Hgb 12.6 L (13.0-17.0) gm/dL Hct 37.1 L (39.0-51.0) % MCV 90.6 (80.0-100.0) fL MCH 30.7 (27.0-34.0) pg MCHC 33.9 (32.0-36.0) % RDW 13.8 (11.6-17.2) % Plt Count 133 L (150-450) th/mm3 MPV 9.1 (7.0-11.0) fL Neut % (Auto) 65.7 (16.0-70.0) % Lymph % (Auto) 20.7 (9.0-44.0) % [place] % (Auto) 6.2 (0.0-8.0) % Eos % (Auto) 6.8 H (0.0-4.0) % Baso % (Auto) 0.6 (0.0-2.0) % Neut # (Auto) 3.5 (1.8-7.7) th/mm3 Lymph # (Auto) 1.1 (1.0-4.8) th/mm3 [place] # (Auto) 0.3 (0.0-0.9) th/mm3 Eos # (Auto) 0.4 (0.0-0.4) th/mm3 Baso # (Auto) 0.0 (0.0-0.2) th/mm3 WBC Differential . Differential Comment Auto diff final Sodium 143 (136-145) meq/L Potassium 3.9 (3.5-5.1) meq/L Chloride 111 H (98-107) meq/L Carbon Dioxide 24.3 (21.0-32.0) meq/L Anion Gap 8 (5-15) meq/L BUN 22 H (7-18) mg/dL Creatinine 1.30 (0.60-1.30) mg/dL Estimated GFR 56 L (>89) mL/min POC Glucose 87 (68-110) mg/dl Random Glucose 87 (74-106) mg/dL Calcium 8.0 L (8.5-10.1) mg/dL Phosphorus (2.5-4.9) mg/dL Magnesium (1.5-2.5) mg/dL Total Bilirubin (0.2-1.0) mg/dL Direct Bilirubin (0.0-0.2) mg/dL Indirect Bilirubin (0.0-0.8) mg/dL AST (15-37) U/L ALT (12-78) U/L Alkaline Phosphatase (45-117) U/L Total Protein (6.4-8.2) g/dL Albumin (3.4-5.0) g/dL Lipase (73-393) U/L Urine Color (Yellw/Straw) Urine Clarity (Clear) Urine pH (5.0-8.5) Ur Specific [place] (1.002-1.035) Urine Protein (Neg-Trace) mg/dL Urine Glucose (UA) (Negative) mg/dL Urine Ketones (Negative) mg/dL Urine Occult Blood (Negative) Urine Nitrate (Negative) Urine Bilirubin (Negative) Urine Urobilinogen (Less than 2) mg/dL Ur Leukocyte Esterase (Negative) Urine RBC (0-3) /hpf Urine WBC (0-5) /hpf Calcium Oxalate Crystal (None) /hpf Hyaline Casts (0-3) /lpf Urine Mucus (Occasional) /lpf Ur Microscopic Review Stl C.difficile DNA Amp (Negative) St C. diff Tox Epid 027 (Negative) 12/20/17 Range/Units 07:09 WBC (4.0-11.0) th/mm3 RBC (4.50-5.90) mil/mm3 Hgb (13.0-17.0) gm/dL Hct (39.0-51.0) % MCV (80.0-100.0) fL MCH (27.0-34.0) pg MCHC (32.0-36.0) % RDW (11.6-17.2) % Plt Count (150-450) th/mm3 MPV (7.0-11.0) fL Neut % (Auto) (16.0-70.0) % Lymph % (Auto) (9.0-44.0) % [place] % (Auto) (0.0-8.0) % Eos % (Auto) (0.0-4.0) % Baso % (Auto) (0.0-2.0) % Neut # (Auto) (1.8-7.7) th/mm3 Lymph # (Auto) (1.0-4.8) th/mm3 [place] # (Auto) (0.0-0.9) th/mm3 Eos # (Auto) (0.0-0.4) th/mm3 Baso # (Auto) (0.0-0.2) th/mm3 WBC Differential Differential Comment Sodium 139 (136-145) meq/L Potassium 3.6 (3.5-5.1) meq/L Chloride 105 (98-107) meq/L Carbon Dioxide 26.2 (21.0-32.0) meq/L Anion Gap 8 (5-15) meq/L BUN 17 (7-18) mg/dL Creatinine 1.14 (0.60-1.30) mg/dL Estimated GFR 65 L (>89) mL/min POC Glucose (68-110) mg/dl Random Glucose 84 (74-106) mg/dL Calcium 8.4 L (8.5-10.1) mg/dL Phosphorus 2.8 D (2.5-4.9) mg/dL Magnesium 2.1 (1.5-2.5) mg/dL Total Bilirubin (0.2-1.0) mg/dL Direct Bilirubin (0.0-0.2) mg/dL Indirect Bilirubin (0.0-0.8) mg/dL AST (15-37) U/L ALT (12-78) U/L Alkaline Phosphatase (45-117) U/L Total Protein (6.4-8.2) g/dL Albumin 3.6 (3.4-5.0) g/dL Lipase (73-393) U/L Urine Color (Yellw/Straw) Urine Clarity (Clear) Urine pH (5.0-8.5) Ur Specific [place] (1.002-1.035) Urine Protein (Neg-Trace) mg/dL Urine Glucose (UA) (Negative) mg/dL Urine Ketones (Negative) mg/dL Urine Occult Blood (Negative) Urine Nitrate (Negative) Urine Bilirubin (Negative) Urine Urobilinogen (Less than 2) mg/dL Ur Leukocyte Esterase (Negative) Urine RBC (0-3) /hpf Urine WBC (0-5) /hpf Calcium Oxalate Crystal (None) /hpf Hyaline Casts (0-3) /lpf Urine Mucus (Occasional) /lpf Ur Microscopic Review Stl C.difficile DNA Amp (Negative) St C. diff Tox Epid 027 (Negative) Imaging Data Radiologist's impression: Abdomen/Pelvis CT 12/17/17 10:25 CONCLUSION: 1. No acute abnormality to explain diffuse abdominal pain. 2. Circumferential wall thickening involving the urinary bladder. This could either relate to trabeculation or could relate to acute cystitis. 3. Hepatic steatosis. 4. Splenomegaly. Abdomen/Bladder Ultrasound 12/19/17 00:00 CONCLUSION: 1. Study limited by the patient's body habitus. 2. No abnormality appreciated. Discharge Plan Discharge Disposition Patient Disposition: Against Medical Advice Discharge Condition Condition: Stable Discharge Order Discharge Orders: AMA Discharge (Routine); Ordered 12/20/17 Ordered By: Payton Hilton Discharge Details Diagnosis: Diarrhea, Acute kidney injury, Hypokalemia Physicians Team ED Provider: Primo Mcclelland Primary Care Provider: Primary Care Agatha Zuniga Attending Provider: Payton Hilton Other Providers: Jules Vicente ; Oj Bowen ; Elroy Irizarry Discharge Interventions Interventions: ED Discharge Assessment Last Done: 12/17/17 16:03 Vital Signs Last Done: 12/17/17 12:42 Status ED Status: Left Department Discharge Information Discharge Date/Time: 12/17/17 16:04
[2017-12-17] MEDS ORDERED: Diatrizoate Meglum/Diatrizoate Sod Liq 9 ML UDC PO ONE (12:30)
[2017-12-17] MEDS ORDERED: Bisacodyl 10 MG Supp RECTAL PRN (14:51)
--- NOTE | 2017-12-17 15:14 | CT ---
EXAM DATE: 12/17/2017 2:09 PM EDT AGE/SEX: 62 years / Male INDICATIONS: Diffuse abdomen pain with nausea, vomiting and diarrhea for five days. CLINICAL DATA: This is the patient's initial encounter. Patient reports that signs and symptoms have been present for 4 - 6 days and indicates a pain score of 6/10. MEDICAL/SURGICAL HISTORY: Hypertension. Cholecystectomy. ORAL CONTRAST: Prescribed oral contrast ingested. RADIATION DOSE: 19.79 CTDI (mGy) COMPARISON: CT the abdomen and pelvis 03/10/2017. TECHNIQUE: Multiple contiguous axial images were obtained through the abdomen and pelvis following b olus infusion of 95 ml Omnipaque 350 (iohexol) nonionic water-soluble contrast as a single exam dos e. Prescribed oral contrast ingested. Using automated exposure control and adjustment of the mA and/ or kV according to patient size, radiation dose was kept as low as reasonably achievable to obtain op timal diagnostic quality images. DICOM format image data is available electronically for review and comparison. FINDINGS: Lower Lungs: The visualized lower lungs are clear. Liver: The liver has a homogeneously low density without space-occupying lesion. There is no dilation of the biliary tree. Gallbladder is surgically absent. Spleen: Mild splenomegaly which is a new finding from the prior study. No splenic lesion.. Pancreas: Unremarkable without mass or calcification. Kidneys: Normal in size and shape. 1 cm cyst on the right. No evidence of mass or hydronephrosis. Adrenal Glands: Unremarkable. Aorta: The aorta and proximal iliac vessels are grossly unremarkable without aneurysmal dilation. Bowel/Mesentery: The bowel loops are grossly unremarkable. The cecum and sigmoid colon have a normal configuration. Abdominal Wall: Intact. Retroperitoneum: No evidence of adenopathy in the retrocrural, para-aortic, or deep pelvic regions. Bladder: Circumferential wall thickening involving the urinary bladder. This is a new finding from t he prior exam. No stones.. Reproductive Organs: No abnormal masses or calcifications seen. Inguinal: The inguinal region is unremarkable without evidence of adenopathy. Bony Structures: Unremarkable. CONCLUSION: 1. No acute abnormality to explain diffuse abdominal pain. 2. Circumferential wall thickening involving the urinary bladder. This could either relate to trabec ulation or could relate to acute cystitis. 3. Hepatic steatosis. 4. Splenomegaly. Electronically signed by: Gal Patel MD 12/17/2017 3:13 PM EDT
[2017-12-17] MEDS: Sod Chloride 0.9% Inj 1,000 ML IV.CONT SCH (15:32)
[2017-12-17] MEDS: Potassium Chlor 20 mEq Premix 20 MEQ/100 ML PIGGYBACK IV.SIG SCH ×2 (16:55→20:07)
--- NOTE | 2017-12-17 18:08 | P.HPIM ---
History of Present Illness Primary Care Physician: No Primary Care Physician History of Present Illness: 62-year-old male with a history of hypertension, chronic pain, pseudoseizure, diarrhea predominant IBS, chronic anxiety who presents with a one-week history of nausea, nonbloody vomiting, nonbloody, bilious yellow/green diarrhea. Patient reports feeling weak and fatigued secondary to diarrhea, and although the vomiting has improved, he has had several accidents today.. He does report some vague suprapubic pain over the past 2 days, without any dysuria. Denies any chest pain or shortness breath. Denies lightheadedness or dizziness. Inpatient Certification: I certify that the inpatient services were ordered in accordance with Medicare regulations governing the order. This includes certification that hospital inpatient services are reasonable and necessary and in the case of services not specified as inpatient-only under 42 CFR 419.22(n), that they are appropriately provided as inpatient services in accordance to with the 2-midnight benchmark under 43 CFR 412.3(e) Estimated Total Length of Stay (Days): 2 Plans for Post Hospital Care: Home Review of Systems All other systems reviewed negative except as stated in HPI PMFSH - History History Provided By: Patient - Medical History Medical History: Medical History (Last Updated 12/17/17 @ 10:24 by Cathy Canchola RN) Chronic pain Hypertension Tear of medial collateral ligament of left knee - Surgical History Surgical History: Surgical History (Last Updated 12/17/17 @ 10:24 by Cathy Canchola RN) History of repair of anterior cruciate ligament of right knee Hx of cholecystectomy - Family History Family History: Family History (Last Updated 12/17/17 @ 18:05 by Moy Nicole MD) Father Diabetes mellitus Mother Stroke - Tobacco History Second Hand Smoke Exposure: No Smoking Status: Never smoker - Alcohol History How Often Do You Have a Drink Containing Alcohol: Monthly or less - Substance Use History Substance History: No History of Abuse - Travel History Recent Travel in the [place] Within the Last 8 Weeks: No Recent Travel Out of the Country Within the Last 8 Weeks: No - Immunization History Tetanus Immunization: <5 Years Hx Influenza Vaccine This Season: No Medications and Allergies Active Medications: Active Medications Al Hydroxide/Mg Hydroxide (Milk Of Magnesia Liq) 30 ml PO Q12H PRN PRN Reason: Mild Constipation Atenolol (Tenormin) 50 mg PO BID [facility] Bisacodyl (Dulcolax Supp) 10 mg RECTAL DAILY PRN PRN Reason: SEVERE CONSITIPATION Sodium Chloride (Ns Inj) 1,000 mls @ 100 mls/hr IV.CONT .Q10H [facility] Last Admin: 12/17/17 15:32 Dose: 100 mls/hr Potassium Chloride (Kcl 20 Meq Premix Inj) 20 meq in 100 mls @ 50 mls/hr IV.SIG Q2H [facility] Stop: 12/17/17 19:59 Last Admin: 12/17/17 16:55 Dose: 50 mls/hr Lactulose (Lactulose Liq) 30 ml PO DAILY PRN PRN Reason: SEVERE CONSITIPATION Morphine Sulfate (Oramorph Sr) 60 mg PO Q12H [facility] Non-Formulary Medication (Clonazepam [Klonopin]) 2 mg PO BID [facility] Sennosides (Senokot) 17.2 mg PO Q12H PRN PRN Reason: Moderate Constipation Sodium Chloride (Ns Flush) 2 ml IV.FLUSH PRN PRN PRN Reason: FLUSH AFTER USING IV ACCESS Allergies Allergy/AdvReac Type Severity Reaction Status Date / Time No Known Allergies Allergy Unverified 12/17/17 12:43 Home Medications Medication Instructions Recorded Confirmed Type atenolol 50 mg PO BID 12/17/17 12/17/17 History clonazepam [Klonopin] 2 mg PO BID 12/17/17 12/17/17 History morphine [MS Contin] 60 mg PO Q12H 12/17/17 12/17/17 History Exam Vital signs: Vital Signs 12/17/17 09:44 12/17/17 10:26 12/17/17 12:42 Temperature 98.1 F Pulse Rate 72 70 76 Respiratory Rate 18 12 18 Blood Pressure 171/100 H 158/91 H 165/87 H Pulse Oximetry 99 100 99 12/17/17 15:45 12/17/17 16:00 Temperature 97.9 F Pulse Rate 75 69 Respiratory Rate 18 18 Blood Pressure 160/89 H 181/98 H Pulse Oximetry 99 97 Intake & Output 12/16/17 12/17/17 12/17/17 18:59 06:59 18:59 Intake Total 1000 / 1000 Balance 1000 / 1000 Weight 110.1 kg Intake: IV 1000 / 1000 NS Inj 1,000 ML @ 125 mls/hr IV 1000 / 1000 .CONT .Q8H [facility] Rx#:[id number] Other: Weight On Admission 110.1 kg Narrative: GENERAL: patient sitting up in bed. Appears comfortable. Alert and oriented 3. SKIN: Warm and dry. HEAD: Atraumatic. Normocephalic. EYES: Pupils equal and round. No scleral icterus. No injection or drainage. ENT: No nasal bleeding or discharge. Mucous membranes pink and moist. NECK: Trachea midline. No JVD. CARDIOVASCULAR: Regular rate and rhythm. RESPIRATORY: No accessory muscle use. Clear to auscultation. Breath sounds equal bilaterally. GASTROINTESTINAL: Abdomen soft, non-tender, nondistended. Hepatic and splenic margins not palpable. no suprapubic tenderness. MUSCULOSKELETAL: Extremities without clubbing, cyanosis, or edema. No obvious deformities. NEUROLOGICAL: Awake and alert. No obvious cranial nerve deficits. Motor grossly within normal limits. Five out of 5 muscle strength in the arms and legs. Normal speech. PSYCHIATRIC: Appropriate mood and affect; insight and judgment normal. Results - Labs CBC & Chem 7: 12/17/17 10:35 12/17/17 10:35 Labs: Short CBC 12/17/17 Range/Units 10:35 WBC 9.5 (4.0-11.0) th/mm3 Hgb 14.5 (13.0-17.0) gm/dL Hct 42.1 (39.0-51.0) % Plt Count 169 (150-450) th/mm3 BMP 12/17/17 10:35 Sodium 141 Potassium 3.0 L Chloride 105 Carbon Dioxide 24.4 BUN 14 Creatinine 1.44 H Calcium 9.3 Liver Function 12/17/17 Range/Units 10:35 Total Bilirubin 1.1 H (0.2-1.0) mg/dL AST 22 (15-37) U/L ALT 21 (12-78) U/L Alkaline Phosphatase 86 (45-117) U/L Albumin 4.0 (3.4-5.0) g/dL - Imaging Impressions Abdomen/Pelvis CT 12/17/17 10:25 CONCLUSION: 1. No acute abnormality to explain diffuse abdominal pain. 2. Circumferential wall thickening involving the urinary bladder. This could either relate to trabeculation or could relate to acute cystitis. 3. Hepatic steatosis. 4. Splenomegaly. Caprini VTE Risk Assessment Caprini VTE Risk Assessment: Moderate/High Risk (score >= 2) Caprini Risk Assessment Model: Point Value = 1 Point Value = 2 Point Value = 3 Point Value = 5 Age 41-60 Minor surgery BMI > 25 kg/m2 Swollen legs Varicose veins or History of unexplained or recurrent spontaneous Oral contraceptives or hormone replacement Sepsis (< 1 month) Serious lung disease, including pneumonia (< 1 month) Abnormal pulmonary function Acute myocardial infarction Congestive heart failure (< 1 month) History of inflammatory bowel disease Medical patient at bed rest Age 61-74 Arthroscopic surgery Major open surgery (> 45 min) Laparoscopic surgery (> 45 min) Malignancy Confined to bed (> 72 hours) Immobilizing plaster cast Central venous access Age >= 75 History of VTE Family history of VTE Factor V Leiden Prothrombin [id number] Lupus anticoagulant Anticardiolipin antibodies Elevated serum homocysteine Heparin-induced thrombocytopenia Other congenital or acquired thrombophilia Stroke (< 1 month) Elective arthroplasty Hip, pelvis, or leg fracture Acute spinal cord injury (< 1 month) Prophylaxis Regimen: Total Risk Factor Score Risk Level Prophylaxis Regimen 0-1 Low Early ambulation 2 Moderate Order ONE of the following: *Sequential Compression Device (SCD) *Heparin 5000 units SQ BID 3-4 Higher Order ONE of the following medications: *Heparin 5000 units SQ TID *Enoxaparin/Lovenox 40 mg SQ daily (WT < 150 kg, CrCl > 30 mL/min) *Enoxaparin/Lovenox 30 mg SQ daily (WT < 150 kg, CrCl > 10-29 mL/min) *Enoxaparin/Lovenox 30 mg SQ BID (WT < 150 kg, CrCl > 30 mL/min) AND/OR *Sequential Compression Device (SCD) 5 or more Highest Order ONE of the following medications: *Heparin 5000 units SQ TID (Preferred with Epidurals) *Enoxaparin/Lovenox 40 mg SQ daily (WT < 150 kg, CrCl > 30 mL/min) *Enoxaparin/Lovenox 30 mg SQ daily (WT < 150 kg, CrCl > 10-29 mL/min) *Enoxaparin/Lovenox 30 mg SQ BID (WT < 150 kg, CrCl > 30 mL/min) AND *Sequential Compression Device (SCD) Assessment and Plan - Plan //Acute gastroenteritis //History of chronic diarrhea predominant IBS = CT abdomen with no acute findings of the GI tract C. difficile negative. Check stool for pathogens Consult GI //Hypokalemia. Potassium 3.0 on admission Replace and monitor. //Acute kidney injury. Creatinine 1.4 from normal baseline. Aggressive IV fluid replacement. Monitor. //Mild elevation of total bilirubin. 1.1. Bilirubin troponins pending. //Possible UTI Bladder wall thickening on CT Mild suprapubic pain Check urinalysis. //Chronic pain //Chronic anxiety Continue home meds. Discussed Condition With: patient, nurse, ED physician. H&P: Quality - VTE Deep Vein Thrombosis/Pulmonary Embolism Present on Admission: No
[2017-12-17] MEDS: Morphine Sulfate 60 MG SR Tablet PO SCH (21:51)
[2017-12-17] MEDS: clonazePAM 1 MG Tablet PO SCH (21:52)
[2017-12-17] MEDS: Atenolol 50 MG Tablet PO SCH (21:54)
[2017-12-18] MEDS: Sod Chloride 0.9% Inj 1,000 ML IV.CONT SCH ×3 (02:12→10:07)
[2017-12-18 07:48] LABS: Baso % (Auto) 0.5 % (0.0-2.0); Eos # (Auto) 0.5 th/mm3 (0.0-0.4); Eos % (Auto) 7.7 % (0.0-4.0); Hematocrit 37.5 % (39.0-51.0); Hemoglobin 12.7 gm/dL (13.0-17.0); Lymph # (Auto) 1.3 th/mm3 (1.0-4.8); Lymph % (Auto) 20.3 % (9.0-44.0); Mean Corpuscular HGB Conc 33.8 % (32.0-36.0); Mean Corpuscular Hemoglobin 30.2 pg (27.0-34.0); Mean Corpuscular Volume 89.4 fL (80.0-100.0); Mean Platelet Volume 8.4 fL (7.0-11.0); Mono # (Auto) 0.5 th/mm3 (0.0-0.9); Mono % (Auto) 8.1 % (0.0-8.0); Neut # (Auto) 4.1 th/mm3 (1.8-7.7); Neut % (Auto) 63.4 % (16.0-70.0); Platelet Count 130 th/mm3 (150-450); Red Cell Distribution Width 14.4 % (11.6-17.2); White Blood Count 6.4 th/mm3 (4.0-11.0)
[2017-12-18 08:20] LABS: Alanine Aminotransferase 19 U/L (12-78); Albumin 3.4 g/dL (3.4-5.0); Alkaline Phosphatase 73 U/L (45-117); Anion Gap 10 meq/L (5-15); Aspartate Aminotransferase 18 U/L (15-37); Blood Urea Nitrogen 16 mg/dL (7-18); Carbon Dioxide 23.4 meq/L (21.0-32.0); Chloride 111 meq/L (98-107); Glomerular Filtration Rate 55 mL/min (>89); Glucose,Random 85 mg/dL (74-106); Potassium 3.2 meq/L (3.5-5.1); Sodium 144 meq/L (136-145); Total Protein 6.8 g/dL (6.4-8.2)
[2017-12-18] MEDS: Morphine Sulfate 60 MG SR Tablet PO SCH ×2 (08:36→20:38)
[2017-12-18] MEDS: clonazePAM 1 MG Tablet PO SCH ×2 (08:36→20:45)
[2017-12-18] MEDS: Atenolol 50 MG Tablet PO SCH ×2 (08:39→20:39)
[2017-12-18 08:45] LABS: Bilirubin,Urine Negative (Negative); Calcium Oxalate Crystals,Urine Rare /hpf; Clarity,Urine Hazy (Clear); Color,Urine Amber (Yellw/Straw); Glucose,Urine (UA) Negative (Negative); Hyaline Casts,Urine 8 /lpf (0-3); Leukocyte Esterase,Urine Negative (Negative); Mucus,Urine Few /lpf (Occasional); Nitrite,Urine Negative (Negative); Specific Gravity,Urine 1.059 (1.002-1.035)
[2017-12-18] MEDS ORDERED: Influenza (Quadrivalent) Vaccine 0.5 ML Syringe IM ONE (09:00)
--- NOTE | 2017-12-18 16:53 | P.CONGI ---
History of Present Illness Consult date: 12/18/17 Consult reason: Possible infectious diarrhea, IBS Chief complaint: Kidney Injury, Hypokalemia,Diarrhea History of Present Illness: Patient is a 62-year-old male with medical history significant for hypertension , diarrhea with IBS, chronic pain, pseudoseizure, and chronic anxiety. Patient presented to ER on 12/17/2017 and reported 5-7-day history of nausea with vomiting and dark green to dark brown diarrhea. Patient with reports 2 episodes of incontinence over the last 5 days. Patient states abdominal discomfort generalized and describes as cramping and intermittent with no aggravating or alleviating factors. Reports nausea with vomiting clear emesis and decreased appetite for 3 days. Patient states 4 days ago he had a fever of 101F and has had no fever since. States he was diagnosed with IBS 8 years ago. Denies the use of blood thinners or NSAIDs. States he does not smoke but will drink socially during sporting events. He denies any family history known to him for any gastro-intestinal diseases/disorders. He states due to his IBS he will have months of soft brown BMs followed by months of diarrhea and loose stool. Patient denies any noted bleeding. He denies heartburn ,difficulty swallowing, or painful swallowing painful swallowing. I discussed plan for colonoscopy tomorrow including diet and prep for same. Patient verbalized agreement and understanding. <Elke Villalobos - Last Filed: 12/18/17 16:38> Review of Systems All other systems reviewed negative except as stated in HPI <Elke Villalobos - Last Filed: 12/18/17 16:38> PMFSH - History History Provided By: Patient - Medical History Medical History: Medical History (Last Reviewed 12/18/17 @ 08:09 by Tanya Lyons) Chronic pain Hypertension Tear of medial collateral ligament of left knee - Surgical History Surgical History: Surgical History (Last Reviewed 12/18/17 @ 08:09 by Tanya Lyons) History of repair of anterior cruciate ligament of right knee Hx of cholecystectomy - Family History Family History: Family History (Last Updated 12/17/17 @ 18:05 by Moy Nicole MD) Father Diabetes mellitus Mother Stroke - Tobacco History Second Hand Smoke Exposure: No Smoking Status: Never smoker - Alcohol History How Often Do You Have a Drink Containing Alcohol: Monthly or less - Substance Use History Substance History: No History of Abuse - Travel History Recent Travel in the [place] Within the Last 8 Weeks: No Recent Travel Out of the Country Within the Last 8 Weeks: No - Immunization History Tetanus Immunization: <5 Years Hx Influenza Vaccine This Season: No <Elke Villalobos - Last Filed: 12/18/17 16:38> - Medical History Medical History: Medical History (Last Reviewed 12/18/17 @ 08:09 by Tanya Lyons) Chronic pain Hypertension Tear of medial collateral ligament of left knee - Surgical History Surgical History: Surgical History (Last Reviewed 12/18/17 @ 08:09 by Tanya Lyons) History of repair of anterior cruciate ligament of right knee Hx of cholecystectomy - Family History Family History: Family History (Last Updated 12/17/17 @ 18:05 by Moy Nicole MD) Father Diabetes mellitus Mother Stroke <Oj Bowen - Last Filed: 12/18/17 17:07> Medications and Allergies Active Medications: Active Medications Al Hydroxide/Mg Hydroxide (Milk Of Magnesia Liq) 30 ml PO Q12H PRN PRN Reason: Mild Constipation Atenolol (Tenormin) 50 mg PO BID [facility] Last Admin: 12/18/17 08:39 Dose: 50 mg Bisacodyl (Dulcolax Supp) 10 mg RECTAL DAILY PRN PRN Reason: SEVERE CONSITIPATION Clonazepam (Klonopin) 2 mg PO BID [facility] Last Admin: 12/18/17 08:36 Dose: 2 mg Sodium Chloride (Ns Inj) 1,000 mls @ 100 mls/hr IV.CONT .Q10H [facility] Last Admin: 12/18/17 10:07 Dose: 100 mls/hr Lactulose (Lactulose Liq) 30 ml PO DAILY PRN PRN Reason: SEVERE CONSITIPATION Morphine Sulfate (Oramorph Sr) 60 mg PO Q12H [facility] Last Admin: 12/18/17 08:36 Dose: 60 mg Polyethylene Glycol/Electrolytes (Colyte Liq) 4,000 ml PO ONCE ONE Stop: 12/18/17 16:15 Sennosides (Senokot) 17.2 mg PO Q12H PRN PRN Reason: Moderate Constipation Sodium Chloride (Ns Flush) 2 ml IV.FLUSH PRN PRN PRN Reason: FLUSH AFTER USING IV ACCESS <Elke Villalobos - Last Filed: 12/18/17 16:38> Active Medications: Active Medications Al Hydroxide/Mg Hydroxide (Milk Of Magnesia Liq) 30 ml PO Q12H PRN PRN Reason: Mild Constipation Atenolol (Tenormin) 50 mg PO BID [facility] Last Admin: 12/18/17 08:39 Dose: 50 mg Bisacodyl (Dulcolax Supp) 10 mg RECTAL DAILY PRN PRN Reason: SEVERE CONSITIPATION Clonazepam (Klonopin) 2 mg PO BID [facility] Last Admin: 12/18/17 08:36 Dose: 2 mg Sodium Chloride (Ns Inj) 1,000 mls @ 100 mls/hr IV.CONT .Q10H [facility] Last Admin: 12/18/17 10:07 Dose: 100 mls/hr Lactulose (Lactulose Liq) 30 ml PO DAILY PRN PRN Reason: SEVERE CONSITIPATION Morphine Sulfate (Oramorph Sr) 60 mg PO Q12H [facility] Last Admin: 12/18/17 08:36 Dose: 60 mg Polyethylene Glycol/Electrolytes (Colyte Liq) 4,000 ml PO ONCE ONE Stop: 12/18/17 16:15 Sennosides (Senokot) 17.2 mg PO Q12H PRN PRN Reason: Moderate Constipation Sodium Chloride (Ns Flush) 2 ml IV.FLUSH PRN PRN PRN Reason: FLUSH AFTER USING IV ACCESS <Oj Bowen - Last Filed: 12/18/17 17:07> Allergies Allergy/AdvReac Type Severity Reaction Status Date / Time No Known Allergies Allergy Unverified 12/17/17 12:43 Home Medications Medication Instructions Recorded Confirmed Type atenolol 50 mg PO BID 12/17/17 12/17/17 History clonazepam [Klonopin] 2 mg PO BID 12/17/17 12/17/17 History morphine [MS Contin] 60 mg PO Q12H 12/17/17 12/17/17 History Exam Vital signs: Vital Signs 12/17/17 20:00 12/18/17 00:00 12/18/17 06:11 Temperature 98.1 F 98 F 97.8 F Pulse Rate 76 64 60 Respiratory Rate 18 18 18 Blood Pressure 160/99 H 159/104 H 148/99 H Pulse Oximetry 99 98 95 12/18/17 08:00 12/18/17 12:00 12/18/17 16:22 Temperature 97.7 F 97.1 F L 97.7 F Pulse Rate 64 59 L 60 Respiratory Rate 18 18 16 Blood Pressure 157/97 H 157/97 H 130/83 Pulse Oximetry 98 96 Intake & Output 12/17/17 12/18/17 12/18/17 18:59 06:59 18:59 Intake Total 1100 / 1100 497 / 497 723 / 723 Balance 1100 / 1100 497 / 497 723 / 723 Weight 110.1 kg Intake: IV 1100 / 1100 377 / 377 723 / 723 NS Inj 1,000 ML @ 100 mls/hr IV 1000 / 1000 277 / 277 723 / 723 .CONT .Q10H [facility] Rx#:[id number] KCl 20 mEq Premix Inj 20 meq In 100 / 100 100 / 100 100 ml @ 50 mls/hr IV.SIG Q2H [facility] Rx#:[id number] Oral 120 / 120 Other: # Voids 0 Date of Last Bowel Movement 12/17/17 # Bowel Movements 2 Weight On Admission 110.1 kg - Constitutional no acute distress - Routine HEENT Exam Head: Present: normocephalic - Routine Neck Exam Present: supple - Routine Respiratory Exam Present: CTA bilaterally. Absent: accessory muscle use - Routine Cardiovascular Exam Present: RRR - Routine Abdominal Exam Present: soft, normoactive bowel sounds, tenderness. Absent: guarding, firm Comments: Patient reporting generalized tenderness on palpation during exam - Routine Extremities Exam Present: full ROM, pulses intact - Routine Skin Exam Present: dry, warm. Absent: jaundice - Routine Neurological Exam Present: alert, oriented X3 <Villalobos,Elke - Last Filed: 12/18/17 16:38> Vital signs: Vital Signs 12/17/17 20:00 12/18/17 00:00 12/18/17 06:11 Temperature 98.1 F 98 F 97.8 F Pulse Rate 76 64 60 Respiratory Rate 18 18 18 Blood Pressure 160/99 H 159/104 H 148/99 H Pulse Oximetry 99 98 95 12/18/17 08:00 12/18/17 12:00 12/18/17 16:22 Temperature 97.7 F 97.1 F L 97.7 F Pulse Rate 64 59 L 60 Respiratory Rate 18 18 16 Blood Pressure 157/97 H 157/97 H 130/83 Pulse Oximetry 98 96 Intake & Output 12/17/17 12/18/17 12/18/17 18:59 06:59 18:59 Intake Total 1100 / 1100 497 / 497 723 / 723 Balance 1100 / 1100 497 / 497 723 / 723 Weight 110.1 kg Intake: IV 1100 / 1100 377 / 377 723 / 723 NS Inj 1,000 ML @ 100 mls/hr IV 1000 / 1000 277 / 277 723 / 723 .CONT .Q10H [facility] Rx#:[id number] KCl 20 mEq Premix Inj 20 meq In 100 / 100 100 / 100 100 ml @ 50 mls/hr IV.SIG Q2H [facility] Rx#:[id number] Oral 120 / 120 Other: # Voids 0 Date of Last Bowel Movement 12/17/17 # Bowel Movements 2 Weight On Admission 110.1 kg <Oj Bowen - Last Filed: 12/18/17 17:07> Results - Labs CBC & Chem 7: 12/18/17 06:22 12/18/17 06:22 Labs: Laboratory Results - last 24 hr 12/17/17 12/17/17 12/18/17 10:35 10:35 06:22 WBC 6.4 RBC 4.20 L Hgb 12.7 L Hct 37.5 L MCV 89.4 MCH 30.2 MCHC 33.8 RDW 14.4 Plt Count 130 L MPV 8.4 Neut % (Auto) 63.4 Lymph % (Auto) 20.3 [place] % (Auto) 8.1 H Eos % (Auto) 7.7 H Baso % (Auto) 0.5 Neut # (Auto) 4.1 Lymph # (Auto) 1.3 [place] # (Auto) 0.5 Eos # (Auto) 0.5 H Baso # (Auto) 0.0 WBC Differential . Differential Comment Auto diff final Sodium Potassium Chloride Carbon Dioxide Anion Gap BUN Creatinine Estimated GFR Random Glucose Calcium Magnesium 2.0 Total Bilirubin 1.1 H Direct Bilirubin 0.3 H Indirect Bilirubin 0.8 AST ALT Alkaline Phosphatase Total Protein Albumin Urine Color Urine Clarity Urine pH Ur Specific [place] Urine Protein Urine Glucose (UA) Urine Ketones Urine Occult Blood Urine Nitrate Urine Bilirubin Urine Urobilinogen Ur Leukocyte Esterase Urine RBC Urine WBC Calcium Oxalate Crystal Hyaline Casts Urine Mucus Ur Microscopic Review 12/18/17 12/18/17 06:22 07:50 WBC RBC Hgb Hct MCV MCH MCHC RDW Plt Count MPV Neut % (Auto) Lymph % (Auto) [place] % (Auto) Eos % (Auto) Baso % (Auto) Neut # (Auto) Lymph # (Auto) [place] # (Auto) Eos # (Auto) Baso # (Auto) WBC Differential Differential Comment Sodium 144 Potassium 3.2 L Chloride 111 H Carbon Dioxide 23.4 Anion Gap 10 BUN 16 Creatinine 1.32 H Estimated GFR 55 L Random Glucose 85 Calcium 8.0 L D Magnesium Total Bilirubin 0.8 Direct Bilirubin Indirect Bilirubin AST 18 ALT 19 Alkaline Phosphatase 73 Total Protein 6.8 D Albumin 3.4 D Urine Color Emily Urine Clarity Hazy H Urine pH 6.0 Ur Specific [place] 1.059 H Urine Protein 30 H Urine Glucose (UA) Negative Urine Ketones Negative Urine Occult Blood Negative Urine Nitrate Negative Urine Bilirubin Negative Urine Urobilinogen Less than 2 Ur Leukocyte Esterase Negative Urine RBC 18 H Urine WBC 2 Calcium Oxalate Crystal Rare H Hyaline Casts 8 Urine Mucus Few H Ur Microscopic Review Not Reportable <Elke Villalobos - Last Filed: 12/18/17 16:38> - Labs CBC & Chem 7: 12/18/17 06:22 12/18/17 06:22 Labs: Laboratory Results - last 24 hr 12/17/17 12/17/17 12/18/17 10:35 10:35 06:22 WBC 6.4 RBC 4.20 L Hgb 12.7 L Hct 37.5 L MCV 89.4 MCH 30.2 MCHC 33.8 RDW 14.4 Plt Count 130 L MPV 8.4 Neut % (Auto) 63.4 Lymph % (Auto) 20.3 [place] % (Auto) 8.1 H Eos % (Auto) 7.7 H Baso % (Auto) 0.5 Neut # (Auto) 4.1 Lymph # (Auto) 1.3 [place] # (Auto) 0.5 Eos # (Auto) 0.5 H Baso # (Auto) 0.0 WBC Differential . Differential Comment Auto diff final Sodium Potassium Chloride Carbon Dioxide Anion Gap BUN Creatinine Estimated GFR Random Glucose Calcium Magnesium 2.0 Total Bilirubin 1.1 H Direct Bilirubin 0.3 H Indirect Bilirubin 0.8 AST ALT Alkaline Phosphatase Total Protein Albumin Urine Color Urine Clarity Urine pH Ur Specific [place] Urine Protein Urine Glucose (UA) Urine Ketones Urine Occult Blood Urine Nitrate Urine Bilirubin Urine Urobilinogen Ur Leukocyte Esterase Urine RBC Urine WBC Calcium Oxalate Crystal Hyaline Casts Urine Mucus Ur Microscopic Review 12/18/17 12/18/17 06:22 07:50 WBC RBC Hgb Hct MCV MCH MCHC RDW Plt Count MPV Neut % (Auto) Lymph % (Auto) [place] % (Auto) Eos % (Auto) Baso % (Auto) Neut # (Auto) Lymph # (Auto) [place] # (Auto) Eos # (Auto) Baso # (Auto) WBC Differential Differential Comment Sodium 144 Potassium 3.2 L Chloride 111 H Carbon Dioxide 23.4 Anion Gap 10 BUN 16 Creatinine 1.32 H Estimated GFR 55 L Random Glucose 85 Calcium 8.0 L D Magnesium Total Bilirubin 0.8 Direct Bilirubin Indirect Bilirubin AST 18 ALT 19 Alkaline Phosphatase 73 Total Protein 6.8 D Albumin 3.4 D Urine Color Emily Urine Clarity Hazy H Urine pH 6.0 Ur Specific [place] 1.059 H Urine Protein 30 H Urine Glucose (UA) Negative Urine Ketones Negative Urine Occult Blood Negative Urine Nitrate Negative Urine Bilirubin Negative Urine Urobilinogen Less than 2 Ur Leukocyte Esterase Negative Urine RBC 18 H Urine WBC 2 Calcium Oxalate Crystal Rare H Hyaline Casts 8 Urine Mucus Few H Ur Microscopic Review Not Reportable <Oj Bowen - Last Filed: 12/18/17 17:07> Assessment and Plan (1) Diarrhea Status: Acute Code(s): R19.7 - Diarrhea, unspecified - Plan Patient is a 62-year-old male with medical history significant for hypertension , diarrhea with IBS, chronic pain, pseudoseizure, and chronic anxiety. Patient presented to ER on 12/17/2017 and reported 5-7-day history of nausea with vomiting and dark green to dark brown diarrhea. Patient with reports 2 episodes of incontinence over the last 5 days. Patient states abdominal discomfort generalized and describes as cramping and intermittent with no aggravating or alleviating factors. Reports nausea with vomiting clear emesis and decreased appetite for 3 days. Patient states 4 days ago he had a fever of 101F and has had no fever since. States he was diagnosed with IBS 8 years ago. Denies the use of blood thinners or NSAIDs. States he does not smoke but will drink socially during sporting events. He denies any family history known to him for any gastro-intestinal diseases/disorders. He states due to his IBS he will have months of soft brown BMs followed by months of diarrhea and loose stool. Patient denies any noted bleeding. He denies heartburn ,difficulty swallowing, or painful swallowing painful swallowing. I discussed plan for colonoscopy tomorrow including diet and prep for same. Patient verbalized agreement and understanding. Diarrhea/IBS hx Patient reporting 5-7-day history of diarrhea which he states ranged in color from dark green to dark brown. Patient also reporting generalized abdominal pain with intermittent nausea and vomiting and decreased appetite. He endorses fever of 101 F 4 days ago none since. Denies any noted bleeding. Hemoglobin 12.7 hematocrit 37.5 with platelet count 130. C. difficile specimen negative. Plan for colonoscopy on 12/19/2017 Plan: -Clear liquid dinner -N.p.o. after midnight -Obtain consent for colonoscopy -GoLYTELY prep -Supportive care -Continue IV hydration -Pain medication as per attending -Further recommendations to follow This patient has been seen by myself and Dr. Bowen and this note is written on his behalf - Attending Attestation Dr. Bowen <Elke Villalobos - Last Filed: 12/18/17 16:38> (1) Diarrhea Status: Acute Code(s): R19.7 - Diarrhea, unspecified - Plan Seen and examined with [employer], stool studies pending. If -ve colonoscopy planned for tomorrow. Thank you The exam, history, and the medical decision-making described in the above note were completed with the assistance of the mid-level provider. I reviewed and agree with the findings presented. I attest that I had a [id number] encounter with the patient on the same day, and personally performed and documented my assessment and findings in the medical record. <Oj Bowen - Last Filed: 12/18/17 17:07>
[2017-12-18] MEDS ORDERED: PEG 3350/E-Lyte Soln 4000 ML Bottle PO ONE (17:30)
--- NOTE | 2017-12-18 19:02 | P.PNIM ---
Subjective Interval history: Patient says the diarrhea continues. Denies any chest pain or shortness of breath. Physical Exam Vital signs: Vital Signs 12/17/17 20:00 12/18/17 00:00 12/18/17 06:11 Temperature 98.1 F 98 F 97.8 F Pulse Rate 76 64 60 Respiratory Rate 18 18 18 Blood Pressure 160/99 H 159/104 H 148/99 H Pulse Oximetry 99 98 95 12/18/17 08:00 12/18/17 12:00 12/18/17 16:22 Temperature 97.7 F 97.1 F L 97.7 F Pulse Rate 64 59 L 60 Respiratory Rate 18 18 16 Blood Pressure 157/97 H 157/97 H 130/83 Pulse Oximetry 98 96 Intake & Output 12/18/17 12/18/17 12/19/17 06:59 18:59 06:59 Intake Total 497 / 497 1443 / 1443 Balance 497 / 497 1443 / 1443 Intake: IV 377 / 377 723 / 723 NS Inj 1,000 ML @ 100 mls/hr IV 277 / 277 723 / 723 .CONT .Q10H POP Rx#:[id number] KCl 20 mEq Premix Inj 20 meq In 100 / 100 100 ml @ 50 mls/hr IV.SIG Q2H POP Rx#:[id number] Oral 120 / 120 720 / 720 Other: # Voids 0 2 Date of Last Bowel Movement 12/17/17 # Bowel Movements 2 Narrative: GENERAL: patient sitting up in bed. Appears comfortable. Alert and oriented 3. SKIN: Warm and dry. HEAD: Normocephalic. EYES: No scleral icterus. No injection or drainage. NECK: Supple, trachea midline. No JVD or lymphadenopathy. CARDIOVASCULAR: Regular rate and rhythm without murmurs, gallops, or rubs. RESPIRATORY: Breath sounds equal bilaterally. No accessory muscle use. GASTROINTESTINAL: Abdomen soft, non-tender, nondistended. MUSCULOSKELETAL: No cyanosis, or edema. BACK: Nontender without obvious deformity. No CVA tenderness. Results - Labs CBC & Chem 7: 12/18/17 06:22 12/18/17 06:22 Laboratory Results - last 24 hr 12/17/17 12/17/17 12/18/17 10:35 10:35 06:22 WBC 6.4 RBC 4.20 L Hgb 12.7 L Hct 37.5 L MCV 89.4 MCH 30.2 MCHC 33.8 RDW 14.4 Plt Count 130 L MPV 8.4 Neut % (Auto) 63.4 Lymph % (Auto) 20.3 [place] % (Auto) 8.1 H Eos % (Auto) 7.7 H Baso % (Auto) 0.5 Neut # (Auto) 4.1 Lymph # (Auto) 1.3 [place] # (Auto) 0.5 Eos # (Auto) 0.5 H Baso # (Auto) 0.0 WBC Differential . Differential Comment Auto diff final Sodium Potassium Chloride Carbon Dioxide Anion Gap BUN Creatinine Estimated GFR Random Glucose Calcium Magnesium 2.0 Total Bilirubin 1.1 H Direct Bilirubin 0.3 H Indirect Bilirubin 0.8 AST ALT Alkaline Phosphatase Total Protein Albumin Urine Color Urine Clarity Urine pH Ur Specific [place] Urine Protein Urine Glucose (UA) Urine Ketones Urine Occult Blood Urine Nitrate Urine Bilirubin Urine Urobilinogen Ur Leukocyte Esterase Urine RBC Urine WBC Calcium Oxalate Crystal Hyaline Casts Urine Mucus Ur Microscopic Review 12/18/17 12/18/17 06:22 07:50 WBC RBC Hgb Hct MCV MCH MCHC RDW Plt Count MPV Neut % (Auto) Lymph % (Auto) [place] % (Auto) Eos % (Auto) Baso % (Auto) Neut # (Auto) Lymph # (Auto) [place] # (Auto) Eos # (Auto) Baso # (Auto) WBC Differential Differential Comment Sodium 144 Potassium 3.2 L Chloride 111 H Carbon Dioxide 23.4 Anion Gap 10 BUN 16 Creatinine 1.32 H Estimated GFR 55 L Random Glucose 85 Calcium 8.0 L D Magnesium Total Bilirubin 0.8 Direct Bilirubin Indirect Bilirubin AST 18 ALT 19 Alkaline Phosphatase 73 Total Protein 6.8 D Albumin 3.4 D Urine Color [place] Urine Clarity Hazy H Urine pH 6.0 Ur Specific [place] 1.059 H Urine Protein 30 H Urine Glucose (UA) Negative Urine Ketones Negative Urine Occult Blood Negative Urine Nitrate Negative Urine Bilirubin Negative Urine Urobilinogen Less than 2 Ur Leukocyte Esterase Negative Urine RBC 18 H Urine WBC 2 Calcium Oxalate Crystal Rare H Hyaline Casts 8 Urine Mucus Few H Ur Microscopic Review Not Reportable Microbiology 12/17/17 11:50 Stool Enteric Pathogens (PCR) - Final No enteric pathogens detected by PCR (No Salmonella sp., Shigella sp., Campylobacter sp., Yersinia enterocolitica, Vibrio sp., Norovirus, or EHEC (Shiga Toxin 1 or Shiga Toxin 2) detected. Assessment and Plan - Plan //Acute gastroenteritis //History of chronic diarrhea predominant IBS = CT abdomen with no acute findings of the GI tract C. difficile negative. Check stool for pathogens Appreciate GI assistance. //Hypokalemia. Potassium 3.0 on admission Improved. 3.2. Replaced again. //Acute kidney injury. Creatinine 1.4 from normal baseline. Aggressive IV fluid replacement. Monitor. = 12/18. Improved. 1.3. Continue IV fluids. //Mild elevation of total bilirubin. 1.1. Bilirubin troponins pending. //Microscopic hematuria. Bladder wall thickening on CT Mild suprapubic pain Check urinalysis. -No signs of infection on urinalysis. Some microscopic hematuria. Patient will need follow-up with urology as outpatient. //Chronic pain //Chronic anxiety Continue home meds. Discussed Condition With: patient, nurse Discharge Planning: pending GI clearance.
[2017-12-19] MEDS: Sod Chloride 0.9% Inj 1,000 ML IV.CONT SCH ×2 (03:29→07:59)
[2017-12-19] MEDS ORDERED: Chlorhexidine Gluconate 2% 1 Pack (2 Cloths) TOPICAL ONE ×2 (07:30→09:00)
[2017-12-19] MEDS ORDERED: Sodium Chlor 0.9% Inj 500 ML IV.CONT ONE ×2 (07:30→09:00)
[2017-12-19] MEDS ORDERED: Metoprolol Tartrate 25 MG Tablet PO ONE ×2 (07:30→09:00)
[2017-12-19 08:10] LABS: Albumin 3.7 g/dL (3.4-5.0); Calcium 7.7 mg/dL (8.5-10.1); Carbon Dioxide 24.4 meq/L (21.0-32.0); Magnesium 2.2 mg/dL (1.5-2.5); Phosphorus 5.4 mg/dL (2.5-4.9); Potassium 3.7 meq/L (3.5-5.1)
[2017-12-19] MEDS ORDERED: Lidocaine PF 1% Inj 5 ML Syringe OTHER ONE (09:46)
--- NOTE | 2017-12-19 10:13 | GIPROC ---
[facility] [address] [facility]. [facility], [address] COLONOSCOPY PROCEDURE REPORT EXAM DATE: 12/19/2017 PATIENT NAME: Juwan Cardenas MR #: [id number] BIRTHDATE: 1955 ENDOSCOPIST: Oj Bowen MD ORDER #: [id number] ROLL FORMING MACHINE OPERATOR: Nathalia Mayen and Isi Angel STATUS: inpatient INDICATIONS: The patient is a 62 yr old male here for a colonoscopy due to unexplained diarrhea PROCEDURE PERFORMED: Colonoscopy with biopsy MEDICATIONS: None and Per Anesthesia. PREP QUALITY: The [place] Bowel Prep Score was Right colon 2, Mid colon 2, and Left colon 2. Total = 6. ESTIMATED BLOOD LOSS: None CONSENT: The patient understands the risks and benefits of the procedure and understands that these risks include, but are not limited to: sedation, allergic reaction, infection, perforation and/or bleeding. Alternative means of evaluation and treatment include, among others: physical exam, x-rays, and/or surgical intervention. The patient elects to proceed with this endoscopic procedure. medical equipment was checked for proper function. Hand hygiene and appropriate measures for infection prevention was taken. After the risks, benefits and alternatives of the procedure were thoroughly explained, Informed consent was verified, confirmed and timeout was successfully executed by the treatment team. A digital exam revealed external hemorrhoids The Pentax [id number] endoscope was introduced through the anus and advanced to the cecum, which was identified by both the appendix and ileocecal valve. The instrument was then slowly withdrawn as the colon was fully examined. COLON FINDINGS: A polypoid shaped sessile polyp ranging between 3-5mm in size was found in the sigmoid colon. A polypectomy was performed with cold forceps. The resection was complete and the polyp tissue was completely retrieved. The colon mucosa was otherwise normal. Multiple random biopsies of the area were performed using cold forceps. Retroflexed views revealed internal hemorrhoids and Retroflexed views revealed small internal hemorrhoids The scope was then completely withdrawn from the patient and the procedure terminated. PROCEDURE WITHDRAWAL TIME:6minutes ADVERSE EVENTS: There were no complications. IMPRESSIONS: 1. A sessile polyp ranging between 3-5mm in size was found in the sigmoid colon; polypectomy was performed with cold forceps 2. The colon mucosa was otherwise normal; multiple random biopsies of the area were performed using cold forceps 3. Retroflexed views revealed internal hemorrhoids 4. Retroflexed views revealed small internal hemorrhoids 5. Revealed external hemorrhoids RECOMMENDATIONS: 1. Await biopsy results. Biopsy results will not be ready for 7-10 days. If you don't hear from us in two weeks, call our office for results. 2. Benefiber 2 tsp daily 3. Continue surveillance 4. Yearly hemoccult RECALL: Return 5 years Colonoscopy, pending biopsy results Oj Bowen MD eSigned: Oj Bowen MD 12/19/2017 10:13 AM cc: PATIENT NAME: Juwan Cardenas MR#: [id number]
[2017-12-19] MEDS ORDERED: Sod Chloride 0.9% Inj 1,000 ML IV.SIG SCH (10:45)
[2017-12-19] MEDS: Atenolol 50 MG Tablet PO SCH ×2 (10:58→20:01)
[2017-12-19] MEDS: clonazePAM 1 MG Tablet PO SCH ×2 (10:58→19:59)
[2017-12-19] MEDS: Morphine Sulfate 60 MG SR Tablet PO SCH ×2 (10:59→19:56)
--- NOTE | 2017-12-19 11:42 | P.PNIM ---
Subjective Interval history: Patient reports diarrhea continues. Denies any chest pain or shortness of breath. He is very upset about not getting his morphine this morning. Says he is "Jonesin" his morphine. Does not appear to be in withdrawal. Physical Exam Vital signs: Vital Signs 12/18/17 12:00 12/18/17 16:22 12/18/17 19:14 Temperature 97.1 F L 97.7 F 97.7 F Pulse Rate 59 L 60 63 Respiratory Rate 18 16 16 Blood Pressure 157/97 H 130/83 129/78 Pulse Oximetry 96 96 12/18/17 20:00 12/19/17 00:00 12/19/17 04:00 Temperature 97.3 F L 98.1 F 98.1 F Pulse Rate 65 63 64 Respiratory Rate 16 18 18 Blood Pressure 104/82 122/78 126/79 Pulse Oximetry 95 90 L 96 12/19/17 08:00 12/19/17 10:16 12/19/17 10:40 Temperature 97.9 F 97.4 F L 97.7 F Pulse Rate 70 69 68 Respiratory Rate 20 16 16 Blood Pressure 138/83 95/47 L 105/67 Pulse Oximetry 96 99 98 Intake & Output 12/18/17 12/19/17 12/19/17 18:59 06:59 18:59 Intake Total 1443 / 1443 880 / 880 50 / 50 Balance 1443 / 1443 880 / 880 50 / 50 Intake: IV 723 / 723 880 / 880 NS Inj 1,000 ML @ 100 mls/hr IV 723 / 723 880 / 880 .CONT .Q10H [facility] Rx#:[id number] Oral 720 / 720 Anesthesia Amount 50 / 50 Other: # Voids 2 5 Date of Last Bowel Movement 12/18/17 12/19/17 # Bowel Movements 1 Narrative: GENERAL: patient sitting up in bed. Appears comfortable. Alert and oriented 3. SKIN: Warm and dry. HEAD: Normocephalic. EYES: No scleral icterus. No injection or drainage. NECK: Supple, trachea midline. No JVD. CARDIOVASCULAR: Regular rate and rhythm without murmurs, gallops, or rubs. RESPIRATORY: Breath sounds equal bilaterally. No accessory muscle use. GASTROINTESTINAL: Abdomen soft, non-tender, nondistended. MUSCULOSKELETAL: No cyanosis, or edema. BACK: Nontender without obvious deformity. No CVA tenderness. Results - Labs CBC & Chem 7: 12/18/17 06:22 12/19/17 06:09 Laboratory Results - last 24 hr 12/19/17 06:09 Sodium 144 Potassium 3.7 Chloride 107 Carbon Dioxide 24.4 Anion Gap 13 BUN 24 H Creatinine 1.90 H Estimated GFR 36 L Random Glucose 78 Calcium 7.7 L Phosphorus 5.4 H Magnesium 2.2 Albumin 3.7 Microbiology 12/17/17 11:50 Stool Enteric Pathogens (PCR) - Final No enteric pathogens detected by PCR (No Salmonella sp., Shigella sp., Campylobacter sp., Yersinia enterocolitica, Vibrio sp., Norovirus, or EHEC (Shiga Toxin 1 or Shiga Toxin 2) detected. Assessment and Plan - Plan //Acute gastroenteritis //History of chronic diarrhea predominant IBS = CT abdomen with no acute findings of the GI tract C. difficile negative. Check stool for pathogens Appreciate GI assistance. = Status post colonoscopy. Follow-up results. //Hypokalemia. Potassium 3.0 on admission Improved. 3.2. Replaced again. //Acute kidney injury. Creatinine 1.4 from normal baseline. Aggressive IV fluid replacement. Monitor. = 12/18. Improved. 1.3. Continue IV fluids. = 12/19. Worsening kidney function. 1.9. Will bolus IV fluids. There is a thickened bladder on CT scan, suspect chronic outlet obstruction. Check bladder scan and kidney ultrasound. //Mild elevation of total bilirubin. 1.1. Bilirubin troponins pending. //Microscopic hematuria. Bladder wall thickening on CT Mild suprapubic pain Check urinalysis. -No signs of infection on urinalysis. Some microscopic hematuria. Patient will need follow-up with urology as outpatient. //Chronic pain //Chronic anxiety Continue home meds. Discharge Planning: Still with diarrhea and acute kidney injury. pending GI clearance.
--- NOTE | 2017-12-19 12:17 | US ---
EXAM DATE: 12/19/2017 12:00 AM EDT AGE/SEX: 62 years / Male INDICATIONS: Obstruction. CLINICAL DATA: This is the patient's subsequent encounter. Patient reports that signs and symptoms h ave been present for 1 day and indicates a pain score of 10/10. MEDICAL/SURGICAL HISTORY: Hypertension. Cholecystectomy. Right knee surgery. [place] [facility] [place] 12/17/2017. . MEASUREMENTS: Right Kidney:__11.2 x 5.9 x 6.6 cm Left Kidney:__12.7 x 6.0 x 6.6 cm FINDINGS: Patient's body habitus limits this study. Right Kidney: Normal echotexture and cortical thickness. No mass or hydronephrosis. Left Kidney: Normal echotexture and cortical thickness. No mass or hydronephrosis. Bladder: Within normal limits given the degree of distension. No wall thickening observed. Other: None. CONCLUSION: 1. Study limited by the patient's body habitus. 2. No abnormality appreciated. Electronically signed by: Gal Patel MD 12/19/2017 12:15 PM EDT
[2017-12-19] MEDS: Sodium Chloride 0.45 % Inj 1,000 ML IV.CONT SCH ×3 (13:16→23:10)
[2017-12-19 17:04] LABS: Carbon Dioxide 24.3 meq/L (21.0-32.0); Potassium 3.9 meq/L (3.5-5.1)
--- NOTE | 2017-12-19 18:27 | ECG ---
Date Performed: 12/19/2017 Time Performed: 07:48:20 PTAGE: 62 years EKG: Sinus rhythm . Short MO interval Anteroseptal T wave changes Borderline ECG NO PREVIOUS TRACING DOCTOR: Tuan Godinez Interpretating Date/Time 12/19/2017 18:27:16
[2017-12-20] MEDS: Sodium Chloride 0.45 % Inj 1,000 ML IV.CONT SCH ×3 (07:33→11:00)
[2017-12-20] MEDS: clonazePAM 1 MG Tablet PO SCH (08:08)
[2017-12-20] MEDS: Morphine Sulfate 60 MG SR Tablet PO SCH (08:08)
[2017-12-20] MEDS: Atenolol 50 MG Tablet PO SCH (08:08)
[2017-12-20 08:41] LABS: Baso % (Auto) 0.6 % (0.0-2.0); Eos # (Auto) 0.4 th/mm3 (0.0-0.4); Eos % (Auto) 6.8 % (0.0-4.0); Hematocrit 37.1 % (39.0-51.0); Hemoglobin 12.6 gm/dL (13.0-17.0); Lymph # (Auto) 1.1 th/mm3 (1.0-4.8); Lymph % (Auto) 20.7 % (9.0-44.0); Mean Corpuscular HGB Conc 33.9 % (32.0-36.0); Mean Corpuscular Hemoglobin 30.7 pg (27.0-34.0); Mean Corpuscular Volume 90.6 fL (80.0-100.0); Mean Platelet Volume 9.1 fL (7.0-11.0); Mono # (Auto) 0.3 th/mm3 (0.0-0.9); Mono % (Auto) 6.2 % (0.0-8.0); Neut # (Auto) 3.5 th/mm3 (1.8-7.7); Neut % (Auto) 65.7 % (16.0-70.0); Platelet Count 133 th/mm3 (150-450); Red Blood Count 4.09 mil/mm3 (4.50-5.90); Red Cell Distribution Width 13.8 % (11.6-17.2); White Blood Count 5.4 th/mm3 (4.0-11.0)
[2017-12-20 09:14] LABS: Albumin 3.6 g/dL (3.4-5.0); Calcium 8.4 mg/dL (8.5-10.1); Carbon Dioxide 26.2 meq/L (21.0-32.0); Potassium 3.6 meq/L (3.5-5.1)
--- NOTE | 2017-12-20 09:14 | P.PNGI ---
Subjective Interval history: Patient ambulating in room, denies any abdominal pain or nausea vomiting. States he has not had a stool since during prep for colonoscopy <Elke Villalobos - Last Filed: 12/20/17 09:05> Physical Exam Vital signs: Vital Signs 12/19/17 10:16 12/19/17 10:40 12/19/17 12:00 Temperature 97.4 F L 97.7 F 98.3 F Pulse Rate 69 68 70 Respiratory Rate 16 16 20 Blood Pressure 95/47 L 105/67 137/70 Pulse Oximetry 99 98 97 12/19/17 16:13 12/19/17 19:31 12/19/17 20:34 Temperature 98.4 F 98.1 F Pulse Rate 69 73 Respiratory Rate 16 16 14 Blood Pressure 122/74 114/61 Pulse Oximetry 96 12/20/17 00:00 12/20/17 04:00 Temperature 98.5 F 98.7 F Pulse Rate 70 68 Respiratory Rate 18 18 Blood Pressure 168/84 H 150/67 H Pulse Oximetry 93 L 95 Intake & Output 12/19/17 12/20/17 12/20/17 18:59 06:59 18:59 Intake Total 2290 / 2290 1000 / 1000 1000 / 1000 Output Total 600 / 600 Balance 2290 / 2290 400 / 400 1000 / 1000 Weight 117.9 kg Intake: IV 1520 / 1520 1000 / 1000 1000 / 1000 LR 1000 mL Inj 1,000 ML @ 30 400 / 400 mls/hr IV.CONT .Q24H ONE Rx#: [id number] NS Inj 1,000 ML @ 100 mls/hr IV 120 / 120 .CONT .Q10H POP Rx#:[id number] 1/2 Normal Saline Inj 1,000 ML 1000 / 1000 1000 / 1000 @ 125 mls/hr IV.CONT .Q8H POP Rx#:[id number] NS Inj 1,000 ML @ Wide Open IV. 1000 / 1000 SIG BOLUS POP Rx#:[id number] Oral 720 / 720 0 / 0 Anesthesia Amount 50 / 50 Output: Urine 600 / 600 Other: # Voids 3 Date of Last Bowel Movement 12/19/17 # Bowel Movements 1 0 - Constitutional no acute distress - Routine HEENT Exam Head: Present: normocephalic - Routine Respiratory Exam Present: CTA bilaterally. Absent: accessory muscle use - Routine Cardiovascular Exam Present: RRR - Routine Abdominal Exam Present: soft, normoactive bowel sounds. Absent: tenderness, guarding, firm - Routine Extremities Exam Present: full ROM - Routine Skin Exam Present: dry, warm, normal turgor. Absent: jaundice - Routine Neurological Exam Present: alert, oriented X3 - Detailed Neurological Exam: Coma Scale Eye Opening: Spontaneous Verbal Response: Oriented Motor Response: Obey commands [place] Coma Scale Total: 15 - Routine Psychiatric Exam Present: normal affect, cooperative <Villalobos,Elke - Last Filed: 12/20/17 09:05> Vital signs: Vital Signs 12/19/17 19:31 12/19/17 20:34 12/20/17 00:00 Temperature 98.1 F 98.5 F Pulse Rate 73 70 Respiratory Rate 16 14 18 Blood Pressure 114/61 168/84 H Pulse Oximetry 96 93 L 12/20/17 04:00 12/20/17 08:00 12/20/17 12:00 Temperature 98.7 F 100.0 F H 98.8 F Pulse Rate 68 79 64 Respiratory Rate 18 20 20 Blood Pressure 150/67 H 145/79 H 126/76 Pulse Oximetry 95 97 93 L Intake & Output 12/19/17 12/20/17 12/20/17 18:59 06:59 18:59 Intake Total 2290 / 2290 1000 / 1000 1999 Output Total 600 / 600 Balance 2290 / 2290 400 / 400 1999 Weight 117.9 kg Intake: IV 1520 / 1520 1000 / 1000 1999 / 1999 LR 1000 mL Inj 1,000 ML @ 30 400 / 400 mls/hr IV.CONT .Q24H ONE Rx#: [id number] NS Inj 1,000 ML @ 100 mls/hr IV 120 / 120 .CONT .Q10H POP Rx#:[id number] 1/2 Normal Saline Inj 1,000 ML 1000 / 1000 1999 @ 125 mls/hr IV.CONT .Q8H POP Rx#:[id number] NS Inj 1,000 ML @ Wide Open IV. 1000 / 1000 SIG BOLUS POP Rx#:[id number] Oral 720 / 720 0 / 0 Anesthesia Amount 50 / 50 Output: Urine 600 / 600 Other: # Voids 3 Date of Last Bowel Movement 12/19/17 12/19/17 # Bowel Movements 1 0 <Oj Bowen - Last Filed: 12/20/17 16:38> Results - Labs CBC & Chem 7: 12/20/17 07:09 12/19/17 16:16 Laboratory Results - last 24 hr 12/19/17 12/20/17 12/20/17 16:16 00:21 07:09 WBC 5.4 RBC 4.09 L Hgb 12.6 L Hct 37.1 L MCV 90.6 MCH 30.7 MCHC 33.9 RDW 13.8 Plt Count 133 L MPV 9.1 Neut % (Auto) 65.7 Lymph % (Auto) 20.7 [place] % (Auto) 6.2 Eos % (Auto) 6.8 H Baso % (Auto) 0.6 Neut # (Auto) 3.5 Lymph # (Auto) 1.1 [place] # (Auto) 0.3 Eos # (Auto) 0.4 Baso # (Auto) 0.0 WBC Differential . Differential Comment Auto diff final Sodium 143 Potassium 3.9 Chloride 111 H Carbon Dioxide 24.3 Anion Gap 8 BUN 22 H Creatinine 1.30 Estimated GFR 56 L POC Glucose 87 Random Glucose 87 Calcium 8.0 L - Imaging Impressions Abdomen/Bladder Ultrasound 12/19/17 00:00 CONCLUSION: 1. Study limited by the patient's body habitus. 2. No abnormality appreciated. <Elke Villalobos - Last Filed: 12/20/17 09:05> - Labs CBC & Chem 7: 12/20/17 07:09 12/20/17 07:09 Laboratory Results - last 24 hr 12/19/17 12/20/17 12/20/17 16:16 00:21 07:09 WBC 5.4 RBC 4.09 L Hgb 12.6 L Hct 37.1 L MCV 90.6 MCH 30.7 MCHC 33.9 RDW 13.8 Plt Count 133 L MPV 9.1 Neut % (Auto) 65.7 Lymph % (Auto) 20.7 [place] % (Auto) 6.2 Eos % (Auto) 6.8 H Baso % (Auto) 0.6 Neut # (Auto) 3.5 Lymph # (Auto) 1.1 [place] # (Auto) 0.3 Eos # (Auto) 0.4 Baso # (Auto) 0.0 WBC Differential . Differential Comment Auto diff final Sodium 143 Potassium 3.9 Chloride 111 H Carbon Dioxide 24.3 Anion Gap 8 BUN 22 H Creatinine 1.30 Estimated GFR 56 L POC Glucose 87 Random Glucose 87 Calcium 8.0 L Phosphorus Magnesium Albumin 12/20/17 07:09 WBC RBC Hgb Hct MCV MCH MCHC RDW Plt Count MPV Neut % (Auto) Lymph % (Auto) [place] % (Auto) Eos % (Auto) Baso % (Auto) Neut # (Auto) Lymph # (Auto) [place] # (Auto) Eos # (Auto) Baso # (Auto) WBC Differential Differential Comment Sodium 139 Potassium 3.6 Chloride 105 Carbon Dioxide 26.2 Anion Gap 8 BUN 17 Creatinine 1.14 Estimated GFR 65 L POC Glucose Random Glucose 84 Calcium 8.4 L Phosphorus 2.8 D Magnesium 2.1 Albumin 3.6 <Oj Bowen - Last Filed: 12/20/17 16:38> Assessment and Plan (1) Diarrhea Status: Acute Code(s): R19.7 - Diarrhea, unspecified - Plan Patient is a 62-year-old male with medical history significant for hypertension , diarrhea with IBS, chronic pain, pseudoseizure, and chronic anxiety. Patient presented to ER on 12/17/2017 and reported 5-7-day history of nausea with vomiting and dark green to dark brown diarrhea. Patient with reports 2 episodes of incontinence over the last 5 days. Patient states abdominal discomfort generalized and describes as cramping and intermittent with no aggravating or alleviating factors. Reports nausea with vomiting clear emesis and decreased appetite for 3 days. Patient states 4 days ago he had a fever of 101F and has had no fever since. States he was diagnosed with IBS 8 years ago. Denies the use of blood thinners or NSAIDs. States he does not smoke but will drink socially during sporting events. He denies any family history known to him for any gastro-intestinal diseases/disorders. He states due to his IBS he will have months of soft brown BMs followed by months of diarrhea and loose stool. Patient denies any noted bleeding. He denies heartburn ,difficulty swallowing, or painful swallowing painful swallowing. I discussed plan for colonoscopy tomorrow including diet and prep for same. Patient verbalized agreement and understanding. Diarrhea/IBS hx Patient reporting 5-7-day history of diarrhea which he states ranged in color from dark green to dark brown. Patient also reporting generalized abdominal pain with intermittent nausea and vomiting and decreased appetite. He endorses fever of 101 F 4 days ago none since. Denies any noted bleeding. Hemoglobin 12.7 hematocrit 37.5 with platelet count 130. C. difficile specimen negative. Plan for colonoscopy on 12/19/2017 12/20/2017-patient post Colonoscopy on 12/19/2017, findings as follows---> A sessile polyp ranging between 3-5mm in size was found in the sigmoid colon; polypectomy was performed with cold forceps. The colon mucosa was otherwise normal; multiple random biopsies of the area were performed using cold forceps. Retroflexed views revealed internal hemorrhoids. Retroflexed views revealed small internal hemorrhoid. Revealed external hemorrhoids. Hemoglobin 12.6 hematocrit 37.1. Plan Regular diet as tolerated/advised patient to add Benefiber 2 teaspoons daily Colonoscopy results/recommendations Discussed with patient-agrees to follow-up with GI post discharge- repeat colonoscopy in 5 years Bowel regimen Continue IV hydration Supportive care Further recommendations to follow based on patient status This patient has been seen by myself and Dr. Bowen and this note is written on his behalf - Attending Attestation Dr. Bowen <Elke Villalobos - Last Filed: 12/20/17 09:05> (1) Diarrhea Status: Acute Code(s): R19.7 - Diarrhea, unspecified - Plan Seen and examined with MARGIN ANALYST, s/p colonoscopy. No diarrhea reported. Biopsies-p. GI will sign off, reconsult as needed. GI fu upon dc. Thank you <Oj Bowen - Last Filed: 12/20/17 16:38> <Oj Bowen - Last Filed: 12/20/17 16:38> (1) Diarrhea Qualifiers: Diarrhea type: unspecified type Qualified Code(s): R19.7 - Diarrhea, unspecified
[2017-12-20 09:18] LABS: Magnesium 2.1 mg/dL (1.5-2.5); Phosphorus 2.8 mg/dL (2.5-4.9)
[2017-12-20 09:23] VITALS: RESP 20
--- NOTE | 2017-12-20 09:54 | P.PN ---
Subjective Interval history: Patient resting comfortably in bed s/p colonoscopy 12/19/17. Eating breakfast in the room, tolerating PO intake well. Says he "feels a lot better." Denies fever, chills, nausea, vomiting, constipation, diarrhea. Physical Exam Vital signs: Vital Signs 12/19/17 10:16 12/19/17 10:40 12/19/17 12:00 Temperature 97.4 F L 97.7 F 98.3 F Pulse Rate 69 68 70 Respiratory Rate 16 16 20 Blood Pressure 95/47 L 105/67 137/70 Pulse Oximetry 99 98 97 12/19/17 16:13 12/19/17 19:31 12/19/17 20:34 Temperature 98.4 F 98.1 F Pulse Rate 69 73 Respiratory Rate 16 16 14 Blood Pressure 122/74 114/61 Pulse Oximetry 96 12/20/17 00:00 12/20/17 04:00 12/20/17 08:00 Temperature 98.5 F 98.7 F 100.0 F H Pulse Rate 70 68 79 Respiratory Rate 18 18 20 Blood Pressure 168/84 H 150/67 H 145/79 H Pulse Oximetry 93 L 95 97 Intake & Output 12/19/17 12/20/17 12/20/17 18:59 06:59 18:59 Intake Total 2290 / 2290 1000 / 1000 1000 / 1000 Output Total 600 / 600 Balance 2290 / 2290 400 / 400 1000 / 1000 Weight 117.9 kg Intake: IV 1520 / 1520 1000 / 1000 1000 / 1000 LR 1000 mL Inj 1,000 ML @ 30 400 / 400 mls/hr IV.CONT .Q24H ONE Rx#: [id number] NS Inj 1,000 ML @ 100 mls/hr IV 120 / 120 .CONT .Q10H POP Rx#:[id number] 1/2 Normal Saline Inj 1,000 ML 1000 / 1000 1000 / 1000 @ 125 mls/hr IV.CONT .Q8H POP Rx#:[id number] NS Inj 1,000 ML @ Wide Open IV. 1000 / 1000 SIG BOLUS POP Rx#:[id number] Oral 720 / 720 0 / 0 Anesthesia Amount 50 / 50 Output: Urine 600 / 600 Other: # Voids 3 Date of Last Bowel Movement 12/19/17 # Bowel Movements 1 0 Narrative: GENERAL: Alert, oriented x3 well developed male in NAD SKIN: Warm and dry. HEAD: Atraumatic. Normocephalic. EYES: Pupils equal and round. No scleral icterus. No injection or drainage. ENT: No nasal bleeding or discharge. Mucous membranes pink and moist. NECK: Trachea midline. No JVD. CARDIOVASCULAR: Regular rate and rhythm. RESPIRATORY: No accessory muscle use. Clear to auscultation. Breath sounds equal bilaterally. GASTROINTESTINAL: Abdomen soft, non-tender, nondistended. Hepatic and splenic margins not palpable. MUSCULOSKELETAL: Extremities without clubbing, cyanosis, or edema. No obvious deformities. NEUROLOGICAL: Awake and alert. No obvious cranial nerve deficits. Motor grossly within normal limits. Five out of 5 muscle strength in the arms and legs. Normal speech. PSYCHIATRIC: Appropriate mood and affect; insight and judgment normal. Results - Labs CBC & Chem 7: 12/20/17 07:09 12/20/17 07:09 Laboratory Results - last 24 hr 12/19/17 12/20/17 12/20/17 16:16 00:21 07:09 WBC 5.4 RBC 4.09 L Hgb 12.6 L Hct 37.1 L MCV 90.6 MCH 30.7 MCHC 33.9 RDW 13.8 Plt Count 133 L MPV 9.1 Neut % (Auto) 65.7 Lymph % (Auto) 20.7 [place] % (Auto) 6.2 Eos % (Auto) 6.8 H Baso % (Auto) 0.6 Neut # (Auto) 3.5 Lymph # (Auto) 1.1 [place] # (Auto) 0.3 Eos # (Auto) 0.4 Baso # (Auto) 0.0 WBC Differential . Differential Comment Auto diff final Sodium 143 Potassium 3.9 Chloride 111 H Carbon Dioxide 24.3 Anion Gap 8 BUN 22 H Creatinine 1.30 Estimated GFR 56 L POC Glucose 87 Random Glucose 87 Calcium 8.0 L Phosphorus Magnesium Albumin 12/20/17 07:09 WBC RBC Hgb Hct MCV MCH MCHC RDW Plt Count MPV Neut % (Auto) Lymph % (Auto) [place] % (Auto) Eos % (Auto) Baso % (Auto) Neut # (Auto) Lymph # (Auto) [place] # (Auto) Eos # (Auto) Baso # (Auto) WBC Differential Differential Comment Sodium 139 Potassium 3.6 Chloride 105 Carbon Dioxide 26.2 Anion Gap 8 BUN 17 Creatinine 1.14 Estimated GFR 65 L POC Glucose Random Glucose 84 Calcium 8.4 L Phosphorus 2.8 D Magnesium 2.1 Albumin 3.6 - Imaging Impressions Abdomen/Bladder Ultrasound 12/19/17 00:00 CONCLUSION: 1. Study limited by the patient's body habitus. 2. No abnormality appreciated. Assessment and Plan - Assessment (1) Diarrhea Code(s): R19.7 - Diarrhea, unspecified Status: Acute - Plan Acute gastroenteritis History of chronic diarrhea predominant IBS - CT abdomen with no acute findings of the GI tract C. difficile negative. Check stool for pathogens Appreciate GI assistance. - Status post colonoscopy. Follow-up outpatient with GI. Hypokalemia. - Potassium 3.0 on admission Repleted - 3.7 -> 3.9 -> 3.6 on 12/20 - Stable Acute kidney injury. Creatinine 1.4 from normal baseline. Aggressive IV fluid replacement. Monitor. - 12/18. Improved. 1.3. Continue IV fluids. - 12/19. Worsening kidney function. 1.9. Will bolus IV fluids. There is a thickened bladder on CT scan, suspect chronic outlet obstruction. Check bladder scan and kidney ultrasound. - 12/20 Cr- 1.14. - Bladder scan negative. - Mild elevation of total bilirubin - Initially 1.1 - repeat 0.8 Microscopic hematuria Bladder wall thickening on CT Mild suprapubic pain Check urinalysis. -No signs of infection on urinalysis. Some microscopic hematuria. Patient will need follow-up with urology as outpatient. Chronic pain Chronic anxiety Continue home meds Patient left AMA. Code Status: Full
--- NOTE | 2017-12-20 11:20 | P.DS ---
Date of admission: 12/17/17 14:48 Primary care physician: No Primary Care Physician Brief History from admission: 62-year-old male with a history of hypertension, chronic pain, pseudoseizure, diarrhea predominant IBS, chronic anxiety who presents with a one-week history of nausea, nonbloody vomiting, nonbloody, bilious yellow/green diarrhea. Patient reports feeling weak and fatigued secondary to diarrhea, and although the vomiting has improved, he has had several accidents today.. He does report some vague suprapubic pain over the past 2 days, without any dysuria. Denies any chest pain or shortness breath. Denies lightheadedness or dizziness. DS: Medications - Discharge Medications Prescriptions: clonazepam [Klonopin] 2 mg PO BID #4 tab morphine [MS Contin] 60 mg PO Q12H #4 tab DS: Summary Hospital Course: Acute gastroenteritis, RESOLVED History of chronic diarrhea predominant IBS - CT abdomen with no acute findings of the GI tract C. difficile negative. Check stool for pathogens Appreciate GI assistance. - Status post colonoscopy. Follow-up outpatient with GI. Hypokalemia. STABLE - Potassium 3.0 on admission Repleted - 3.7 -> 3.9 -> 3.6 on 12/20 - Stable Acute kidney injury.BACK AT BASELINE Creatinine 1.4 from normal baseline. Aggressive IV fluid replacement. Monitor. - 12/18. Improved. 1.3. Continue IV fluids. - 12/19. Worsening kidney function. 1.9. Will bolus IV fluids. There is a thickened bladder on CT scan, suspect chronic outlet obstruction. Check bladder scan and kidney ultrasound. - 12/20 Cr- 1.14. - Bladder scan negative. - Mild elevation of total bilirubin - Initially 1.1 - repeat 0.8 Microscopic hematuria Bladder wall thickening on CT Mild suprapubic pain Check urinalysis. -No signs of infection on urinalysis. Some microscopic hematuria. Patient will need follow-up with urology as outpatient. Chronic pain Chronic anxiety Continue home meds Patient left AMA. Code Status: Full PT RECOMMENDS SNF. PATIENT LEFT AMA - Time Spent with Patient Total time spent providing and/or coordinating discharge services: Greater than 30 minutes - Quality: VTE Deep Vein Thrombosis/Pulmonary Embolism Present on Admission: No Exam Vital signs: Vital Signs 12/19/17 12:00 12/19/17 16:13 12/19/17 19:31 Temperature 98.3 F 98.4 F 98.1 F Pulse Rate 70 69 73 Respiratory Rate 20 16 16 Blood Pressure 137/70 122/74 114/61 Pulse Oximetry 97 96 12/19/17 20:34 12/20/17 00:00 12/20/17 04:00 Temperature 98.5 F 98.7 F Pulse Rate 70 68 Respiratory Rate 14 18 18 Blood Pressure 168/84 H 150/67 H Pulse Oximetry 93 L 95 12/20/17 08:00 Temperature 100.0 F H Pulse Rate 79 Respiratory Rate 20 Blood Pressure 145/79 H Pulse Oximetry 97 Intake & Output 12/19/17 12/20/17 12/20/17 18:59 06:59 18:59 Intake Total 2290 / 2290 1000 / 1000 1000 / 1000 Output Total 600 / 600 Balance 2290 / 2290 400 / 400 1000 / 1000 Weight 117.9 kg Intake: IV 1520 / 1520 1000 / 1000 1000 / 1000 LR 1000 mL Inj 1,000 ML @ 30 400 / 400 mls/hr IV.CONT .Q24H ONE Rx#: [id number] NS Inj 1,000 ML @ 100 mls/hr IV 120 / 120 .CONT .Q10H POP Rx#:[id number] 1/2 Normal Saline Inj 1,000 ML 1000 / 1000 1000 / 1000 @ 125 mls/hr IV.CONT .Q8H POP Rx#:[id number] NS Inj 1,000 ML @ Wide Open IV. 1000 / 1000 SIG BOLUS POP Rx#:[id number] Oral 720 / 720 0 / 0 Anesthesia Amount 50 / 50 Output: Urine 600 / 600 Other: # Voids 3 Date of Last Bowel Movement 12/19/17 # Bowel Movements 1 0 Narrative: GENERAL: Alert, oriented x3 well developed male in NAD CARDIOVASCULAR: Regular rate and rhythm. RESPIRATORY: No accessory muscle use. Clear to auscultation. Breath sounds equal bilaterally. GASTROINTESTINAL: Abdomen soft, non-tender, nondistended. Hepatic and splenic margins not palpable. MUSCULOSKELETAL: Extremities without clubbing, cyanosis, or edema. No obvious deformities. NEUROLOGICAL: Awake and alert. No obvious cranial nerve deficits. Motor grossly within normal limits. Five out of 5 muscle strength in the arms and legs. Normal speech. Results Procedures completed during hospitalization: NONE Pending studies at discharge: Pending at discharge 12/19/17 15:13 Surgical [PTH] Routine Labs on day of discharge: Labs from last 24 hours 12/20/17 12/20/17 12/20/17 07:09 07:09 00:21 WBC 5.4 RBC 4.09 L Hgb 12.6 L Hct 37.1 L MCV 90.6 MCH 30.7 MCHC 33.9 RDW 13.8 Plt Count 133 L MPV 9.1 Neut % (Auto) 65.7 Lymph % (Auto) 20.7 [place] % (Auto) 6.2 Eos % (Auto) 6.8 H Baso % (Auto) 0.6 Neut # (Auto) 3.5 Lymph # (Auto) 1.1 [place] # (Auto) 0.3 Eos # (Auto) 0.4 Baso # (Auto) 0.0 WBC Differential . Differential Comment Auto diff final Sodium 139 Potassium 3.6 Chloride 105 Carbon Dioxide 26.2 Anion Gap 8 BUN 17 Creatinine 1.14 Estimated GFR 65 L POC Glucose 87 Random Glucose 84 Calcium 8.4 L Phosphorus 2.8 D Magnesium 2.1 Albumin 3.6 12/19/17 16:16 WBC RBC Hgb Hct MCV MCH MCHC RDW Plt Count MPV Neut % (Auto) Lymph % (Auto) [place] % (Auto) Eos % (Auto) Baso % (Auto) Neut # (Auto) Lymph # (Auto) [place] # (Auto) Eos # (Auto) Baso # (Auto) WBC Differential Differential Comment Sodium 143 Potassium 3.9 Chloride 111 H Carbon Dioxide 24.3 Anion Gap 8 BUN 22 H Creatinine 1.30 Estimated GFR 56 L POC Glucose Random Glucose 87 Calcium 8.0 L Phosphorus Magnesium Albumin - Impressions ITS Impressions Abdomen/Pelvis CT 12/17/17 10:25 CONCLUSION: 1. No acute abnormality to explain diffuse abdominal pain. 2. Circumferential wall thickening involving the urinary bladder. This could either relate to trabeculation or could relate to acute cystitis. 3. Hepatic steatosis. 4. Splenomegaly. Abdomen/Bladder Ultrasound 12/19/17 00:00 CONCLUSION: 1. Study limited by the patient's body habitus. 2. No abnormality appreciated. Discharge Plan - Discharge Disposition Patient Disposition: 03 Discharge to SNF - Discharge Condition Condition: Stable - Discharge Order Discharge Orders: Discharge Order (Routine); Ordered 12/20/17 Ordered By: Payton Hilton - Physicians Team Primary Care Provider: Primary Care Physici,No Attending Provider: Payton Hilton Other Providers: Jules Vicente ; Oj Bowen MD ; Elroy Irizarry MD
[2017-12-20 13:04] VITALS: BP 126/76; PULSE 64; TEMP 98.8; O2SAT 93
== END 2017-12-20 14:45 | disposition left against medical advice (07) ==
LOC: NEPC 09:25 → NEDA 14:48 → N04 16:15
PROVIDERS: ADMIT Hospitalist; ATTEND Hospitalist
PROC: COLONOS (2017-12-19 09:46)
DX: K63.5 Polyp of colon; I10 Essential (primary) hypertension; K52.9 Noninfective gastroenteritis and colitis, unspecified; N17.9 Acute kidney failure, unspecified; Z23 Encounter for immunization; F41.9 Anxiety disorder, unspecified; K64.8 Other hemorrhoids; R31.9 Hematuria, unspecified; K64.4 Residual hemorrhoidal skin tags; E87.6 Hypokalemia